=== PATIENT | male | born 1980 | race Caucasian/White ===

== ENCOUNTER 2021-05-01 22:55 | Inpatient (IN) | payer BC, SELFPAY ==
[2021-05-01 22:59] VITALS: BP 163/104; PULSE 69; RESP 18; TEMP 35.9; O2SAT 100; BMI 35.1
--- NOTE | 2021-05-01 22:59 | XRR_ITS ---
PROCEDURE INFORMATION: Exam: XR Chest Exam date and time: 05/01/2021 10:59 PM Age: 41 years old Clinical indication: Pain; Left-sided; Additional info: Cp TECHNIQUE: Imaging protocol: XR of the chest. Views: 1 view. COMPARISON: CT neck wo con [id number] 08/04/2016 3:14 PM FINDINGS: Lungs: No consolidation. Pleural spaces: No pleural effusion. No pneumothorax. Heart/Mediastinum: No cardiomegaly. Bones/joints: Unremarkable. XR/XR chest 1V portable [id number] IMPRESSION: No acute abnormality demonstrated.
--- NOTE | 2021-05-01 23:00 | ECG_ITS ---
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1980 Requested By: Amaury Mckeon Order Number: [id number] Reading MD: JUAN DALE Measurements Intervals [place] Rate: 60 P: 48 WY: 136 QRS: 45 QRSD: 101 T: 31 QT: 372 QTc: 373 Interpretive Statements SINUS RHYTHM SEPTAL MYOCARDIAL INFARCTION , POSSIBLY ACUTE [40+ ms Q WAVE IN V1/V2] MARKED ST ELEVATION, CONSIDER ANTERIOR INJURY [MARKED ST ELEVATION W/O NORMALLY INFLECTED T-WAVE IN V2-V5] ACUTE AK No previous ECG available for comparison Electronically Signed On 05-02-2021 19:55:25 CAKE KNOCKER by JUAN DALE [id number]
--- NOTE | 2021-05-01 23:14 | W.ED.CHESTPA ---
HPI - Chest Pain General: Chief Complaint: Chest Pain Stated Complaint: Chest Pain, Vomiting Time Seen by Provider: 05/01/21 23:10 Source: patient Mode of arrival: ambulatory Limitations: no limitations History of Present Illness: HPI narrative: 41-year-old male states that he started having chest pain along with nausea at 930 states the pain is worsened and currently is a 9 out of 10 he states he had a couple episodes of vomiting at home. No history of heart disease he does have high blood pressure and is a longtime smoker. He has some diaphoresis he denies any worsening or improving factors Associated symptoms: Reports nausea and vomiting; Deny abdominal pain, dyspnea or fever(s) Review of Systems Const: Denies: fever(s), chills, body aches or change in appetite Eyes: Denies: blurry vision or eye discomfort ENMT: Denies: throat pain or dental pain Card: Reports: chest pain Resp: Denies: dyspnea GI: Reports: nausea and vomiting; Denies: abdominal pain or diarrhea : Denies: dysuria Musc: Denies: neck pain or back pain Skin/Breast: Denies: rash Neuro: Denies: headache(s) Psych: Denies: depression Darrius/Lymph: Denies: easy bruising All/Imm: Denies: urticaria Physical Exam Const: COMMON NORMALS: no acute distress, patient oriented x3 and healthy appearing HENMT: COMMON NORMALS: normocephalic and atraumatic HEAD & SCALP: normocephalic and atraumatic Eye: COMMON NORMALS: Equal, round and reactive pupils present and EOMs intact bilaterally PUPIL: Yes Equal, round and reactive pupils present Neck/C-Spine: COMMON NORMALS: full ROM and supple Chest: COMMONS NORMALS: normal inspection of the chest and normal palpation of entire chest wall Resp: COMMON NORMALS: normal respiratory effort, No retractions, No use of accessory muscles and clear to auscultation bilaterally AUSCULTATION: clear to auscultation bilaterally Cardio: COMMON NORMALS: regular rate, regular rhythm and No murmurs present (Cardio) RATE: regular rate RHYTHM: regular rhythm GI: COMMON NORMALS: Normal to inspection, nondistended, normoactive bowel sounds present, Soft to palpation, non-tender and no masses PALPATION: Yes Soft to palpation Extremity: COMMON NORMALS: normal to inspection and full ROM Neuro: COMMON NORMALS: patient oriented x3, moves all extremities and no focal motor deficits Psych: COMMON NORMALS: mental status grossly normal, Normal thought process present and cooperative THOUGHT PROCESS: Normal thought process present Skin: COMMON NORMALS: no rashes or lesions noted and no wounds GENERAL SKIN EXAM: no rashes or lesions noted Course Vital Signs: Vital signs: Vital Signs Temperature 96.6 F L 05/01/21 22:59 Pulse Rate 60 05/01/21 23:39 Respiratory Rate 18 05/01/21 22:59 Blood Pressure 157/96 05/01/21 23:39 Pulse Oximetry 99 05/01/21 23:39 MDM - Chest Pain MDM Narrative: Medical decision making narrative: Patient presents here with an acute STEMI. I called the Production [facility] patient was taken to the Production [facility]ship at this time it [id number]. Patient has been stable while here. Lab Data: Labs: Lab Results 05/01/21 05/01/21 23:15 23:15 WBC 15.4 10^3/uL H 10 ^3/uL (4.0-10.0) RBC 5.75 10^6/uL H 10 ^6/uL (4.1-5.3) Hgb 17.7 g/dL H g/dL (11.7-16.6) Hct 51.1 % % (42.0-52.0) MCV 88.9 fl fl (80-94) MCH 30.8 pg pg (28.0-34.0) MCHC 34.6 g/dL g/dL (30.0-36.0) RDW 12.9 % % (12.1-15.1) Plt Count 261 10^3/cmm 10^3 /cmm (130-400) MPV 10.0 fL fL (7.4-10.4) Neut % (Auto) 66.8 % % Lymph % (Auto) 23.1 % % [place] % (Auto) 7.4 % % Eos % (Auto) 1.4 % % Baso % (Auto) 0.6 % % Neut # (Auto) 10.26 10^3/uL H 1 0^3/uL (1.8-7.7) Lymph # (Auto) 3.6 10^3/uL 10^3/ uL (0.8-4.8) Platte # (Auto) 1.1 10^3/uL H 10^ 3/uL (0.2-0.9) Eos # (Auto) 0.2 10^3/uL 10^3/ uL (0.0-0.8) Baso # (Auto) 0.1 10^3/uL 10^3/ uL (0.0-0.1) Nucleated RBC % (a uto) 0 % % Nucleated RBCs # 0.0 /100WBC /100W BC Sodium 142 mmol/L mmol/L (136-145) Potassium 4.2 mmol/L mmol/L (3.5-5.1) Chloride 101 mmol/L mmol/L (98-107) Carbon Dioxide 23 mmol/L mmol/L (22-29) BUN 10 mg/dL mg/dL (6-20) Creatinine 1.1 mg/dL mg/dL (0.7-1.2) Glucose 98 mg/dL mg/dL (65-115) Calculated Osmolal ity 293 mOsm/kg mOsm/ kg (285-295) Calcium 9.3 mg/dL mg/dL (8.5-10.5) Total Bilirubin 0.4 mg/dL mg/dL (0.15-1.2) AST 24 U/L U/L (0-40) ALT 26 U/L U/L (0-41) Alkaline Phosphata se 48 IU/L IU/L (40-130) Total Protein 7.5 g/dL g/dL (6.6-8.7) Albumin 4.8 g/dL g/dL (3.5-5.2) Globulin 2.7 g/dL g/dL (1.3-4.6) EKG Data^: EKG 1: Attestation: I personally reviewed and interpreted this EKG as follows: EKG interpretation date: 05/22/21 EKG interpretation time: 23:07 Interpretation: nsr hr [address] elevation v1-v3 qrs 101 qtc 373 Critical Care Time Critical Care Time: Critical Care Time: Yes Total Critical Care Time: 35 Attestation: The high probability of a clinically significant, sudden or life threatening deterioration of the patient's [] system(s) required my full and direct attention, intervention and personal management. The critical care time is as shown. This time is in addition to time spent performing any reported procedures but includes the following: [x] Data and vital sign review and interpretation [x] Patient assessment, examination and intervention [x] Documentation [x] Medication orders and management Discharge Plan Discharge Patient Disposition: Admitted As Inpatient Clinical Impression: STEMI (ST elevation myocardial infarction) Qualifiers: Involved coronary artery: unspecified coronary artery Qualified Code(s): I21.3 - ST elevation (STEMI) myocardial infarction of unspecified site Condition: Stable Coding Level of Care Code ED Company Doctor for Rex Fwcelestino Exam Comprehensive
[2021-05-01 23:16] VITALS: BP 170/102; PULSE 65; O2SAT 100
[2021-05-01] MEDS: ticagrelor 90 mg Tablet 180 MG PO (23:20)
[2021-05-01] MEDS: sodium chloride 0.9% 500 ML 999 ML IV (23:21)
[2021-05-01] MEDS: heparin 5,000 unit/mL INJ 1 mL 4000 UNIT IVP (23:21)
[2021-05-01 23:22] LABS: Basophils # 0.1 10^3/uL (0.0-0.1); Basophils % 0.6 %; Eosinophils # 0.2 10^3/uL (0.0-0.8); Eosinophils % 1.4 %; Hematocrit 51.1 % (42.0-52.0); Hemoglobin 17.7 g/dL (11.7-16.6); Lymphocytes # 3.6 10^3/uL (0.8-4.8); Lymphocytes % 23.1 %; Mean Corpuscular HGB Conc 34.6 g/dL (30.0-36.0); Mean Corpuscular Hemoglobin 30.8 pg (28.0-34.0); Mean Corpuscular Volume 88.9 fl (80-94); Monocytes # 1.1 10^3/uL (0.2-0.9); Monocytes % 7.4 %; Neutrophils # 10.26 10^3/uL (1.8-7.7); Neutrophils % 66.8 %; Nucleated Red Blood Cells % 0 %; Platelet Count 261 10^3/cmm (130-400); Red Blood Count 5.75 10^6/uL (4.1-5.3); Red Cell Distribution Width 12.9 % (12.1-15.1); White Blood Count 15.4 10^3/uL (4.0-10.0)
[2021-05-01] MEDS: aspirin 325 mg Tablet PO (23:23)
[2021-05-01] MEDS: nitroglycerin 0.4 mg sublingual Tablet SUBLINGUAL ×2 (23:25→23:36)
[2021-05-01] MEDS: morphine 4 mg/mL SDV 1 mL IM (23:26)
--- NOTE | 2021-05-01 23:30 | PM.HP ---
Providers/Chief Complaint Admitting Physician: Keon Beaulieu MD Chief Complaint: Chest Pain, Vomiting History of Present Illness Panfilo Ervin is a 41 year old male past medical history is continues tobacco abuse family history of heart problem presented with chest pain which initially felt like heartburn 2 hours in duration. Upon arrival EKG was suggestive of anterior ST elevation [place] with hyperacute T waves. I responded to STEMI pager and saw the patient he appeared to be in moderate to severe chest pain. He is loaded with ticagrelor aspirin and given heparin. We are planning to take him to [facility] now. Patient and family by bedside has been explained all risk benefit and alternative for the procedure they understand risk of stroke major minor bleed contrast-induced nephropathy urgent emergent bypass or vascular surgery and transfusion. They would like to proceed with it. Review of Systems Const: Denies: fever(s), chills, body aches or change in appetite Eyes: Denies: blurry vision or eye discomfort ENMT: Denies: throat pain or dental pain Card: Reports: chest pain Resp: Denies: dyspnea GI: Reports: nausea and vomiting; Denies: abdominal pain or diarrhea : Denies: dysuria Musc: Denies: neck pain or back pain Skin/Breast: Denies: rash Neuro: Denies: headache(s) Psych: Denies: depression Darrius/Lymph: Denies: easy bruising All/Imm: Denies: urticaria Vitals/I&O/Wt Last Vital Signs Temp 96.6 F L 05/01/21 22:59 Pulse 65 05/01/21 23:16 Resp 18 05/01/21 22:59 BP 170/102 05/01/21 23:16 Pulse Ox 100 05/01/21 23:16 Weight last 48 hrs Weight 259 lb Physical Exam Narrative: EXAM NARRATIVE: GENERAL: Patient is alert, awake and oriented x3. Patient is moderate to severe distress NECK: No jugular vein distension. HEENT: No cyanosis. No icterus. No pallor. HEART: Regular S1 and S2. No murmur, rub or gallop. LUNGS: Clear to auscultate bilaterally. ABDOMEN: Soft, nontender and nondistended. Positive bowel sounds. No guarding, rebound or tenderness. CENTRAL NERVOUS SYSTEM: Grossly nonfocal. EXTREMITIES: Lower extremities without edema bilaterally. Data : 05/01/21 23:15 12/15/21 23:15 A&P Assessment and plan (1) STEMI (ST elevation myocardial infarction): We will proceed with left heart cath/PCI if indicated. Status: Acute Qualifiers: Involved coronary artery: LAD coronary artery Qualified Code(s): I21.02 - ST elevation (STEMI) myocardial infarction involving left anterior descending coronary artery (2) HTN, goal below 130/80: I will start patient on nitro drip since blood pressure is elevated. Status: Acute Attestations Medical Necessity Statement*: I am expecting his stay to cross more than 2 midnights Coding Level of Care Code Acute Marketing Operations Intern for [facility] Fwd Diagnoses STEMI (ST elevation myocardial infarction) I21.02 Involved coronary artery: LAD coronary artery HTN, goal below 130/80 I10
[2021-05-01 23:32] VITALS: BP 153/85; PULSE 71; O2SAT 97
[2021-05-01] MEDS: nitroglycerin drip 50 MG/250 ML PREMIX 15 MG IV (23:35)
[2021-05-01] MEDS: ondansetron 2 mg/ML SDV 2 mL 4 MG IVP (23:36)
[2021-05-01 23:39] VITALS: BP 157/96; PULSE 60; O2SAT 99
[2021-05-01 23:43] LABS: Troponin(5th) Baseline 27 ng/L (0-15)
[2021-05-01 23:46] LABS: Alanine Aminotransferase 26 U/L (0-41); Albumin Level 4.8 g/dL (3.5-5.2); Alkaline Phosphatase 48 IU/L (40-130); Anion Gap 22.2 (5-19); Aspartate Amino Transferase 24 U/L (0-40); Blood Urea Nitrogen 10 mg/dL (6-20); Calcium 9.3 mg/dL (8.5-10.5); Carbon Dioxide 23 mmol/L (22-29); Chloride 101 mmol/L (98-107); Globulin 2.7 g/dL (1.3-4.6); Glomerular Filtration Rate 74.1 mL/min (90-130); Glucose 98 mg/dL (65-115); Osmolality Calculated 293 mOsm/kg (285-295); Potassium 4.2 mmol/L (3.5-5.1); Sodium 142 mmol/L (136-145); Total Bilirubin 0.4 mg/dL (0.15-1.2); Total Protein 7.5 g/dL (6.6-8.7)
--- NOTE | 2021-05-01 23:49 | XACV_ITS ---
Ht: 188 cm Wt: 117 kg BSA: 2.51 m2 Gender: Male : 1980 Exam Priority: Routine Procedure(s): Procedure Description: Diagnostic procedure Procedure Description: PCI procedure Procedure Description: Left Heart Catheterization Procedure Description: Drug Eluting Coronary Stent Procedure Description: PTCA Procedure Description: Miscellaneous Procedure Description: ACT Procedure [facility] Cath Status: Emergency Diagnostic Findings * Left Main has no disease. * Circumflex has no disease. * Right Coronary Artery has no disease. * Mid Left Anterior Descending: total occlusion, PETER: 0 flow. * Coronary angiography shows left dominance. PCI Status: Emergency PCI Indication: STEMI - Immediate PCI for STEMI Interventional Findings * Mid Left Anterior Descendin% stenosis treated with a Drug Eluting Stent. 0% residual stenosis, PETER: 3 flow. Conclusions 1. There is total occlusion coronary artery disease with one vessel disease. 2. Mid Left Anterior Descending was treated with a Drug Eluting Stent. Recommendations * Continue current medical management and risk factor modification. Interventional RX Recommendation: PCI w/o planned CABG Diagnostic RX Recommendation: PCI w/o planned CABG Pressures Phase:Rest AO : 154 / 99 ( 122 ) @ 6:41:56 PM 147 / 119 ( 133 ) @ 6:41:56 PM 144 / 96 ( 107 ) @ 6:41:56 PM 144 / 96 ( 113 ) @ 6:41:56 PM LV : 173 / 0 / 25 @ 6:41:56 PM 167 / 0 / 24 @ 6:41:56 PM Valves Phase:DefaultPhase AV : 28.0 @ 12:41:56 AM 28.0 @ 12:41:56 AM AV Mean Gradient: 18.0 @ 12:41:56 AM 18.0 @ 12:41:56 AM Clinical Evaluation EBL: 5mL-10mL Procedural Details Pre-Procedure Time Out. Identified patient by full name and date of as verbalized by the patient/guarantor. Does the consent match the physician's order: Yes. Accurate & Complete Informed Consent: Yes. Inpatient/Outpatient History & Physical on Chart: Yes. If H&P is completed, is and addenduem needed: N/A Emergent; If yes, is the addendum complete: N/A Emergent. Visualize and Verify Site with Patient/Guarantor: N/A. Relevant Radiology Images available: N/A. Pre-op teaching completed and patient verbalized understanding. The risks, benefits, and alternatives of sedation and/or procedure were discussed by physician. The patient agrees to continue. Procedure started. [facility] Clinical Fraility Score: 2: Well. Molder Hand Indications: ACS > 24 hours. Chest Pain Symptom Assessment: Atypical Angina. Correct patient, site and procedure confirmed by cath team. Current diagnosis: STEMI. PERRLA. 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 Lungs clear x 5 lobes. IV Site on Arrival: 20 gauge in the left anticubital. IV Site on Arrival: 20 gauge in the right anticubital. IV Fluids: 0.9% NaCl at KVO. 0 mL infused prior to laborer electroplating. Pre Procedural Pulses: bilateral radial was 3+. Oxygen started at 2liters/min via nasal canula. right groin was prepped with chloroprep then draped in the usual sterile fashion. Physician notified. Baseline sample Acquired. HR: 62 BPM. Physician arrived. Physician scrubbed in. Immediate Pre-Procedure Time Out. Correct Patient: Yes; Correct Procedure: Yes; Correct Site: Yes; Correct Patient Position: Yes; Correct Supplies: Yes; Dried Flammable Prep: Yes; Blood Products Available: n/a. Lidocaine 1% infiltrated to the right radial. Admit Source: Emergency department. Arterial access obtained. Delay in PCI related to other reason: system delay. 6 burundian XB 3.5 guide catheter was inserted over the wire. Multiple views taken of left coronary artery. Inflation number : 1 A AB TREK 2.50X15 RX BALLOON was prepped and advanced across the Prox LAD , then inflated to 20 FLOYD for 0:10 seconds. Inflation number: 2 The AB TREK 2.50X15 RX BALLOON was reinflated across the Prox LAD, to 20 FLOYD for 0:24 seconds. Balloon out. Wire out. [place] guidewire was advanced through the guide catheter to lesion in the prox LAD. Runthrough guidewire was advanced through the guide catheter to lesion in the prox LAD. Stent inserted to lesion in the prox LAD. Inflation Number : 3 A MDT R HEENA 3.0X18 RADHA -Lot Number# [id number] Exp 01/27/2024 was prepped and advanced across the Prox LAD. The stent was deployed at 12 FLOYD for 0:17 seconds. Stent balloon out over wire. Results checked. Inflation number : 4 A MDT NC EUPHORA RX [id number] BALLOON was prepped and advanced across the Prox LAD , then inflated to 14 FLOYD for 0:27 seconds. Balloon inserted to lesion in the prox LAD. Inflation number: 5 The MDT NC EUPHORA RX [id number] BALLOON was reinflated across the Prox LAD, to 14 FLOYD for 0:17 seconds. Balloon inserted to lesion in the prox LAD. Balloon out. Results checked. Wire out. ACT drawn. Results 193 seconds. Therapeutic limits - pre-heparin administration 90-150 seconds and monitoring heparin during a vascular procedure >250 seconds. Guide catheter out. A 5 burundian JR4 catheter in over wire. EDP Sample taken: LV 173/0,25; HR: 60 BPM; SpO2: 98%. Pullback taken: LV 167/-1,24; AO 144/96(107); Mean: 18mmHg, Peak to Peak: 28mmHg, SEP: 16sec/min; HR: 67 BPM; SpO2: 98%. Multiple views taken of right coronary artery. Catheter out. A TR Band was successful obtaining hemostatsis at the Right Radial artery insertion site. Post Procedure: Pulses reassessed and unchanged. PERRLA. 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 No VTE prophylaxis required. Medication's Wasted: Lidocaine 1% = 18 mL. Medication's Wasted: Nitro = 49.8 mg. Total IV fluids: 100 mL. Post-op diagnosis: STEMI. Complications: none. Estimated blood loss: 5mL-10mL. Responsiveness - Normal response to verbal stimuli; alert and oriented, PERRLA. Airway - Unaffected, no intervention required; spontaneous ventilation. Circulation: W/N/L, pulses unchanged. Nausea/Vomiting: No. Procedure completed. Patient transferred by wheelchair to 1st floor. Vital chart was stopped. Access Site Site: Right Radial artery Sheath Size: 6 Fr Hemostasis Method: TR Band Hemostasis Success: Successful Procedure Medications Start: 11:59 PM Stop: 11:59 PM Medication: Versed Amount: 1 mg Route: I.V. Start: 11:59 PM Stop: 11:59 PM Medication: Fentanyl Amount: 50 mcg Route: I.V. Start: 12:10 AM Stop: 12:10 AM Medication: Versed Amount: 1 mg Route: I.V. Start: 12:10 AM Stop: 12:10 AM Medication: Fentanyl Amount: 50 mcg Route: I.V. Start: 12:09 AM Stop: 12:09 AM Medication: Nitrogylcerin Amount: 200 mcg Route: I.A. Start: 12:12 AM Stop: 12:12 AM Medication: Heparin Amount: 6000 units Route: I.V. Start: 12:19 AM Stop: 12:19 AM Medication: Aggrastat 12.5 mg/250 mL Amount: 60 ml Route: I.V. bolus Start: 12:20 AM Stop: 12:20 AM Medication: Versed Amount: 1 mg Route: I.V. Start: 12:20 AM Stop: 12:20 AM Medication: Fentanyl Amount: 50 mcg Route: I.V. Start: 12:23 AM Stop: 12:23 AM Medication: Aggrastat 12.5 mg/250 mL Amount: 21.6 ml/hr Route: I.V. drip Start: 12:24 AM Stop: 12:24 AM Medication: Heparin Amount: 2000 units Route: I.V. Start: 12:27 AM Stop: 12:27 AM Medication: Versed Amount: 1 mg Route: I.V. Start: 12:27 AM Stop: 12:27 AM Medication: Fentanyl Amount: 50 mcg Route: I.V. Start: 12:33 AM Stop: 12:33 AM Medication: Heparin Amount: 3000 units Route: I.V. I, the attending physician, have reviewed and verified all procedure medications. Yes, all medications given per verbal order Report Signatures Finalized by Keon Beaulieu MD on 05/07/2021 07:22 PM
--- NOTE | 2021-05-01 23:58 | PC.NURSE ---
Medications over ridden from pyxis due to emergency.
[2021-05-02] VITALS (26 sets, daily range): BP systolic 124–157; BP diastolic 81–97; PULSE 60–135; RESP 10–26; TEMP 36.7; O2SAT 92–99; BMI 35.1
[2021-05-02] MEDS: nitroglycerin drip 50 MG/250 ML PREMIX 15 MG IV
--- NOTE | 2021-05-02 00:43 | USCV_ITS ---
Panfilo Ervin Age: 41 Gender: M : 1980 Exam Date: 05/02/2021 06:35 Ordering Phys: Keon Beaulieu MD ([email or web address]) Technologist: Ericka Aparicio Exam Location: [facility] Indication: STEMI BP: 153 / 94 HR: 68 Rhythm: Sinus Technical Quality: Adequate MEASUREMENTS (Male / Female) Normal Values 2D ECHO LV Diastolic Diameter PLAX 5.5 cm 4.2 - 5.9 / 3.9 - 5.3 cm LV Systolic Diameter PLAX 3.7 cm IVS Diastolic Thickness 1.1 cm 0.6 - 1.0 / 0.6 - 0.9 cm IVS Systolic Thickness 2.3 cm LVPW Diastolic Thickness 1.5 cm 0.6 - 1.0 / 0.6 - 0.9 cm LVPW Systolic Thickness 2.5 cm LVOT Diameter 2.0 cm LV Ejection Fraction MOD 2C 48.9 % LV Ejection Fraction 2C AL 48.5 % LA Diameter 4.1 cm LA Width 3.5 cm LA Height 3.7 cm RA Width 3.0 cm RA Height 3.9 cm Aorta at Sinotubular Diameter 2.7 cm M-MODE Aortic Annulus Diameter 3.1 cm LA Ao Ratio MM 1.3 MV E Point Septal Separation 0.4 cm DOPPLER AV Peak Velocity 147.0 cm/s LVOT Peak Velocity 108.0 cm/s AV Area Cont Eq vti 2.7 cm squared AV Area Cont Eq pk 2.3 cm squared MV Peak Velocity 94.0 cm/s MV Area PHT 4.5 cm squared Mitral E to A Ratio 1.4 MV E' Velocity 49.5 cm/s Mitral E to MV E' Ratio 9.1 Mitral E to LV E' Lateral Ratio 9.4 Mitral E to LV E' Septal Ratio 8.9 TR Peak Velocity 282.2 cm/s TR Peak Gradient 31.9 mmHg TR Mean Velocity 227.6 cm/s TR Mean Gradient 22.4 mmHg TR Velocity Time Integral 82.5 cm TV Peak E Velocity 62.0 cm/s Right Atrial Pressure 3.0 mmHg Pulmonary Artery Systolic Pressu 34.9 mmHg PV Peak Velocity 87.0 cm/s RV Acceleration Time 0.1 s RV Ejection Time 0.3 s RV AcT/ET 0.4 FINDINGS Left Ventricle Mildly increased left ventricular cavity size. Moderately decreased left ventricular systolic function. Left ventricular ejection fraction is estimated at 40 %. Mid to distal septal anterior and apical wall akinesis suggestive of myocardial infarction and LAD territory.Grade II/IV diastolic dysfunction, moderately elevated filling pressures. Right Ventricle The right ventricle is normal in size and function.RVSP could not be calculated due to incomplete tricuspid regurgitation velocity profile. Right Atrium The right atrium is normal in size. Left Atrium The left atrium is normal in size. Mitral Valve Structurally normal mitral valve without significant stenosis or prolapse. There is no mitral regurgitation. Aortic Valve Structurally normal aortic valve without significant sclerosis or stenosis. There is no aortic regurgitation. Tricuspid Valve Structurally normal tricuspid valve without significant stenosis or regurgitation. Pulmonic Valve Structurally normal pulmonic valve without significant stenosis. There is no pulmonic regurgitation. Pericardium Normal pericardium without effusion. Aorta Normal ascending aorta dimension. CONCLUSIONS 1-Mildly increased left ventricular cavity size. Moderately decreased left ventricular systolic function. Left ventricular ejection fraction is estimated at 40 %. Mid to distal septal anterior and apical wall akinesis suggestive of myocardial infarction and LAD territory.Grade II/IV diastolic dysfunction, moderately elevated filling pressures. 2-There is no pericardial effusion. 3-No significant valve abnormalities. 4-The right ventricle is normal in size and function.RVSP could not be calculated due to incomplete tricuspid regurgitation velocity profile. 5-Right atrial pressure is around 5 mm of mercury. 6-There are no prior echocardiogram studies to compare. Keon Beaulieu MD (Electronically Signed) Final Date: 02 May 2021 19:39 S
--- NOTE | 2021-05-02 00:49 | P.PCN_ITS ---
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 It was treated with balloon angioplasty followed by single drug-eluting stents, excellent angiographic result with PETER-3 flow was restored. Left main circumflex and nondominant RCA did not have any significant stenosis. Full report to follow Coding Level of Care Code Acute Stunner And Shackler for Rex Marcos
--- NOTE | 2021-05-02 01:00 | ECG_ITS ---
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1980 Requested By: Amaury Mckeon Order Number: [id number] Reading MD: JUAN DALE Measurements Intervals [place] Rate: 78 P: 60 MD: 144 QRS: 60 QRSD: 97 T: 54 QT: 375 QTc: 428 Interpretive Statements SINUS RHYTHM WITH SINUS ARRHYTHMIA POSSIBLE LEFT ATRIAL ENLARGEMENT [-0.1mV P WAVE IN V1/V2] ANTERIOR MYOCARDIAL INFARCTION , PROBABLY RECENT [40+ ms Q WAVE AND/OR ST/T ABNORMALITY IN V3/V4] ACUTE LA Compared to ECG 05/01/2021 23:07:19 ST (T wave) deviation no longer present Myocardial infarct finding still present Electronically Signed On 05-02-2021 19:56:30 RIBBON HAND by JUAN DALE [email or web address]
--- NOTE | 2021-05-02 01:22 | PC.NURSE ---
Admit Note Patient admitted to CSU room 105 from research lab assistant via wheelchair. Patient is s/p STEMI with PCI. Dr Beaulieu in the room. Discussed plan to discontinue Aggrastat at 0200 as well as fluids. Patient has TR band in place to right wrist. No s/s of bleeding or hematoma formation. Pulses palpable with warm pink extremity. Orders reviewed & will continue to monitor. Patient and/or customer assistance representative oriented to environment, equipment, and informed of the following as found in the admission booklet: patient rights & responsibilities, visitor policy, hand and respiratory hygiene practice. Other education includes: Brilinta and site care with restrictions. Patient verbalized complete understanding.
[2021-05-02] MEDS: atorvastatin 40 mg Tablet 80 MG PO ×2 (02:09→20:13)
--- NOTE | 2021-05-02 02:27 | PC.NURSE ---
Aggrastat stopped per Dr Beaulieu.
[2021-05-02 03:38] LABS: Chol HDL Ratio 3.52 mg/dL (1.0-5.00); Cholesterol 162 mg/dL (0-200); HDL Cholesterol 46 mg/dL (60-100); LDL Cholesterol Calculated 105 mg/dL (50-129); LDL HDL Ratio 2.28 RATIO (0.00-3.22); Triglycerides 54 mg/dL (0-150)
[2021-05-02 03:55] LABS: Troponin 5 2HR 9205 ng/L (0-15); Troponin 5 2HR Delta 9178 ABS# (0-10)
--- NOTE | 2021-05-02 04:07 | PC.NURSE ---
Initiated air removal from TR band at 0200 removing 2ml of air every 15-20min until all air removed. No s/s of bleeding or hematoma formation observed. Bruising is noted to the site with tenderness to touch. Covered site with 2x2 and coban. Reinforced education regarding site care and restrictions. Also instructed on Brillinta, Lipitor, Aspirin and possible beta-josiah use. Patient verbalized complete understanding to all instructions. Patient c/o dull ache to chest but stated, I feel much better than I did when I came to the hospital. No other distress observed. Will continue to monitor.
--- NOTE | 2021-05-02 05:00 | ECG_ITS ---
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1980 Requested By: Amaury Mckeon Order Number: [id number] Reading MD: JUAN DALE Measurements Intervals [place] Rate: 70 P: 56 [place]: 139 QRS: 51 QRSD: 96 T: 46 QT: 392 QTc: 423 Interpretive Statements SINUS RHYTHM WITH OCCASIONAL VENTRICULAR PREMATURE COMPLEXES POSSIBLE LEFT ATRIAL ENLARGEMENT [-0.1mV P WAVE IN V1/V2] ANTERIOR MYOCARDIAL INFARCTION , PROBABLY RECENT [40+ ms Q WAVE AND/OR ST/T ABNORMALITY IN V3/V4] ACUTE OK Compared to ECG 05/02/2021 03:15:08 Ventricular premature complex(es) now present Sinus arrhythmia no longer present Myocardial infarct finding still present Electronically Signed On 05-02-2021 19:56:28 IRON ERECTOR by JUAN DALE [id number]
--- NOTE | 2021-05-02 06:05 | PC.NURSE ---
Shift Note Frequent safety and comfort rounds continue. Orders and/or nursing care completed as indicated. Patient monitored for response to intervention and treatment(s). Education provided includes new medications as documented earlier and post cath site care. Patient verbalized complete understanding. Dressing to right wrist remains c,d,i with no s/s of bleeding or hematoma formation observed. Patient reports feeling better. No distress observed. Will continue to monitor.
[2021-05-02] MEDS: aspirin 81 mg EC Tablet PO (09:31)
[2021-05-02] MEDS: ticagrelor 90 mg Tablet PO ×2 (09:31→17:39)
--- NOTE | 2021-05-02 13:11 | ECG_ITS ---
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1980 Requested By: Keon Beaulieu Order Number: [id number] Reading MD: KEON BEAULIEU Measurements Intervals [place] Rate: 66 P: 59 MO: 129 QRS: 52 QRSD: 96 T: 64 QT: 410 QTc: 430 Interpretive Statements SINUS RHYTHM ANTEROSEPTAL MYOCARDIAL INFARCTION , PROBABLY RECENT [40+ ms Q WAVE IN V1-V4] ACUTE FL Compared to ECG 05/02/2021 04:51:54 Ventricular premature complex(es) no longer present Myocardial infarct finding still present Electronically Signed On 05-02-2021 19:56:11 SHANK INSPECTOR by KEON BEAULIEU [id number]
[2021-05-02] MEDS: nitroglycerin 0.4 mg sublingual Tablet SUBLINGUAL ×2 (13:29→13:40)
[2021-05-02] MEDS: HYDROcodone-acetaminophen 5-325 mg Tablet 1 TAB PO (13:30)
[2021-05-02] MEDS: metoprolol succinate ER (24 HR) 25 mg Tablet 12.5 MG PO (14:55)
[2021-05-02] MEDS: lisinopril 5 mg Tablet PO (17:39)
[2021-05-02] MEDS: ketorolac 30 mg/mL INJ 15 MG IVP (17:41)
--- NOTE | 2021-05-02 18:45 | PM.PN ---
Subjective Subjective: Interval history: S/p PCI patient has slight soreness in the chest otherwise doing fine. Medications: Reviewed: Yes Vitals/I&O/Wt Last Vital Signs Temp 98.0 F 05/02/21 11:59 Pulse 64 05/02/21 18:14 Resp 15 05/02/21 18:14 BP 138/85 05/02/21 11:59 Pulse Ox 98 05/02/21 18:14 05/02/21 05/02/21 05/02/21 06:59 14:59 22:59 Intake Total 1536.85 / 1536.85 360 / 360 860 / 1220 Output Total 875 / 875 600 / 600 Balance 661.85 / 661.85 -240 / -240 860 / 620 Weight last 48 hrs Weight 258 lb 11.2 oz Weight 259 lb Physical Exam Narrative: EXAM NARRATIVE: GENERAL: Patient is alert, awake and oriented x3. NECK: No jugular vein distension. HEENT: No cyanosis. No icterus. No pallor. HEART: Regular S1 and S2. No murmur, rub or gallop. LUNGS: Clear to auscultate bilaterally. ABDOMEN: Soft, nontender and nondistended. Positive bowel sounds. No guarding, rebound or tenderness. CENTRAL NERVOUS SYSTEM: Grossly nonfocal. EXTREMITIES: Lower extremities without edema bilaterally. Data : 05/01/21 23:15 05/01/21 23:15 A&P Assessment and plan (1) STEMI (ST elevation myocardial infarction): Status post PCI to proximal LAD with drug-eluting stent. We will add beta-josiah and asymmetry continue aspirin statin. Echocardiogram pending Status: Acute Qualifiers: Involved coronary artery: unspecified coronary artery Qualified Code(s): I21.3 - ST elevation (STEMI) myocardial infarction of unspecified site (2) HTN, goal below 130/80: Appear to be stable. Status: Acute Attestations Medical Necessity Statement*: patient require continuation hospitalization for above defined care. 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
--- NOTE | 2021-05-02 19:12 | PC.NURSE ---
Shift Note 1330 to 1400 pm-Pt reports of chest discomfort like heartburn rated at 5/10 per scale. EKG taken. 2 doses of Nitro SL given prn per protocol and then he refused the 3rd dose due to headache. Hydrocodone given. Dr. Beaulieu at bedside, verbal orders received to give metoprolol ER 12.5 mg now and Lisinopril 5 mg daily, one time 15 mg of Toradol IVP. Frequent safety and comfort rounds continue. Orders and/or nursing care completed as indicated. Patient monitored for response to intervention and treatment(s). Education provided includes post heart attack s/s and mgt and treatments, lisinopril, metoprolol, brilinta. Patient and/or customer support representative verbalizes understanding . Will continue to monitor.
--- NOTE | 2021-05-02 19:26 | PC.NURSE ---
Received report from DEBBY Garay. Patient resting in bed watching TV. Patient stated, the last dose of pain medication (Toradol) worked great. Mostly pain free presently. Patient is requesting something for sleep. Will medications as ordered. Instructed patient on new medications. Patient verbalized complete understanding. No other distress observed. Will continue to monitor.
[2021-05-02] MEDS: sertraline 50 mg Tablet 25 MG PO (20:13)
[2021-05-02] MEDS: temazepam 15 mg Capsule PO (20:13)
[2021-05-03 00:21] VITALS: BP 151/77; PULSE 59; RESP 17; O2SAT 96
[2021-05-03 03:39] LABS: Basophils # 0.1 10^3/uL (0.0-0.1); Basophils % 0.4 %; Eosinophils # 0.1 10^3/uL (0.0-0.8); Eosinophils % 0.8 %; Hematocrit 49.5 % (42.0-52.0); Hemoglobin 16.8 g/dL (11.7-16.6); Lymphocytes # 2.6 10^3/uL (0.8-4.8); Lymphocytes % 18.2 %; Mean Corpuscular HGB Conc 33.9 g/dL (30.0-36.0); Mean Corpuscular Hemoglobin 30.7 pg (28.0-34.0); Mean Corpuscular Volume 90.3 fl (80-94); Mean Platelet Volume 10.3 fL (7.4-10.4); Monocytes % 7.3 %; Neutrophils # 10.27 10^3/uL (1.8-7.7); Neutrophils % 72.5 %; Nucleated Red Blood Cells % 0 %; Platelet Count 192 10^3/cmm (130-400); Red Blood Count 5.48 10^6/uL (4.1-5.3); Red Cell Distribution Width 12.9 % (12.1-15.1); White Blood Count 14.2 10^3/uL (4.0-10.0)
[2021-05-03 03:41] VITALS: BP 111/70; PULSE 77; RESP 24; TEMP 36.7; O2SAT 97
[2021-05-03 03:59] LABS: Blood Urea Nitrogen 11 mg/dL (6-20); Calcium 8.4 mg/dL (8.5-10.5); Carbon Dioxide 22 mmol/L (22-29); Chloride 103 mmol/L (98-107); Glomerular Filtration Rate 93.5 mL/min (90-130); Glucose 105 mg/dL (65-115); Osmolality Calculated 286 mOsm/kg (285-295); Sodium 138 mmol/L (136-145)
--- NOTE | 2021-05-03 05:37 | PC.NURSE ---
Shift Note Frequent safety and comfort rounds continue. Orders and/or nursing care completed as indicated. Patient monitored for response to intervention and treatment(s). Education provided includes Brillinta and Anabellil. Patient verbalized complete understanding. No ectopy noted to telemetry over night. Patient denies pain presently. Dressing to right wrist remain c,d,i with no s/s of bleeding or hematoma formation. No distress observed. Will continue to monitor.
[2021-05-03 06:00] VITALS: PULSE 71
[2021-05-03] MEDS: ticagrelor 90 mg Tablet PO (08:43)
[2021-05-03] MEDS: aspirin 81 mg EC Tablet PO (08:43)
[2021-05-03] MEDS: metoprolol succinate ER (24 HR) 25 mg Tablet 12.5 MG PO (08:43)
[2021-05-03 08:47] VITALS: BP 127/73; PULSE 68; RESP 18; TEMP 36.6; O2SAT 96
--- NOTE | 2021-05-03 11:26 | P.DS_ITS ---
Discharge Providers Date of Admission: 05/02/21 00:54 Date of Discharge: May 03, 2021 Attending Provider at Admission: Keon Beaulieu MD Attending Provider at Discharge: Keon Beaulieu MD Primary Care Provider: Poppy Fernandez Diagnoses at Discharge Discharge Diagnosis (1) STEMI (ST elevation myocardial infarction): Status: Resolved Qualifiers: Involved coronary artery: unspecified coronary artery Qualified Code(s): I21.3 - ST elevation (STEMI) myocardial infarction of unspecified site (2) HTN, goal below 130/80: Status: Acute Reason for Visit Reason for Visit: Chest Pain, Vomiting Hospital Course Hospital Course 41-year-old male presented with ST elevation NJ of the anterior wall was taken to the Home Staging Specialist noted to have completely occluded proximal LAD it was treated with drug-eluting stent accident angiographic result with PETER-3 flow was achieved. Over next 24 hours patient medicine was optimized he is doing fine from cardiovascular perspective and stable vital roman he would like to go home. He will be discharged home Physical Exam Narrative: EXAM NARRATIVE: GENERAL: Patient is alert, awake and oriented x3. NECK: No jugular vein distension. HEENT: No cyanosis. No icterus. No pallor. HEART: Regular S1 and S2. No murmur, rub or gallop. LUNGS: Clear to auscultate bilaterally. ABDOMEN: Soft, nontender and nondistended. Positive bowel sounds. No guarding, rebound or tenderness. CENTRAL NERVOUS SYSTEM: Grossly nonfocal. EXTREMITIES: Lower extremities without edema bilaterally. Discharge Data Data Completed and Pending: Completed Studies During Hospitalization Category Date Time Status XR chest 1V gabbi ble [id number] Stat Exams 05/01/21 22:59 Completed CV. 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 AGENT request for service Routin e Exams 05/01/21 23:49 Taken Labs from last 24 hours 05/03/21 05/03/21 03:08 03:08 WBC 14.2 H RBC 5.48 H Hgb 16.8 H Hct 49.5 MCV 90.3 MCH 30.7 MCHC 33.9 RDW 12.9 Plt Count 192 MPV 10.3 Neut % (Auto) 72.5 Lymph % (Auto) 18.2 Hale % (Auto) 7.3 Eos % (Auto) 0.8 Baso % (Auto) 0.4 Neut # (Auto) 10.27 H Lymph # (Auto) 2.6 Hale # (Auto) 1.0 H Eos # (Auto) 0.1 Baso # (Auto) 0.1 Nucleated RBC % (a uto) 0 Nucleated RBCs # 0.0 Sodium 138 Potassium 4.0 Chloride 103 Carbon Dioxide 22 Anion Gap 17.0 BUN 11 Creatinine 0.9 GFR Calculation 93.5 Glucose 105 Calculated Osmolal ity 286 Calcium 8.4 L Vitals: Last Vital Signs Temp 97.8 F 05/03/21 08:47 Pulse 68 05/03/21 08:47 Resp 18 05/03/21 08:47 BP 127/73 05/03/21 08:47 Pulse Ox 96 05/03/21 08:47 Discharge Plan Discharge Patient Disposition: Home Condition: Stable Prescriptions: New atorvastatin 40 mg Tablet 80 mg PO BEDTIME Qty: 90 RF: 4 aspirin 81 mg Tablet,Delayed Release (Dr/Ec) 81 mg PO DAILY Qty: 90 RF: 3 lisinopril 5 mg Tablet 5 mg PO 1800 Qty: 90 RF: 4 Brilinta 90 mg Tablet 90 mg PO BID Qty: 240 RF: 4 Coreg 3.125 mg tablet 3.125 mg PO BID Qty: 60 RF: 5 Continued sertraline 25 mg Tablet 25 mg PO BEDTIME RF: 0 Discharge Orders: Discharge Order (Routine); Ordered 05/03/21 Ordered By: eKon Beaulieu Referrals: Keon Beaulieu MD [Physician] - 06/10/21 1:30 pm (You will have an appointment with Dr. Beaulieu on June 10Thursday at 1:30 PM. If you need to reschedule the appt please call their clinic. Thank You.) Natalya Ortiz FNP [Nurse Practitioner] - 05/09/21 1:00 pm (You will have an appointment with Natalya Ortiz Nurse Practitioner on May 09 at 1 PM for ff-up check up. If you have any questions or concerns pls call their clinic.) Discharge Diet: Cardiac Discharge Activity: Increase activity as tolerated Patient Instructions: Lisinopril (By mouth), Aspirin (By mouth), Atorvastatin (By mouth), Carvedilol (By mouth), Ticagrelor (By mouth) (Brilinta), Heart Attack (DC), Coronary Angioplasty (DC), Acute Coronary Syndrome (DC), Cardiac Rehabilitation (DC), Post Angiogram Home Care Instructions, Post Heart Attack Stoplight Activity Restrictions/Additional Instructions: keep a log of your BP twice a day and you can bring it to your doctor's appointments. Monitor for any concerns and follow-up with Ms. Natalya Ortiz in 7 days, we will assess you and then released you for work. Do not interrupt Brilinta or aspirin for next [address] Beaulieu will see you in 4 to 6 weeks Discharge Attestations Time Spent in Discharge Care*: greater than 30 min Specific Discharge Activities: educating and/or supporting family/caregiver Time Spent in Smoking Cessation: 3 to 10 minutes Quality Metrics Clinical Quality Measures During this hospital stay, did patient experience: AMI Clinical Trial Partic ipant: No Contraindication to aspirin (AMI): Aspirin given Contraindication to statin: Statin prescribed Coding Level of Care Code Established Pt Acute Chg FW DC note Patient Type Established History Comprehensive Exam Comprehensive Medical Decision Making Moderate Complexity Diagnoses STEMI (ST elevation myocardial infarction) I21.3 Involved coronary artery: unspecified coronary artery HTN, goal below 130/80 I10
[2021-05-03 12:12] VITALS: BP 141/85; PULSE 69; RESP 12; O2SAT 96
--- NOTE | 2021-05-03 12:12 | PC.NURSE ---
Meds to Bed called [facility] pharmacy.
--- NOTE | 2021-05-03 12:46 | PC.CHAP ---
Pastoral Care Encounter/Spiritual Assessment Type of Contact [] Declined hotel maintenance engineer visit [] Patient/Family/Request visit [] Outpatient visit [] Follow-up visit [] Physician referral [] Code/Alert [xx] Routine visit [] Staff referral [] Actively dying [] Patient sleeping [] Family support [] [] Out of room [] Palliative care [] [] Receiving care in room [] Pre-surgical visit [] Trauma [] Long length of stay [] ICU visit [] Other: Relational/Emotional Strength [xx] Patient feels connected with others/family/visitors/staff [] Distress [] Loneliness/isolation [] Abandonment Spirituality of Patient [] Person of Pippa [] Attends Confucianist of their Pippa [xx] Believes in Prayer [] Reads Bible or Gnosticism materials [] There are Spiritual issues to be addressed Site Lead Interventions [xx] Prayer [xx] Active listening [xx] Non-anxious presence [] Spiritual/emotional support [] Crisis/trauma care [] Spiritual counseling [] Bereavement support [] Provided bereavement packet [] Provided Bible/devotional materials [] Provided toy/stuffed animal, coloring book to patient or family member [] Provided Communion [] Anointing/Tate [] Salvation [xx] Completed spiritual assessment [] Other: Impact on Illness or Injury [] Angry [] Fearful [] Anxious [] Often cries [] Exhaustion [] Unable to work [] Unable to attend denominational [] Unable to walk/stand [] Unable to read [] Unable to drive [] Unable to eat/drink [] Unable to sleep [] Unable to be with family [] Patient intubated [] Other: Summary Patient is feeling much better and is up and walking for exercise. Time spent with patient 3 minutes
[2021-05-03 13:07] VITALS: BP 141/85; PULSE 68; RESP 13; TEMP 36.8
--- NOTE | 2021-05-03 13:45 | PC.NURSE ---
meds to bed delivered inpt pharmacist Elio in room with med education as well.
== END 2021-05-03 13:45 | disposition home or self-care (01) | DRG 247 ==
LOC: ER 23:27 → CCL 23:30 → CSU 05-02 00:55
PROVIDERS: Admitting Provider Internal Medicine Cardiovascular Disease; Emergency Provider Emergency Medicine; PCP Registered Nurse; Visit Provider Internal Medicine Cardiovascular Disease
DX: I21.02 ST elevation (STEMI) myocardial infarction involving left anterior descending coronary artery (principal); I10 Essential (primary) hypertension; F17.200 Nicotine dependence, unspecified, uncomplicated
CPT/HCPCS: 36415; 71045; 80048; 80053; 80061; 84484; 85025; 85347; 93005; 93306; 93452; 96365; 96372; 96375; 99285; C1725; C1769; C1874; C1887; C1894; C9600; J1644; J1885; J2250; J2270; J2405; J3010; J3246; J3490; J7040; Q9967

== ENCOUNTER → 2021-05-09 14:02 | Outpatient (BNVA) | payer BC, SELFPAY | PROVIDERS: PCP Registered Nurse; Visit Provider Nurse Practitioner Family | DX: I25.10 Atherosclerotic heart disease of native coronary artery without angina pectoris (principal) | CPT/HCPCS: 80048 ==

== ENCOUNTER 2021-06-28 10:29 | Outpatient (CLI) | payer BC, SELFPAY ==
--- NOTE | 2021-06-28 10:38 | USCV_ITS ---
Panfilo Ervin Age: 41 Gender: M : 1980 Exam Date: 06/28/2021 10:59 Ordering Phys: Poppy Fernandez Technologist: Chika Rivera Exam Location: [facility] – [place] Indication: POST COVID AND STENT. HAVING INCREASING PAIN AND SOB BP: 105 / 64 HR: 70 Rhythm: Sinus Technical Quality: Adequate MEASUREMENTS (Male / Female) Normal Values 2D ECHO LV Diastolic Diameter PLAX 4.3 cm 4.2 - 5.9 / 3.9 - 5.3 cm LV Systolic Diameter PLAX 3.2 cm LV Chamber Size 4.1 cm IVS Diastolic Thickness 1.1 cm 0.6 - 1.0 / 0.6 - 0.9 cm IVS Systolic Thickness 1.0 cm LVPW Diastolic Thickness 1.4 cm 0.6 - 1.0 / 0.6 - 0.9 cm LVPW Systolic Thickness 1.7 cm RV Chamber Size 3.1 cm LVOT Diameter 2.0 cm LV Ejection Fraction 2D Teich 50.5 % LV Ejection Fraction MOD 2C 65.0 % LV Ejection Fraction 2C AL 65.1 % LA Diameter 3.9 cm LA Width 3.2 cm LA Height 4.1 cm RA Width 4.2 cm RA Height 3.6 cm Aorta at Sinotubular Diameter 3.2 cm M-MODE Aortic Annulus Diameter 3.2 cm LA Ao Ratio MM 1.5 MV E Point Septal Separation 0.4 cm DOPPLER AV Peak Velocity 165.0 cm/s LVOT Peak Velocity 88.0 cm/s AV Area Cont Eq vti 2.3 cm squared AV Area Cont Eq pk 1.7 cm squared MV Area PHT 3.0 cm squared Mitral E to A Ratio 1.6 MV E' Velocity 55.0 cm/s Mitral E to MV E' Ratio 9.4 Mitral E to LV E' Lateral Ratio 8.9 Mitral E to LV E' Septal Ratio 9.8 TR Peak Velocity 190.6 cm/s TR Peak Gradient 14.5 mmHg TR Mean Velocity 148.4 cm/s TR Mean Gradient 9.6 mmHg TR Velocity Time Integral 48.9 cm TV Peak E Velocity 80.0 cm/s Right Atrial Pressure 3.0 mmHg Pulmonary Artery Systolic Pressu 17.5 mmHg PV Peak Velocity 84.0 cm/s RV Acceleration Time 0.2 s RV Ejection Time 0.4 s RV AcT/ET 0.6 FINDINGS Left Ventricle Normal left ventricular size. LV systolic function is normal with EF of 50-55%. Moderate apical hypokinesis is seen. Diastolic function is abnormal Right Ventricle The right ventricle is normal in size and function. Right Atrium The right atrium is normal in size. Left Atrium The left atrium is normal in size. Mitral Valve Structurally normal mitral valve without significant stenosis or prolapse. There is no mitral regurgitation. Aortic Valve Structurally normal aortic valve without significant sclerosis or stenosis. There is no aortic regurgitation. Tricuspid Valve Structurally normal tricuspid valve without significant stenosis or regurgitation. Insufficient TR jet to calculate RVSP Pulmonic Valve Structurally normal pulmonic valve without significant stenosis. There is no pulmonic regurgitation. Pericardium Normal pericardium without effusion. Aorta Normal ascending aorta dimension. CONCLUSIONS LV systolic function is normal with EF of 50-55%. Moderate apical hypokinesis is seen. Diastolic function is normal No significant valvular heart disease Compared to prior echocardiogram from 05/02/2021, LV systolic function has improved. Bret Jimenez MD (Electronically Signed) Final Date: 09 July 2021 11:32 S
== END 2021-06-28 10:30 | disposition home or self-care (01) ==
LOC: RAD 10:34
PROVIDERS: PCP Registered Nurse; Visit Provider Registered Nurse
DX: I25.2 Old myocardial infarction (principal); R06.02 Shortness of breath; Z98.61 Coronary angioplasty status; Z86.16 Personal history of COVID-19
CPT/HCPCS: 93306

== ENCOUNTER 2023-02-25 18:42 | Inpatient (IN) | payer OTHER, SELFPAY ==
[2023-02-25] VITALS (11 sets, daily range): BP systolic 158–214; BP diastolic 93–137; PULSE 78–81; RESP 16–17; TEMP 37.3; O2SAT 93–96; BMI 41.0
--- NOTE | 2023-02-25 18:59 | XRR_ITS ---
PROCEDURE INFORMATION: Exam: XR Chest Exam date and time: 02/25/2023 7:18 PM Age: 42 years old Clinical indication: Chest wall pain; Additional info: Chest pain TECHNIQUE: Imaging protocol: Radiologic exam of the chest. Views: 1 view. COMPARISON: CR XR chest 1V portable [id number] 05/01/2021 11:28 PM FINDINGS: Lungs: Unremarkable. No consolidation. Pleural spaces: Unremarkable. No pleural effusion. No pneumothorax. Heart/Mediastinum: Unremarkable. No cardiomegaly. Bones/joints: Unremarkable. XR/XR chest 1V portable [id number] IMPRESSION: No acute findings.
--- NOTE | 2023-02-25 18:59 | ECG_ITS ---
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 Measurements Intervals [place] Rate: 78 P: 45 MD: 132 QRS: 33 QRSD: 117 T: 41 QT: 352 QTc: 402 Interpretive Statements SINUS RHYTHM POSSIBLE LEFT ATRIAL ENLARGEMENT [-0.1mV P-WAVE IN V1/V2] ANTERIOR MYOCARDIAL INFARCTION , OF INDETERMINATE AGE [40+ ms Q WAVE AND/OR ST/T ABNORMALITY IN V3/V4] Compared to ECG 05/02/2021 13:23:17 No significant changes Electronically Signed On 02-26-2023 21:30:22 CDT by Chance Velasquez M.D. [id number]
[2023-02-25 19:24] LABS: Basophils # 0.1 10^3/uL (0.0-0.1); Basophils % 0.5 %; Eosinophils # 0.1 10^3/uL (0.0-0.8); Eosinophils % 1.3 %; Hematocrit 50.1 % (37-53); Lymphocytes % 18.4 %; Mean Corpuscular HGB Conc 34.5 g/dL (30-55); Mean Corpuscular Hemoglobin 31.2 pg (27-33); Mean Corpuscular Volume 90.3 fl (82-101); Mean Platelet Volume 9.6 fL (7.4-10.4); Monocytes # 0.7 10^3/uL (0.2-0.9); Monocytes % 6.6 %; Neutrophils # 7.85 10^3/uL (1.8-7.7); Neutrophils % 72.4 %; Nucleated Red Blood Cells % 0 %; Platelet Count 213 10^3/cmm (157-399); Red Blood Count 5.55 10^6/uL (3.85-5.65); Red Cell Distribution Width 12.9 % (12.1-15.1); White Blood Count 10.85 10^3/uL (3.29-11.43)
--- NOTE | 2023-02-25 19:34 | ED_ITS ---
HPI - Chest Pain General: Chief Complaint: Chest Pain Stated Complaint: chest pain Time Seen by Provider: 02/25/23 19:06 History of Present Illness: Patient presents to the ER with complaints of chest pain off and on over the last several days. Patient states it has been getting worse woke him up in the middle of the night. Patient is having intermittent nausea and shortness of b reath at times. Currently is pain-free with no nausea or shortness of breath. Patient states he has had an OK and stents before. Patient states the pain is more of a burning feeling than anything currently. Review of Systems General: Reports: 10 or more systems reviewed and unremarkable except in HPI and below PFSH ED PFSH: Medical History Atherosclerosis of coronary artery Hyperlipidemia LDL goal <70 STEMI (ST elevation myocardial infarction) Surgical History Presence of stent in LAD coronary artery Social History Smoking and tobacco/nicotine status: current every day tobacco/nicotine user (currently quitting) Physical Exam Const: COMMON NORMALS: no acute distress, average body habitus, patient oriented x3, no limitations, healthy appearing, alert and well nourished HENMT: COMMON NORMALS: normocephalic, atraumatic, hearing grossly normal bilaterally, external ears normal, Normal external nose present, moist oral mucous membranes and oropharynx normal HEAD & SCALP: normocephalic and atraumatic NOSE: Normal external nose present EXTERNAL EAR: Yes external ears normal Eye: COMMON NORMALS: Equal, round and reactive pupils present, EOMs intact bilaterally, conjunctivae normal and no scleral icterus CONJUNCTIVA: Yes conjunctivae normal PUPIL: Yes Equal, round and reactive pupils present Neck/C-Spine: COMMON NORMALS: full ROM, no lymphadenopathy, supple, no meningeal signs, no JVD and Thyroid normal THYROID: Thyroid normal Chest: COMMONS NORMALS: normal inspection of the chest and normal palpation of entire chest wall Resp: COMMON NORMALS: normal respiratory effort, No retractions, No use of ac cessory muscles and clear to auscultation bilaterally AUSCULTATION: clear to auscultation bilaterally Cardio: COMMON NORMALS: no JVD, regular rate, regular rhythm, S1 normal heart sound present, S2 normal heart sound present, No gallops present (Cardio), No clicks present (Cardio), No murmurs present (Cardio) and No rub (Cardio) RATE: regular rate RHYTHM: regular rhythm HEART SOUNDS: S1 normal heart sound present and S2 normal heart sound present GI: COMMON NORMALS: Normal to inspection, nondistended, normoactive bowel sounds present, Soft to palpation, non-tender, No hepatosplenomegaly present and no masses PALPATION: Yes Soft to palpation and Yes No hepatosplenomegaly present : COMMON NORMALS: Yes no CVA tenderness BLADDER/KIDNEY EXAM: Yes no CVA tenderness Back/Pelvis: COMMON NORMALS: no CVA tenderness Neuro: COMMON NORMALS: patient oriented x3 SENSORIUM/ORIENTATION: Yes alert MENINGEAL SIGNS: Yes no meningeal signs Course Vital Signs: Vital signs: Vital Signs Temperature 99.2 F 02/25/23 18:57 Pulse Rate 81 02/25/23 20:46 Respiratory Rate 17 02/25/23 20:46 Blood Pressure 158/102 02/25/23 23:30 Pulse Oximetry 96 02/25/23 20:46 Oxygen Delivery Me thod Room Air 02/26/23 00:52 MDM - Chest Pain Medical Decision Making Patient presents to the ER with intermittent chest pain for the last several days. Patient was worked up in the standard chest pain fashion by serial enzymes. During this he is blood pressure was high. Upon arrival he was approximately 200/116 patient was given 20 mg of labetalol and also 20 mg of hydralazine IV and his blood pressure kept increasing all the way up to about a max of 240/120. Patient was then placed on a Cardene drip and titrated up to approximately 10 mg/h where his blood pressure improved. was consulted and agreed to placement in [facility] for further evaluation and treatment. Differential Diagnosis Unlikely acute massive pulmonary embolism, acute respiratory failure, acute myocardial infarction, cardiac arrest or sudden cardiac Medical Records I reviewed the patient's medical records. Lab Data I reviewed the patient's lab results. 02/25/23 19:10 02/25/23 19:10 Radiology Impressions Chest X-Ray 02/25/23 18:59 IMPRESSION: No acute findings. Laboratory Results WBC 10.85 10^3/uL (3.29-11.43) 02/25/23 19:10 RBC 5.55 10^6/uL (3.85-5.65) 02/25/23 19:10 Hgb 17.30 g/dL (11.27-16.99) H 02/25/23 19:10 Hct 50.1 % (37-53) 02/25/23 19:10 MCV 90.3 fl (82-101) 02/25/23 19:10 MCH 31.2 pg (27-33) 02/25/23 19:10 MCHC 34.5 g/dL (30-55) 02/25/23 19:10 RDW 12.9 % (12.1-15.1) 02/25/23 19:10 Plt Count 213 10^3/cmm (157-399) 02/25/23 19:10 MPV 9.6 fL (7.4-10.4) 02/25/23 19:10 Neut % (Auto) 72.4 % 02/25/23 19:10 Lymph % (Auto) 18.4 % 02/25/23 19:10 Spencer % (Auto) 6.6 % 02/25/23 19:10 Eos % (Auto) 1.3 % 02/25/23 19:10 Baso % (Auto) 0.5 % 02/25/23 19:10 Neut # (Auto) 7.85 10^3/uL (1.8-7.7) H 02/25/23 19:10 Lymph # (Auto) 2.0 10^3/uL (0.8-4.8) 02/25/23 19:10 Spencer # (Auto) 0.7 10^3/uL (0.2-0.9) 02/25/23 19:10 Eos # (Auto) 0.1 10^3/uL (0.0-0.8) 02/25/23 19:10 Baso # (Auto) 0.1 10^3/uL (0.0-0.1) 02/25/23 19:10 Nucleated RBC % (auto) 0 % 02/25/23 19:10 Nucleated RBCs # 0.0 /100WBC 02/25/23 19:10 PT 13.30 SECONDS (12.1-14.9) 02/25/23 19:10 INR 0.98 (0.8-1.2) 02/25/23 19:10 Sodium 139 mmol/L (136-145) 02/25/23 19:10 Potassium 3.7 mmol/L (3.5-5.1) 02/25/23 19:10 Chloride 99 mmol/L (98-107) 02/25/23 19:10 Carbon Dioxide 27 mmol/L (22-29) 02/25/23 19:10 Anion Gap 16.7 (5-19) 02/25/23 19:10 BUN 13 mg/dL (6-20) 02/25/23 19:10 Creatinine 1.1 mg/dL (0.7-1.2) 02/25/23 19:10 GFR Calculation 73.8 mL/min (90-130) L 02/25/23 19:10 Glucose 85 mg/dL (65-115) 02/25/23 19:10 Calculated Osmolality 287 mOsm/kg (285-295) 02/25/23 19:10 Calcium 9.3 mg/dL (8.5-10.5) 02/25/23 19:10 Total Bilirubin 0.8 mg/dL (0.15-1.2) 02/25/23 19:10 AST 35 U/L (0-40) 02/25/23 19:10 ALT 69 U/L (0-41) H 02/25/23 19:10 Alkaline Phosphatase 60 U/L (40-130) 02/25/23 19:10 Troponin T Baseline 13 ng/L (0-15) 02/25/23 19:10 Troponin T 120 Minute 11.75 ng/L (0-15) 02/25/23 21:14 Delta Troponin T -1.25 ABS# (0-10) L 02/25/23 21:14 Total Protein 7.2 g/dL (6.6-8.7) 02/25/23 19:10 Albumin 4.6 g/dL (3.5-5.2) 02/25/23 19:10 Globulin 2.6 g/dL (1.3-4.6) 02/25/23 19:10 All radiology interpretation(s) finalized by discharge EKG Data EKG 1: I personally reviewed and interpreted this EKG as follows: EKG interpretation date: 10/11/23 EKG interpretation time: 18:53 Prior EKG tracings: not available for review Interpretation: EKG showed ventricular rate 78 bpm, WY interval 132, QRS duration 117, QTc of 385, sinus rhythm, possible left atrial lodgment, EKG 2: I personally reviewed and interpreted this EKG as follows: EKG interpretation date: 02/25/23 EKG interpretation time: 20:46 Prior EKG tracings: available for review Interpretation: EKG showed ventricular rate 80 bpm, WY interval 154, QRS duration 102, QTc of 422, sinus rhythm, Discharge Plan Discharge Patient Disposition: Admitted As Inpatient Admit Provider: Salud Sullivan Clinical Impression: Chest pain, Hypertensive urgency Condition: Stable Coding Level of Care Code 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
[2023-02-25 19:36] LABS: INR 0.98 (0.8-1.2)
[2023-02-25] MEDS: hyDRALAzine 20 mg/mL INJ 1 mL IVP (19:36)
[2023-02-25 19:41] LABS: Troponin(5th) Baseline 13 ng/L (0-15)
[2023-02-25 19:42] LABS: Alanine Aminotransferase 69 U/L (0-41); Albumin Level 4.6 g/dL (3.5-5.2); Alkaline Phosphatase 60 U/L (40-130); Anion Gap 16.7 (5-19); Aspartate Amino Transferase 35 U/L (0-40); Blood Urea Nitrogen 13 mg/dL (6-20); Calcium 9.3 mg/dL (8.5-10.5); Carbon Dioxide 27 mmol/L (22-29); Chloride 99 mmol/L (98-107); Globulin 2.6 g/dL (1.3-4.6); Glomerular Filtration Rate 73.8 mL/min (90-130); Glucose 85 mg/dL (65-115); Osmolality Calculated 287 mOsm/kg (285-295); Potassium 3.7 mmol/L (3.5-5.1); Sodium 139 mmol/L (136-145); Total Bilirubin 0.8 mg/dL (0.15-1.2); Total Protein 7.2 g/dL (6.6-8.7)
--- NOTE | 2023-02-25 20:43 | PC.NURSE ---
RN at bedside to give ordered labetalol, BP was cycled and resulted at 167/93 from 206/113. MD informed of vitals and patient reporting that his headache was getting worse, MD ordered for medication to not be given. Patient updated.
--- NOTE | 2023-02-25 20:59 | ECG_ITS ---
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 Measurements Intervals [place] Rate: 80 P: 45 HI: 154 QRS: 46 QRSD: 102 T: 29 QT: 386 QTc: 446 Interpretive Statements SINUS RHYTHM POSSIBLE LEFT ATRIAL ENLARGEMENT [-0.1mV P-WAVE IN V1/V2] ANTERIOR MYOCARDIAL INFARCTION , OF INDETERMINATE AGE [40+ ms Q WAVE AND/OR ST/T ABNORMALITY IN V3/V4] Compared to ECG 02/25/2023 18:53:13 No significant changes Electronically Signed On 02-26-2023 21:37:03 CDT by Chance Velasquez M.D. [id number]
[2023-02-25 21:43] LABS: Troponin 5 2HR 11.75 ng/L (0-15); Troponin 5 2HR Delta -1.25 ABS# (0-10)
[2023-02-25] MEDS: nicardipine 20 MG/200 ML PREMIX 50 MG IV (21:59)
[2023-02-25] MEDS: acetaminophen 500 mg Tablet 1000 MG PO (23:47)
[2023-02-26] VITALS (52 sets, daily range): BP systolic 105–188; BP diastolic 41–112; PULSE 63–107; RESP 15–25; TEMP 36.4–36.8; O2SAT 90–98
[2023-02-26] MEDS: nicardipine 20 MG/200 ML PREMIX 125 MG IV (00:31)
[2023-02-26 01:37] LABS: Troponin 5 6HR Delta -1.14 ng/L (0-12)
[2023-02-26 01:38] LABS: Troponin 5 6HR 11.86 ng/L (0-15)
--- NOTE | 2023-02-26 01:43 | P.HP_ITS ---
Providers/Chief Complaint Admitting Physician: Salud Sullivan MD Primary Care Provider: Jodie Banks, [facility]- Chief Complaint: chest pain History of Present Illness Panfilo Ervin is a 42 year old male with history of CAD s/p PCI to proximal LAD, last 2D echo done 07/09 showed EF of 50 to 55% presented with complaint of substernal chest pain off and on for 3 weeks. He describes pain across the sternum squeezing lasting for more than 30 minutes no radiation no aggravating or relieving factors and no association with nausea vomiting shortness of breath. 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 Chest pain was gradually getting worse and hence he came to the hospital. He is on aspirin 81 mg daily at home and his last visit to mental retardation nurse was 1 year ago. He is not taking any blood pressure medications at home. He is active smoker smokes 1 pack of cigarette in 2 weeks. In ER his systolic blood pressure was found to be in 180s, received labetalol IV x1 and hydralazine 20 mg IV x1 with no relief and was started on nicardipine drip. Current blood pressure is 188/94. EKG was normal sinus rhythm no acute ST-T changes, Q waves consistent with old GA Review of Systems Narrative: As per HPI Medications/Allergies Home Medications Medication Instructions Recorded Confirmed Last Taken Type aspirin 81 mg tablet,delayed 81 mg PO DAILY #90 tabs 05/03/21 02/26/23 02/25/23 07:00 Rx release Allergies Allergy/AdvReac Type Severity Reaction Status Date / Time No Known Allergies Allergy Verified 01/24/22 18:27 PFSH Acute PFSH: Medical History Atherosclerosis of coronary artery Hyperlipidemia LDL goal <70 STEMI (ST elevation myocardial infarction) Surgical History Presence of stent in LAD coronary artery Social History Smoking and tobacco/nicotine status: current every day tobacco/nicotine user (currently quitting) Vitals/I&O/Wt Last Vital Signs Temp 99.2 F 02/25/23 18:57 Pulse 81 02/25/23 20:46 Resp 17 02/25/23 20:46 BP 158/102 02/25/23 23:30 Pulse Ox 96 02/25/23 20:46 O2 Del Method Room Air 02/26/23 00:52 02/25/23 02/25/23 02/26/23 14:59 22:59 06:59 Intake Total 25.833 / 25.833 174.167 / 200.000 Balance 25.833 / 25.833 174.167 / 200.000 Weight last 48 hrs Weight 141.067 kg Physical Exam Narrative: He is alert awake oriented x3 pleasant and cooperative obese Chest clear to auscultation bilaterally Cardiovascular normal heart sounds no murmurs Abdomen NAD Extremities no lower extremity edema noted bilaterally Data 02/25/23 19:10 02/25/23 19:10 A&P Assessment and plan (1) Hypertensive urgency: (2) Chest pain: Qualifiers: Chest pain type: unspecified Qualified Code(s): R07.9 - Chest pain, unspecified Plan 42-year-old male with history of CAD s/p PCI to proximal LAD presented with complaint of substernal chest pain intermittent for 3 weeks no radiation no aggravating or relieving factors and no associated factors and was found to have systolic blood pressure in 180s likely secondary to hypertensive urgency 2 sets of troponins were negative and EKG showed no new ST-T changes. Continue nicardipine drip and taper to adjust to blood pressure of 140/90 Will start Coreg 3.125 mg twice a day Lisinopril 10 mg daily Amlodipine 10 mg daily Continue aspirin 81 mg daily Will add atorvastatin 20 mg at bedtime Clonidine 0.1 mg every 4 hours as needed if blood pressure is more than 150/90 Check 2D echo in a.m. Follow-up labs in a.m. IV Pepcid 20 mg every 12 hours for stress ulcer prophylaxis Subcutaneous Lovenox 40 mg daily for DVT prophylaxis He is full code for now. Attestations Medical Necessity Statement*: He needs more than 2 days of continued hospitalization for treatment for symptomatic hypertensive urgency and further cardiac work-up Time Spent in Patient Care: 30 minutes Coding Level of Care Code Acute Code for Chg Fwd Diagnoses Hypertensive urgency I16.0 Chest pain R07.9 Chest pain type: unspecified Time Spent (min) 30
[2023-02-26] MEDS: amlodipine 10 mg Tablet PO ×2 (01:49→07:53)
[2023-02-26] MEDS: enoxaparin 40 mg/0.4 mL Syringe SUBCUT (01:49)
[2023-02-26] MEDS: carvedilol 3.125 mg Tablet PO ×3 (01:49→16:44)
[2023-02-26] MEDS: lisinopril 10 mg Tablet PO ×2 (01:49→07:54)
[2023-02-26] MEDS: famotidine 20 mg/2 mL INJ IVP ×2 (01:49→13:54)
[2023-02-26] MEDS: nicardipine 20 MG/200 ML PREMIX 40 MG IV (02:04)
--- NOTE | 2023-02-26 02:11 | ECG_ITS ---
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 Measurements Intervals [place] Rate: 78 P: 47 PA: 148 QRS: 42 QRSD: 102 T: 67 QT: 397 QTc: 455 Interpretive Statements SINUS RHYTHM POSSIBLE LEFT ATRIAL ENLARGEMENT [-0.1mV P-WAVE IN V1/V2] ANTEROSEPTAL MYOCARDIAL INFARCTION , PROBABLY RECENT [40+ ms Q WAVE IN V1-V4] ACUTE GA Compared to ECG 02/25/2023 20:46:12 No significant changes Electronically Signed On 02-26-2023 21:31:21 CDT by Chance Velasquez M.D. [id number]
[2023-02-26] MEDS: aspirin 81 mg EC Tablet PO (07:53)
--- NOTE | 2023-02-26 11:55 | PM.CONSULT ---
Providers/Reason For Consult Consulting Physician/Specialty*: Dr. Doe, Cardiology Reason for Consult*: Chest pain, Hypertensive urgency, h/o CAD Attending Physician: Wilver Muñoz MD Primary Care Provider: Jodie Banks [facility] History of Present Illness History of Present Illness Panfilo Ervin is a 42 year old male with ST elevation OR of the anterior wall in 04/2021 and was taken to the [facility] and noted to have completely occluded proximal LAD that was treated with drug-eluting stent/ He was lost to follow up after that. He was not taking any meds other ASA on arrival. He was started on multiple antihypertensive after being on nicardine gtt initially. He is CP free at the time of exam. He tells me that his chest pain started last month on and off burning and retrosternal. This pain persisted and hence he came to the hospital for further evaluation. EKG with old anterior inferct. troponins flat. Review of Systems Const: Denies: fever(s), chills, change in appetite, change in weight, fatigue or malaise Eyes: Denies: change in vision or eye discharge ENMT: Denies: throat pain, swelling of lips/tongue, oral sores, bleeding gums, nasal congestion, epistaxis or post nasal drip Card: Reports: chest pain; Denies: palpitations, irregular heart rhythm, edema, lightheadedness, syncope, dyspnea on exertion, orthopnea or leg pain with exertion Resp: Reports: dyspnea; Denies: productive cough, wheezing or hemoptysis GI: Denies: abdominal pain, nausea, vomiting, hematemesis, heartburn, diarrhea, constipation, change in bowel habits, hematochezia or melena : Denies: dysuria, oliguria, hematuria, scrotal swelling or erectile dysfunction Musc: Denies: back pain, extremity swelling, joint pain or muscle weakness Skin/Breast: Denies: rash, erythema, new lesions or change in hair Neuro: Denies: numbness in extremities, weakness in extremities, lack of coordination, difficulty walking, dizziness, vertigo or confusion Psych: Denies: anxiety, depression, irritability, suicidal ideation or homicidal ideation Endo: Denies: tired all the time, cold intolerance or heat intolerance Darrius/Lymph: Denies: easy bruising, easy bleeding, petechiae or purpura All/Imm: Denies: throat swelling, tongue swelling or acute wheezing Medications/Allergies Home Medications Medication Instructions Recorded Confirmed Last Taken Type aspirin 81 mg tablet,delayed 81 mg PO DAILY #90 tabs 05/03/21 02/26/23 02/25/23 07:00 Rx release Allergies Allergy/AdvReac Type Severity Reaction Status Date / Time No Known Allergies Allergy Verified 01/24/22 18:27 Current Medications Generic Name Dose Route Start Last Admin Trade Name Freq PRN Reason Stop Dose Admin Amlodipine Besylate 10 mg 02/26/23 01:45 02/26/23 07:53 Amlodipine 10 Mg Tablet PO 10 mg DAILY CARLOS Administration Aspirin 81 mg 02/26/23 09:00 02/26/23 07:53 Aspirin 81 Mg Ec Tablet PO 81 mg DAILY CARLOS Administration Carvedilol 3.125 mg 02/26/23 01:45 02/26/23 07:53 Carvedilol 3.125 Mg Tablet PO 3.125 mg BID CARLOS Administration Enoxaparin Sodium 40 mg 02/26/23 01:30 02/26/23 01:49 Enoxaparin 40 Mg/0.4 Ml Syringe SUBCUT 40 mg Q24H CARLOS Administration Famotidine 20 mg 02/26/23 01:30 02/26/23 01:49 Famotidine 20 Mg/2 Ml Inj IVP 20 mg Q12H CARLOS Administration Nicardipine/Sodium Chloride 20 mg in 200 mls @ 0 mls/hr 02/25/23 21:45 02/26/23 02:18 Cardene IV 0 mg/hr .Q0M CARLOS 0 mls/hr Titration Protocol Per Protocol Lisinopril 10 mg 02/26/23 01:45 02/26/23 07:54 Lisinopril 10 Mg Tablet PO 10 mg DAILY CARLOS Administration PFSH Acute PFSH: Medical History Atherosclerosis of coronary artery Hyperlipidemia LDL goal <70 STEMI (ST elevation myocardial infarction) Surgical History Presence of stent in LAD coronary artery Social History Smoking and tobacco/nicotine status: current every day tobacco/nicotine user (currently quitting) Vitals/I&O/Wt Last Vital Signs Temp 98.2 F 02/26/23 04:00 Pulse 78 02/26/23 10:00 Resp 25 H 02/26/23 10:00 BP 144/92 02/26/23 10:00 Pulse Ox 96 02/26/23 10:00 O2 Del Method Room Air 02/26/23 06:00 02/25/23 02/26/23 02/26/23 22:59 06:59 14:59 Intake Total 25.833 / 25.833 616.084 / 641.917 240 / 240 Output Total 1100 / 1100 800 / 800 Balance 25.833 / 25.833 -483.916 / -458.083 -560 / -560 Weight last 48 hrs Weight 311 lb Physical Exam Const: COMMON NORMALS: no acute distress, patient oriented x3 and alert GENERAL APPEARANCE: cooperative, comfortable, well kempt and well hydrated HENMT: COMMON NORMALS: hearing grossly normal bilaterally, external ears normal and moist oral mucous membranes FACE & SINUS: normal facial exam NOSE: Normal septum present and No nasal discharge present; no Epistaxis present EXTERNAL EAR: Yes external ears normal MOUTH: lip normal Eye: COMMON NORMALS: EOMs intact bilaterally and no scleral icterus GENERAL EYE: appearance normal, both eyes and all related structures ALIGNMENT: Yes alignment normal Neck/C-Spine: COMMON NORMALS: no lymphadenopathy, supple and no JVD GENERAL: Yes normal visual inspection and Yes trachea midline CAROTIDS: Yes normal carotid upstroke Lymph: LYMPHATIC: no lymphadenopathy noted Chest: COMMONS NORMALS: normal inspection of the chest and normal palpation of entire chest wall CHEST: Yes Symmetrical chest wall rise and No tenderness Resp: COMMON NORMALS: clear to auscultation bilaterally EFFORT & INSPECTION: Yes able to speak in complete sentences, No tachypneic, No respiratory distress, No pursed lip breathing, No labored and No Actively coughing AUSCULTATION: clear to auscultation bilaterally, no crackles, no rales, no rhonchi and no wheezes Cardio: COMMON NORMALS: no JVD, regular rate, regular rhythm, S1 normal heart sound present, S2 normal heart sound present and Peripheral pulses 2+ throughout PALPATION: normal PMI RATE: regular rate RHYTHM: regular rhythm HEART SOUNDS: S1 normal heart sound present, S2 normal heart sound present, no click, no gallops and no murmurs BRUITS: no carotid bruits PERIPHERAL PULSES: Peripheral pulses 2+ throughout, radial pulses present, posterior tibial pulses present and dorsalis pedis present GI: COMMON NORMALS: Soft to palpation AUSCULTATION: Yes normoactive bowel sounds PALPATION: Yes Soft to palpation, No Tenderness to palpation present (GI), No Guarding due to palpation present (GI) and No Rigid due to palpation PERCUSSION: tympanic to percussion Extremity: GENERAL: No clubbing, No cyanosis, Yes edema and No pallor Neuro: COMMON NORMALS: patient oriented x3, CN's II-XII intact bilaterally and no focal motor deficits SENSORIUM/ORIENTATION: Yes alert Psych: COMMON NORMALS: Normal thought process present and speech normal APPEARANCE: Yes well kempt SPEECH: Yes normal speech MOOD & AFFECT: Yes euthymic mood THOUGHT PROCESS: Normal thought process present THOUGHT CONTENT: Yes Normal thought content present Data 02/27/23 04:03 02/27/23 04:03 Other data: TTE (06/28/2021) CONCLUSIONS ?LV systolic function is normal with EF of 50-55%. Moderate ?apical hypokinesis is seen. ?Diastolic function is normal ?No significant valvular heart disease ?Compared to prior echocardiogram from 05/02/2021, LV systolic ?function has improved. Coronary angiogram (05/01/2021) Diagnostic Cath Status: ? ? Emergency Diagnostic Findings ? * Left Main has no disease. ? * Circumflex has no disease. ? * Right Coronary Artery has no disease. ? * Mid Left Anterior Descending: total occlusion, PETER: 0 flow. ? * Coronary angiography shows left dominance. Interventional Findings ? * Mid Left Anterior Descending:? 100% stenosis treated with a Drug Eluting Stent. 0% residual stenosis, PETER: 3 flow. Conclusions ? 1. There is total occlusion coronary artery disease with one vessel disease. ? 2. Mid Left Anterior Descending was treated with a Drug Eluting Stent. A&P Assessment and plan (1) Chest pain: Plan for echo and stress test in morning -He received Coreg last night, will plan for lexiscan stress test in morning Qualifiers: Chest pain type: unspecified Qualified Code(s): R07.9 - Chest pain, unspecified (2) Hypertensive urgency: continue current meds BP fairly controlled at this time. (3) Atherosclerosis of coronary artery: on ASA, beta josiah and stain now (4) Hyperlipidemia LDL goal <70: Plan Obesity Coding Level of Care Code 09868 Diagnoses Chest pain R07.9 Chest pain type: unspecified Hypertensive urgency I16.0 Atherosclerosis of coronary artery I25.10 Hyperlipidemia LDL goal <70 E78.5
--- NOTE | 2023-02-26 13:48 | USCV_ITS ---
Panfilo Ervin Age: 42 Gender: M : 1980 Exam Date: 02/26/2023 14:41 Ordering Phys: Sadie Doe MD ([email or web address]) Technologist: Eliseo Buckley [place] [facility] [place]: chest pain BP: 112 / 90 HR: 68 Rhythm: Sinus Technical Quality: Adequate MEASUREMENTS (Male / Female) Normal Values 2D ECHO LV Diastolic Diameter PLAX 4.6 cm 4.2 - 5.9 / 3.9 - 5.3 cm LV Systolic Diameter PLAX 3.4 cm IVS Diastolic Thickness 1.3 cm 0.6 - 1.0 / 0.6 - 0.9 cm IVS Systolic Thickness 1.3 cm LVPW Diastolic Thickness 1.4 cm 0.6 - 1.0 / 0.6 - 0.9 cm LVPW Systolic Thickness 1.4 cm LVOT Diameter 2.1 cm LV Ejection Fraction 2D Teich 50.8 % LV Ejection Fraction MOD 2C 56.5 % LV Ejection Fraction 2C AL 57.2 % LA Diameter 4.1 cm M-MODE Aortic Annulus Diameter 3.3 cm LA Ao Ratio MM 1.5 MV E Point Septal Separation 1.1 cm DOPPLER AV Peak Velocity 133.0 cm/s LVOT Peak Velocity 83.0 cm/s AV Area Cont Eq vti 2.7 cm squared AV Area Cont Eq pk 2.2 cm squared MV Area PHT 4.1 cm squared Mitral E to A Ratio 0.8 MV E' Velocity 33.0 cm/s Mitral E to MV E' Ratio 7.9 Mitral E to LV E' Lateral Ratio 6.5 Mitral E to LV E' Septal Ratio 10.2 TR Peak Velocity 161.0 cm/s TR Peak Gradient 10.4 mmHg Right Atrial Pressure 3.0 mmHg Pulmonary Artery Systolic Pressu 13.4 mmHg RV Acceleration Time 0.1 s FINDINGS Left Ventricle Normal left ventricular size and wall thickness. Mildly decreased left ventricular systolic function. Left ventricular ejection fraction is estimated at 50-55 %. There is severe hypokinesis of mid to apical anteroseptal, apical anterior, apical inferior, apical lateral and apical bhat. Grade I diastolic dysfunction (abnormal relaxation filling pattern), normal to mildly elevated filling pressures. Right Ventricle Normal right ventricular size and systolic function. Right Atrium Normal right atrial size. Left Atrium Normal left atrial size. Mitral Valve Structurally normal mitral valve. No mitral valve stenosis. No mitral valve regurgitation. Aortic Valve Structurally normal trileaflet aortic valve. No aortic valve stenosis. No aortic valve regurgitation. Tricuspid Valve Structurally normal tricuspid valve. No tricuspid valve stenosis. Trace tricuspid valve regurgitation. Pulmonic Valve Structurally normal pulmonic valve. No pulmonary valve stenosis. Trace pulmonary valve regurgitation. Pericardium No pericardial effusion. Aorta Normal size aortic root and proximal ascending aorta. IVC Normal IVC dimension with >50% respiratory change of the inferior vena cava. CONCLUSIONS 1. Normal left ventricular size and wall thickness. Mildly decreased left ventricular systolic function. Left ventricular ejection fraction is estimated at 50-55 %. There is severe hypokinesis of mid to apical anteroseptal, apical anterior, apical inferior, apical lateral and apical bhat. Grade I diastolic dysfunction (abnormal relaxation filling pattern), normal to mildly elevated filling pressures. 2. When compared to study dated 06/28/2021, there may not have been any significant change. Sadie Doe MD (Electronically Signed) Final Date: 27 February 2023 11:08 S
--- NOTE | 2023-02-26 13:48 | ECG_ITS ---
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 Interpretive Statements Name of study: Lexiscan sestamibi myocardial perfusion imaging Date of study: 02/27/23 Indication: Chest pain, h/o CAD PROCEDURE: At the baseline, the blood pressure was 159/104 mm Hg with a heart rate of 83 bpm. The electrocardiogram showed sinus rhythm, normal axis. Possible old anterior infarct. ??? The Lexiscan was infused over a period of 20 seconds. A total of 0.4 milligrams of Lexiscan was infused. The stress phase was continued for a total of 5 minutes. Heart rate at the end of the stress phase was 89 bpm with a blood pressure of 125/76 mm Hg. The EKG at the peak infusion revealed no sigificant ST-T wave changes. Study was terminated due to protocol completion. ??? Sestamibi was injected 20 seconds after the Lexiscan infusion. ??? Blood pressure at the end of the recovery phase was 111/74mm Hg with a heart rate of 85 beats per minute. ??? CONCLUSION: 1. Normal EKG response to LexiScan infusion. 2. No LexiScan induced chest pain or cardiac arrhythmia. 3. Normal blood pressure and heart rate response. 4. Sestamibi/sestamibi perfusion scan pending; see separate report. Electronically Signed On 02-27-2023 20:33:46 CDT by Sadie Doe M.D. [id number]
[2023-02-26] MEDS: cloNIDine 0.1 mg Tablet PO (18:13)
[2023-02-26] MEDS: atorvastatin 40 mg Tablet 20 MG PO (20:17)
[2023-02-26] MEDS: ALPRAZolam 0.5 mg Tablet PO (20:18)
[2023-02-26] MEDS: acetaminophen 500 mg Tablet 1000 MG PO (20:18)
--- NOTE | 2023-02-26 22:23 | PC.NURSE ---
1999 -- Notified Dr. Og that patient is reporting having a moderate headache and is requesting something to help him sleep. Current vital signs and medications reviewed with Order given for tylenol and xanax one time dose.
[2023-02-27] VITALS (15 sets, daily range): BP systolic 118–167; BP diastolic 64–101; PULSE 63–75; RESP 14–27; TEMP 36.9; O2SAT 94–98
[2023-02-27] MEDS: enoxaparin 40 mg/0.4 mL Syringe SUBCUT (01:04)
[2023-02-27] MEDS: famotidine 20 mg/2 mL INJ IVP (01:04)
[2023-02-27 04:44] LABS: Basophils # 0.1 10^3/uL (0.0-0.1); Basophils % 0.6 %; Eosinophils # 0.2 10^3/uL (0.0-0.8); Eosinophils % 2.4 %; Lymphocytes # 1.6 10^3/uL (0.8-4.8); Lymphocytes % 17.4 %; Mean Corpuscular Hemoglobin 31.5 pg (27-33); Mean Corpuscular Volume 90.1 fl (82-101); Mean Platelet Volume 9.6 fL (7.4-10.4); Monocytes # 0.6 10^3/uL (0.2-0.9); Monocytes % 6.4 %; Neutrophils # 6.79 10^3/uL (1.8-7.7); Nucleated Red Blood Cells % 0 %; Platelet Count 189 10^3/cmm (157-399); Red Blood Count 5.77 10^6/uL (3.85-5.65); White Blood Count 9.43 10^3/uL (3.29-11.43)
[2023-02-27 05:04] LABS: Alanine Aminotransferase 65 U/L (0-41); Albumin Level 4.3 g/dL (3.5-5.2); Alkaline Phosphatase 59 U/L (40-130); Aspartate Amino Transferase 33 U/L (0-40); Blood Urea Nitrogen 14 mg/dL (6-20); Calcium 9.1 mg/dL (8.5-10.5); Carbon Dioxide 26 mmol/L (22-29); Chloride 106 mmol/L (98-107); Chol HDL Ratio 5.11 mg/dL (1.0-5.00); Cholesterol 230 mg/dL (0-200); Globulin 2.9 g/dL (1.3-4.6); Glomerular Filtration Rate 73.8 mL/min (90-130); Glucose 115 mg/dL (65-115); HDL Cholesterol 45 mg/dL (60-100); LDL Cholesterol Calculated 142 mg/dL (50-129); LDL HDL Ratio 3.16 RATIO (0.00-3.22); Magnesium 2.3 mg/dL (1.7-2.3); Osmolality Calculated 295 mOsm/kg (285-295); Phosphorus 3.6 mg/dL (2.5-4.5); Sodium 142 mmol/L (136-145); Total Bilirubin 0.7 mg/dL (0.15-1.2); Total Protein 7.2 g/dL (6.6-8.7); Triglycerides 217 mg/dL (0-150)
--- NOTE | 2023-02-27 05:59 | PC.NURSE ---
electronic technologist to bedside, patient injected for Stress test. Patient up to bathroom and then to chair in room and instructed to drink water.
[2023-02-27] MEDS: regadenoson 0.4 Mg/5 ml Syringe IVP (07:37)
--- NOTE | 2023-02-27 08:00 | NMCV_ITS ---
NM dora perf SPECT r/s* [id number] Panfilo Ervin Age: 42 Gender: M : 1980 Exam Date: 02/27/2023 06:08 Ordering Phys: Sadie Doe MD ([email or web address]) Technologist: SHIELA Zuleta Exam Location: [facility] Indications: CHEST PAIN STRESS TEST Please see separate stress test report in [facility] for full findings IMAGE PROTOCOL Rest/Stress 1 Lexiscan Day Radiopharmaceutical Dose (mCi) Administration Site Administered by Rest: Tc-99m 10.9 IV Nacho Van, INFRASTRUCTURE ENGINEER Sestamibi Stress:Tc-99m 32.9 IV Nacho Van, INFRASTRUCTURE ENGINEER Sestamibi Rest: 27-Feb-2023 60 Discovery 630 Stress: 27-Feb-2023 30 Discovery 630 0.4mg Lexiscan. Images obtained in supine and prone position. SPECT RESULTS Technical Quality: Excellent Raw Data Analysis: Normal Image Corrections: No attenuation or motion correction applied Summed Stress Score: 15 Summed Rest Score: 15 Summed Difference Score: 2 PERFUSION FINDINGS Medium size perfusion abnormality of moderate to severe severity of mid to apical anterior, mid anteroseptal, mid inferoseptal, apical septal, apical lateral apical inferior and apical bhat on rest and stress images. FUNCTIONAL RESULTS (calculated via Gated SPECT) Stress Image LV EF (%): 38 Stress EDV (mL):198 TID: 0.99 Stress ESV (mL):123 FUNCTIONAL FINDINGS: The left ventricle is normal in size. Transient Ischemia Dilatation of 0.99. The left ventricular ejection fraction is moderately reduced with a value of 38%. There is severe hypokinesis of mid to apical anterior, apical inferior, septal and apical bhat. Markedly increased end-diastolic and end-systolic volume. IMPRESSIONS 1. Medium size fixed perfusion abnormality of moderate to severe severity of mid to apical anterior, mid anteroseptal, mid inferoseptal, apical septal, apical lateral, apical inferior and apical bhat. 2. This represents old myocardial infarction in left anterior descending artery territory with no significant charles-infarct ischemia. 3. The left ventricular ejection fraction is moderately reduced with a value of 38%. 4. There is severe hypokinesis of mid to apical anterior, apical inferior, septal and apical bhat. 5. No coronary ischemia based on the study. Sadie Doe MD (Electronically Signed) Final Date: 27 February 2023 12:35 S
[2023-02-27] MEDS: lisinopril 10 mg Tablet PO (08:39)
[2023-02-27] MEDS: aspirin 81 mg EC Tablet PO (08:39)
[2023-02-27] MEDS: carvedilol 3.125 mg Tablet PO (08:39)
[2023-02-27] MEDS: amlodipine 10 mg Tablet PO (08:39)
[2023-02-27 10:37] LABS: Thyroid Stimulating Hormone 1.83 uIU/mL (0.27-4.20)
--- NOTE | 2023-02-27 11:56 | PM.PN ---
Subjective Subjective: No chest pains last night. While doing stress test, had some chest tightness and burping. C/o heart syed at home as well Medications: Reviewed: Yes Vitals/I&O/Wt Last Vital Signs Temp 98.4 F 02/27/23 00:00 Pulse 72 02/27/23 07:56 Resp 27 H 02/27/23 06:00 BP 137/101 02/27/23 09:00 Pulse Ox 94 02/27/23 05:00 O2 Del Method Room Air 02/27/23 04:00 02/26/23 02/27/23 02/27/23 22:59 06:59 14:59 Intake Total 360 / 960 680 / 1640 Balance 360 / 160 680 / 840 Weight last 48 hrs Weight 311 lb Physical Exam Const: COMMON NORMALS: no acute distress, patient oriented x3 and alert GENERAL APPEARANCE: cooperative, comfortable, well kempt and well hydrated HENMT: COMMON NORMALS: hearing grossly normal bilaterally, external ears normal and moist oral mucous membranes FACE & SINUS: normal facial exam NOSE: Normal septum present and No nasal discharge present; no Epistaxis present EXTERNAL EAR: Yes external ears normal MOUTH: lip normal Eye: COMMON NORMALS: EOMs intact bilaterally and no scleral icterus GENERAL EYE: appearance normal, both eyes and all related structures ALIGNMENT: Yes alignment normal Neck/C-Spine: COMMON NORMALS: no lymphadenopathy, supple and no JVD GENERAL: Yes normal visual inspection and Yes trachea midline CAROTIDS: Yes normal carotid upstroke Lymph: LYMPHATIC: no lymphadenopathy noted Chest: COMMONS NORMALS: normal inspection of the chest and normal palpation of entire chest wall CHEST: Yes Symmetrical chest wall rise and No tenderness Resp: COMMON NORMALS: clear to auscultation bilaterally EFFORT & INSPECTION: Yes able to speak in complete sentences, No tachypneic, No respiratory distress, No pursed lip breathing, No labored and No Actively coughing AUSCULTATION: clear to auscultation bilaterally, no crackles, no rales, no rhonchi and no wheezes Cardio: COMMON NORMALS: no JVD, regular rate, regular rhythm, S1 normal heart sound present, S2 normal heart sound present and Peripheral pulses 2+ throughout PALPATION: normal PMI RATE: regular rate RHYTHM: regular rhythm HEART SOUNDS: S1 normal heart sound present, S2 normal heart sound present, no click, no gallops and no murmurs BRUITS: no carotid bruits PERIPHERAL PULSES: Peripheral pulses 2+ throughout, radial pulses present, posterior tibial pulses present and dorsalis pedis present GI: COMMON NORMALS: Soft to palpation AUSCULTATION: Yes normoactive bowel sounds PALPATION: Yes Soft to palpation, No Tenderness to palpation present (GI), No Guarding due to palpation present (GI) and No Rigid due to palpation PERCUSSION: tympanic to percussion Extremity: GENERAL: No clubbing, No cyanosis, Yes edema and No pallor Neuro: COMMON NORMALS: patient oriented x3, CN's II-XII intact bilaterally and no focal motor deficits SENSORIUM/ORIENTATION: Yes alert Psych: COMMON NORMALS: Normal thought process present and speech normal APPEARANCE: Yes well kempt SPEECH: Yes normal speech MOOD & AFFECT: Yes euthymic mood THOUGHT PROCESS: Normal thought process present THOUGHT CONTENT: Yes Normal thought content present Data 02/27/23 04:03 02/27/23 04:03 A&P Assessment and plan (1) Chest pain: Echo with LVEF on 50% and LAD territory RWMA and stress test with old IN in LAD artery territory. No ischemia -continue with medical management -tHis was discussed with patient, family and hospitalist -f/u in 1 week with [facility] at [facility] on discharge Qualifiers: Chest pain type: unspecified Qualified Code(s): R07.9 - Chest pain, unspecified (2) Hypertensive urgency: continue current meds BP fairly controlled at this time. Advised to maintain BP/HR log x 2 weeks (3) Atherosclerosis of coronary artery: s/p LAD stent on ASA, beta josiah and stain now (4) Hyperlipidemia LDL goal <70: resume statin s Plan Obesity Attestations Medical Necessity Statement*: stable to be discharged Coding Level of Care Code 04659 Diagnoses Chest pain R07.9 Chest pain type: unspecified Hypertensive urgency I16.0 Atherosclerosis of coronary artery I25.10 Hyperlipidemia LDL goal <70 E78.5
--- NOTE | 2023-02-27 13:37 | P.DS_ITS ---
Discharge Providers Date of Admission: 02/25/23 23:40 Date of Discharge: February 27, 2023 Attending Provider at Admission: Salud Sullivan MD Attending Provider at Discharge: Wilver Muñoz MD Consults: Cardiology Primary Care Provider: FRANCIA Tovar Diagnoses at Discharge Discharge Diagnosis (1) Chest pain: Status: Acute Qualifiers: Chest pain type: unspecified Qualified Code(s): R07.9 - Chest pain, u nspecified (2) Hypertensive urgency: Status: Acute (3) Atherosclerosis of coronary artery: Status: Acute (4) Hyperlipidemia LDL goal <70: Status: Acute Reason for Visit Reason for Visit: chest pain Hospital Course Hospital Course Panfilo Chung is a 42-year-old male with a past medical history significant for coronary artery disease with history of STEMI s/p proximal LAD stent in 02/2021, hyperlipidemia, and tobacco use disorder who presented to the emergency department with chest pain, found to have hypertensive urgency. Acute coronary syndrome was considered and ruled out with serial troponin, telemetry, and EKG. Patient reported he was previously lost to follow up to cardiology. He expressed desire to re-establish care. Cardiology consulted and followed. He was initially treated with nicardipine drip and transitioned to oral antihypertensives with improvement in blood pressure. Discussed proper blood pressure techniques and counseled on home blood pressure log which he agree to keep. His blood pressure regimen will likely need titrated with time. He will establish with PCP and follow up with cardiology clinic in one week. Transthoracic echocardiogram was negative for acute findings with results similar to prior findings. He underwent myocardial stress testing which was negative for evidence of acute ischemia. Patient continued on aspirin therapy and started on statin. Patient discharged to home in stable condition. Physical Exam Narrative: General: Patient is awake and alert. Pleasant. Head: Normocephalic. Atraumatic. EOM intact. Neck: No JVD. Cardiovascular: RRR. No gallops. No murmurs. Lungs: Clear to auscultation, no use of accessory muscles, no crackles or wheezes. Skin: No jaundice. No rashes. Abdomen: Normal bowel sounds, abdomen soft and nontender. Extremities: No cyanosis or clubbing. Musculoskeletal: No swollen or erythematous joints. Neurological: Moves all 4 extremities. No myoclonus. Discharge Data Studies Completed and Pending Completed Studies During Hospitalization Category Date Time Status Sestamibi Stress Test Request Routine Exams 02/26/23 13:48 Draft XR chest 1V portable [id number] Stat Exams 02/25/23 18:59 Completed NM dora perf SPECT r/s* [id number] Routine Nuc Med 02/27/23 08:00 Completed CV. echo complete* [id number] Routine Ultrasound 02/26/23 13:48 Completed Pending at discharge Category Date Time Status CA echo doppler complete Routine Exams 02/26/23 01:33 Stop Req Radiology Impressions Chest X-Ray 02/25/23 18:59 IMPRESSION: No acute findings. Laboratory Results WBC 9.43 10^3/uL (3.29-11.43) 02/27/23 04:03 RBC 5.77 10^6/uL (3.85-5.65) H 02/27/23 04:03 Hgb 18.20 g/dL (11.27-16.99) H 02/27/23 04:03 Hct 52.0 % (37-53) 02/27/23 04:03 MCV 90.1 fl (82-101) 02/27/23 04:03 MCH 31.5 pg (27-33) 02/27/23 04:03 MCHC 35.0 g/dL (30-55) 02/27/23 04:03 RDW 13.0 % (12.1-15.1) 02/27/23 04:03 Plt Count 189 10^3/cmm (157-399) 02/27/23 04:03 MPV 9.6 fL (7.4-10.4) 02/27/23 04:03 Neut % (Auto) 72.0 % 02/27/23 04:03 Lymph % (Auto) 17.4 % 02/27/23 04:03 [place] % (Auto) 6.4 % 02/27/23 04:03 Eos % (Auto) 2.4 % 02/27/23 04:03 Baso % (Auto) 0.6 % 02/27/23 04:03 Neut # (Auto) 6.79 10^3/uL (1.8-7.7) 02/27/23 04:03 Lymph # (Auto) 1.6 10^3/uL (0.8-4.8) 02/27/23 04:03 [place] # (Auto) 0.6 10^3/uL (0.2-0.9) 02/27/23 04:03 Eos # (Auto) 0.2 10^3/uL (0.0-0.8) 02/27/23 04:03 Baso # (Auto) 0.1 10^3/uL (0.0-0.1) 02/27/23 04:03 Nucleated RBC % (auto) 0 % 02/27/23 04:03 Nucleated RBCs # 0.0 /100WBC 02/27/23 04:03 PT 13.30 SECONDS (12.1-14.9) 02/25/23 19:10 INR 0.98 (0.8-1.2) 02/25/23 19:10 Sodium 142 mmol/L (136-145) 02/27/23 04:03 Potassium 4.0 mmol/L (3.5-5.1) 02/27/23 04:03 Chloride 106 mmol/L (98-107) 02/27/23 04:03 Carbon Dioxide 26 mmol/L (22-29) 02/27/23 04:03 Anion Gap 14.0 (5-19) 02/27/23 04:03 BUN 14 mg/dL (6-20) 02/27/23 04:03 Creatinine 1.1 mg/dL (0.7-1.2) 02/27/23 04:03 GFR Calculation 73.8 mL/min (90-130) L 02/27/23 04:03 Glucose 115 mg/dL (65-115) 02/27/23 04:03 Calculated Osmolality 295 mOsm/kg (285-295) 02/27/23 04:03 Calcium 9.1 mg/dL (8.5-10.5) 02/27/23 04:03 Phosphorus 3.6 mg/dL (2.5-4.5) 02/27/23 04:03 Magnesium 2.3 mg/dL (1.7-2.3) 02/27/23 04:03 Total Bilirubin 0.7 mg/dL (0.15-1.2) 02/27/23 04:03 AST 33 U/L (0-40) 02/27/23 04:03 ALT 65 U/L (0-41) H 02/27/23 04:03 Alkaline Phosphatase 59 U/L (40-130) 02/27/23 04:03 Troponin T Baseline 13 ng/L (0-15) 02/25/23 19:10 Troponin T 120 Minute 11.75 ng/L (0-15) 02/25/23 21:14 Delta Troponin T -1.25 ABS# (0-10) L 02/25/23 21:14 Troponin T Hi Sens 6Hr 11.86 ng/L (0-15) 02/26/23 01:13 Troponin T Hi Sens 6Hr Delta -1.14 ng/L (0-12) L 02/26/23 01:13 Total Protein 7.2 g/dL (6.6-8.7) 02/27/23 04:03 Albumin 4.3 g/dL (3.5-5.2) 02/27/23 04:03 Globulin 2.9 g/dL (1.3-4.6) 02/27/23 04:03 Triglycerides 217 mg/dL (0-150) H 02/27/23 04:03 Cholesterol 230 mg/dL (0-200) H 02/27/23 04:03 LDL Cholesterol, Calc 142 mg/dL (50-129) H 02/27/23 04:03 HDL Cholesterol 45 mg/dL (60-100) L 02/27/23 04:03 LDL/HDL Ratio 3.16 RATIO (0.00-3.22) 02/27/23 04:03 Cholesterol/HDL Ratio 5.11 mg/dL (1.0-5.00) H 02/27/23 04:03 TSH 1.83 uIU/mL (0.27-4.20) 02/27/23 04:03 Vitals Last Vital Signs Temp 98.4 F 02/27/23 00:00 Pulse 72 02/27/23 12:00 Resp 20 H 02/27/23 12:00 BP 132/85 02/27/23 13:00 Pulse Ox 98 02/27/23 12:00 O2 Del Method Room Air 02/27/23 04:00 Discharge Plan Discharge Patient Disposition: Home Condition: Stable Prescriptions: New atorvastatin 40 mg Tablet 20 mg PO BEDTIME 90 Days Qty: 90 0RF carvedilol 3.125 mg Tablet 3.125 mg PO BID 90 Days Qty: 180 0RF amlodipine 10 mg Tablet 10 mg PO DAILY 90 Days Qty: 90 0RF lisinopril 10 mg Tablet 10 mg PO DAILY 90 Days Qty: 90 0RF nitroglycerin 0.4 mg Tablet, Sublingual 0.4 mg sublingual Q5M PRN (Reason: Chest Pain) 90 Days Qty: 100 0RF Continued aspirin 81 mg Tablet,Delayed Release (Dr/Ec) 81 mg PO DAILY Qty: 90 3RF Discharge Orders: Discharge Order (Routine); Ordered 02/27/23 Ordered By: Wilver Muñoz Referrals: Jodie Banks FNP-BC [Primary Care Provider] - 1 week Natalya Ortiz FNP [Nurse Practitioner] - 1 week Discharge Diet: Advance as tolerated, Usual diet, Low Salt and Low Cholesterol Discharge Activity: Resume usual activity and Increase activity as tolerated Patient Instructions: Opioid Safety Activity Restrictions/Additional Instructions: 1. Increase activity as tolerated. 2. Take medications as prescribed. 3. Keep home blood pressure log. 4. Follow up with cardiology clinic in one week with blood pressure log. 5. PCP follow up. Discharge Attestations Time Spent in Discharge Care*: greater than 30 min Quality Metrics Clinical Quality Measures [ No reported AMI, CVA or VTE this stay] Coding Level of Care Code Acute Code for g Fwd Diagnoses Chest pain R07.9 Chest pain type: unspecified Hypertensive urgency I16.0 Atherosclerosis of coronary artery I25.10 Hyperlipidemia LDL goal <70 E78.5
== END 2023-02-27 14:48 | disposition home or self-care (01) | DRG 305 ==
LOC: ER 23:30 → ICU 23:40
PROVIDERS: Admitting Provider Internal Medicine; Emergency Provider Emergency Medicine; PCP Nurse Practitioner; Visit Provider Internal Medicine
DX: I16.0 Hypertensive urgency (principal); I25.10 Atherosclerotic heart disease of native coronary artery without angina pectoris; Z95.5 Presence of coronary angioplasty implant and graft; I25.2 Old myocardial infarction; E78.5 Hyperlipidemia, unspecified; F17.210 Nicotine dependence, cigarettes, uncomplicated; Z79.82 Long term (current) use of aspirin
CPT/HCPCS: 36415; 71045; 78452; 80053; 80061; 83735; 84100; 84443; 84484; 85025; 85610; 93005; 93017; 93306; 96365; 96366; 96372; 96375; 96376; 99291; A9500; J0360; J1650; J2785; J3490

== ENCOUNTER → 2023-03-05 12:44 | Outpatient (BNVA) | payer OTHER, SELFPAY | PROVIDERS: PCP Nurse Practitioner; Visit Provider Nurse Practitioner Family | DX: I10 Essential (primary) hypertension (principal); F17.200 Nicotine dependence, unspecified, uncomplicated | CPT/HCPCS: 99213 ==

== ENCOUNTER → 2023-08-12 10:48 | Outpatient (BNVA) | payer OTHER, SELFPAY | PROVIDERS: PCP Electrodiagnostic Medicine; Visit Provider Nurse Practitioner Family | DX: I25.10 Atherosclerotic heart disease of native coronary artery without angina pectoris (principal); I10 Essential (primary) hypertension; I21.29 ST elevation (STEMI) myocardial infarction involving other sites; F17.200 Nicotine dependence, unspecified, uncomplicated; R94.31 Abnormal electrocardiogram [ECG] [EKG] | CPT/HCPCS: 93005; 99214 ==

== ENCOUNTER 2023-12-10 10:25 | Observation (INO) | payer OTHER, SELFPAY ==
[2023-12-10] VITALS (25 sets, daily range): BP systolic 136–172; BP diastolic 66–93; PULSE 53–75; RESP 13–24; TEMP 36.7–37.1; O2SAT 85–96; BMI 38.9; BMI 38.0
--- NOTE | 2023-12-10 10:26 | XR_ITS ---
WS: [id number] XR chest 1V portable [id number] REASON FOR EXAM: cp FINDINGS: The chest is unchanged compared to 02/25/2023. There is moderate tortuosity of the thoracic aorta. The heart size is at the upper limits of normal. Calcified granulomas disease bilaterally. No acute/subacute pulmonary parenchymal or pleural abnormality is identified. XR/XR chest 1V portable [id number] IMPRESSION: Stable chest without acute abnormality.
--- NOTE | 2023-12-10 10:27 | ECG_ITS ---
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 Measurements Intervals [place] Rate: 64 P: 37 IN: 124 QRS: 37 QRSD: 100 T: 53 QT: 392 QTc: 405 Interpretive Statements SINUS RHYTHM POSSIBLE LEFT ATRIAL ENLARGEMENT [-0.1mV P-WAVE IN V1/V2] MODERATE T-WAVE ABNORMALITY, CONSIDER ANTERIOR ISCHEMIA [-0.1+ mV T-WAVE IN V3/V4] Possible old anteroseptal WI Compared to ECG 08/12/2023 10:57:25 T-wave abnormality now present Possible ischemia now present Myocardial infarct finding no longer present Electronically Signed On 12-11-2023 0:54:22 CDT by Chance Velasquez M.D. [id number]
[2023-12-10 11:13] LABS: Basophils # 0.1 10^3/uL (0.0-0.1); Basophils % 0.6 %; Eosinophils # 0.1 10^3/uL (0.0-0.8); Eosinophils % 1.3 %; Hematocrit 44.9 % (37-53); Lymphocytes # 1.4 10^3/uL (0.8-4.8); Lymphocytes % 13.4 %; Mean Corpuscular HGB Conc 35.6 g/dL (30-55); Mean Corpuscular Hemoglobin 31.1 pg (27-33); Mean Corpuscular Volume 87.2 fl (82-101); Mean Platelet Volume 9.8 fL (7.4-10.4); Monocytes # 0.7 10^3/uL (0.2-0.9); Monocytes % 6.5 %; Neutrophils % 77.7 %; Nucleated Red Blood Cells % 0 %; Platelet Count 207 10^3/cmm (157-399); Red Blood Count 5.15 10^6/uL (3.85-5.65); Red Cell Distribution Width 12.6 % (12.1-15.1); White Blood Count 10.67 10^3/uL (3.29-11.43)
[2023-12-10 11:32] LABS: INR 1.03 (0.8-1.2); Troponin(5th) Baseline 10 ng/L (0-15)
[2023-12-10 11:44] LABS: Alanine Aminotransferase 27 U/L (0-41); Albumin Level 4.6 g/dL (3.5-5.2); Alkaline Phosphatase 60 U/L (40-130); Anion Gap 16.6 (5-19); Aspartate Amino Transferase 21 U/L (0-40); Blood Urea Nitrogen 15 mg/dL (6-20); Calcium 9.1 mg/dL (8.5-10.5); Carbon Dioxide 23 mmol/L (22-29); Chloride 106 mmol/L (98-107); Creatinine Clr Calc Pharmacy 153.4486; Globulin 2.3 g/dL (1.3-4.6); Glomerular Filtration Rate 92.5 mL/min (90-130); Glucose 91 mg/dL (65-115); Lipase 73 U/L (13-60); Osmolality Calculated 292 mOsm/kg (285-295); Potassium 4.6 mmol/L (3.5-5.1); Sodium 141 mmol/L (136-145); Total Bilirubin 0.9 mg/dL (0.15-1.2); Total Protein 6.9 g/dL (6.6-8.7)
--- NOTE | 2023-12-10 12:26 | ECG_ITS ---
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 Measurements Intervals [place] Rate: 62 P: 43 [place]: 152 QRS: 28 QRSD: 104 T: 49 QT: 413 QTc: 421 Interpretive Statements SINUS RHYTHM ANTEROSEPTAL MYOCARDIAL INFARCTION , PROBABLY RECENT [40+ ms Q WAVE IN V1-V4] ACUTE NE Compared to ECG 12/10/2023 10:27:48 Myocardial infarct finding now present T-wave abnormality no longer present Possible ischemia no longer present Electronically Signed On 12-11-2023 1:06:37 CDT by Chance Velasquez M.D. [id number]
--- NOTE | 2023-12-10 12:59 | ED_ITS ---
HPI - Chest Pain 2 General: Chief Complaint: Chest Pain Stated Complaint: chest pains, sob, escalona Time Seen by Provider: 12/10/23 12:32 Source: patient Mode of arrival: ambulatory Limitations: no limitations History of Present Illness: 43-year-old male who states that he has been having some intermittent chest pains for the last 2 days. He states he is currently pain-free. He denies any shortness of breath denies any nausea diarrhea. States the pain at its worst is a 5 out of 10 denies any worsening factors either. Associated symptoms: Deny abdominal pain, dyspnea, fever(s), nausea or vomiting Review of Systems 2 Const: Denies: fever(s), chills, body aches or change in appetite ENMT: Denies: throat pain or dental pain Card: Reports: chest pain Resp: Denies: dyspnea GI: Denies: abdominal pain, nausea, vomiting or diarrhea : Denies: dysuria Musc: Denies: neck pain or back pain Skin/Breast: Denies: rash Neuro: Denies: headache(s) PFSH ED 2 PFSH: Medical History Chest pain Hyperlipidemia LDL goal <70 Atherosclerosis of coronary artery Hypertension goal BP (blood pressure) < 140/80 STEMI (ST elevation myocardial infarction) Surgical History Presence of stent in LAD coronary artery Social History Smoking and tobacco/nicotine status: current every day tobacco/nicotine user (currently quitting) Physical Exam 2 Const: COMMON NORMALS: no acute distress, patient oriented x3 and healthy appearing HENMT: COMMON NORMALS: normocephalic and atraumatic HEAD & SCALP: n ormocephalic and atraumatic Neck/C-Spine: COMMON NORMALS: full ROM and supple Chest: COMMONS NORMALS: normal inspection of the chest Resp: COMMON NORMALS: normal respiratory effort Cardio: COMMON NORMALS: regular rate, regular rhythm and No murmurs present (Cardio) RATE: regular rate RHYTHM: regular rhythm Extremity: COMMON NORMALS: normal to inspection and full ROM Neuro: COMMON NORMALS: patient oriented x3, moves all extremities and no focal motor deficits Psych: COMMON NORMALS: mental status grossly normal, Normal thought process present and cooperative THOUGHT PROCESS: Normal thought process present Skin: COMMON NORMALS: no rashes or lesions noted and no wounds GENERAL SKIN EXAM: no rashes or lesions noted Course 2 Vital Signs: Vital signs: Vital Signs Temperature 98.1 F 12/10/23 10:34 Pulse Rate 58 L 12/10/23 14:07 Respiratory Rate 16 12/10/23 14:07 Blood Pressure 136/75 12/10/23 14:07 Pulse Oximetry 95 12/10/23 14:07 Oxygen Delivery Me thod Room Air 12/10/23 14:07 MDM - Chest Pain Medical Decision Making Patient presents here with chest pain his troponins here are negative EKG showed ST elevation in V1 V2 but it shows no change from his previous EKGs I did have Dr. Kee cardiology review and he agrees as well. He is had some intermittent pains here but were relieved with nitro no other changes on his EKGs will admit at this time for ACS rule out Medical Records I reviewed the patient's medical records. Lab Data I reviewed the patient's lab results. 12/10/23 11:01 12/10/23 11:01 Radiology Impressions Chest X-Ray 12/10/23 10:26 IMPRESSION: Stable chest without acute abnormality. Laboratory Results WBC 10.67 10^3/uL (3.29-11.43) 12/10/23 11:01 RBC 5.15 10^6/uL (3.85-5.65) 12/10/23 11:01 Hgb 16.00 g/dL (11.27-16.99) 12/10/23 11:01 Hct 44.9 % (37-53) 12/10/23 11:01 MCV 87.2 fl (82-101) 12/10/23 11:01 MCH 31.1 pg (27-33) 12/10/23 11:01 MCHC 35.6 g/dL (30-55) 12/10/23 11:01 RDW 12.6 % (12.1-15.1) 12/10/23 11:01 Plt Count 207 10^3/cmm (157-399) 12/10/23 11:01 MPV 9.8 fL (7.4-10.4) 12/10/23 11:01 Neut % (Auto) 77.7 % 12/10/23 11:01 Lymph % (Auto) 13.4 % 12/10/23 11:01 Payne % (Auto) 6.5 % 12/10/23 11:01 Eos % (Auto) 1.3 % 12/10/23 11:01 Baso % (Auto) 0.6 % 12/10/23 11:01 Neut # (Auto) 8.30 10^3/uL (1.8-7.7) H 12/10/23 11:01 Lymph # (Auto) 1.4 10^3/uL (0.8-4.8) 12/10/23 11:01 Payne # (Auto) 0.7 10^3/uL (0.2-0.9) 12/10/23 11:01 Eos # (Auto) 0.1 10^3/uL (0.0-0.8) 12/10/23 11:01 Baso # (Auto) 0.1 10^3/uL (0.0-0.1) 12/10/23 11:01 Nucleated RBC % (auto) 0 % 12/10/23 11:01 Nucleated RBCs # 0.0 /100WBC 12/10/23 11:01 PT 13.80 SECONDS (12.1-14.9) 12/10/23 11:01 INR 1.03 (0.8-1.2) 12/10/23 11:01 Sodium 141 mmol/L (136-145) 12/10/23 11:01 Potassium 4.6 mmol/L (3.5-5.1) 12/10/23 11:01 Chloride 106 mmol/L (98-107) 12/10/23 11:01 Carbon Dioxide 23 mmol/L (22-29) 12/10/23 11:01 Anion Gap 16.6 (5-19) 12/10/23 11:01 BUN 15 mg/dL (6-20) 12/10/23 11:01 Creatinine 0.9 mg/dL (0.7-1.2) 12/10/23 11:01 GFR Calculation 92.5 mL/min (90-130) 12/10/23 11:01 Glucose 91 mg/dL (65-115) 12/10/23 11:01 Calculated Osmolality 292 mOsm/kg (285-295) 12/10/23 11:01 Calcium 9.1 mg/dL (8.5-10.5) 12/10/23 11:01 Total Bilirubin 0.9 mg/dL (0.15-1.2) 12/10/23 11:01 AST 21 U/L (0-40) 12/10/23 11:01 ALT 27 U/L (0-41) 12/10/23 11:01 Alkaline Phosphatase 60 U/L (40-130) 12/10/23 11:01 Troponin T Baseline 10 ng/L (0-15) 12/10/23 11:01 Troponin T 120 Minute 9.21 ng/L (0-15) 12/10/23 13:19 Delta Troponin T -0.79 ABS# (0-10) L 12/10/23 13:19 Total Protein 6.9 g/dL (6.6-8.7) 12/10/23 11:01 Albumin 4.6 g/dL (3.5-5.2) 12/10/23 11:01 Globulin 2.3 g/dL (1.3-4.6) 12/10/23 11:01 Lipase 73 U/L (13-60) H 12/10/23 11:01 All radiology interpretation(s) finalized by discharge EKG Data EKG 1: I personally reviewed and interpreted this EKG as follows: EKG interpretation date: 12/10/23 EKG interpretation time: 12:34 Interpretation: nsr hr [address] changes in v1 and v2 that are unchanged from previus ekgs in past qrs 104 qtc 412 Discharge Plan Discharge Patient Disposition: Admitted As Inpatient Clinical Impression: Chest pain Qualifiers: Chest pain type: unspecified Qualified Code(s): R07.9 - Chest pain, unspecified Condition: Stable Coding Level of Care Code ED 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
[2023-12-10 13:44] LABS: Troponin 5 2HR 9.21 ng/L (0-15)
[2023-12-10 14:03] LABS: Troponin 5 2HR Delta -0.79 ABS# (0-10)
[2023-12-10] MEDS: nitroglycerin 0.4 mg sublingual Tablet SUBLINGUAL (14:18)
--- NOTE | 2023-12-10 14:33 | ECG_ITS ---
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 Measurements Intervals [place] Rate: 58 P: 46 WI: 153 QRS: 23 QRSD: 106 T: 51 QT: 433 QTc: 428 Interpretive Statements SINUS BRADYCARDIA POSSIBLE LEFT ATRIAL ENLARGEMENT [-0.1mV P-WAVE IN V1/V2] ANTERIOR MYOCARDIAL INFARCTION , PROBABLY RECENT [40+ ms Q WAVE AND/OR ST/T ABNORMALITY IN V3/V4] ACUTE TX Compared to ECG 12/10/2023 12:52:09 No significant changes Electronically Signed On 12-11-2023 0:55:14 CDT by Chance Velasquez M.D. [email or web address]
--- NOTE | 2023-12-10 15:11 | P.HP_ITS ---
Providers/Chief Complaint 2 Primary Care Provider: Mitch Reynolds DO Chief Complaint: chest pains, sob, escalona History of Present Illness Panfilo Ervin is a 43 year old male with past medical history of CAD post PCI to mid LAD in 2020, hypertension presents to the ER because of retrosternal chest pain. As per patient he for started having symptoms on Thursday with epigastric heaviness. Today is . Patient has been having chest pain on exertion since then along with shortness of breath. Last night he had retrosternal chest pain with burning radiating to jaw which woke him up from his sleep. Today morning while at work he started having dizziness, shortness of breath and chest heaviness on exertion so he present to the ER. Last stress test was from January 2023. Review of Systems 2 General: Reports: 10 or more systems reviewed and unremarkable except in HPI and below Const: Denies: fever(s), chills, body aches, change in appetite, change in weight, malaise, night sweats, diaphoresis, change in sleep pattern, daytime sleepiness or snoring Eyes: Denies: change in vision, blurry vision, photophobia, eye discomfort or eye discharge ENMT: Denies: throat pain, enlarged tonsils, hoarseness, mouth pain, oral sores, dry mouth, tinnitus, nasal congestion or post nasal drip Card: Denies: chest pain, palpitations, irregular heart rhythm, edema, swelling of feet/ankles, lightheadedness, syncope, pre-syncope, dyspnea on exertion, orthopnea, leg pain with exertion or acrocyanosis Resp: Denies: dyspnea, productive cough, non-productive cough, wheezing, stridor, pain on inspiration, change in phlegm color, hemoptysis or chest congestion GI: Denies: abdominal pain, nausea, vomiting, hematemesis, coffee ground emesis, dysphagia, heartburn, diarrhea, constipation, bloating, GI cramping, change in bowel habits, pain on defecation, hematochezia or melena : Denies: flank pain, difficulty urinating, dysuria, urinary frequency, urinary urgency, urinary hesitancy, urinary dribbling, difficulty starting urination, change in urine stream, nocturia or hematuria Musc: Denies: neck pain, back pain, extremity pain, joint pain, joint swelling, joint redness, joint stiffness or limited range of motion Neuro: Denies: headache(s), numbness in extremities, weakness in extremities, sensory changes, lack of coordination, difficulty walking, frequent falls, dizziness, vertigo, confusion, Slurred speech present, difficulty communicating thoughts or seizure-like activity Psych: Denies: anxiety, depression, mood swings, panic attacks, hopelessness or irritability Endo: Denies: polyuria, polydipsia, tired all the time, cold intolerance, excessive sweating, flushing or heat intolerance Darrius/Lymph: Denies: easy bruising or easy bleeding All/Imm: Denies: tongue swelling, facial swelling or acute wheezing Medications/Allergies Home Medications Medication Instructions Recorded Confirmed Last Taken Type aspirin 81 mg tablet,delayed 81 mg PO DAILY #90 tabs 05/03/21 12/10/23 12/10/23 Rx release atorvastatin 40 mg tablet 20 mg (1/2 x 40 mg) PO BEDTIME #90 03/05/23 12/10/23 12/09/23 Rx tabs esomeprazole magnesium 40 mg 40 mg PO DAILY 08/12/23 12/10/23 Unknown History capsule,delayed release lisinopril 10 mg tablet 40 mg PO DAILY 08/12/23 12/10/23 12/10/23 History carvedilol 6.25 mg tablet 6.25 mg PO BID 30 days #60 tabs 11/04/23 12/10/23 12/10/23 Rx nitroglycerin 0.4 mg sublingual See Rx Instructions .Route .COMPLEX 12/10/23 12/10/23 Unknown History tablet Allergies Allergy/AdvReac Type Severity Reaction Status Date / Time No Known Allergies Allergy Verified 11/04/23 15:55 PFSH Acute 2 PFSH: Medical History (Updated 12/10/23 @ 16:30 by Renaldo Pyle MD) CAD (coronary artery disease) Chest pain Hyperlipidemia LDL goal <70 Atherosclerosis of coronary artery Hypertension goal BP (blood pressure) < 140/80 STEMI (ST elevation myocardial infarction) Surgical History Presence of stent in LAD coronary artery Social History (Updated 12/10/23 @ 16:30 by Renaldo Pyle MD) Smoking and tobacco/nicotine status: current every day tobacco/nicotine user (currently quitting) Alcohol intake: never Caregiver/support person: Yes Lives independently: Yes Housing: House Current occupational status: employed Vitals/I&O/Wt Last Vital Signs Temp 98.1 F 12/10/23 10:34 Pulse 58 L 12/10/23 14:07 Resp 16 12/10/23 14:07 BP 136/75 12/10/23 14:07 Pulse Ox 95 12/10/23 14:07 O2 Del Method Room Air 12/10/23 14:07 Weight last 48 hrs Weight 133.81 kg Physical Exam 2 Narrative: General: No acute distress, AO x3 HEENT: PERRLA, pupils bilaterally equal and reactive Chest: Normal vesicular breath sounds, no added sounds, equal good air entry bilaterally CVS: S1-S2 regular, no murmurs, no tachycardia, no gallops, no rubs Abdomen: Soft, nontender, no organomegaly, bowel sounds present Neuro: No focal deficits, no facial deformity, AO x3, power 5/5 in all limbs Data 12/10/23 11:01 12/10/23 11:01 A&P Assessment and plan (1) Chest pain: Concerns for unstable angina. Typical symptoms. History of PCI to LAD for SC. Appreciate last stress test from 2022. Check A1c, lipid panel. Cycle troponins. Limited echocardiogram for regional wall motion abnormality and EF. Continue with home dose of aspirin, statin, beta-josiah. Start on Plavix 75 mg daily. Cardiology consulted. Possible plan for cardiac angiogram. Full dose Lovenox 1 mg/kg body weight every 12 hourly. Qualifiers: Chest pain type: unspecified Qualified Code(s): R07.9 - Chest pain, unspecified (2) CAD (coronary artery disease): (3) Hypertension goal BP (blood pressure) < 140/80: Goal blood pressure less than 140/90 mmHg. For now continue with home dose of carvedilol 6.25 mg twice daily along with lisinopril 40 mg oral daily. Will uptitrate medication or add nitrate depending on the goal blood pressures. Plan Full code Cardiac diet, n.p.o. after midnight Full dose Lovenox will be sufficient for DVT prophylaxis Protonix OPD prophylaxis Attestations 2 Medical Necessity Statement*: Admission under observation for management of unstable angina in a patient with history of CAD post PCI Diagnoses Chest pain R07.9 Chest pain type: unspecified CAD (coronary artery disease) I25.10 Hypertension goal BP (blood pressure) < 140/80 I10
[2023-12-10] MEDS: sodium chloride 0.9% 1,000 ML 75 ML IV (15:53)
--- NOTE | 2023-12-10 16:10 | PM.CONSULT ---
Providers/Reason For Consult Consulting Physician/Specialty*: ZOË Velasquez MD/cardiology Reason for Consult*: Patient is a chest pain/history of ASHD Requesting Physician: Dr. Pyle Attending Physician: Renaldo Pyle MD Primary Care Provider: Mitch Reynolds DO History of Present Illness History of Present Illness Panfilo Ervin is a 43 year old male with a history of atherosclerotic heart diseas, please myocardial infarction, previous PCI, presenting with complaints of chest pain off and on for the last 5 days or so. He is admitted to the hospital for further evaluation and management. Mr. Ervin initially presented with myocardial infarction in April 2021. 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 Beaulieu. Since his intervention, patient got lost in follow-up and apparently also had been noncompliant with medication. He was admitted to the hospital in February of last year with unstable anginal-like symptoms. Myocardial infarction was ruled out. He had a Myocardial perfusion imaging at that time which revealed areas of fixed defect with no significant reversible defects. Based on the perfusion scan findings, it was opted to treat him medically. This patient has been having episodes of chest pain intermittently since then. He has been fairly compliant with the medications. He continued to smoke. Apparently he quit smoking 2 weeks ago. 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 He started having left-sided chest pain, radiated to the back and to the left shoulder. It was associated with nausea and sweating. He also was somewhat short of breath. This is the pain is moderate to severe. Prior to this, he ate a burrito. Patient initially thought that the symptoms could be related to this. However the symptoms persisted through the rest of the day. He had more or less similar symptoms with the less severe intensity on Thursday as well. He may have some relief of the symptoms as he go to sleep in the night. He had a persistent discomfort in the chest on Thursday and Thursday. Last night his chest pains got worse. Apparently he had to get up several times in the night with chest discomfort. The intensity of the pain was moderate. Because of the ongoing recurrent episodes of this pains, he was brought to the emergency room this morning. In the emergency room, he was given sublingual nitro. His symptoms gradually subsided. At the time of my examination, patient is pain-free. This patient is known to have hypertension, dyslipidemia and smoking abuse. Finally he quit smoking 2 weeks ago. No alcohol abuse or any other substance abuse. Review of Systems Narrative: CONSTITUTIONAL: No fever or chills. [] EYES: No blurring of vision or other visual disturbances lately. ENT: No hoarseness of voice, auditory disturbances or sore throat. CARDIOVASCULAR: As mentioned above. RESPIRATORY: No significant cough. GASTROINTESTINAL: No hematemesis or melena. GENITOURINARY: No dysuria or hematuria. INTEGUMENTARY: No skin rashes or history of skin cancer. NEURO: No transient ischemic attacks or amaurosis. PSYCHIATRIC: No history of psychosis or major depression. HEMATOLOGIC: No bleeding disorders or significant anemia. ENDOCRINE: No history of polyuria or polydipsia. MUSCULOSKELETAL: No recent joint pain or swelling. ALLERGY/IMMUNOLOGY: As mentioned above. Medications/Allergies Home Medications Medication Instructions Recorded Confirmed Last Taken Type aspirin 81 mg tablet,delayed 81 mg PO DAILY #90 tabs 05/03/21 12/10/23 12/10/23 Rx release atorvastatin 40 mg tablet 20 mg (1/2 x 40 mg) PO BEDTIME #90 03/05/23 12/10/23 12/09/23 Rx tabs esomeprazole magnesium 40 mg 40 mg PO DAILY 08/12/23 12/10/23 Unknown History capsule,delayed release lisinopril 10 mg tablet 40 mg PO DAILY 08/12/23 12/10/23 12/10/23 History carvedilol 6.25 mg tablet 6.25 mg PO BID 30 days #60 tabs 11/04/23 12/10/23 12/10/23 Rx nitroglycerin 0.4 mg sublingual See Rx Instructions .Route .COMPLEX 12/10/23 12/10/23 Unknown History tablet Allergies Allergy/AdvReac Type Severity Reaction Status Date / Time No Known Allergies Allergy Verified 11/04/23 15:55 Current Medications Generic Name Dose Route Start Last Admin Trade Name Freq PRN Reason Stop Dose Admin Sodium Chloride 1,000 mls @ 75 mls/hr 12/10/23 15:40 12/10/23 15:53 Sodium Chloride 0.9% IV 75 mls/hr .[id number] CARLOS Administration PFSH Acute PFSH: Medical History CAD (coronary artery disease) Chest pain Hyperlipidemia LDL goal <70 Atherosclerosis of coronary artery Hypertension goal BP (blood pressure) < 140/80 STEMI (ST elevation myocardial infarction) Surgical History Presence of stent in LAD coronary artery Social History Smoking and tobacco/nicotine status: current every day tobacco/nicotine user (currently quitting) Alcohol intake: never Caregiver/support person: Yes Lives independently: Yes Housing: House Current occupational status: employed Vitals/I&O/Wt Last Vital Signs Temp 98.1 F 12/10/23 15:24 Pulse 60 12/10/23 15:40 Resp 17 12/10/23 15:40 BP 172/90 12/10/23 15:40 Pulse Ox 96 12/10/23 15:40 O2 Del Method Room Air 12/10/23 15:00 Weight last 48 hrs Weight 295 lb Physical Exam Narrative: GENERAL: The patient is alert and oriented times three. Not in any acute distress. HEENT: No significant pallor, icterus or lymphadenopathy.Oral cavity: There are no mucous membrane lesions. NECK: Trachea appears to be central. No masses noted. No JVD or thyromegaly appreciated. RESPIRATORY: Chest is symmetrical. No intercostals muscle retraction or any accessory muscle activation. There is no chest wall tenderness. Breath sounds are heard bilaterally. No rales or rhonchi heard. No evidence of any consolidation. BREASTS: Deferred. HEART: The heart sounds are normal. No S3 or S4. No significant murmurs. No pericardial rub ABDOMEN: No vessel pulsations or distention. No tenderness. No organomegaly appreciated. Bowel sounds are normally heard. : Deferred. RECTAL: Deferred. LYMPHATIC: No lymphadenopathy noted in the neck. EXTREMITIES: No edema or cyanosis. No clubbing. MUSCULOSKELETAL: No acute joint deformities or swelling SKIN: There are no significant rashes or ecchymosis NEUROPSYCHIATRIC: The patient is alert and oriented x3. Appears to be in a good mood. No tremors or rigidity noted. Data 12/10/23 11:01 12/10/23 11:01 Other Labs: Laboratory Last Values WBC 10.67 10^3/uL (3.29-11.43) 12/10/23 11:01 RBC 5.15 10^6/uL (3.85-5.65) 12/10/23 11:01 Hgb 16.00 g/dL (11.27-16.99) 12/10/23 11:01 Hct 44.9 % (37-53) 12/10/23 11:01 MCV 87.2 fl (82-101) 12/10/23 11:01 MCH 31.1 pg (27-33) 12/10/23 11:01 MCHC 35.6 g/dL (30-55) 12/10/23 11:01 RDW 12.6 % (12.1-15.1) 12/10/23 11:01 Plt Count 207 10^3/cmm (157-399) 12/10/23 11:01 MPV 9.8 fL (7.4-10.4) 12/10/23 11:01 Neut % (Auto) 77.7 % 12/10/23 11:01 Lymph % (Auto) 13.4 % 12/10/23 11:01 [place] % (Auto) 6.5 % 12/10/23 11:01 Eos % (Auto) 1.3 % 12/10/23 11:01 Baso % (Auto) 0.6 % 12/10/23 11:01 Neut # (Auto) 8.30 10^3/uL (1.8-7.7) H 12/10/23 11:01 Lymph # (Auto) 1.4 10^3/uL (0.8-4.8) 12/10/23 11:01 [place] # (Auto) 0.7 10^3/uL (0.2-0.9) 12/10/23 11:01 Eos # (Auto) 0.1 10^3/uL (0.0-0.8) 12/10/23 11:01 Baso # (Auto) 0.1 10^3/uL (0.0-0.1) 12/10/23 11:01 Nucleated RBC % (auto) 0 % 12/10/23 11:01 Nucleated RBCs # 0.0 /100WBC 12/10/23 11:01 PT 13.80 SECONDS (12.1-14.9) 12/10/23 11:01 INR 1.03 (0.8-1.2) 12/10/23 11:01 Sodium 141 mmol/L (136-145) 12/10/23 11:01 Potassium 4.6 mmol/L (3.5-5.1) 12/10/23 11:01 Chloride 106 mmol/L (98-107) 12/10/23 11:01 Carbon Dioxide 23 mmol/L (22-29) 12/10/23 11:01 Anion Gap 16.6 (5-19) 12/10/23 11:01 BUN 15 mg/dL (6-20) 12/10/23 11:01 Creatinine 0.9 mg/dL (0.7-1.2) 12/10/23 11:01 GFR Calculation 92.5 mL/min (90-130) 12/10/23 11:01 Glucose 91 mg/dL (65-115) 12/10/23 11:01 Calculated Osmolality 292 mOsm/kg (285-295) 12/10/23 11:01 Calcium 9.1 mg/dL (8.5-10.5) 12/10/23 11:01 Iron 98 ug/dL (59-158) 12/10/23 11:01 TIBC 302 mcg/dl 12/10/23 11:01 % Saturation 32.4 % (20-50) 12/10/23 11:01 Unsat Iron Binding 204 ug/dL (112-347) 12/10/23 11:01 Total Bilirubin 0.9 mg/dL (0.15-1.2) 12/10/23 11:01 AST 21 U/L (0-40) 12/10/23 11:01 ALT 27 U/L (0-41) 12/10/23 11:01 Alkaline Phosphatase 60 U/L (40-130) 12/10/23 11:01 Troponin T Baseline 10 ng/L (0-15) 12/10/23 11:01 Troponin T 120 Minute 9.21 ng/L (0-15) 12/10/23 13:19 Delta Troponin T -0.79 ABS# (0-10) L 12/10/23 13:19 Total Protein 6.9 g/dL (6.6-8.7) 12/10/23 11:01 Albumin 4.6 g/dL (3.5-5.2) 12/10/23 11:01 Globulin 2.3 g/dL (1.3-4.6) 12/10/23 11:01 Lipase 73 U/L (13-60) H 12/10/23 11:01 Vitamin B12 445 pg/mL (232-1245) 12/10/23 11:01 TSH 1.75 uIU/mL (0.27-4.20) 12/10/23 11:01 EKG 1: My Interpretation: The EKG revealed sinus bradycardia with a rate of 59 bpm. 4-hour progression. Features of old anteroseptal myocardial infarction. No acute ST-T changes. Other data: Myocardial perfusion imaging from February 2023 1. Medium size fixed perfusion abnormality of moderate to severe severity of mid to apical anterior, mid anteroseptal, mid inferoseptal, apical septal, apical lateral, apical inferior and apical bhat. 2. This represents old myocardial infarction in left anterior descending artery territory with no significant charles-infarct ischemia. 3. The left ventricular ejection fraction is moderately reduced with a value of 38%. 4. There is severe hypokinesis of mid to apical anterior, apical inferior, septal and apical bhat. 5. No coronary ischemia based on the study. Echocardiogram on 02/27/2023 1. Normal left ventricular size and wall thickness. Mildly decreased left ventricular systolic function. Left ventricular ejection fraction is estimated at 50-55 %. There is severe hypokinesis of mid to apical anteroseptal, apical anterior, apical inferior, apical lateral and apical bhat. Grade I diastolic dysfunction (abnormal relaxation filling pattern), normal to mildly elevated filling pressures. 2. When compared to study dated 06/28/2021, there may not have been any significant change. Cardiac arrested on 05/02/2021 * Left Main has no disease. * Circumflex has no disease. * Right Coronary Artery has no disease. * Mid Left Anterior Descending: total occlusion, PETER: 0 flow. * Coronary angiography shows left dominance. PCI Status: Emergency PCI Indication: STEMI - Immediate PCI for STEMI Interventional Findings * Mid Left Anterior Descendin% stenosis treated with a Drug Eluting Stent. 0% residual stenosis, PETER: 3 flow. A&P Assessment and plan (1) Atherosclerotic heart disease of [place] coronary artery with unstable angina pectoris: Patient's symptoms are suggestive for unstable angina. Hemodynamically seems to be stable. EKG is unremarkable. No evidence of myocardial injury so far. Patient will be treated with subcu Lovenox, beta-josiah, aspirin, Plavix, statin and the other current medications. In view of the patient's ongoing worsening of symptoms, in order to further evaluate his coronary status, a cardiac catheterization would be appropriate. The risk and benefits of the procedure were discussed with the patient. The risk of bleeding, hematoma, vascular injury, myocardial infarction, myocardial perforation, malignant cardiac arrhythmias ,CVA, renal failure and other concomitant complications were explained in detail. Patient understood this well and consented to proceed. Qualifiers: [place] vs. transplanted heart: [place] heart Qualified Code(s): I25.110 - Atherosclerotic heart disease of [place] coronary artery with unstable angina pectoris (2) Hyperlipidemia LDL goal <70: May continue the current medications. (3) Hypertension goal BP (blood pressure) < 140/80: Blood pressure seems to be in the normal range. May continue on the current irrigations. Plan Continue on the medications as mentioned above. Go ahead and schedule the patient for a cardiac catheterization tomorrow. Based on the angiogram findings, further recommendations will be made. Thank you for the opportunity to evaluate this patient and make these recommendations Consult Attestations Medical Necessity Statement: Patient requires continued hospital stay for close monitoring and further management Coding Level of Care Code 48171 Diagnoses Atherosclerosis of [place] coronary artery of [place] heart with unstable angina pectoris I25.110 [place] vs. transplanted heart: [place] heart Hyperlipidemia LDL goal <70 E78.5 Hypertension goal BP (blood pressure) < 140/80 I10
--- NOTE | 2023-12-10 16:26 | ECG_ITS ---
[facility] Test Date: 2023-12-10 Pat Name: Panfilo Ervin Department: Room: Gender: Male Notereader: : 1980 Requested By: Amaury Mckeon Order Number: [id number] Yuri MD: Chance Velasquez M.D. Measurements Intervals [place] Rate: 59 P: 44 OR: 149 QRS: 25 QRSD: 105 T: 57 QT: 423 QTc: 421 Interpretive Statements SINUS BRADYCARDIA POSSIBLE LEFT ATRIAL ENLARGEMENT [-0.1mV P-WAVE IN V1/V2] ANTERIOR MYOCARDIAL INFARCTION , PROBABLY RECENT [40+ ms Q WAVE AND/OR ST/T ABNORMALITY IN V3/V4] ACUTE CT Compared to ECG 12/10/2023 12:34:25 Sinus rhythm no longer present Myocardial infarct finding still present Electronically Signed On 12-11-2023 1:06:58 CDT by Chance Velasquez M.D. [id number]
[2023-12-10 16:31] LABS: Iron 98 ug/dL (59-158); Percent Saturation 32.4 % (20-50); Thyroid Stimulating Hormone 1.75 uIU/mL (0.27-4.20); Total Iron Binding Capacity 302 mcg/dl; Unsaturated Iron Binding 204 ug/dL (112-347); Vitamin B12 445 pg/mL (232-1245)
--- NOTE | 2023-12-10 16:33 | USCV_ITS ---
Panfilo Ervin Age: 43 Gender: M : 1980 Exam Date: 12/10/2023 18:08 Ordering Phys: Renaldo Pyle MD Technologist: KANCHAN [place] [facility] [place]: CAD, RWMA, EF BP: 172 / 90 HR: 62 Rhythm: Sinus Technical Quality: Adequate MEASUREMENTS (Male / Female) Normal Values 2D ECHO LV Diastolic Diameter PLAX 4.6 cm 4.2 - 5.9 / 3.9 - 5.3 cm IVS Diastolic Thickness 1.4 cm 0.6 - 1.0 / 0.6 - 0.9 cm IVS Systolic Thickness 1.9 cm LVPW Diastolic Thickness 1.4 cm 0.6 - 1.0 / 0.6 - 0.9 cm LVPW Systolic Thickness 1.7 cm LVOT Diameter 2.0 cm LV Ejection Fraction 2D Teich 63.7 % LV Ejection Fraction MOD 4C 64.3 % LV Ejection Fraction MOD 2C 66.8 % LV Ejection Fraction 2C AL 67.3 % LA Diameter 4.1 cm Aorta at Sinotubular Diameter 2.9 cm IVC Diameter 1.7 cm M-MODE LA Ao Ratio MM 1.4 AV Cusp Separation MM 2.0 cm DOPPLER AV Peak Velocity 197.0 cm/s LVOT Peak Velocity 107.0 cm/s AV Area Cont Eq vti 2.2 cm squared AV Area Cont Eq pk 1.8 cm squared MV Area PHT 2.8 cm squared Mitral E to A Ratio 1.4 TR Peak Velocity 226.0 cm/s TR Peak Gradient 20.4 mmHg TV Peak E Velocity 61.0 cm/s Right Atrial Pressure 3.0 mmHg Pulmonary Artery Systolic Pressu 23.4 mmHg PV Peak Velocity 123.0 cm/s FINDINGS Left Ventricle Mild hypokinesia of the basal inferolateral segment. Normal in size and ejection fraction of 64% Right Ventricle The right ventricle is normal in size and function. Right Atrium The right atrium is normal in size. Left Atrium The left atrium is normal in size. Mitral Valve Structurally normal mitral valve. Aortic Valve Thickened aortic valve. Tricuspid Valve Trace tricuspid valve regurgitation. Pulmonic Valve Minimally thickened pulmonic valve with no stenosis Pericardium No pericardial effusion. Aorta Normal ascending aorta dimension. IVC The inferior vena cava appears normal. CONCLUSIONS Mild hypokinesia of the basal inferolateral segment. Normal in size and ejection fraction of 64%. Trace tricuspid valve regurgitation. Minimally thickened pulmonic valve with no stenosis. Normal cardiac chamber sizes No intracardiac masses No pericardial effusion Compared to the study from 02/26/2023, there may not be a significant change Dr Chance Velasquez MD [facility] (Electronically Signed) Final Date: 11 December 2023 01:40 S
[2023-12-10 17:31] LABS: Add Urine Microscopic? NO; Charge for UA Resulting for Rev
[2023-12-10 17:53] LABS: Bilirubin Urine Neg (Negative); Blood Urine Neg (Negative); Glucose Urine UA Norm (Normal); Ketones Urine Negative (Negative); Leukocyte Esterase Urine Negative (Negative); Nitrate Urine Negative (Negative); Protein Urine Neg (Negative); Specific Gravity, Urine 1.005 (1.005-1.030); Urine Appearance Clear (CLEAR); Urine Color Yellow (Yellow); Urobilinogen Urine Norm (Negative); pH Urine 6.5 (5-7)
[2023-12-10] MEDS: carvedilol 6.25 mg Tablet PO (18:06)
[2023-12-10] MEDS: clopidogrel 300 mg Tablet PO (18:06)
[2023-12-10] MEDS: aspirin 325 mg Tablet PO (18:06)
[2023-12-10] MEDS: enoxaparin 150 mg/mL Syringe 130 MG SUBCUT (18:06)
[2023-12-10 18:23] LABS: Troponin 5 6HR 11.28 ng/L (0-15); Troponin 5 6HR Delta 1.28 ng/L (0-12)
[2023-12-10] MEDS: atorvastatin 40 mg Tablet 20 MG PO (21:01)
[2023-12-11] VITALS (17 sets, daily range): BP systolic 136–171; BP diastolic 81–105; PULSE 52–74; RESP 13–21; TEMP 36.5–37.2; O2SAT 93–97
[2023-12-11 05:09] LABS: Basophils # 0.1 10^3/uL (0.0-0.1); Basophils % 0.9 %; Eosinophils # 0.2 10^3/uL (0.0-0.8); Eosinophils % 2.2 %; Hematocrit 47.3 % (37-53); Lymphocytes # 1.5 10^3/uL (0.8-4.8); Lymphocytes % 19.5 %; Mean Corpuscular HGB Conc 34.9 g/dL (30-55); Mean Corpuscular Hemoglobin 30.8 pg (27-33); Mean Corpuscular Volume 88.4 fl (82-101); Mean Platelet Volume 10.1 fL (7.4-10.4); Monocytes # 0.5 10^3/uL (0.2-0.9); Monocytes % 6.7 %; Neutrophils # 5.36 10^3/uL (1.8-7.7); Neutrophils % 70.3 %; Nucleated Red Blood Cells % 0 %; Platelet Count 182 10^3/cmm (157-399); Red Blood Count 5.35 10^6/uL (3.85-5.65); Red Cell Distribution Width 12.5 % (12.1-15.1); White Blood Count 7.63 10^3/uL (3.29-11.43)
[2023-12-11 05:36] LABS: Alanine Aminotransferase 29 U/L (0-41); Albumin Level 4.3 g/dL (3.5-5.2); Alkaline Phosphatase 58 U/L (40-130); Anion Gap 15.1 (5-19); Aspartate Amino Transferase 21 U/L (0-40); Blood Urea Nitrogen 13 mg/dL (6-20); Carbon Dioxide 25 mmol/L (22-29); Chloride 107 mmol/L (98-107); Creatinine Clr Calc Pharmacy 137.2887; Globulin 2.8 g/dL (1.3-4.6); Glomerular Filtration Rate 81.9 mL/min (90-130); Glucose 97 mg/dL (65-115); Osmolality Calculated 296 mOsm/kg (285-295); Phosphorus 4.5 mg/dL (2.5-4.5); Potassium 4.1 mmol/L (3.5-5.1); Sodium 143 mmol/L (136-145); Total Bilirubin 0.7 mg/dL (0.15-1.2); Total Protein 7.1 g/dL (6.6-8.7)
[2023-12-11 05:38] LABS: Chol HDL Ratio 2.92 mg/dL (1.0-5.00); Cholesterol 140 mg/dL (0-200); HDL Cholesterol 48 mg/dL (60-100); LDL Cholesterol Calculated 69 mg/dL (50-129); LDL HDL Ratio 1.44 RATIO (0.00-3.22); Triglycerides 117 mg/dL (0-150)
[2023-12-11 05:48] LABS: Folate Level 11.3 ng/mL (4.5-32.2)
--- NOTE | 2023-12-11 06:21 | PC.NURSE ---
Dr. Velasquez ordered to hold codesy shot for Cath procedure.
[2023-12-11] MEDS: sodium chloride 0.9% 1,000 ML 50 ML IV (06:26)
--- NOTE | 2023-12-11 06:53 | XACV_ITS ---
Exam Room: [facility] Ht: 185 cm Wt: 132 kg BSA: 2.66 m2 Gender: Male : 1980 Any Known Allergies: Other Exam Priority: Routine Procedure(s): Procedure Description: Diagnostic procedure Procedure Description: PCI procedure Procedure Description: Left Heart Catheterization Procedure Description: Coronary IVUS Procedure Description: Drug Eluting Coronary Stent Procedure Description: PTCA Procedure Description: Miscellaneous Procedure Description: ACT Procedure Description: Coronary Angiography Ron CLAYTON; Diagnostic Cath Status: Urgent Diagnostic Findings * The left main is a medium to large caliber vessel with no significant stenotic lesions. * The left anterior descending artery is a medium caliber vessel which appears to wrap around the LV apex minimally. The proximal to the mid LAD has a long stented segment. There is a severe in-stent stenosis in the proximal end of the stent. Rest of the vessel was found to have minimal intimal irregularities. The first diagonal branch was found to have mild narrowing proximally. No other significant obstructive lesions were noted. * The intermedius artery, high diagonal was found to have mild diffuse intimal irregularities proximally. * The left circumflex artery is a medium to large caliber dominant vessel with minimal intimal irregularities. * The right coronary artery is a nondominant small to medium caliber vessel which was found to have a 95% segmental stenosis before the first RV branch. No other significant lesions were noted.. PCI Status: Urgent Interventional Findings * Procedure detail: We engaged left main artery with XB 3.5 guide catheter, IV heparin was administered to maintain anticoagulation. 0.014 run through guidewire was used to cross the stenosis We dilated the stent with 3.5x12 mm NC balloon at high pressure. At proximal edge of stent possible dissection was observed. We proceeded with placement of 3.5x12 Resolute ruben durg eluting stent after IVUS. Stents were then post dilated with 3.5 NC balloon. At this time, final angiogram was performed that showed excellent stent expansion and no residual stenosis. We then turned our attention to RCA stenosis. We engaged RCA with JR 4 guide catheter. Run through wire was used to cross the stenosis. We dilated the stenosis with 2.25x12 mm semicompliant balloon. At this time final angiogram was performed that showed good result. As it is a small sized vessel, stent was not placed. Patient left the mobile lab technician in a stable condition. * Proximal Left Anterior Descendin% stenosis treated with a MDT NC EUPHORA RX 3.56Z43TN BALLOON, and MDT R RUBEN 3.5X12 RADHA. * Mid Right Coronary Artery: 95% stenosis treated with a AB TREK 2.25X12 RX BALLOON. Conclusions 1. 49-year-old white male with a history of atherosclerotic heart disease, previous myocardial infarction, previous PCI of the proximal to mid LAD, is presenting with unstable anginal symptoms for the last couple of weeks. He had a Myocardial perfusion imaging in February of last year which was essentially unremarkable. Because of the increasing episodes of chest pain, in order to further evaluate the coronary status, a cardiac catheterization was recommended. Patient underwent left heart catheterization with left and right coronary angiogram today. The findings are as follows. 2. 1. No severe disease in the left main. 2. Severe in-stent stenosis in the proximal end of the previously stented proximal to mid LAD. 3. Mild diffuse disease in the dominant circumflex artery.4. Nondominant right coronary artery with a high-grade lesion before the RV branch. Slightly elevated LVEDP of 20 mmHg. 3. I reviewed and discussed the cardiac catheterization data with the Dr. Jimenez. It appears appropriate to consider PCI of the in-stent stenosis in the LAD and possible balloon angioplasty of the RCA lesion. Dr. Jimenez took over further up management of this patient at this point. 4. s/p successful revascularization of proximal to mid LAD with 1 stent. Successful revascularization of severe mid non dominant RCA with balloon angioplasty. 5. Proximal Left Anterior Descending was treated with a Balloon, and Drug Eluting Stent. 6. Mid Right Coronary Artery was treated with a Balloon. Recommendations * Dual antiplatelet therapy with aspirin and plavix for atleast 1 year. * High intensity statin therapy. * Outpatient cardiology follow up in 2 weeks. Interventional RX Recommendation: PCI w/o planned CABG Diagnostic RX Recommendation: PCI w/o planned CABG Anticoagulation: Heparin LV EDP: 20 mmHg Left Ventriculography Findings: * Elevated was not performed because the concern of her diarrhea overload. The LVEDP was 20 mmHg. Pressures Phase:Rest AO : 139 / 90 ( 110 ) @ 9:15:00 AM 145 / 115 ( 132 ) @ 9:24:00 AM 162 / 95 ( 124 ) @ 9:32:00 AM 159 / 95 ( 122 ) @ 9:32:00 AM 137 / 96 ( 116 ) @ 9:47:00 AM 154 / 93 ( 119 ) @ 9:49:00 AM 162 / 98 ( 125 ) @ 9:53:00 AM 151 / 100 ( 124 ) @ 9:57:00 AM 134 / 92 ( 113 ) @ 10:11:00 AM LV : 175 / -7 / 21 @ 9:32:00 AM 172 / -7 / 20 @ 9:32:00 AM Valves Phase:DefaultPhase AV : 8.0 @ 9:35:19 AM AV Mean Gradient: 20.0 @ 9:35:19 AM Clinical Evaluation EBL: 5mL-10mL Procedural Details Current Diagnosis : Unstable angina. Pre-Procedure Time Out. Identified patient by full name and date of as verbalized by the patient/guarantor. Does the consent match the physician's order: Yes. Accurate & Complete Informed Consent: Yes. Inpatient/Outpatient History & Physical on Chart: Yes. If H&P is completed, is and addenduem needed: No; If yes, is the addendum complete: N/A. Visualize and Verify Site with Patient/Guarantor: N/A. Relevant Radiology Images available: Yes. Pre-op teaching completed and patient verbalized understanding. The risks, benefits, and alternatives of sedation and/or procedure were discussed by physician. The patient agrees to continue. Procedure started. [facility] Clinical Fraility Score: 3: Managing Well. Oncology Patient Navigator Indications: Worsening Angina. Chest Pain Symptom Assessment: Typical Angina Symptoms. Correct patient, site and procedure confirmed by cath team. Current diagnosis: Unstable angina. PERRLA. 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 Lungs clear x 5 lobes. IV Site on Arrival: 18 gauge in the left anticubital. IV Fluids: 0.9% NaCl at KVO. 0 mL infused prior to mobile lab technician. Oxygen started at 2liters/min via nasal canula. right groin was prepped with chloroprep then draped in the usual sterile fashion. right radial was prepped with chloroprep then draped in the usual sterile fashion. Baseline sample Acquired. HR: 66 BPM. Physician notified. Physician arrived. Physician scrubbed in. Immediate Pre-Procedure Time Out. Correct Patient: Yes; Correct Procedure: Yes; Correct Site: Yes; Correct Patient Position: Yes; Correct Supplies: Yes; Dried Flammable Prep: Yes; Blood Products Available: N/A;. Lidocaine 1% infiltrated to the right radial. Arterial access obtained. A 5 japanese González catheter in over wire. Catheter removed over the exchange wire. A 5 japanese TIG catheter in over wire. Catheter removed over the exchange wire. A 5 japanese AL1 catheter in over wire. Multiple views taken of left coronary artery. Catheter removed over the exchange wire. A 5 japanese JR4 catheter in over wire. EDP Sample taken: LV 175/-8,21; HR: 66 BPM; SpO2: 95%. Pullback taken: LV 172/-8,20; AO 162/95(124); Mean: 20mmHg, Peak to Peak: 8mmHg, SEP: 16sec/min; HR: 65 BPM; SpO2: 95%. Multiple views taken of right coronary artery. Physician review of cine films. Physician scrubbed out. Catheter attached to heparnized saline flush at KVO to maintain patency. Dr. Jimenez scrubbed in to perform intervention. Catheter removed over the exchange wire. 6 japanese XB 3.5 guide catheter was inserted over the wire. [place] guidewire was advanced through the guide catheter to lesion in the prox LAD. Inflation number : 1 A MDT NC EUPHORA RX [id number] BALLOON was prepped and advanced across the Prox LAD , then inflated to 22 FLOYD for 0:20 seconds. Balloon out. Results checked. ACT drawn. Results out of range high seconds. Therapeutic limits - pre-heparin administration 90-150 seconds and monitoring heparin during a vascular procedure >250 seconds. IVUS catheter inserted OTW and advanced to the LAD. IVUS measurements obtained. IVUS catheter and wire removed. Results checked. Physician review of IVUS. Runthrough guidewire was advanced through the guide catheter to lesion in the prox LAD. Inflation Number : 2 A MDT R RUBEN 3.5X12 RADHA -Lot Number# _[id number] EXP: 09/21/2025 was prepped and advanced across the Prox LAD. The stent was deployed at 14 FLOYD for 0:14 seconds. Stent balloon out over wire. Inflation number: 3 The MDT NC EUPHORA RX 3.13P63WD BALLOON was reinflated across the Prox LAD, to 16 FLOYD for 0:10 seconds. Inflation number: 4 The MDT NC EUPHORA RX 3.49S45BS BALLOON was reinflated across the Prox LAD, to 20 FLOYD for 0:08 seconds. Inflation number: 5 The MDT NC EUPHORA RX 3.15A36EM BALLOON was reinflated across the Prox LAD, to 20 FLOYD for 0:08 seconds. Balloon out. Results checked. Wire out. ACT drawn. Results 398 seconds. Therapeutic limits - pre-heparin administration 90-150 seconds and monitoring heparin during a vascular procedure >250 seconds. Guide catheter out. 6 japanese JR 4 SH guide catheter was inserted over the wire. Runthrough guidewire was advanced through the guide catheter to lesion in the mid RCA. Wire out. Guide catheter out. 6 japanese JR 3.5 guide catheter was inserted over the wire. Runthrough guidewire was advanced through the guide catheter to lesion in the mid RCA. Inflation number : 1 A AB TREK 2.25X12 RX BALLOON was prepped and advanced across the Mid RCA , then inflated to 8 FLOYD for 0:17 seconds. Balloon out. Wire out. ACT drawn. Results out of range high seconds. Therapeutic limits - pre-heparin administration 90-150 seconds and monitoring heparin during a vascular procedure >250 seconds. Guide catheter out. Physician scrubbed out. Vital chart was stopped. Post Procedure: Pulses reassessed and unchanged. PERRLA. 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 No VTE prophylaxis required. Medication's Wasted: Lidocaine 1% = 18 mL. Medication's Wasted: Nitro = 49.8 mcg. Total IV fluids: 100 mL. ACT drawn. Results 325 seconds. Therapeutic limits - pre-heparin administration 90-150 seconds and monitoring heparin during a vascular procedure >250 seconds. Post-op diagnosis: Stent to LAD, PTCA of RCA. Complications: None. Estimated blood loss: 5mL-10mL. Responsiveness - Normal response to verbal stimuli; alert and oriented, PERRLA. Airway - Unaffected, no intervention required; spontaneous ventilation. Circulation: W/N/L, pulses unchanged. Nausea/Vomiting: No. Procedure completed. A TR Band was successful obtaining hemostatsis at the Right Radial artery insertion site. Patient transferred by wheelchair to 1st floor. Access Site Site: Right Radial artery Sheath Size: 6 Fr Hemostasis Method: TR Band Hemostasis Success: Successful Procedure Medications Start: 7:57 AM Stop: 7:57 AM Medication: Versed Amount: 1 mg Route: I.V. Start: 7:57 AM Stop: 7:57 AM Medication: Fentanyl Amount: 50 mcg Route: I.V. Start: 8:08 AM Stop: 8:08 AM Medication: Versed Amount: 1 mg Route: I.V. Start: 8:08 AM Stop: 8:08 AM Medication: Fentanyl Amount: 50 mcg Route: I.V. Start: 8:10 AM Stop: 8:10 AM Medication: Versed 1 mg and Fentanyl 25 mcg Amount: 1 Route: I.V. Start: 8:10 AM Stop: 8:10 AM Medication: Nitrogylcerin Amount: 200 mcg Route: I.A. Start: 8:11 AM Stop: 8:11 AM Medication: Verapamil Amount: 5 mg Route: I.A. Start: 8:14 AM Stop: 8:14 AM Medication: Heparin Amount: 5000 units Route: I.V. Start: 8:23 AM Stop: 8:23 AM Medication: Versed Amount: 1 mg Route: I.V. Start: 8:40 AM Stop: 8:40 AM Medication: Versed Amount: 1 mg Route: I.V. Start: 8:40 AM Stop: 8:40 AM Medication: Fentanyl Amount: 50 mcg Route: I.V. Start: 8:41 AM Stop: 8:41 AM Medication: Heparin Amount: 7000 units Route: I.V. Start: 9:00 AM Stop: 9:00 AM Medication: Versed 1 mg and Fentanyl 25 mcg Amount: 1 Route: I.V. Start: 9:25 AM Stop: 9:25 AM Medication: Plavix Amount: 75 mg Route: P.O. Start: 9:25 AM Stop: 9:25 AM Medication: Aspirin Amount: 81 mg Route: P.O. I, the attending physician, have reviewed and verified all procedure medications. Yes, all medications given per verbal order History/Risk Factors Hypertension: Yes Dyslipidemia: No Peripheral Arterial Disease (PAD): No Myocardial Infarction (AL): Yes Obesity: No Renal Disease: No Tobacco Use: Current/Recent(w/in 1 year) Prior Interventions PCI: Yes CABG: No Valve Surgery: No Date of PCI: 12/11/2023 Report Signatures Interventional Workflow Finalized by Bret Jimenez MD on 12/21/2023 09:07 AM Diagnostic Workflow Finalized by Dr Chance Velasquez MD [facility] on 12/11/2023 01:33 PM
--- NOTE | 2023-12-11 07:44 | PC.NURSE ---
to cardiac tanbark laborer via w/c at this time
--- NOTE | 2023-12-11 07:51 | W.PM.OPSUD ---
Surgery/Procedure H&P Update DATE OF PROCEDURE: December 11, 2023 DATE H&P PERFORMED: 12/10/23 H&P UPDATE INFORMATION: I have reviewed H&P completed within last 30 days, I have examined patient prior to procedure and No changes to prior documentation PREOP DIAGNOSIS: ASHD PRIMARY INDICATION FOR PROCEDURE: Unstable angina/atherosclerotic heart disease PLANNED PROCEDURE: Operation Date: 12/11/23 07:00 Proposed Procedures p Cardiac Catheterization(Left) - Chance Velasquez MD PATIENT REASSESSED PRIOR TO SEDATION, WITH NO CHANGE NOTED: Yes PHYSICAL EXAM: alert, oriented x 3 and clear to auscultation bilaterally AIRWAY EVAL/ANESTHESIA PLAN: normal airway, see other exam findings, Monitored Anesthesia, Local Anesthesia, Risks, benefits & alternatives of sedation and/or procedure discussed and Patient agrees to continue as planned
[2023-12-11 08:59] LABS: Estmated Average Glucose 108; Hemoglobin A1C 5.4 % (4.0-6.0)
--- NOTE | 2023-12-11 09:38 | PM.PN ---
Subjective Subjective: Patient underwent cardiac catheterization this morning. He was found to have high-grade in-stent stenosis in the LAD. He also was found to have a high-grade lesion in the nondominant right coronary artery. He underwent PCI of both these lesions by Dr. Jimenez. Currently remaining stable. Medications: Medication Review Details: Current Medications Acetaminophen (Acetaminophen 325 Mg Tablet) 650 mg PO Q6H PRN PRN Reason: Mild/Mod Pain Or Temp >/= 101 Aspirin (Aspirin 81 Mg Ec Tablet) 81 mg PO DAILY [facility] Atorvastatin Calcium (Atorvastatin 40 Mg Tablet) 20 mg PO BEDTIME [facility] Last Admin: 12/10/23 21:01 Dose: 20 mg Bisacodyl (Bisacodyl 5 Mg Tablet) 10 mg PO DAILY PRN; Protocol PRN Reason: Constipation (see protocol) Carvedilol (Carvedilol 6.25 Mg Tablet) 6.25 mg PO BID [facility] Last Admin: 12/10/23 18:06 Dose: 6.25 mg Clopidogrel Bisulfate (Clopidogrel 75 Mg Tablet) 75 mg PO DAILY [facility] Enoxaparin Sodium (Enoxaparin 150 Mg/Ml Syringe) 130 mg SUBCUT Q12H [facility] Last Admin: 12/11/23 06:21 Dose: Not Given Sodium Chloride (Sodium Chloride 0.9%) 1,000 mls @ 75 mls/hr IV .[id number] [facility] Last Admin: 12/11/23 06:25 Dose: Not Given Sodium Chloride (Sodium Chloride 0.9%) 1,000 mls @ 50 mls/hr IV .Q20H ONE Stop: 12/11/23 13:25 Last Admin: 12/11/23 06:26 Dose: 50 mls/hr Lactulose (Lactulose Oral Liq 20 Gm/30 Ml Udc) 10 gm PO DAILY PRN; Protocol PRN Reason: Constipation (see protocol) Lisinopril (Lisinopril 10 Mg Tablet) 40 mg PO DAILY [facility] Magnesium Hydroxide (Magnesium Hydroxide 30 Ml Udc) 30 ml PO DAILY PRN; Protocol PRN Reason: Constipation (see protocol) Morphine Sulfate (Morphine 4 Mg/Ml Sdv 1 Ml) 2 mg IVP Q4H PRN PRN Reason: SEVERE PAIN Ondansetron HCl (Ondansetron 2 Mg/Ml Sdv 2 Ml) 4 mg IVP Q8H PRN PRN Reason: vomiting, or N/V if npo Pantoprazole Sodium (Pantoprazole Dr 40 Mg Tablet) 40 mg PO DAILY CARLOS Vitals/I&O/Wt Last Vital Signs Temp 98.6 F 12/11/23 07:08 Pulse 60 12/11/23 07:08 Resp 17 12/11/23 07:08 BP 158/104 12/11/23 07:08 Pulse Ox 96 12/11/23 07:08 O2 Del Method Room Air 12/11/23 07:08 12/10/23 12/11/23 12/11/23 22:59 06:59 14:59 Intake Total 120 / 120 360 / 480 Output Total 680 / 680 Balance -560 / -560 360 / -200 Weight last 48 hrs Weight 291 lb 11.2 oz Weight 288 lb Weight 295 lb Physical Exam Narrative: GENERAL: The patient is alert and oriented times three. Not in any acute distress. HEENT: No significant pallor, icterus or lymphadenopathy.Oral cavity: There are no mucous membrane lesions. NECK: Trachea appears to be central. No masses noted. No JVD or thyromegaly appreciated. RESPIRATORY: Chest is symmetrical. No intercostals muscle retraction or any accessory muscle activation. There is no chest wall tenderness. Breath sounds are heard bilaterally. No rales or rhonchi heard. No evidence of any consolidation. BREASTS: Deferred. HEART: The heart sounds are normal. No S3 or S4. No significant murmurs. No pericardial rub ABDOMEN: No vessel pulsations or distention. No tenderness. No organomegaly appreciated. Bowel sounds are normally heard. : Deferred. RECTAL: Deferred. LYMPHATIC: No lymphadenopathy noted in the neck. EXTREMITIES: No edema or cyanosis. No clubbing. MUSCULOSKELETAL: No acute joint deformities or swelling SKIN: There are no significant rashes or ecchymosis NEUROPSYCHIATRIC: The patient is alert and oriented x3. Appears to be in a good mood. No tremors or rigidity noted. Data 12/11/23 04:54 12/11/23 04:54 Other Labs: Laboratory Last Values WBC 7.63 10^3/uL (3.29-11.43) 12/11/23 04:54 RBC 5.35 10^6/uL (3.85-5.65) 12/11/23 04:54 Hgb 16.50 g/dL (11.27-16.99) 12/11/23 04:54 Hct 47.3 % (37-53) 12/11/23 04:54 MCV 88.4 fl (82-101) 12/11/23 04:54 MCH 30.8 pg (27-33) 12/11/23 04:54 MCHC 34.9 g/dL (30-55) 12/11/23 04:54 RDW 12.5 % (12.1-15.1) 12/11/23 04:54 Plt Count 182 10^3/cmm (157-399) 12/11/23 04:54 MPV 10.1 fL (7.4-10.4) 12/11/23 04:54 Neut % (Auto) 70.3 % 12/11/23 04:54 Lymph % (Auto) 19.5 % 12/11/23 04:54 [place] % (Auto) 6.7 % 12/11/23 04:54 Eos % (Auto) 2.2 % 12/11/23 04:54 Baso % (Auto) 0.9 % 12/11/23 04:54 Neut # (Auto) 5.36 10^3/uL (1.8-7.7) 12/11/23 04:54 Lymph # (Auto) 1.5 10^3/uL (0.8-4.8) 12/11/23 04:54 [place] # (Auto) 0.5 10^3/uL (0.2-0.9) 12/11/23 04:54 Eos # (Auto) 0.2 10^3/uL (0.0-0.8) 12/11/23 04:54 Baso # (Auto) 0.1 10^3/uL (0.0-0.1) 12/11/23 04:54 Nucleated RBC % (auto) 0 % 12/11/23 04:54 Nucleated RBCs # 0.0 /100WBC 12/11/23 04:54 PT 13.80 SECONDS (12.1-14.9) 12/10/23 11:01 INR 1.03 (0.8-1.2) 12/10/23 11:01 Sodium 143 mmol/L (136-145) 12/11/23 04:54 Potassium 4.1 mmol/L (3.5-5.1) 12/11/23 04:54 Chloride 107 mmol/L (98-107) 12/11/23 04:54 Carbon Dioxide 25 mmol/L (22-29) 12/11/23 04:54 Anion Gap 15.1 (5-19) 12/11/23 04:54 BUN 13 mg/dL (6-20) 12/11/23 04:54 Creatinine 1.0 mg/dL (0.7-1.2) 12/11/23 04:54 GFR Calculation 81.9 mL/min (90-130) L 12/11/23 04:54 Glucose 97 mg/dL (65-115) 12/11/23 04:54 Estimat Average Glucose 108 12/11/23 04:54 Hemoglobin A1c 5.4 % (4.0-6.0) 12/11/23 04:54 Calculated Osmolality 296 mOsm/kg (285-295) H 12/11/23 04:54 Calcium 9.0 mg/dL (8.5-10.5) 12/11/23 04:54 Phosphorus 4.5 mg/dL (2.5-4.5) 12/11/23 04:54 Magnesium 2.0 mg/dL (1.7-2.3) 12/11/23 04:54 Iron 98 ug/dL (59-158) 12/10/23 11:01 TIBC 302 mcg/dl 12/10/23 11:01 % Saturation 32.4 % (20-50) 12/10/23 11:01 Unsat Iron Binding 204 ug/dL (112-347) 12/10/23 11:01 Total Bilirubin 0.7 mg/dL (0.15-1.2) 12/11/23 04:54 AST 21 U/L (0-40) 12/11/23 04:54 ALT 29 U/L (0-41) 12/11/23 04:54 Alkaline Phosphatase 58 U/L (40-130) 12/11/23 04:54 Troponin T Baseline 10 ng/L (0-15) 12/10/23 11:01 Troponin T 120 Minute 9.21 ng/L (0-15) 12/10/23 13:19 Delta Troponin T -0.79 ABS# (0-10) L 12/10/23 13:19 Troponin T Hi Sens 6Hr 11.28 ng/L (0-15) 12/10/23 17:10 Troponin T Hi Sens 6Hr Delta 1.28 ng/L (0-12) 12/10/23 17:10 Total Protein 7.1 g/dL (6.6-8.7) 12/11/23 04:54 Albumin 4.3 g/dL (3.5-5.2) 12/11/23 04:54 Globulin 2.8 g/dL (1.3-4.6) 12/11/23 04:54 Triglycerides 117 mg/dL (0-150) 12/11/23 04:54 Cholesterol 140 mg/dL (0-200) 12/11/23 04:54 LDL Cholesterol, Calc 69 mg/dL (50-129) 12/11/23 04:54 HDL Cholesterol 48 mg/dL (60-100) L 12/11/23 04:54 LDL/HDL Ratio 1.44 RATIO (0.00-3.22) 12/11/23 04:54 Cholesterol/HDL Ratio 2.92 mg/dL (1.0-5.00) 12/11/23 04:54 Lipase 73 U/L (13-60) H 12/10/23 11:01 Vitamin B12 445 pg/mL (232-1245) 12/10/23 11:01 Folate 11.3 ng/mL (4.5-32.2) 12/11/23 04:54 TSH 1.75 uIU/mL (0.27-4.20) 12/10/23 11:01 Urine Color Yellow (Yellow) 12/10/23 16:47 Urine Appearance Clear (CLEAR) 12/10/23 16:47 Urine pH 6.5 (5-7) 12/10/23 16:47 Ur Specific [place] 1.005 (1.005-1.030) 12/10/23 16:47 Urine Protein Neg (Negative) 12/10/23 16:47 Urine Glucose (UA) Norm (Normal) 12/10/23 16:47 Urine Ketones Negative (Negative) 12/10/23 16:47 Urine Blood Neg (Negative) 12/10/23 16:47 Urine Nitrate Negative (Negative) 12/10/23 16:47 Urine Bilirubin Neg (Negative) 12/10/23 16:47 Urine Urobilinogen Norm mg/dL (Negative) 12/10/23 16:47 Ur Leukocyte Esterase Negative (Negative) 12/10/23 16:47 A&P Assessment and plan (1) Atherosclerotic heart disease of [place] coronary artery with unstable angina pectoris: Patient's symptoms are suggestive for unstable angina. Hemodynamically seems to be stable. EKG is unremarkable. No evidence of myocardial injury so far. Underwent cardiac catheterization today. Hide high-grade in-stent stenosis in the LAD. Mild disease in the circumflex artery. High-grade stenosis in the nondominant RCA as mentioned above. Status post PCI of the LAD lesion with RADHA. POBA of the RCA lesion. Stable Qualifiers: [place] vs. transplanted heart: [place] heart Qualified Code(s): I25.110 - Atherosclerotic heart disease of [place] coronary artery with unstable angina pectoris (2) Hyperlipidemia LDL goal <70: May continue the current medications. (3) Hypertension goal BP (blood pressure) < 140/80: Blood pressure seems to be in the normal range. May continue on the current irrigations. Plan Continue the Plavix, aspirin another medications Possible discharge home tomorrow. Attestations Medical Necessity Statement*: Patient requires continued hospital stay for close monitoring and further management Coding Level of Care Code 87302 Diagnoses Atherosclerosis of [place] coronary artery of [place] heart with unstable angina pectoris I25.110 [place] vs. transplanted heart: [place] heart Hyperlipidemia LDL goal <70 E78.5 Hypertension goal BP (blood pressure) < 140/80 I10
--- NOTE | 2023-12-11 09:56 | PC.NURSE ---
received from cardiac laboratory animal facility supervisor at 0950 via w/c.report received.pt is alert and awake and oriented x 4.denies pain at present.right wrist with radial tr band on and inflated.right hand is warm to touch and with brisk capillary refill.no hematoma noted.palpable radial pulse noted distal to tr band.pt instructed in activity restrictions s/p radial artery procedure...and instructed to notify staff for any bleeding,pain,numbness,sob..or for any concerns at all.pt verb understanding of instructions
[2023-12-11] MEDS: lisinopril 10 mg Tablet 40 MG PO (10:05)
[2023-12-11] MEDS: carvedilol 6.25 mg Tablet PO ×2 (10:05→17:54)
[2023-12-11] MEDS: pantoprazole DR 40 mg Tablet PO (10:06)
--- NOTE | 2023-12-11 12:56 | P.PN_ITS ---
Subjective 2 Subjective: No acute events overnight. Underwent PCI today morning. No further chest pain. Blood pressure slightly elevated. Seen with sister at bedside. Vitals/I&O/Wt Last Vital Signs Temp 97.7 F 12/11/23 10:57 Pulse 73 12/11/23 11:45 Resp 14 12/11/23 11:45 BP 161/98 12/11/23 11:45 Pulse Ox 97 12/11/23 11:45 O2 Del Method Room Air 12/11/23 10:57 12/10/23 12/11/23 12/11/23 22:59 06:59 14:59 Intake Total 120 / 120 360 / 480 360 / 360 Output Total 680 / 680 Balance -560 / -560 360 / -200 360 / 360 Weight last 48 hrs Weight 132.313 kg Weight 130.635 kg Weight 133.81 kg Physical Exam 2 Narrative: General: No acute distress, AO x3 HEENT: PERRLA, pupils bilaterally equal and reactive Chest: Normal vesicular breath sounds, no added sounds, equal good air entry bilaterally CVS: S1-S2 regular, no murmurs, no tachycardia, no gallops, no rubs Abdomen: Soft, nontender, no organomegaly, bowel sounds present Neuro: No focal deficits, no facial deformity, AO x3, power 5/5 in all limbs Data 12/11/23 04:54 12/11/23 04:54 A&P Assessment and plan (1) Chest pain: Post PCI. Found to have in-stent stenosis to mid LAD and post PCI to RCA. Appreciate A1c, lipid panel. Continue with aspirin, Plavix, statin, beta-josiah. Goal blood pressure less than 140/90 mmHg. Blood pressure is elevated. Will add Imdur 30 mg oral daily. Echocardiogram results appreciated for an EF of 64% without regional wall motion normality. Qualifiers: Chest pain type: unspecified Qualified Code(s): R07.9 - Chest pain, unspecified (2) CAD (coronary artery disease): (3) Hypertension goal BP (blood pressure) < 140/80: Goal blood pressure less than 140/90 mmHg. Blood pressure slightly elevated. Continue with home dose of carvedilol and lisinopril. Added Imdur as above. Plan Smoker: Discussed in detail about smoking cessation. Patient states he is quit smoking around 2 weeks ago and will not continue any further. Full code Cardiac diet, Full dose Lovenox will be sufficient for DVT prophylaxis Protonix OPD prophylaxis Attestations 2 Medical Necessity Statement*: Requires further hospitalization for post PCI care and the patient admitted for unstable angina found to have in-stent stenosis Diagnoses Chest pain R07.9 Chest pain type: unspecified CAD (coronary artery disease) I25.10 Hypertension goal BP (blood pressure) < 140/80 I10
[2023-12-11] MEDS: isosorbide mononitrate ER 30 mg Tablet PO (13:31)
--- NOTE | 2023-12-11 13:34 | PC.NURSE ---
blood pressures on [employer] have been running high.bp checked manually...and bp's are not correlating.bp machine left arm...203/105...bp manually 170/100.
--- NOTE | 2023-12-11 14:40 | PC.NURSE ---
tr band slowly deflated and finally removed at 1400.right hand remains warm to touch and with brisk capillary refill.palpable radial pulse noted.slight soft bruising noted distal to tr band.pt instructed in activity restrictions s/p tr band removal...and instructed to notify staff for any bleeding,pain,numbness,sob...or for any concerns at all.pt verb understanding of instructions
[2023-12-11] MEDS: atorvastatin 40 mg Tablet 20 MG PO (20:16)
[2023-12-12] VITALS (7 sets, daily range): BP systolic 114–164; BP diastolic 60–88; PULSE 56–74; RESP 12–20; TEMP 36.3–36.7; O2SAT 96–98
[2023-12-12] MEDS: acetaminophen 325 mg Tablet 650 MG PO (06:53)
[2023-12-12] MEDS: carvedilol 6.25 mg Tablet PO (08:13)
[2023-12-12] MEDS: clopidogrel 75 mg Tablet PO (08:13)
[2023-12-12] MEDS: isosorbide mononitrate ER 30 mg Tablet PO (08:13)
[2023-12-12] MEDS: lisinopril 10 mg Tablet 40 MG PO (08:13)
[2023-12-12] MEDS: aspirin 81 mg EC Tablet PO (08:14)
[2023-12-12] MEDS: pantoprazole DR 40 mg Tablet PO (08:14)
--- NOTE | 2023-12-12 10:28 | PM.DCS ---
Discharge Providers Date of Admission: 12/10/23 15:12 Date of Discharge: December 12, 2023 Attending Provider at Admission: Renaldo Pyle MD Attending Provider at Discharge: Renaldo Pyle MD Consults: Cardiology: Dr. Velasquez Primary Care Provider: Mitch Reynolds DO Diagnoses at Discharge Discharge Diagnosis (1) Atherosclerotic heart disease of platinum coronary artery with unstable angina pectoris: Status: Acute Qualifiers: [place] vs. transplanted heart: platinum heart Qualified Code(s): I25.110 - Atherosclerotic heart disease of platinum coronary artery with unstable angina pectoris (2) Hyperlipidemia LDL goal <70: Status: Acute (3) Hypertension goal BP (blood pressure) < 140/80: Status: Acute (4) Chest pain: Status: Acute Qualifiers: Chest pain type: unspecified Qualified Code(s): R07.9 - Chest pain, unspecified (5) CAD (coronary artery disease): Status: Acute Reason for Visit Reason for Visit: chest pains, sob, escalona Hospital Course Hospital Course Panfilo Ervin is a 43 year old male with a history of atherosclerotic heart diseas, please myocardial infarction, previous PCI, presenting with complaints of chest pain off and on for the last 5 days or so. He is admitted to the hospital for further evaluation and management. Mr. Ervin initially presented with myocardial infarction in April 2021. 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 Beaulieu. Since his intervention, patient got lost in follow-up and apparently also had been noncompliant with medication. He was admitted to the hospital in February of last year with unstable anginal-like symptoms. Myocardial infarction was ruled out. He had a Myocardial perfusion imaging at that time which revealed areas of fixed defect with no significant reversible defects. Based on the perfusion scan findings, it was opted to treat him medically. This patient has been having episodes of chest pain intermittently since then. He has been fairly compliant with the medications. He continued to smoke. Apparently he quit smoking 2 weeks ago. 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 He started having left-sided chest pain, radiated to the back and to the left shoulder. It was associated with nausea and sweating. He also was somewhat short of breath. This is the pain is moderate to severe. Prior to this, he ate a burrito. Patient initially thought that the symptoms could be related to this. However the symptoms persisted through the rest of the day. He had more or less similar symptoms with the less severe intensity on Thursday as well. He may have some relief of the symptoms as he go to sleep in the night. He had a persistent discomfort in the chest on Thursday and Thursday. Last night his chest pains got worse. Apparently he had to get up several times in the night with chest discomfort. The intensity of the pain was moderate. Because of the ongoing recurrent episodes of this pains, he was brought to the emergency room this morning. In the emergency room, he was given sublingual nitro. His symptoms gradually subsided. This patient is known to have hypertension, dyslipidemia and smoking abuse. Finally he quit smoking 2 weeks ago. No alcohol abuse or any other substance abuse. Patient was admitted to the hospital further evaluation and management of unstable angina in setting of CAD. Patient underwent cardiac catheterization this morning. He was found to have high-grade in-stent stenosis in the LAD. He also was found to have a high-grade lesion in the nondominant right coronary artery. He underwent PCI of both these lesions. During hospitalization he was also found to have elevated blood pressure for which his antihypertensives were adjusted. He is been discharged in medically stable condition on aspirin, Plavix, statin along with beta-josiah. Amlodipine has been added to his medication list for high blood pressure. He is to check his blood pressure daily at home maintain a blood pressure diary and follow with a primary care provider within next 2 weeks for further adjustment of antihypertensive. He is to follow-up with cardiology on set appointment. Physical Exam Narrative: General: No acute distress, AO x3 HEENT: PERRLA, pupils bilaterally equal and reactive Chest: Normal vesicular breath sounds, no added sounds, equal good air entry bilaterally CVS: S1-S2 regular, no murmurs, no tachycardia, no gallops, no rubs Abdomen: Soft, nontender, no organomegaly, bowel sounds present Neuro: No focal deficits, no facial deformity, AO x3, power 5/5 in all limbs Discharge Data Studies Completed and Pending Completed Studies During Hospitalization Category Date Time Status XR chest 1V portable [id number] Stat Exams 12/10/23 10:26 Completed CV. echo limited [id number] Routine Ultrasound 12/10/23 16:33 Completed Pending at discharge Category Date Time Status [facility] RO[facility] request for service Routine Exams 12/11/23 06:53 Taken Radiology Impressions Chest X-Ray 12/10/23 10:26 IMPRESSION: Stable chest without acute abnormality. CONCLUSIONS Mild hypokinesia of the basal inferolateral segment. Normal in size and ejection fraction of 64%. Trace tricuspid valve regurgitation. Minimally thickened pulmonic valve with no stenosis. Normal cardiac chamber sizes No intracardiac masses No pericardial effusion Compared to the study from 02/26/2023, there may not be a significant change Dr Chance Velasquez MD [facility] (Electronically Signed) Final Date: 11 December 2023 01:40 Laboratory Results WBC 7.63 10^3/uL (3.29-11.43) 12/11/23 04:54 RBC 5.35 10^6/uL (3.85-5.65) 12/11/23 04:54 Hgb 16.50 g/dL (11.27-16.99) 12/11/23 04:54 Hct 47.3 % (37-53) 12/11/23 04:54 MCV 88.4 fl (82-101) 12/11/23 04:54 MCH 30.8 pg (27-33) 12/11/23 04:54 MCHC 34.9 g/dL (30-55) 12/11/23 04:54 RDW 12.5 % (12.1-15.1) 12/11/23 04:54 Plt Count 182 10^3/cmm (157-399) 12/11/23 04:54 MPV 10.1 fL (7.4-10.4) 12/11/23 04:54 Neut % (Auto) 70.3 % 12/11/23 04:54 Lymph % (Auto) 19.5 % 12/11/23 04:54 [place] % (Auto) 6.7 % 12/11/23 04:54 Eos % (Auto) 2.2 % 12/11/23 04:54 Baso % (Auto) 0.9 % 12/11/23 04:54 Neut # (Auto) 5.36 10^3/uL (1.8-7.7) 12/11/23 04:54 Lymph # (Auto) 1.5 10^3/uL (0.8-4.8) 12/11/23 04:54 [place] # (Auto) 0.5 10^3/uL (0.2-0.9) 12/11/23 04:54 Eos # (Auto) 0.2 10^3/uL (0.0-0.8) 12/11/23 04:54 Baso # (Auto) 0.1 10^3/uL (0.0-0.1) 12/11/23 04:54 Nucleated RBC % (auto) 0 % 12/11/23 04:54 Nucleated RBCs # 0.0 /100WBC 12/11/23 04:54 PT 13.80 SECONDS (12.1-14.9) 12/10/23 11:01 INR 1.03 (0.8-1.2) 12/10/23 11:01 Sodium 143 mmol/L (136-145) 12/11/23 04:54 Potassium 4.1 mmol/L (3.5-5.1) 12/11/23 04:54 Chloride 107 mmol/L (98-107) 12/11/23 04:54 Carbon Dioxide 25 mmol/L (22-29) 12/11/23 04:54 Anion Gap 15.1 (5-19) 12/11/23 04:54 BUN 13 mg/dL (6-20) 12/11/23 04:54 Creatinine 1.0 mg/dL (0.7-1.2) 12/11/23 04:54 GFR Calculation 81.9 mL/min (90-130) L 12/11/23 04:54 Glucose 97 mg/dL (65-115) 12/11/23 04:54 Estimat Average Glucose 108 12/11/23 04:54 Hemoglobin A1c 5.4 % (4.0-6.0) 12/11/23 04:54 Calculated Osmolality 296 mOsm/kg (285-295) H 12/11/23 04:54 Calcium 9.0 mg/dL (8.5-10.5) 12/11/23 04:54 Phosphorus 4.5 mg/dL (2.5-4.5) 12/11/23 04:54 Magnesium 2.0 mg/dL (1.7-2.3) 12/11/23 04:54 Iron 98 ug/dL (59-158) 12/10/23 11:01 TIBC 302 mcg/dl 12/10/23 11:01 % Saturation 32.4 % (20-50) 12/10/23 11:01 Unsat Iron Binding 204 ug/dL (112-347) 12/10/23 11:01 Total Bilirubin 0.7 mg/dL (0.15-1.2) 12/11/23 04:54 AST 21 U/L (0-40) 12/11/23 04:54 ALT 29 U/L (0-41) 12/11/23 04:54 Alkaline Phosphatase 58 U/L (40-130) 12/11/23 04:54 Troponin T Baseline 10 ng/L (0-15) 12/10/23 11:01 Troponin T 120 Minute 9.21 ng/L (0-15) 12/10/23 13:19 Delta Troponin T -0.79 ABS# (0-10) L 12/10/23 13:19 Troponin T Hi Sens 6Hr 11.28 ng/L (0-15) 12/10/23 17:10 Troponin T Hi Sens 6Hr Delta 1.28 ng/L (0-12) 12/10/23 17:10 Total Protein 7.1 g/dL (6.6-8.7) 12/11/23 04:54 Albumin 4.3 g/dL (3.5-5.2) 12/11/23 04:54 Globulin 2.8 g/dL (1.3-4.6) 12/11/23 04:54 Triglycerides 117 mg/dL (0-150) 12/11/23 04:54 Cholesterol 140 mg/dL (0-200) 12/11/23 04:54 LDL Cholesterol, Calc 69 mg/dL (50-129) 12/11/23 04:54 HDL Cholesterol 48 mg/dL (60-100) L 12/11/23 04:54 LDL/HDL Ratio 1.44 RATIO (0.00-3.22) 12/11/23 04:54 Cholesterol/HDL Ratio 2.92 mg/dL (1.0-5.00) 12/11/23 04:54 Lipase 73 U/L (13-60) H 12/10/23 11:01 Vitamin B12 445 pg/mL (232-1245) 12/10/23 11:01 Folate 11.3 ng/mL (4.5-32.2) 12/11/23 04:54 TSH 1.75 uIU/mL (0.27-4.20) 12/10/23 11:01 Urine Color Yellow (Yellow) 12/10/23 16:47 Urine Appearance Clear (CLEAR) 12/10/23 16:47 Urine pH 6.5 (5-7) 12/10/23 16:47 Ur Specific [place] 1.005 (1.005-1.030) 12/10/23 16:47 Urine Protein Neg (Negative) 12/10/23 16:47 Urine Glucose (UA) Norm (Normal) 12/10/23 16:47 Urine Ketones Negative (Negative) 12/10/23 16:47 Urine Blood Neg (Negative) 12/10/23 16:47 Urine Nitrate Negative (Negative) 12/10/23 16:47 Urine Bilirubin Neg (Negative) 12/10/23 16:47 Urine Urobilinogen Norm mg/dL (Negative) 12/10/23 16:47 Ur Leukocyte Esterase Negative (Negative) 12/10/23 16:47 Vitals Last Vital Signs Temp 97.3 F L 12/12/23 07:48 Pulse 74 12/12/23 08:09 Resp 12 12/12/23 08:09 BP 143/83 12/12/23 08:09 Pulse Ox 98 12/12/23 04:00 O2 Del Method Room Air 12/12/23 04:00 Discharge Plan Discharge Patient Disposition: Home Condition: Stable Prescriptions: New clopidogrel 75 mg Tablet 75 mg PO DAILY Qty: 30 0RF amlodipine 10 mg tablet 10 mg PO DAILY Qty: 30 0RF Continued lisinopril 10 mg tablet 40 mg PO DAILY esomeprazole magnesium 40 mg capsule,delayed release(DR/EC) 40 mg PO DAILY carvedilol 6.25 mg tablet 6.25 mg PO BID 30 Days Qty: 60 5RF Rx Instructions: must administer with a meal/food aspirin 81 mg Tablet,Delayed Release (Dr/Ec) 81 mg PO DAILY Qty: 90 3RF nitroglycerin 0.4 mg tablet, sublingual See Rx Instructions .ROUTE .COMPLEX Rx Instructions: DISSOLVE 1 TABLET UNDER THE TONGUE EVERY 5 MINUTES NEEDED FOR CHEST PAIN. DO NOT EXCEED A TOTAL OF 3 DOSES IN 15 MINUTES. Changed atorvastatin 40 mg tablet 40 mg PO BEDTIME Qty: 90 3RF Discharge Orders: Discharge Order (Routine); Ordered 12/12/23 Ordered By: Renaldo Pyle Referrals: Natalya Ortiz FNP [Nurse Practitioner] - 12/28/23 2:00 pm Mitch Reynolds DO [Staff Physician] - (Please call Dr. Reynolds's Office on Thursday at [phone] to schedule a follow up appointment. You can call them if you have any questions or concerns. Thank you.) Discharge Diet: Cardiac Discharge Activity: Resume usual activity and Increase activity as tolerated Patient Instructions: Amlodipine (By mouth) (Hypertenipine-2.5, Norvasc, Norliqva), Clopidogrel (By mouth) (Plavix), Heart Healthy Diet (DC), Coronary Intravascular Stent Placement (DC), Chest Pain Stoplight, Opioid Safety, Post Angiogram Home Care Instructions Discharge Attestations Time Spent in Discharge Care*: greater than 30 min Specific Discharge Activities: educating patient, educating and/or supporting family/caregiver, discussing with pcp/other providers, discussing with rehabilitation case coordinator/social workers/dc planners, documenting/other paperwork and evaluating patient/reviewing data Status at Discharge: Cognitive status at discharge: cognitively intact, Behavioral status at discharge: cooperative, Functional status at discharge: independent ambulation, Overall status at discharge: patient is back to baseline Quality Metrics Clinical Quality Measures [ No reported AMI, CVA or VTE this stay] Coding Level of Care Code 24953 Total time (in minutes) for Discharge: 60 Diagnoses Atherosclerosis of platinum coronary artery of platinum heart with unstable angina pectoris I25.110 [place] vs. transplanted heart: platinum heart Hyperlipidemia LDL goal <70 E78.5 Hypertension goal BP (blood pressure) < 140/80 I10 Chest pain R07.9 Chest pain type: unspecified CAD (coronary artery disease) I25.10
--- NOTE | 2023-12-14 07:30 | DCPLANNER ---
messaged heart/lung for er f/u
== END 2023-12-12 12:09 | disposition home or self-care (01) ==
LOC: ER 14:17 → CSU 15:12
PROVIDERS: Internal Medicine; Internal Medicine Cardiovascular Disease; Admitting Provider Student in an Organized Health Care Education/Training Program; Emergency Provider Emergency Medicine; PCP Electrodiagnostic Medicine; Visit Provider Student in an Organized Health Care Education/Training Program
DX: I25.110 Atherosclerotic heart disease of native coronary artery with unstable angina pectoris (principal); E78.5 Hyperlipidemia, unspecified; I10 Essential (primary) hypertension; F17.200 Nicotine dependence, unspecified, uncomplicated; I25.2 Old myocardial infarction; T82.855A Stenosis of coronary artery stent, initial encounter
CPT/HCPCS: 36415; 71045; 80053; 80061; 81003; 82607; 82746; 83036; 83540; 83550; 83690; 83735; 84100; 84443; 84484; 85025; 85347; 85610; 92920; 92978; 93005; 93308; 93458; 94664; 96372; 96374; 96375; 99152; 99153; 99285; C1725; C1753; C1769; C1874; C1887; C1894; C9600; G0378; J1644; J1650; J2250; J3010; J3490; J7030; Q9967

== ENCOUNTER 2023-12-15 11:31 | Observation (INO) | payer OTHER, SELFPAY ==
[2023-12-15] VITALS (8 sets, daily range): BP systolic 148–177; BP diastolic 82–99; PULSE 57–82; RESP 14–19; TEMP 36.6–36.8; O2SAT 94–97; BMI 36.7
--- NOTE | 2023-12-15 11:31 | ECG_ITS ---
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 Measurements Intervals [place] Rate: 73 P: 49 WY: 138 QRS: 44 QRSD: 106 T: 48 QT: 361 QTc: 398 Interpretive Statements SINUS RHYTHM SEPTAL MYOCARDIAL INFARCTION , POSSIBLY ACUTE [40+ ms Q WAVE IN V1/V2] ACUTE DC Compared to ECG 12/10/2023 14:33:13 Sinus bradycardia no longer present Myocardial infarct finding still present Electronically Signed On 12-16-2023 6:36:35 CDT by Chance Velasquez M.D. [email or web address]
--- NOTE | 2023-12-15 11:31 | XRR_ITS ---
PROCEDURE INFORMATION: Exam: XR Chest Exam date and time: 12/15/2023 11:40 AM Age: 43 years old Clinical indication: Pain; Shortness of breath; Angina pectoris; Additional info: Cp TECHNIQUE: Imaging protocol: Radiologic exam of the chest. Views: 1 view. COMPARISON: CR XR chest 1V portable [id number] 12/10/2023 10:39 AM FINDINGS: Lungs: Unremarkable. No consolidation. Pleural spaces: Unremarkable. No pleural effusion. No pneumothorax. Heart/Mediastinum: Unremarkable. No cardiomegaly. Bones/joints: Unremarkable. XR/XR chest 1V portable [id number] IMPRESSION: No acute findings.
--- NOTE | 2023-12-15 11:44 | ED_ITS ---
HPI - Chest Pain 2 General: Chief Complaint: Chest Pain Stated Complaint: chest pain / SOB Time Seen by Provider: 12/15/23 11:40 History of Present Illness: 43-year-old man with a history of garcía ry artery disease who has had stents about 2 years ago and then had the stent clotted and had a cath in restented a few days ago. He says over the weekend he felt great and had no issues and was able to get around and even at work yesterday for a while he felt okay but in the afternoon he started having exertional chest discomfort, shortness of breath and felt like his legs felt heavy. He says these are the symptoms he had before he had to have the stents this last time. No lower extremity swelling. No nausea or vomiting. No diaphoresis. No cough. No abdominal pain. Review of Systems 2 Narrative: Constitutional symptoms: Negative except as documented in HPI. Skin symptoms: Negative except as documented in HPI. Eye symptoms: Negative except as documented in HPI. ENMT symptoms: Negative except as documented in HPI. Respiratory symptoms: Negative except as documented in HPI. Cardiovascular symptoms: Negative except as documented in HPI. Gastrointestinal symptoms: Negative except as documented in HPI. Genitourinary symptoms: Negative except as documented in HPI. Musculoskeletal symptoms: Negative except as documented in HPI. Neurologic symptoms: Negative except as documented in HPI. Psychiatric symptoms: Negative except as documented in HPI. Endocrine symptoms: Negative except as documented in HPI. PFSH ED 2 PFSH: Medical History CAD (coronary artery disease) Chest pain Hyperlipidemia LDL goal <70 Atherosclerosis of coronary artery Hypertension goal BP (blood pressure) < 140/80 STEMI (ST elevation myocardial infarction) Surgical History Presence of stent in LAD coronary artery Social History Smoking and tobacco/nicotine status: current every day tobacco/nicotine user (currently quitting) Alcohol intake: never Caregiver/support person: Yes Lives independently: Yes Housing: House Current occupational status: employed Physical Exam 2 Narrative: EXAM NARRATIVE: General: Alert, no acute distress. Skin: Warm, dry. Head: Normocephalic, atraumatic. Neck: Supple, trachea midline. Eye: Extraocular movements are intact. Ears, nose, mouth and throat: mucosa moist. Cardiovascular: Regular, Normal peripheral perfusion. Respiratory: Lungs are clear to auscultation, respirations are non-labored, breath sounds are equal, Symmetrical chest wall expansion. Gastrointestinal: Soft, Nontender, Non distended Musculoskeletal: Normal ROM, no deformity. Neurological: Alert and oriented, No focal neurological deficit observed. Psychiatric: Cooperative, appropriate mood & affect. Course 2 Vital Signs: Vital signs: Vital Signs Temperature 98.1 F 12/15/23 11:44 Pulse Rate 75 12/15/23 13:00 Respiratory Rate 18 12/15/23 13:00 Blood Pressure 150/86 12/15/23 13:00 Pulse Oximetry 96 12/15/23 13:00 Oxygen Delivery Me thod Room Air 12/15/23 13:00 MDM - Chest Pain Medical Decision Making Differential diagnosis for patient with chest pain includes but is not limited to and based on the above HPI, review of systems and physical exam: Pneumonia. unstable angina. angina. Acute coronary syndrome / ME. Pulmonary embolism. Costochondritis / musculoskeletal. Pleurisy. Pericarditis. Esophageal spasm. Pancreatis. Cholecystitis. Orders placed to evaluate differential diagnosis based on the above differential, HPI and physical exam EKG: Time 1131. Rate 73. Normal sinus rhythm, ST elevation in leads V1 and V2. No reciprocal changes., no ectopy, normal [place] & QRS intervals, This was reviewed and interpreted by myself the ER physician at 11:34 AM. I sent this EKG to Dr. Jimenez who had cath the patient last week. He does not feel this is a STEMI. Lab Review: Laboratory results were reviewed and interpreted by myself the emergency room physician. Lab work is unremarkable thus far. Initial troponin is 13. No leukocytosis. Hemoglobin is a bit elevated at 17.4. BUN and creatinine are normal at 11 and 0.7. Enzymes are normal. I reviewed the patient's medical record. Reexamination: Chest pain has improved. Patient remained stable. No increased work of breathing. No altered mental status. No focal motor deficits. Consultation: I spoke with Dr. Jimenez about the patient. He is familiar. He does not recommend going directly to the [facility] at this time. He will consult and follow the patient. Consultation: I spoke with Dr. Mabry who is on-call for the hospitalist. She agrees to admission to observation status. Assessment and plan: Chest pain Coronary artery disease -I discussed the patient with the hospitalist on-call who is admitting the patient. - Discussed findings and plan with patient. Answered any questions. - All laboratory values were reviewed and interpreted personally by myself, the ER physician - All imaging was reviewed and interpreted personally by myself, the ER physician. - Evaluation and treatment of this problem were appropriate in the emergency setting Lab Data 12/15/23 11:51 12/15/23 11:51 Radiology Impressions Chest X-Ray 12/15/23 11:31 IMPRESSION: No acute findings. Laboratory Results WBC 9.42 10^3/uL (3.29-11.43) 12/15/23 11:51 RBC 5.59 10^6/uL (3.85-5.65) 12/15/23 11:51 Hgb 17.40 g/dL (11.27-16.99) H 12/15/23 11:51 Hct 48.7 % (37-53) 12/15/23 11:51 MCV 87.1 fl (82-101) 12/15/23 11:51 MCH 31.1 pg (27-33) 12/15/23 11:51 MCHC 35.7 g/dL (30-55) 12/15/23 11:51 RDW 12.4 % (12.1-15.1) 12/15/23 11:51 Plt Count 217 10^3/cmm (157-399) 12/15/23 11:51 MPV 10.1 fL (7.4-10.4) 12/15/23 11:51 Neut % (Auto) 79.4 % 12/15/23 11:51 Lymph % (Auto) 13.2 % 12/15/23 11:51 [place] % (Auto) 4.0 % 12/15/23 11:51 Eos % (Auto) 2.3 % 12/15/23 11:51 Baso % (Auto) 0.6 % 12/15/23 11:51 Neut # (Auto) 7.47 10^3/uL (1.8-7.7) 12/15/23 11:51 Lymph # (Auto) 1.2 10^3/uL (0.8-4.8) 12/15/23 11:51 [place] # (Auto) 0.4 10^3/uL (0.2-0.9) 12/15/23 11:51 Eos # (Auto) 0.2 10^3/uL (0.0-0.8) 12/15/23 11:51 Baso # (Auto) 0.1 10^3/uL (0.0-0.1) 12/15/23 11:51 Nucleated RBC % (auto) 0 % 12/15/23 11:51 Nucleated RBCs # 0.0 /100WBC 12/15/23 11:51 Sodium 144 mmol/L (136-145) 12/15/23 11:51 Potassium 4.4 mmol/L (3.5-5.1) 12/15/23 11:51 Chloride 107 mmol/L (98-107) 12/15/23 11:51 Carbon Dioxide 22 mmol/L (22-29) 12/15/23 11:51 Anion Gap 19.4 (5-19) H 12/15/23 11:51 BUN 11 mg/dL (6-20) 12/15/23 11:51 Creatinine 0.7 mg/dL (0.7-1.2) 12/15/23 11:51 GFR Calculation 123.7 mL/min (90-130) 12/15/23 11:51 Glucose 136 mg/dL (65-115) H 12/15/23 11:51 Calculated Osmolality 299 mOsm/kg (285-295) H 12/15/23 11:51 Calcium 9.4 mg/dL (8.5-10.5) 12/15/23 11:51 Total Bilirubin 0.8 mg/dL (0.15-1.2) 12/15/23 11:51 AST 24 U/L (0-40) 12/15/23 11:51 ALT 33 U/L (0-41) 12/15/23 11:51 Alkaline Phosphatase 63 U/L (40-130) 12/15/23 11:51 Troponin T Baseline 13 ng/L (0-15) 12/15/23 11:51 NT-Pro-B Natriuret Pep 115 pg/mL (0-125) 12/15/23 11:51 Total Protein 7.3 g/dL (6.6-8.7) 12/15/23 11:51 Albumin 4.8 g/dL (3.5-5.2) 12/15/23 11:51 Globulin 2.5 g/dL (1.3-4.6) 12/15/23 11:51 All radiology interpretation(s) finalized by discharge Discharge Plan Discharge Patient Disposition: Admitted As Inpatient Admit Provider: Tessa Mabry Clinical Impression: CAD (coronary artery disease) Qualifiers: Coronary Disease-Associated Artery/Lesion type: unspecified vessel or lesion type [place] vs. transplanted heart: in[place]iat heart Associated angina: with stable angina Qualified Code(s): I25.118 - Atherosclerotic heart disease of [place] coronary artery with other forms of angina pectoris Chest pain Qualifiers: Chest pain type: unspecified Qualified Code(s): R07.9 - Chest pain, unspecified Condition: Stable Coding Level of Care Code ED Park Maintainer for Rex Marcos
[2023-12-15 11:58] LABS: Basophils # 0.1 10^3/uL (0.0-0.1); Basophils % 0.6 %; Eosinophils # 0.2 10^3/uL (0.0-0.8); Eosinophils % 2.3 %; Hematocrit 48.7 % (37-53); Lymphocytes # 1.2 10^3/uL (0.8-4.8); Lymphocytes % 13.2 %; Mean Corpuscular HGB Conc 35.7 g/dL (30-55); Mean Corpuscular Hemoglobin 31.1 pg (27-33); Mean Corpuscular Volume 87.1 fl (82-101); Mean Platelet Volume 10.1 fL (7.4-10.4); Monocytes # 0.4 10^3/uL (0.2-0.9); Neutrophils # 7.47 10^3/uL (1.8-7.7); Neutrophils % 79.4 %; Nucleated Red Blood Cells % 0 %; Platelet Count 217 10^3/cmm (157-399); Red Blood Count 5.59 10^6/uL (3.85-5.65); Red Cell Distribution Width 12.4 % (12.1-15.1); White Blood Count 9.42 10^3/uL (3.29-11.43)
[2023-12-15 12:21] LABS: Troponin(5th) Baseline 13 ng/L (0-15)
[2023-12-15 12:34] LABS: Alanine Aminotransferase 33 U/L (0-41); Albumin Level 4.8 g/dL (3.5-5.2); Alkaline Phosphatase 63 U/L (40-130); Aspartate Amino Transferase 24 U/L (0-40); Blood Urea Nitrogen 11 mg/dL (6-20); Calcium 9.4 mg/dL (8.5-10.5); Carbon Dioxide 22 mmol/L (22-29); Chloride 107 mmol/L (98-107); Creatinine Clr Calc Pharmacy 194.8217; Globulin 2.5 g/dL (1.3-4.6); Glomerular Filtration Rate 123.7 mL/min (90-130); Glucose 136 mg/dL (65-115); NT Pro B Type Natriuretic Pept 115 pg/mL (0-125); Osmolality Calculated 299 mOsm/kg (285-295); Sodium 144 mmol/L (136-145); Total Bilirubin 0.8 mg/dL (0.15-1.2); Total Protein 7.3 g/dL (6.6-8.7)
[2023-12-15 12:40] LABS: Anion Gap 19.4 (5-19); Potassium 4.4 mmol/L (3.5-5.1)
--- NOTE | 2023-12-15 13:34 | PC.NURSE ---
report called to nurse Daly. 1330.
--- NOTE | 2023-12-15 13:41 | P.HP_ITS ---
Providers/Chief Complaint 2 Admitting Physician: Tessa Mabry MD Primary Care Provider: Mitch Reynolds DO Chief Complaint: chest pain / SOB History of Present Illness Panfilo Ervin is a 43 year old male who presented to the emergency room with chief complaint of chest pain and difficulty breathing today. He has a history of an ST elevation MT in 2020 where he had an LAD stent placed. It is of note that Mr. Ervin was hospitalized last week here at [facility] with similar symptoms and underwent cardiac catheterization that revealed in-stent restenosis in the LAD as well as another lesion in the right coronary artery. He had PCI with drug-eluting stent placement to the LAD and balloon angioplasty to the right coronary artery. Plavix was added to aspirin therapy and amlodipine was added for additional blood pressure control. At first he felt better but over the weekend he began to experience headache located at the top of his head. This is a symptom that has been bothering him for approximately 4 months and was worse prior to admission last week. He reports some neck pain occurring as well the last day or so which she also experienced previously. In addition he started to have more general malaise and some pain and discomfort in his legs. Hard for him to do as much as he usually does because of this discomfort in the legs. Yesterday bruising showed up to the back of his legs the right more so than the left. No other reports of any bleeding. Does not recall any form of trauma, bumping or other injury that might of led to the bruise. His angiogram last week was performed through right radial access. He has some bruising there that has improved since discharge. He has had some nausea without vomiting. Some rumbling in his stomach but no diarrhea. His color was not as good earlier today with several people where he works reporting that he looked flushed. 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 No lower extremity edema. No cough. Not had any fever that he knows of. He does describe some sinus drainage. Initial troponin was 13. Twelve-lead EKG showed ST elevation in V1 and V2 though it was similar to EKGs from December 09. Case was discussed with Dr. Jimenez, on-call for cardiology who recommended admission and cardiology consultation. At the current time patient is chest pain-free though he did have an episode of chest pain earlier after arrival. The headaches going on for about 4 months and the new pain in the back of the legs along with the bruising on the back of the legs are concerns for Mr. Ervin in addition to the chest discomfort. Nothing really has seemed to make headaches better or worse. No association with nitroglycerin. No improvement after Tylenol or Motrin. Review of Systems 2 General: Reports: Other (ROS as per HPI or as otherwise noted here) Medications/Allergies Home Medications Medication Instructions Recorded Confirmed Last Taken Type aspirin 81 mg tablet,delayed 81 mg PO DAILY #90 tabs 05/03/21 12/15/23 12/15/23 Rx release esomeprazole magnesium 40 mg 40 mg PO DAILY 08/12/23 12/15/23 12/14/23 History capsule,delayed release carvedilol 6.25 mg tablet 6.25 mg PO BID 30 days #60 tabs 11/04/23 12/15/23 12/15/23 Rx nitroglycerin 0.4 mg sublingual See Rx Instructions .Route .COMPLEX 12/10/23 12/15/23 Unknown History tablet amlodipine 10 mg tablet 10 mg PO DAILY #30 tabs 12/12/23 12/15/23 12/15/23 Rx atorvastatin 40 mg tablet 40 mg PO BEDTIME #90 tabs 12/12/23 12/15/23 12/14/23 Rx clopidogrel 75 mg tablet 75 mg PO DAILY #30 tabs 12/12/23 12/15/23 12/15/23 Rx lisinopril 40 mg tablet 40 mg PO DAILY 12/15/23 12/15/23 12/15/23 History Allergies Allergy/AdvReac Type Severity Reaction Status Date / Time ticagrelor [From Brilinta] Allergy Intermediate ALGY-Difficulty Verified 12/15/23 18:37 Breathing PFSH Acute 2 PFSH: Medical History (Updated 12/15/23 @ 18:44 by Tessa Mabry MD) History of cardiovascular stress test 03/09 showed evidence of prior MT in distribution of LAD Congenital single kidney History of echocardiogram 02/2023, EF 50-55%; 11/2023 EF 64%, mild hypokinesis of basal inferolateral segment CAD (coronary artery disease) Hyperlipidemia LDL goal <70 Atherosclerosis of coronary artery Hypertension goal BP (blood pressure) < 140/80 STEMI (ST elevation myocardial infarction) (04/2021) Surgical History (Updated 12/15/23 @ 13:46 by Tessa Mabry MD) History of cardiac catheterization 04/2021 PCI with mid LAD stent, 11/2023 PCI with LAD stent and RCA balloon angioplasty Presence of stent in LAD coronary artery Family History (Updated 12/15/23 @ 19:04 by Tessa Mabry MD) Other CAD (coronary artery disease) Social History (Updated 12/15/23 @ 18:28 by Tessa Mabry MD) Quit status (tobacco/nicotine): has quit using Former quit date comment: Quit smoking November 2023, previously smoked cigarettes every day Alcohol intake: never Caregiver/support person: Yes Lives independently: Yes Housing: House Current occupational status: employed Vitals/I&O/Wt Last Vital Signs Temp 98.1 F 12/15/23 11:44 Pulse 75 12/15/23 13:00 Resp 18 12/15/23 13:00 BP 150/86 12/15/23 13:00 Pulse Ox 96 12/15/23 13:00 O2 Del Method Room Air 12/15/23 13:00 Weight last 48 hrs Weight 130.635 kg Physical Exam 2 Narrative: Patient is awake and alert, able to provide history. Normocephalic. Sclera slightly injected. Pupils are equal reactive. Oropharynx with slightly dry mucous membranes. Neck is supple without lymphadenopathy or rigidity. No photophobia noted. Extraocular movements are intact. Lungs are clear to auscultation bilaterally without any rales rhonchi or wheezes noted. Cardiovascular exam reveals a regular rate and rhythm without any murmurs. Abdomen is soft, nontender. Posterior thigh on the right with bruising almost the full width of the thigh approximately 5 inches above the knee and a strip approximately 2 inches wide. Hematoma is soft with minimal tenderness to palpation. No hard indurated area. There is less visible bruising noted in similar region in the left posterior thigh. Both thighs are tender to palpation. No pitting edema or calf tenderness. Brisk capillary refill both great toes. Healing bruising to right forearm at site of catheterization last week. Speech clear, face symmetric, no abnormal movements, moves all extremities. Data 12/15/23 11:51 12/15/23 11:51 Other Labs: Radiology Impressions Chest X-Ray 12/15/23 11:31 IMPRESSION: No acute findings. Laboratory Results WBC 9.42 10^3/uL (3.29-11.43) 12/15/23 11:51 RBC 5.59 10^6/uL (3.85-5.65) 12/15/23 11:51 Hgb 17.40 g/dL (11.27-16.99) H 12/15/23 11:51 Hct 48.7 % (37-53) 12/15/23 11:51 MCV 87.1 fl (82-101) 12/15/23 11:51 MCH 31.1 pg (27-33) 12/15/23 11:51 MCHC 35.7 g/dL (30-55) 12/15/23 11:51 RDW 12.4 % (12.1-15.1) 12/15/23 11:51 Plt Count 217 10^3/cmm (157-399) 12/15/23 11:51 MPV 10.1 fL (7.4-10.4) 12/15/23 11:51 Neut % (Auto) 79.4 % 12/15/23 11:51 Lymph % (Auto) 13.2 % 12/15/23 11:51 Williams % (Auto) 4.0 % 12/15/23 11:51 Eos % (Auto) 2.3 % 12/15/23 11:51 Baso % (Auto) 0.6 % 12/15/23 11:51 Neut # (Auto) 7.47 10^3/uL (1.8-7.7) 12/15/23 11:51 Lymph # (Auto) 1.2 10^3/uL (0.8-4.8) 12/15/23 11:51 Williams # (Auto) 0.4 10^3/uL (0.2-0.9) 12/15/23 11:51 Eos # (Auto) 0.2 10^3/uL (0.0-0.8) 12/15/23 11:51 Baso # (Auto) 0.1 10^3/uL (0.0-0.1) 12/15/23 11:51 Nucleated RBC % (auto) 0 % 12/15/23 11:51 Nucleated RBCs # 0.0 /100WBC 12/15/23 11:51 Sodium 144 mmol/L (136-145) 12/15/23 11:51 Potassium 4.4 mmol/L (3.5-5.1) 12/15/23 11:51 Chloride 107 mmol/L (98-107) 12/15/23 11:51 Carbon Dioxide 22 mmol/L (22-29) 12/15/23 11:51 Anion Gap 19.4 (5-19) H 12/15/23 11:51 BUN 11 mg/dL (6-20) 12/15/23 11:51 Creatinine 0.7 mg/dL (0.7-1.2) 12/15/23 11:51 GFR Calculation 123.7 mL/min (90-130) 12/15/23 11:51 Glucose 136 mg/dL (65-115) H 12/15/23 11:51 Calculated Osmolality 299 mOsm/kg (285-295) H 12/15/23 11:51 Calcium 9.4 mg/dL (8.5-10.5) 12/15/23 11:51 Total Bilirubin 0.8 mg/dL (0.15-1.2) 12/15/23 11:51 AST 24 U/L (0-40) 12/15/23 11:51 ALT 33 U/L (0-41) 12/15/23 11:51 Alkaline Phosphatase 63 U/L (40-130) 12/15/23 11:51 Troponin T Baseline 13 ng/L (0-15) 12/15/23 11:51 NT-Pro-B Natriuret Pep 115 pg/mL (0-125) 12/15/23 11:51 Total Protein 7.3 g/dL (6.6-8.7) 12/15/23 11:51 Albumin 4.8 g/dL (3.5-5.2) 12/15/23 11:51 Globulin 2.5 g/dL (1.3-4.6) 12/15/23 11:51 Laboratory Tests 12/11/23 04:54 Hemoglobin A1c 5.4 Triglycerides 117 Cholesterol 140 LDL Cholesterol, Calc 69 HDL Cholesterol 48 L LDL/HDL Ratio 1.44 Cholesterol/HDL Ratio 2.92 A&P Assessment and plan (1) Atherosclerotic heart disease of [place] coronary artery with unstable angina pectoris: Presentation by description, with chest pain, shortness of breath, nausea and exertional symptoms as well as at rest, consistent with unstable angina occurring a week after coronary stent placement and angioplasty. Patient reports compliance with medications prescribed including aspirin, Plavix, beta- blockade and blood pressure medications. Qualifiers: [place] vs. transplanted heart: [place] heart Qualified Code(s): I25.110 - Atherosclerotic heart disease of [place] coronary artery with unstable angina pectoris (2) Headache: Headache by description is unspecified, somewhat intractable though to varying degrees of severity, chronic headache. Has been going on for approximately 4 months located on the top of his head with very few days without headache occurring. Interestingly headache free day occurred after he had stent placed last week. Does have sinus congestion that could be a contributing factor to headache. No known history of migraines or symptoms that would classically associate with migraines. Cluster headache within differential. Review of blood pressures last week and this week increase possibility of headaches related to uncontrolled hypertension as well. No improvement with over the counter analgesics. (3) Multiple ecchymoses of thigh: Without recollectable trauma and associated with heaviness/discomfort in both legs last couple days. Plavix was added last week after stent placement and is chronically on aspirin so increased antiplatelet effect may a contributing factor. Quit smoking few weeks ago. Not known to have claudication history but within differential if this were chronic rather than acute last couple days. Hematoma is currently soft and tenderness appropriate for appearance of bruise. May have trauma that he is unaware of but we will need to monitor. (4) Hypertension goal BP (blood pressure) < 140/80: On carvedilol and lisinopril with amlodipine added last week, still with suboptimal control, may be a contributor to headaches at times (5) Hyperlipidemia LDL goal <70: On atorvastatin (6) Congenital single kidney: With stable kidney function but need to keep in awareness for overall management Plan Observation admission Cardiology consultation Continue serial cardiac enzymes Anticipate potential cardiac catheterization in the morning Continue aspirin, Plavix, statin, carvedilol Will continue amlodipine and lisinopril Has as needed nitroglycerin May have to consider additional antianginal medication pending results of cardiac workup Monitor blood pressures Monitor hematoma to posterior legs Add flonase Tylenol for headache Avoid nephrotoxic medications as able Patient was encouraged to maintain his smoking cessation for his overall vascular health including heart, brain, legs, etc. Currently low risk for VTE with observation status Continuing PPI which patient takes at home Anticipate DC home [facility] cardiology and PCP follow up Plans discussed with patient and those present in his room and they were given an opportunity to ask questions FULL CODE Attestations 2 Medical Necessity Statement*: Currently anticipate a stay less than two midnights in this gentleman with known coronary artery disease presenting with symptoms concerning for unstable angina a week after stent placement and balloon angioplasty. Cardiac enzymes do not show significant delta but symptoms have recurred since arrival. He has other symptoms as described including ongoing headache and posterior thigh hematomas. Plan for reevaluation of coronary enzymes as per cardiology and other care as noted above. Diagnoses Atherosclerosis of [place] coronary artery of [place] heart with unstable angina pectoris I25.110 [place] vs. transplanted heart: [place] heart Headache R51.9 Multiple ecchymoses of thigh R58 Hypertension goal BP (blood pressure) < 140/80 I10 Hyperlipidemia LDL goal <70 E78.5 Congenital single kidney Q60.0
--- NOTE | 2023-12-15 13:41 | PC.PHAR ---
PT THOUGHT AMLODIPINE DOSAGE WAS INCREASED-VERIFIED WITH [facility] LAST FILL 10MG DAILY ON 11/12/23 30DS. VERIFIED DOSAGE INCREASE ON LISINOPRIL TO 40 MG DAILY-VERIFIED WITH [facility] LAST FILL 40MG DAILY 09/22/23 30DS-OVERDUE
[2023-12-15 13:55] LABS: Troponin 5 2HR 10.74 ng/L (0-15)
[2023-12-15 13:56] LABS: Troponin 5 2HR Delta -2.26 ABS# (0-10)
[2023-12-15] MEDS: acetaminophen 500 mg Tablet 1000 MG PO (14:03)
[2023-12-15] MEDS: sodium chlor 0.9% + KCl 20 mEq 20 MEQ/1,000 ML BAG 75 MEQ IV (14:11)
--- NOTE | 2023-12-15 16:08 | PC.NURSE ---
admitted in to room 102 from er at 1400.report received.pt is alert and awake and oriented x 4.denies chest pain at present.sr on monitor.oriented to room environment. instructed to notify staff for any chest pain,sob,dizziness...or for any concerns at all.pt verb understanding of instructions
--- NOTE | 2023-12-15 17:31 | ECG_ITS ---
[facility] Test Date: 2023-12-15 Pat Name: Panfilo Ervin Department: Room: 102 Gender: Male Warm In: : 1980 Requested By: Amaury Mckeon Order Number: [id number] Yuri MD: Chance Velasquez M.D. Measurements Intervals [place] Rate: 71 P: 114 VA: 118 QRS: 90 QRSD: 102 T: 86 QT: 383 QTc: 417 Interpretive Statements SINUS RHYTHM WITH SHORT VA INTERVAL POSSIBLE LEFT ATRIAL ENLARGEMENT [-0.1mV P-WAVE IN V1/V2] SEPTAL MYOCARDIAL INFARCTION , PROBABLY RECENT [40+ ms Q WAVE IN V1/V2] ACUTE [place] Compared to ECG 12/15/2023 11:31:01 Short VA interval now present Myocardial infarct finding still present Electronically Signed On 12-16-2023 6:37:37 CDT by Chance Velasquez M.D. [id number]
[2023-12-15] MEDS: carvedilol 6.25 mg Tablet PO (17:39)
[2023-12-15 18:39] LABS: Troponin 5 6HR 13.01 ng/L (0-15); Troponin 5 6HR Delta 0.01 ng/L (0-12)
[2023-12-15] MEDS: acetaminophen 325 mg Tablet 650 MG PO (20:43)
[2023-12-15] MEDS: atorvastatin 40 mg Tablet PO (20:44)
--- NOTE | 2023-12-15 22:20 | PM.CONSULT ---
Providers/Reason For Consult Consulting Physician/Specialty*: Bret Jimenez MD/ Cardiology Reason for Consult*: Unstable angina Requesting Physician: Dr Hernandez Attending Physician: Tessa Mabry MD Primary Care Provider: Mitch Reynolds DO History of Present Illness History of Present Illness Panfilo Ervin is a 43 year old male Who had intervention of LAD with 1 stent last week and balloon angioplasty of RCA came back with chest discomfort episodes. He feels similar symptoms as his presentation to the hospital last time. Feels chest pressure radiating to the neck. Feels weak with it. Troponins have not trended up.EKG has nonspecific changes. Review of Systems General: Reports: Other (ROS as per HPI or as otherwise noted here) Medications/Allergies Home Medications Medication Instructions Recorded Confirmed Last Taken Type aspirin 81 mg tablet,delayed 81 mg PO DAILY #90 tabs 05/03/21 12/15/23 12/15/23 Rx release esomeprazole magnesium 40 mg 40 mg PO DAILY 08/12/23 12/15/23 12/14/23 History capsule,delayed release carvedilol 6.25 mg tablet 6.25 mg PO BID 30 days #60 tabs 11/04/23 12/15/23 12/15/23 Rx nitroglycerin 0.4 mg sublingual See Rx Instructions .Route .COMPLEX 12/10/23 12/15/23 Unknown History tablet amlodipine 10 mg tablet 10 mg PO DAILY #30 tabs 12/12/23 12/15/23 12/15/23 Rx atorvastatin 40 mg tablet 40 mg PO BEDTIME #90 tabs 12/12/23 12/15/23 12/14/23 Rx clopidogrel 75 mg tablet 75 mg PO DAILY #30 tabs 12/12/23 12/15/23 12/15/23 Rx lisinopril 40 mg tablet 40 mg PO DAILY 12/15/23 12/15/23 12/15/23 History Allergies Allergy/AdvReac Type Severity Reaction Status Date / Time ticagrelor [From Brilinta] Allergy Intermediate ALGY-Difficulty Verified 12/15/23 18:37 Breathing Current Medications Generic Name Dose Route Start Last Admin Trade Name Freq PRN Reason Stop Dose Admin Acetaminophen 650 mg 12/15/23 14:01 12/15/23 20:43 Acetaminophen 325 Mg Tablet PO 650 mg Q6H PRN Administration Mild/Mod Pain Or Temp >/= 101 Atorvastatin Calcium 40 mg 12/15/23 21:00 12/15/23 20:44 Atorvastatin 40 Mg Tablet PO 40 mg BEDTIME CARLOS Administration Carvedilol 6.25 mg 12/15/23 18:00 12/15/23 17:39 Carvedilol 6.25 Mg Tablet PO 6.25 mg BID CARLOS Administration Potassium Chloride/Sodium Chloride 20 meq in 1,000 mls @ 75 mls/hr 12/15/23 14:01 12/15/23 14:11 Sodium Chlor 0.9% + Kcl 20 Meq IV 12/16/23 03:20 75 mls/hr .[id number] CARLOS Administration PFSH Acute PFSH: Medical History History of cardiovascular stress test 03/09 showed evidence of prior [place] in distribution of LAD Congenital single kidney History of echocardiogram 02/2023, EF 50-55%; 11/2023 EF 64%, mild hypokinesis of basal inferolateral segment CAD (coronary artery disease) Hyperlipidemia LDL goal <70 Atherosclerosis of coronary artery Hypertension goal BP (blood pressure) < 140/80 STEMI (ST elevation myocardial infarction) (04/2021) Surgical History History of cardiac catheterization 04/2021 PCI with mid LAD stent, 11/2023 PCI with LAD stent and RCA balloon angioplasty Presence of stent in LAD coronary artery Family History Other CAD (coronary artery disease) Social History Quit status (tobacco/nicotine): has quit using Former quit date comment: Quit smoking November 2023, previously smoked cigarettes every day Alcohol intake: never Caregiver/support person: Yes Lives independently: Yes Housing: House Current occupational status: employed Vitals/I&O/Wt Last Vital Signs Temp 98.2 F 12/15/23 20:00 Pulse 69 12/15/23 20:00 Resp 14 12/15/23 20:00 BP 154/90 12/15/23 20:00 Pulse Ox 95 07/30/24 20:00 O2 Del Method Room Air 12/15/23 20:00 12/15/23 12/15/23 12/15/23 06:59 14:59 22:59 Intake Total 640 / 640 Balance 640 / 640 Weight last 48 hrs Weight 286 lb Weight 288 lb Physical Exam Narrative: GENERAL: Patient is alert, awake and oriented x3. [] NECK: No jugular vein distension. [] HEENT: No cyanosis. No icterus. No pallor. [] HEART: Regular S1 and S2. No murmur, rub or gallop. [] LUNGS: Clear to auscultate bilaterally. [] CENTRAL NERVOUS SYSTEM: Grossly nonfocal. [] EXTREMITIES: Lower extremities with 1+ edema bilaterally. Pulses palpable in the lower extremities, both dorsalis pedis and posterior tibial. [] Data 12/15/23 11:51 12/15/23 11:51 A&P Assessment and plan (1) Atherosclerotic heart disease of [place] coronary artery with unstable angina pectoris: Qualifiers: [place] vs. transplanted heart: [place] heart Qualified Code(s): I25.110 - Atherosclerotic heart disease of [place] coronary artery with unstable angina pectoris (2) Hyperlipidemia LDL goal <70: (3) Hypertension goal BP (blood pressure) < 140/80: Plan Patient is again complaining of chest pain symptoms concerning for unstable angina. However troponins have not trended up.All options have been discussed with patient including stress testing. He does not want to proceed with that and wants to have coronary angiogram as feels his symptoms are similar to unstable anginal presentation last time. This will be appropriate as has typical worsening symptoms over last 1-2 days. Continue dual antiplatelet therapy. N.p.o. past midnight. Thank you for involving us with care of this patient. We will continue to follow. Please call with questions. Consult Attestations Medical Necessity Statement: Care expected to cross 2 midnights. Coding Level of Care Code Acute Code for [facility] Fwd Diagnoses Atherosclerosis of [place] coronary artery of [place] heart with unstable angina pectoris I25.110 [place] vs. transplanted heart: [place] heart Hyperlipidemia LDL goal <70 E78.5 Hypertension goal BP (blood pressure) < 140/80 I10
[2023-12-16] VITALS (16 sets, daily range): BP systolic 94–142; BP diastolic 62–94; PULSE 55–97; RESP 14–21; TEMP 36.4–37.1; O2SAT 91–96
--- NOTE | 2023-12-16 06:06 | XACV_ITS ---
Exam Room: [facility] Ht: 188 cm Wt: 127 kg BSA: 2.62 m2 Gender: Male : 1980 Any Known Allergies: Other Exam Priority: Routine Procedure(s): Procedure Description: Diagnostic procedure Procedure Description: Left Heart Catheterization Procedure Description: Left ventriculography Procedure Description: Coronary Angiography Diagnostic Cath Status: Urgent Diagnostic Findings * No significant disease noted in the Left Main, Left Anterior Descending, Right, or Circumflex coronary arteries. Patent prior proximal to mid LAD stents.. * Coronary angiography shows left dominance. Conclusions 1. No significant disease noted in the Left Main, Left Anterior Descending, Right, or Circumflex coronary arteries. Patent prior proximal to mid LAD stents.. 2. Normal left ventricular systolic function. Ejection fraction of 50%. Recommendations * Aggressive medical therapy. Continue dual antiplatelet therapy. * Outpatient cardiology follow-up in 2 to 4 weeks. Interventional RX Recommendation: medical therapy and/or counseling Diagnostic RX Recommendation: medical therapy and/or counseling Ventriculography Ejection Fraction: 50.0 % Pressures Phase:Rest AO : 126 / 98 ( 113 ) @ 8:44:00 AM 130 / 98 ( 115 ) @ 8:46:00 AM 148 / 80 ( 110 ) @ 8:53:00 AM 150 / 81 ( 111 ) @ 8:53:00 AM LV : 161 / -15 / 14 @ 8:51:00 AM 160 / 0 / 18 @ 8:52:00 AM 156 / -13 / 13 @ 8:52:00 AM 156 / -13 / 13 @ 8:53:00 AM Valves Phase:DefaultPhase AV : 8.0 @ 8:02:57 AM AV Mean Gradient: 16.0 @ 8:02:57 AM Clinical Evaluation EBL: 5mL-10mL Procedural Details Procedure Consent Obtained. Current Diagnosis : Chest Pain. Hemodynamic formulas in Rest were re-calculated based on hemoglobin value from 12/15/2023 12:00:00 AM. Pre-Procedure Time Out. Identified patient by full name and date of as verbalized by the patient/guarantor. Does the consent match the physician's order: Yes. Accurate & Complete Informed Consent: Yes. Inpatient/Outpatient History & Physical on Chart: Yes. If H&P is completed, is and addenduem needed: No; If yes, is the addendum complete: N/A. Visualize and Verify Site with Patient/Guarantor: N/A. Relevant Radiology Images available: Yes. Pre-op teaching completed and patient verbalized understanding. The risks, benefits, and alternatives of sedation and/or procedure were discussed by physician. The patient agrees to continue. Procedure started. [facility] Clinical Fraility Score: 3: Managing Well. Plasma Processing Technician Indications: Worsening Angina. Chest Pain Symptom Assessment: Typical Angina Symptoms. Correct patient, site and procedure confirmed by cath team. Current diagnosis: Chest Pain. PERRLA. Strong, equal hand cashier greeter bilaterally. Lungs clear x 5 lobes. IV Site on Arrival: 20 gauge in the right anticubital. IV Fluids: 0.9% NaCl at KVO. 0 mL infused prior to cathode ray tube salvage processor. Pre Procedural Pulses: bilateral dorsalis pedis was 2+. Pre Procedural Pulses: bilateral posterior tibial was 3+. Pre Procedural Pulses: bilateral radial was 3+. Oxygen started at 2liters/min via nasal canula. bilateral groins was prepped with chloroprep then draped in the usual sterile fashion. Baseline sample Acquired. HR: 64 BPM. Physician arrived. Physician scrubbed in. Immediate Pre-Procedure Time Out. Correct Patient: Yes; Correct Procedure: Yes; Correct Site: Yes; Correct Patient Position: Yes; Correct Supplies: Yes; Dried Flammable Prep: Yes; Blood Products Available: N/A;. Lidocaine 1% infiltrated to the right groin. Arterial access obtained with micropuncture set. A 5 cymraes JL4 catheter in over wire. Multiple views taken of left coronary artery. Physician review of cine films. Catheter removed over the standard wire. A 5 cymraes JR4 catheter in over wire. Multiple views taken of right coronary artery. Catheter removed over the standard wire. A 5 cymraes Angled Pig catheter in over wire. EDP Sample taken: LV 161/-16,14; HR: 72 BPM; SpO2: 96%. LV gram performed in DAVIS @ 10 mL/second for a total of 30 mL. EDP Sample taken: LV 156/-14,13; HR: 74 BPM; SpO2: 98%. Pullback taken: LV 156/-14,13; AO 148/80(110); Mean: 16mmHg, Peak to Peak: 8mmHg, SEP: 19sec/min; HR: 71 BPM; SpO2: 98%. Catheter removed over the standard wire. A Right femoral angiogram was performed to determine safe placement of closure device. A Mynx was successful obtaining hemostatsis at the Right Femoral artery insertion site. Post Procedure: Pulses reassessed and unchanged. PERRLA. Strong, equal hand cashier greeter bilaterally. No VTE prophylaxis required. Medication's Wasted: Lidocaine 1% = 10 mL. Medication's Wasted: Heparin = 1000 units. Total IV fluids: 75 mL. Post-op diagnosis: Open Stent. Complications: None. Estimated blood loss: 5mL-10mL. Responsiveness - Normal response to verbal stimuli; alert and oriented, PERRLA. Airway - Unaffected, no intervention required; spontaneous ventilation. Circulation: W/N/L, pulses unchanged. Nausea/Vomiting: No. Vital chart was stopped. Procedure completed. Patient transferred by bed to CPRU. Access Site Site: Right Femoral artery Sheath Size: 6 Fr Hemostasis Method: Mynx Hemostasis Success: Successful Procedure Medications Start: 7:28 AM Stop: 7:28 AM Medication: Versed Amount: 2 mg Route: I.V. Start: 7:28 AM Stop: 7:28 AM Medication: Fentanyl Amount: 25 mcg Route: I.V. Start: 7:33 AM Stop: 7:33 AM Medication: Benadryl Amount: 50 mg Route: I.V. Start: 7:40 AM Stop: 7:40 AM Medication: Versed Amount: 1 mg Route: I.V. Start: 7:40 AM Stop: 7:40 AM Medication: Fentanyl Amount: 50 mcg Route: I.V. Start: 7:47 AM Stop: 7:47 AM Medication: Versed 1 mg and Fentanyl 25 mcg Amount: 1 Route: I.V. I, the attending physician, have reviewed and verified all procedure medications. Yes, all medications given per verbal order History/Risk Factors Hypertension: Yes Dyslipidemia: No Peripheral Arterial Disease (PAD): No Myocardial Infarction ([place]): Yes Obesity: No Renal Disease: No Tobacco Use: Current/Recent(w/in 1 year) Prior Interventions PCI: Yes CABG: No Valve Surgery: No Date of PCI: 12/11/2023 Report Signatures Finalized by Bret Jimenez MD on 12/21/2023 02:19 PM
[2023-12-16] MEDS: diphenhydrAMINE 50 mg Capsule PO (06:20)
[2023-12-16] MEDS: sodium chloride 0.9% 1,000 ML 50 ML IV (06:20)
[2023-12-16] MEDS: acetaminophen 325 mg Tablet 650 MG PO ×2 (06:38→14:55)
[2023-12-16] MEDS: aspirin 81 mg EC Tablet PO (07:11)
--- NOTE | 2023-12-16 07:22 | PC.NURSE ---
Patient left for cathode ray tube salvage processor at 0720.
--- NOTE | 2023-12-16 07:28 | W.PM.OPSUD ---
Surgery/Procedure H&P Update DATE OF PROCEDURE: December 16, 2023 DATE H&P PERFORMED: 12/15/23 H&P UPDATE INFORMATION: I have reviewed H&P completed within last 30 days, I have examined patient prior to procedure and No changes to prior documentation PREOP DIAGNOSIS: Worsening angina PRIMARY INDICATION FOR PROCEDURE: Worsening angina PLANNED PROCEDURE: Operation Date: 12/16/23 08:30 Proposed Procedures p Cardiac Catheterization(Left) - Bret Jimenez M.D Possible percutaneous coronary intervention PATIENT REASSESSED PRIOR TO SEDATION, WITH NO CHANGE NOTED: Yes PHYSICAL EXAM: alert, oriented x 3, clear to auscultation bilaterally and regular rate & rhythm AIRWAY EVAL/ANESTHESIA PLAN: normal airway, ASA III, Local Anesthesia, Risks, benefits & alternatives of sedation and/or procedure discussed and Patient agrees to continue as planned ADDITIONAL INFORMATION: Moderate sedation
--- NOTE | 2023-12-16 07:29 | PM.PN ---
Subjective Subjective: Patient's coronary angiogram demonstrates patent LAD stents. Vitals/I&O/Wt Last Vital Signs Temp 97.9 F 12/16/23 04:00 Pulse 58 L 12/16/23 06:00 Resp 14 12/16/23 04:00 BP 142/62 12/16/23 04:00 Pulse Ox 96 12/16/23 04:00 O2 Del Method Room Air 12/16/23 04:00 12/15/23 12/16/23 12/16/23 22:59 06:59 14:59 Intake Total 640 / 640 1000 / 1640 Balance 640 / 640 1000 / 1640 Weight last 48 hrs Weight 281 lb Weight 286 lb Weight 288 lb Physical Exam Narrative: GENERAL: Patient is alert, awake and oriented x3. [] NECK: No jugular vein distension. [] HEENT: No cyanosis. No icterus. No pallor. [] HEART: Regular S1 and S2. No murmur, rub or gallop. [] LUNGS: Clear to auscultate bilaterally. [] CENTRAL NERVOUS SYSTEM: Grossly nonfocal. [] EXTREMITIES: Lower extremities with 1+ edema bilaterally. Data 12/15/23 11:51 12/15/23 11:51 A&P Assessment and plan (1) Atherosclerotic heart disease of [place] coronary artery with unstable angina pectoris: Qualifiers: [place] vs. transplanted heart: [place] heart Qualified Code(s): I25.110 - Atherosclerotic heart disease of [place] coronary artery with unstable angina pectoris (2) Hyperlipidemia LDL goal <70: (3) Hypertension goal BP (blood pressure) < 140/80: Plan Coronary angiogram demonstrates patent prior stents. CAD does not explain his symptoms. Can have occasional vasospasms. He is already on amlodipine. If pain persist, can start low-dose Imdur Continue dual antiplatelet agents. Thank you for involving us with care of this patient. We will continue to follow. Please call with questions. Attestations Medical Necessity Statement*: Care expected to cross 2 midnights. Coding Level of Care Code Acute Code for Chg Fwd Diagnoses Atherosclerosis of [place] coronary artery of [place] heart with unstable angina pectoris I25.110 [place] vs. transplanted heart: [place] heart Hyperlipidemia LDL goal <70 E78.5 Hypertension goal BP (blood pressure) < 140/80 I10
--- NOTE | 2023-12-16 08:57 | PC.NURSE ---
Patient returned from clinical lab assistant to CSU at 0850 with a right femoral mynx closure.
[2023-12-16] MEDS: amlodipine 10 mg Tablet PO (09:08)
[2023-12-16] MEDS: carvedilol 6.25 mg Tablet PO ×2 (09:08→17:38)
[2023-12-16] MEDS: pantoprazole DR 40 mg Tablet PO ×2 (09:08→17:39)
[2023-12-16] MEDS: clopidogrel 75 mg Tablet PO (09:08)
[2023-12-16] MEDS: lisinopril 20 mg Tablet 40 MG PO (09:08)
[2023-12-16] MEDS: ondansetron 2 mg/ML SDV 2 mL 4 MG IVP (09:53)
--- NOTE | 2023-12-16 12:34 | USCV_ITS ---
Panfilo Ervin Age: 43 Gender: M : 1980 Exam Date: 12/16/2023 13:53 Ordering Phys: Eleazar Cash MD Technologist: MOLLY Exam Location: [facility] Indication: LE Pain. Recent cath procedure today. HISTORY: Lower extremity pain. PROCEDURES: Venous duplex imaging was performed in bilateral lower extremities. The following venous structures were evaluated: common femoral vein, profunda vein, proximal portion of the greater saphenous vein, superficial femoral vein, and the popliteal vein. Serial compression, augmentation maneuvers, and spectral Doppler flow evaluation were performed. FINDINGS: No evidence of DVT seen in any vessel visualized at this time. ?lymph node rt groin imaged at end of exam. Rt CFV difficult to visualize well due to bandage CONCLUSIONS No evidence of right lower extremity DVT. No evidence of left lower extremity DVT. Right CFV limited visualization due to bandage Esequiel Garcia MD (Electronically Signed) Final Date: 16 December 2023 15:19 S
--- NOTE | 2023-12-16 12:35 | P.PN_ITS ---
Subjective 2 Subjective: He states he had a difficult night, was again having some chest pain which was waking him up, central/substernal, not associated with breathing, although does state that at home was having some cough with it, not associated with movement palpation. Has had some heartburn but states it has not responded to water , similarly to how he felt during his prior heart attack. He has been assessed by coronary angiogram today, currently supine after the procedure. Vitals/I&O/Wt Last Vital Signs Temp 97.9 F 12/16/23 04:00 Pulse 59 L 12/16/23 10:24 Resp 14 12/16/23 10:24 BP 125/82 12/16/23 10:24 Pulse Ox 93 12/16/23 10:24 O2 Del Method Room Air 12/16/23 10:24 12/15/23 12/16/23 12/16/23 22:59 06:59 14:59 Intake Total 640 / 640 1000 / 1640 180.833 / 180.833 Balance 640 / 640 1000 / 1640 180.833 / 180.833 Weight last 48 hrs Weight 127.459 kg Weight 129.727 kg Weight 130.635 kg Physical Exam 2 Narrative: Accompanied by his sister. Const: COMMON NORMALS: patient oriented x3 and alert GENERAL APPEARANCE: c ooperative ORIENTATION/CONSCIOUSNESS: Yes awake HENMT: COMMON NORMALS: oropharynx normal Neck/C-Spine: COMMON NORMALS: no JVD Resp: COMMON NORMALS: normal respiratory effort and clear to auscultation bilaterally AUSCULTATION: clear to auscultation bilaterally Cardio: COMMON NORMALS: no JVD, regular rhythm, S1 normal heart sound present, S2 normal heart sound present and No murmurs present (Cardio) RHYTHM: regular rhythm HEART SOUNDS: S1 normal heart sound present and S2 normal heart sound present GI: COMMON NORMALS: Normal to inspection, nondistended, normoactive bowel sounds present, Soft to palpation and non-tender PALPATION: Yes Soft to palpation Extremity: COMMON NORMALS: no joint enlargement and no pedal edema N ARRATIVE EXTREMITY EXAM: Right groin dressing after angiogram access. I do not see bleeding, I do not see pulsatile mass, or bruise. Thomas on the right forearm after access at the right wrist. Neuro: COMMON NORMALS: patient oriented x3 and moves all extremities S ENSORIUM/ORIENTATION: Yes alert Skin: COMMON NORMALS: no rashes or lesions noted GENERAL SKIN EXAM: no rashes or lesions noted Data 12/15/23 11:51 12/15/23 11:51 A&P Assessment and plan (1) Atherosclerotic heart disease of [place] coronary artery with unstable angina pectoris: Will send some chest pain overnight, having some milder discomfort currently, substernal, not associated with inspiration, did have some cough associated with it at home. States as per discussion with cardiology did not have any blockages admission of over 2 midnights is anticipated for assessment of management of coronary arteries or prior stent. We discussed additional differential diagnosis, with him having some bruising on the backs of his thighs, cough, dyspnea on exertion, discussed additional assessment with D-dimer, venous duplex ultrasound, consideration of further assessment for PE in case of abnormal studies, although otherwise he is saturating well on room air currently, at the moment without cough or dyspnea. He does get heartburn, discussed consideration of reflux mediated bronchitis or pneumonitis, discussed consideration of plain CT. he does only have a single kidney. As per discussion in case of need to further assess for PE would have to use VQ scan. He understands that this may not be available today. He did have angiogram twice in the last week, including today. May have elevated risk of contrast nephropathy. He is additionally asked to ambulate once he is able to do further assess dyspnea on exertion. Additional discussed with him and cardiology regarding obtaining cardiac monitoring after discharge to further assess fatigability/dyspnea on exertion with noted bradycardia. Discussed with him carvedilol dose may need to be decreased in case of episodes of significant/symptomatic bradycardia. It was increased about a month ago. As per discussion with cardiology, added Imdur. Monitor for risk of hypotension. Increase PPI to twice daily. Reviewed chest x-ray, EKG, troponin series, cardiology note. Discussed with vocational case manager. Reassess chemistry for renal function, risk of contrast nephropathy with repeat angiography. Presentation by description, with chest pain, shortness of breath, nausea and exertional symptoms as well as at rest, consistent with unstable angina occurring a week after coronary stent placement and angioplasty. Patient reports compliance with medications prescribed including aspirin, Plavix, beta- blockade and blood pressure medications. Qualifiers: [place] vs. transplanted heart: [place] heart Qualified Code(s): I25.110 - Atherosclerotic heart disease of [place] coronary artery with unstable angina pectoris (2) Headache: Was bothered by a particularly bad headache last night. With improvement. Recurrent/persistent headaches over the last several months. Discussed with him follow-up with neurology after discharge. Headache by description is unspecified, somewhat intractable though to varying degrees of severity, chronic headache. Has been going on for approximately 4 months located on the top of his head with very few days without headache occurring. Interestingly headache free day occurred after he had stent placed last week. Does have sinus congestion that could be a contributing factor to headache. No known history of migraines or symptoms that would classically associate with migraines. Cluster headache within differential. Review of blood pressures last week and this week increase possibility of headaches related to uncontrolled hypertension as well. No improvement with over the counter analgesics. (3) Multiple ecchymoses of thigh: Ecchymosis of he denies trauma. He states that Distal posterior thighs. 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 Discussed with him he definitely does have some increased risk of bruising with antiplatelets with both aspirin and Plavix on board, certainly could have been from a pressure from a harder seat as the severino appear to be somewhat linear at both levels on posterior thighs. However, with some cough, chest discomfort will additionally assess venous duplex for any DVT. He otherwise is afebrile, without leukocytosis or any suggestion of sepsis. Without recollectable trauma and associated with heaviness/discomfort in both legs last couple days. Plavix was added last week after stent placement and is chronically on aspirin so increased antiplatelet effect may a contributing factor. Quit smoking few weeks ago. Not known to have claudication history but within differential if this were chronic rather than acute last couple days. Hematoma is currently soft and tenderness appropriate for appearance of bruise. May have trauma that he is unaware of but we will need to monitor. (4) Hypertension goal BP (blood pressure) < 140/80: Monitor blood pressure with addition of Imdur. Hypertensive during recent stay, although blood pressure is better this admission. With some bradycardia, heart rate as low as 52, consider heart monitor at discharge, dose of carvedilol may need to be decreased. It was increased about a month ago he states. On carvedilol and lisinopril with amlodipine added last week, still with suboptimal control, may be a contributor to headaches at times (5) Hyperlipidemia LDL goal <70: On atorvastatin (6) Congenital single kidney: With stable kidney function but need to keep in awareness for overall management Plan Patient was encouraged to maintain his smoking cessation for his overall vascular health including heart, brain, legs, etc. Currently low risk for VTE with observation status Continuing PPI which patient takes at home Anticipate DC home [facility] cardiology and PCP follow up Plans discussed with patient and those present in his room and they were given an opportunity to ask questions FULL CODE Attestations 2 Medical Necessity Statement*: Continue hospitalization for assessment management of unexplained chest pain, patent stent and coronary arteries, additional assessment for possible DVT, PE, risk of possible unidentified life-threatening condition, otherwise possible bronchitis, pneumonitis, other possible causes. Diagnoses Atherosclerosis of [place] coronary artery of [place] heart with unstable angina pectoris I25.110 [place] vs. transplanted heart: [place] heart Headache R51.9 Multiple ecchymoses of thigh R58 Hypertension goal BP (blood pressure) < 140/80 I10 Hyperlipidemia LDL goal <70 E78.5 Congenital single kidney Q60.0
[2023-12-16] MEDS: isosorbide mononitrate ER 30 mg Tablet PO (12:45)
--- NOTE | 2023-12-16 13:04 | CTR_ITS ---
PROCEDURE INFORMATION: Exam: CT Chest Without Contrast; Diagnostic Exam date and time: 12/16/2023 4:07 PM Age: 43 years old Clinical indication: Angina; Additional info: Chest pain, licea, reflux TECHNIQUE: Imaging protocol: Diagnostic computed tomography of the chest without contrast. Radiation optimization: All CT scans at this facility use at least one of these dose optimization techniques: automated exposure control; mA and/or kV adjustment per patient size (includes targeted exams where dose is matched to clinical indication); or iterative reconstruction. COMPARISON: CR XR chest 1V portable [id number] 12/15/2023 11:40 AM RADIATION DOSE METRICS: Total DLP (mGy-cm): 677 FINDINGS: Thyroid: 3 cm right thyroid lobe nodule. Lungs: Unremarkable. No consolidation. No masses. Pleural spaces: Unremarkable. No pneumothorax. No pleural effusion. Heart: Coronary artery calcifications noted. No cardiomegaly. No pericardial effusion. Lymph nodes: Unremarkable. No enlarged lymph nodes. Vasculature: Unremarkable. No aortic aneurysm. Bones/joints: Unremarkable. No acute fracture. Soft tissues: Unremarkable. CT/CT chest wo con [id number] IMPRESSION: 1. No acute findings. 2. 3 cm right thyroid lobe nodule. COMMENTS: Consistent with the [employer]'s Incidental Findings Committee white paper (J Am Arielle Radiol 2015): In patients aged 35 years and older with an incidental thyroid nodule equal to or greater than 1.[address], MRI or extrathyroidal US, further evaluation with dedicated thyroid US is recommended for patients with normal life expectancy and without comorbidities. For smaller nodules without suspicious features, no further evaluation or follow up is recommended.
[2023-12-16 13:30] LABS: D Dimer 0.81 ug/mLFEU (0-0.59)
[2023-12-16] MEDS: atorvastatin 40 mg Tablet PO (20:45)
[2023-12-17 00:13] VITALS: BP 132/64; PULSE 55; RESP 19; TEMP 36.5; O2SAT 97
[2023-12-17 05:01] VITALS: BP 127/76; PULSE 65; RESP 18; TEMP 36.5; O2SAT 95
[2023-12-17 05:49] VITALS: BMI 35.9
[2023-12-17 05:54] VITALS: PULSE 58
--- NOTE | 2023-12-17 07:02 | P.PN_ITS ---
Subjective 2 Subjective: Patient is doing well. no chest pain. Vitals/I&O/Wt Last Vital Signs Temp 97.7 F 12/17/23 05:01 Pulse 58 L 12/17/23 05:54 Resp 18 12/17/23 05:01 BP 127/76 12/17/23 05:01 Pulse Ox 95 12/17/23 05:01 O2 Del Method Nasal Cannula 12/17/23 05:01 O2 Flow Rate 2 12/17/23 05:01 12/16/23 12/17/23 12/17/23 22:59 06:59 14:59 Intake Total 360 / 760.833 240 / 1000.833 Balance 360 / 760.833 240 / 1000.833 Weight last 48 hrs Weight 280 lb Weight 281 lb Weight 286 lb Weight 288 lb Physical Exam 2 Narrative: GENERAL: Patient is alert, awake and oriented x3. [] NECK: No jugular vein distension. [] HEENT: No cyanosis. No icterus. No pallor. [] HEART: Regular S1 and S2. No murmur, rub or gallop. [] LUNGS: Clear to auscultate bilaterally. [] CENTRAL NERVOUS SYSTEM: Grossly nonfocal. [] EXTREMITIES: Lower extremities with 1+ edema bilaterally. Data 12/15/23 11:51 12/15/23 11:51 A&P Assessment and plan (1) Atherosclerotic heart disease of [place] coronary artery with unstable angina pectoris: Qualifiers: [place] vs. transplanted heart: [place] heart Qualified Code(s): I25.110 - Atherosclerotic heart disease of [place] coronary artery with unstable angina pectoris (2) Hyperlipidemia LDL goal <70: (3) Hypertension goal BP (blood pressure) < 140/80: Plan Patient is stable. Continue dual antiplatelet therapy. Continue Imdur. Thank you for involving us with care of this patient. Patient is stable to be discharged from cardiology standpoint. Please call with questions. Attestations 2 Medical Necessity Statement*: Care expected to cross 2 midnights. Coding Level of Care Code Acute Code for Chg Fwd Diagnoses Atherosclerosis of [place] coronary artery of [place] heart with unstable angina pectoris I25.110 [place] vs. transplanted heart: [place] heart Hyperlipidemia LDL goal <70 E78.5 Hypertension goal BP (blood pressure) < 140/80 I10
[2023-12-17 07:44] VITALS: BP 128/87; PULSE 61; RESP 17; TEMP 36.8; O2SAT 97
[2023-12-17] MEDS: amlodipine 10 mg Tablet PO (08:28)
[2023-12-17] MEDS: aspirin 81 mg EC Tablet PO (08:28)
[2023-12-17] MEDS: carvedilol 6.25 mg Tablet PO (08:29)
[2023-12-17] MEDS: pantoprazole DR 40 mg Tablet PO (08:29)
[2023-12-17] MEDS: lisinopril 20 mg Tablet 40 MG PO (08:29)
[2023-12-17] MEDS: isosorbide mononitrate ER 30 mg Tablet PO (08:29)
[2023-12-17] MEDS: clopidogrel 75 mg Tablet PO (08:29)
--- NOTE | 2023-12-17 12:54 | P.DS_ITS ---
Discharge Providers Date of Admission: 12/15/23 13:14 Date of Discharge: December 17, 2023 Attending Provider at Admission: Tessa Mabry MD Attending Provider at Discharge: Eleazar Cash Primary Care Provider: Mitch Reynolds DO Diagnoses at Discharge Discharge Diagnosis (1) Atherosclerotic heart disease of [place] coronary artery with unstable angina pectoris: Status: Acute Qualifiers: [place] vs. transplanted heart: [place] heart Qualified Code(s): I25.110 - Atherosclerotic heart disease of [place] coronary artery with unstable angina pectoris (2) Headache: Status: Acute (3) Multiple ecchymoses of thigh: Status: Acute (4) Hypertension goal BP (blood pressure) < 140/80: Status: Chronic (5) Hyperlipidemia LDL goal <70: Status: Chronic (6) Congenital single kidney: Status: Chronic Reason for Visit Reason for Visit: chest pain / SOB Hospital Course Hospital Course Pleasant 43-year-old gentleman with history of CAD, STEMI back in 2020 with LAD stent, hospitalized last week with similar symptoms with finding of in-stent restenosis in LAD as well as another lesion in right coronary artery. At that time he underwent PCI with drug-eluting stent to LAD and balloon angioplasty to the right coronary artery. Was continued on aspirin and Plavix were added. As well as amlodipine. He reports his carvedilol dose was also increased within the last month. He presented to the hospital due to severe fatigability, chest pain, general malaise, discomfort/heaviness of his legs. He reported he was feeling well initially after the procedure, and went for a full day of work as well, but was feeling the left symptoms subsequently. On presentation without significant elevation of troponin, was admitted after discussion of EKG changes with cardiology. Was assessed by cardiology and underwent repeat coronary angiogram which did not reveal any worsening or new obstructions. With consideration of possible vasospasm he is continued on amlodipine, Imdur is added. Continue to optimize cardiovascular structures with possible microvascular disease. On presentation he also was complaining of recurrent/persistent headaches over the last several months. And noted also linear bruises around the same level on posterior thighs. He did not sustain any definitive trauma, but did have a full day of work while on dual antiplatelets. He does report having remittent heartburn for which she is already on PPI, but sometimes still symptomatic despite that, although he also had heartburn at the time of his heart attack in the past, so the etiology of the symptoms is not always clear to him. While in the hospital PPI was increased to twice daily. In case he still symptomatic consider further workup with pH testing, endoscopy. He underwent plain CT of the chest to further assess for aspiration pneumonitis, bronchitis, his he did report some cough transiently at the time of his episodes preadmission. CT of the chest was unremarkable. Incidentally noted 3 cm right thyroid lobe nodule, please follow-up. D-dimer was assessed but as per discussion with him difficult to interpret given ecchymoses and recent coronary angiography, angioplasty. D-dimer with mild elevation at 0.81. He has not had dyspnea, pleuritic pain, no tachycardia, has been maintaining saturation other than has been noticed desaturating while asleep, and states that his girlfriend had also noticed him waking up multiple times at night which she does not necessarily remember. He is also noted to have some bradycardia heart rates intermittently coming down to 50s. Prior to discharge planning CT of the head is obtained for additional assessment for any bleed, otherwise he is referred for assessment with contrast-enhanced MRI due to chronic headaches as well as follow-up with neurology. He is referred for sleep study which could be contributing to both his headaches and bradycardia which otherwise likely is also secondary to carvedilol dose of which was increased a month ago. Discussed with him to monitor heart rates, blood pressures, he knows to decrease or hold carvedilol in case of worsening. He is set up with telemetry monitor at discharge as per discussion with cardiology. He will continue at discharge with Imdur, he states he had a good night and actually got sleep last night without chest pain. Did have some headache last night. He is aware that Imdur can contribute to headache and may discontinue it in case it is worsening his symptoms. He does not use any ED medications but understands potential risk for interaction in case he needed them. He knows to seek medical attention in case of any worsening or new concerning symptoms. Continue to optimize cardiovascular risk factors, blood pressure control, reassess and assisting with weight loss, heart healthy diet, exercise. He will resume work on Thursday but with limited duties with recommendation reduced shift duration to 6 hours for subsequent 4 days, ramping up if he is doing well, avoiding overexertion and strenuous work and high ambient temperatures. Physical Exam Narrative: Accompanied by family. Const: COMMON NORMALS: patient oriented x3 and alert GENERAL APPEARANCE: cooperative ORIENTATION/CONSCIOUSNESS: Yes awake HENMT: COMMON NORMALS: oropharynx normal Neck/C-Spine: COMMON NORMALS: no JVD Resp: COMMON NORMALS: normal respiratory effort and clear to auscultation bilaterally AUSCULTATION: clear to auscultation bilaterally Cardio: COMMON NORMALS: no JVD, regular rhythm, S1 normal heart sound present, S2 normal heart sound present and No murmurs present (Cardio) RHYTHM: regular rhythm HEART SOUNDS: S1 normal heart sound present and S2 normal heart sound present GI: COMMON NORMALS: Normal to inspection, nondistended, normoactive bowel sounds present, Soft to palpation and non-tender PALPATION: Yes Soft to palpation Extremity: COMMON NORMALS: no joint enlargement and no pedal edema NARRATIVE EXTREMITY EXAM: Right groin dressing after angiogram access. I do not see bleeding, I do not see pulsatile mass, or bruise. Thomas on the right forearm after access at the right wrist. Neuro: COMMON NORMALS: patient oriented x3 and moves all extremities SENSORIUM/ORIENTATION: Yes alert Skin: COMMON NORMALS: no rashes or lesions noted GENERAL SKIN EXAM: no rashes or lesions noted Discharge Data Studies Completed and Pending Completed Studies During Hospitalization Category Date Time Status CT chest wo con [id number] Routine Cat Scan 12/16/23 13:04 Completed XR chest 1V portable [id number] Stat Exams 12/15/23 11:31 [place] [id number] Routine Ultrasound 12/16/23 12:34 Completed Pending at discharge Category Date Time Status [employer] request for service Routine Exams 12/16/23 06:06 Taken Radiology Impressions Chest X-Ray 12/15/23 11:31 IMPRESSION: No acute findings. Chest CT 12/16/23 13:04 IMPRESSION: 1. No acute findings. 2. 3 cm right thyroid lobe nodule. COMMENTS: Consistent with the [employer]'s Incidental Findings Committee white paper (J Am Arielle Radiol 2015): In patients aged 35 years and older with an incidental thyroid nodule equal to or greater than 1.[address], MRI or extrathyroidal US, further evaluation with dedicated thyroid US is recommended for patients with normal life expectancy and without comorbidities. For smaller nodules without suspicious features, no further evaluation or follow up is recommended. Laboratory Results WBC 9.42 10^3/uL (3.29-11.43) 12/15/23 11:51 RBC 5.59 10^6/uL (3.85-5.65) 12/15/23 11:51 Hgb 17.40 g/dL (11.27-16.99) H 12/15/23 11:51 Hct 48.7 % (37-53) 12/15/23 11:51 MCV 87.1 fl (82-101) 12/15/23 11:51 MCH 31.1 pg (27-33) 12/15/23 11:51 MCHC 35.7 g/dL (30-55) 12/15/23 11:51 RDW 12.4 % (12.1-15.1) 12/15/23 11:51 Plt Count 217 10^3/cmm (157-399) 12/15/23 11:51 MPV 10.1 fL (7.4-10.4) 12/15/23 11:51 Neut % (Auto) 79.4 % 12/15/23 11:51 Lymph % (Auto) 13.2 % 12/15/23 11:51 [place] % (Auto) 4.0 % 12/15/23 11:51 Eos % (Auto) 2.3 % 12/15/23 11:51 Baso % (Auto) 0.6 % 12/15/23 11:51 Neut # (Auto) 7.47 10^3/uL (1.8-7.7) 12/15/23 11:51 Lymph # (Auto) 1.2 10^3/uL (0.8-4.8) 12/15/23 11:51 [place] # (Auto) 0.4 10^3/uL (0.2-0.9) 12/15/23 11:51 Eos # (Auto) 0.2 10^3/uL (0.0-0.8) 12/15/23 11:51 Baso # (Auto) 0.1 10^3/uL (0.0-0.1) 12/15/23 11:51 Nucleated RBC % (auto) 0 % 12/15/23 11:51 Nucleated RBCs # 0.0 /100WBC 12/15/23 11:51 D-Dimer 0.81 ug/mLFEU (0-0.59) H 12/16/23 12:50 Sodium 144 mmol/L (136-145) 12/15/23 11:51 Potassium 4.4 mmol/L (3.5-5.1) 12/15/23 11:51 Chloride 107 mmol/L (98-107) 12/15/23 11:51 Carbon Dioxide 22 mmol/L (22-29) 12/15/23 11:51 Anion Gap 19.4 (5-19) H 12/15/23 11:51 BUN 11 mg/dL (6-20) 12/15/23 11:51 Creatinine 0.7 mg/dL (0.7-1.2) 12/15/23 11:51 GFR Calculation 123.7 mL/min (90-130) 12/15/23 11:51 Glucose 136 mg/dL (65-115) H 12/15/23 11:51 Calculated Osmolality 299 mOsm/kg (285-295) H 12/15/23 11:51 Calcium 9.4 mg/dL (8.5-10.5) 12/15/23 11:51 Total Bilirubin 0.8 mg/dL (0.15-1.2) 12/15/23 11:51 AST 24 U/L (0-40) 12/15/23 11:51 ALT 33 U/L (0-41) 12/15/23 11:51 Alkaline Phosphatase 63 U/L (40-130) 12/15/23 11:51 Troponin T Baseline 13 ng/L (0-15) 12/15/23 11:51 Troponin T 120 Minute 10.74 ng/L (0-15) 12/15/23 13:25 Delta Troponin T -2.26 ABS# (0-10) L 12/15/23 13:25 Troponin T Hi Sens 6Hr 13.01 ng/L (0-15) 12/15/23 17:55 Troponin T Hi Sens 6Hr Delta 0.01 ng/L (0-12) 12/15/23 17:55 NT-Pro-B Natriuret Pep 115 pg/mL (0-125) 12/15/23 11:51 Total Protein 7.3 g/dL (6.6-8.7) 12/15/23 11:51 Albumin 4.8 g/dL (3.5-5.2) 12/15/23 11:51 Globulin 2.5 g/dL (1.3-4.6) 12/15/23 11:51 Vitals Last Vital Signs Temp 98.2 F 12/17/23 07:44 Pulse 61 12/17/23 07:44 Resp 17 12/17/23 07:44 BP 128/87 12/17/23 07:44 Pulse Ox 97 12/17/23 07:44 O2 Del Method Room Air 12/17/23 07:44 O2 Flow Rate 2 12/17/23 05:01 Discharge Plan Discharge Patient Disposition: Home Condition: Stable Prescriptions: New isosorbide mononitrate 30 mg Tablet Extended Release 24 Hr 30 mg PO DAILY Qty: 90 0RF Continued carvedilol 6.25 mg tablet 6.25 mg PO BID 30 Days Qty: 60 5RF Rx Instructions: must administer with a meal/food aspirin 81 mg Tablet,Delayed Release (Dr/Ec) 81 mg PO DAILY Qty: 90 3RF nitroglycerin 0.4 mg tablet, sublingual See Rx Instructions .ROUTE .COMPLEX Rx Instructions: DISSOLVE 1 TABLET UNDER THE TONGUE EVERY 5 MINUTES NEEDED FOR CHEST PAIN. DO NOT EXCEED A TOTAL OF 3 DOSES IN 15 MINUTES. clopidogrel 75 mg Tablet 75 mg PO DAILY Qty: 30 0RF amlodipine 10 mg tablet 10 mg PO DAILY Qty: 30 0RF atorvastatin 40 mg tablet 40 mg PO BEDTIME Qty: 90 3RF lisinopril 40 mg Tablet 40 mg PO DAILY Changed esomeprazole magnesium 40 mg capsule,delayed release(DR/EC) 40 mg PO BIDWMEAL Qty: 180 0RF Discharge Orders: Discharge Order (Routine); Ordered 12/17/23 Ordered By: Eleazar Cash Other Ambulatory Orders: MR head w con [id number] (Routine) Timeframe: 1 Day Facility: [facility] - Location: Radiology [facility] Ordered By: Eleazar Cash ECG holter monitor 14 Days (Routine) Timeframe: 1 Day Facility: [facility] - Location: Radiology Ordered By: Eleazar Cash Sleep Study W Sleep Stage (Routine) Timeframe: 1 Day Facility: [facility] - Location: [facility] Ordered By: Eleazar Cash Referrals: [facility] [Provider Group] - 2 weeks (Recurrent/chronic headaches) Mitch Reynolds DO [Primary Care Provider] - 12/23/23 2:20 am Natalya Ortiz FNP [Nurse Practitioner] - 12/28/23 2:00 pm Patient Instructions: Post Angiogram Home Care Instructions Activity Restrictions/Additional Instructions: Follow-up with your primary provider and with cardiology for reassessment after episodes of chest pain. Continue proposition of cardiovascular risk factors, continue to optimize blood pressure control, heart healthy diet, include exercise. Continue to work on reflux disease. Given you are already on acid josiah medication, but still possibly having symptoms of heartburn, consider additional workup with pH monitoring, endoscopy. Discussed with your primary doctor regarding mild elevation of D-dimer, bruising on the backs of her legs. Be mindful of increased risk of bleeding with aspirin and Plavix. Please do not stop aspirin or Plavix unless doing so under supervision of your doctor, discontinuing these medications prematurely can lead to clotting of the heart stent with resulting heart attack or other complication. Seek medical attention in case of any bleeding that is not stopping. Continue to monitor blood pressures and heart rates at home. Follow-up to set up heart monitor to further monitor heart rates which sometimes drop down to 50s. Continue to monitor blood pressures, target blood pressures less than 140/80. Hold carvedilol in case if heart rate is less than 50. Reduce carvedilol dose in half in case your heart rate is less than 60. Follow-up with neurology for assessment of headache and you are also referred for additional assessment by MRI. Follow-up for sleep study for additional assessment of suspected sleep apnea with oxygen level decreasing while asleep, which may be contributing to chronic headaches and possibly slow heart rate. Take off work until the rest of the week, returning to work on Thursday start with limited duties, limiting shift length to 6 hours, avoid overexertion or heat exposure for additional 4 days before resuming usual schedule, still exercising caution, avoiding overexertion especially in environments which may exposed to elevated ambient temperatures. Please follow-up with your primary doctor incidentally noted 3 cm right thyroid lobe nodule. Stand Alone Forms: Work/School Release Discharge Attestations Time Spent in Discharge Care*: greater than 30 min Status at Discharge: Cognitive status at discharge: cognitively intact , Behavioral status at discharge: cooperative , Quality Metrics Clinical Quality Measures [ No reported AMI, CVA or VTE this stay] Coding Level of Care Code 48557 Total time (in minutes) for Discharge: 65 Diagnoses Atherosclerosis of [place] coronary artery of [place] heart with unstable angina pectoris I25.110 [place] vs. transplanted heart: [place] heart Headache R51.9 Multiple ecchymoses of thigh R58 Hypertension goal BP (blood pressure) < 140/80 I10 Hyperlipidemia LDL goal <70 E78.5 Congenital single kidney Q60.0
--- NOTE | 2023-12-17 13:02 | CT_ITS ---
WS: [id number] CT HEAD TECHNIQUE: Noncontrast CT of the head obtained from the skullbase to the vertex. CLINICAL INFORMATION: headaches COMPARISON: None. DLP: 1167.[address] scans at [facility] use at least one of these dose optimization techniques: automated e xposure control; mA and/or kV adjustment per patient size (includes targeted exams where dose is matc hed to clinical indication); or iterative reconstruction. FINDINGS: No evidence of intracranial hemorrhage or mass effect. Ventricular system and basal cisterns are gran[place] nt. Mild small vessel changes with mild parenchymal volume loss. No extra-axial fluid collections. No evidence of mass or mass effect. Paranasal sinuses and mastoid air cells are well aerated. .Normal visualized soft tissues. CT/CT head wo con* [id number] IMPRESSION: 1. No evidence of intracranial hemorrhage or mass effect. 2. No acute intracranial findings.
--- NOTE | 2023-12-17 13:04 | PC.NURSE ---
Provider ordered a head CT scan without contrast. Order entered.
[2023-12-17 14:13] VITALS: BP 128/87; PULSE 61; RESP 17; TEMP 36.8; O2SAT 97
--- NOTE | 2023-12-17 16:08 | PC.NURSE ---
Patient called and requested that his [facility] paperwork also get faxed to [phone], along with the number on the form. Provider is filling out the papers after patient is discharged.
== END 2023-12-17 14:38 | disposition home or self-care (01) ==
LOC: ER 12:20 → CSU 13:15
PROVIDERS: Emergency Medicine; Internal Medicine; Admitting Provider Hospitalist; Emergency Provider Emergency Medicine; PCP Electrodiagnostic Medicine; Visit Provider Internal Medicine
DX: I25.110 Atherosclerotic heart disease of native coronary artery with unstable angina pectoris (principal); T82.855A Stenosis of coronary artery stent, initial encounter; R51.9 Headache, unspecified; R58 Hemorrhage, not elsewhere classified; I10 Essential (primary) hypertension; E78.5 Hyperlipidemia, unspecified; Q60.0 Renal agenesis, unilateral; Z95.5 Presence of coronary angioplasty implant and graft; Z79.82 Long term (current) use of aspirin; I25.2 Old myocardial infarction; Z87.891 Personal history of nicotine dependence
CPT/HCPCS: 36415; 70450; 71045; 71250; 80053; 83880; 84484; 85025; 85378; 93005; 93458; 93970; 96374; 96375; 99152; 99153; 99285; C1760; C1769; C1887; C1894; G0269; G0378; J1200; J1644; J2250; J2405; J3010; J3480; J7030; Q0163; Q9967

== ENCOUNTER 2024-02-23 20:00 | Outpatient (CLI) | payer OTHER, SELFPAY | END 2024-02-23 20:01 | disposition home or self-care (01) | LOC: SLEEP 22:27 | PROVIDERS: PCP Electrodiagnostic Medicine; Visit Provider Electrodiagnostic Medicine | DX: G47.33 Obstructive sleep apnea (adult) (pediatric) (principal); G47.36 Sleep related hypoventilation in conditions classified elsewhere | CPT/HCPCS: 95810 ==

== ENCOUNTER 2024-03-10 07:40 | Outpatient (CLI) | payer OTHER, SELFPAY ==
--- NOTE | 2024-03-10 08:00 | MR_ITS ---
WS: [id number] MRA CAROTID ARTERIES HISTORY: R51.9 - Headache, unspecified COMPARISON: None available. TECHNIQUE: MRA is performed with intravenous gadolinium. MIP and source images are reviewed. Right: Normal common cervical, internal and external carotid arteries. No stenosis or thrombus. No oc clusions. Left: Normal common cervical, internal/external carotid arteries. No thrombus of stenosis. Subclavian Arteries: Normal. Vertebral Arteries: Normal, codominant. Both vertebral arteries arise normally. MR/MR angio neck w con* [id number] IMPRESSION: Normal MRA carotid arteries.
[2024-03-10] MEDS: gadobenate dimeglumine 20 mL vial IV (08:42)
--- NOTE | 2024-03-10 08:45 | MR_ITS ---
WS: [id number] MRA ANGIOGRAPHY [place] OF [place] HISTORY: R51.9 - Headache, unspecified COMPARISON: None available. TECHNIQUE: 3-D MR angiography is performed of the [place]. All images are reviewed including source images. Distal vertebral and basilar arteries are intact with no significant stenosis or plaque. Posterior ce rebral arteries are normal course and caliber. Posterior communicating arteries are both patent. Horizontal portions of the intracranial carotid arteries are very heterogeneous. I suspect this is mo st likely an artifact. The heterogeneity continues through the cavernous carotid arteries but there i s no occlusion. No aneurysms are identified. Middle and anterior cerebral arteries are both patent. N o paucity of vessels in the distal arterial territories. MR/MR angio head wo con [id number] IMPRESSION: 1. No carotid artery occlusion or aneurysms. 2. Mild heterogeneity within the lumen of the intracranial carotid arteries. T his is most consistent with artifact. The MRA of the carotid arteries performed on the same day included the intracranial carotid arteries which were normal.
== END 2024-03-10 07:41 | disposition home or self-care (01) ==
PROVIDERS: PCP Electrodiagnostic Medicine; Visit Provider Psychiatry & Neurology Neurology
DX: R51.9 Headache, unspecified (principal); G47.30 Sleep apnea, unspecified; R00.1 Bradycardia, unspecified; I25.118 Atherosclerotic heart disease of native coronary artery with other forms of angina pectoris
CPT/HCPCS: 70544; 70548; A9577

== ENCOUNTER 2024-03-22 07:02 | Outpatient (CLI) | payer OTHER, SELFPAY ==
--- NOTE | 2024-03-22 07:15 | USCV_ITS ---
Panfilo Ervin Age: 43 Gender: M : 1980 Exam Date: 03/22/2024 07:10 Ordering Phys: Henry Singleton MD Technologist: LORI Exam Location: [facility] Indication: BRADYCARDIA/HEADACHES Risk Factors: Previous Vascular Surgery: Right Brachial BP: / Left Brachial BP: / Right Left Velocity (cm/s) Spectral Plaque Velocity (cm/s) Spectral Plaque Syst/Diast Broadening Syst/Diast Broadening 148.80/29.60 Prox CCA 170.10/ 33.50 113.70/28.70 Mid CCA 125.60/ 28.20 100.20/25.40 Distal CCA 87.00 / 27.00 65.70/ 16.70 Prox ICA 59.10 / 19.80 90.60/ 35.30 Mid ICA 72.10 / 27.70 75.20/ 30.70 Distal ICA 67.90 / 29.80 138.10 ECA 117.20 0.90 ICA/CCA 0.80 Antegrade Vertebral Antegrade 69.00/ 19.40 cm/s 66.40/ 16.80 cm/s Tri Subclavian Tri 117.4 122.2 0 0 FINDINGS Comparison: none available. No significant elevation of systolic or diastolic velocities. Waveforms are normal. No significant amount of calcified plaque or intimal thickening identified. CONCLUSIONS Normal carotid doppler ultrasound. Dr. Tequila Aparicio DO (Electronically Signed) Final Date: 22 March 2024 07:54 S
== END 2024-03-22 07:03 | disposition home or self-care (01) ==
LOC: RAD 07:05
PROVIDERS: PCP Electrodiagnostic Medicine; Visit Provider Psychiatry & Neurology Neurology
DX: R00.1 Bradycardia, unspecified (principal); G47.30 Sleep apnea, unspecified; R51.9 Headache, unspecified; E78.5 Hyperlipidemia, unspecified; R07.2 Precordial pain; I25.10 Atherosclerotic heart disease of native coronary artery without angina pectoris
CPT/HCPCS: 93880

== ENCOUNTER 2024-04-20 11:04 | Observation (INO) | payer OTHER, SELFPAY ==
--- NOTE | 2024-04-18 11:54 | PC.NURSE ---
Called patient to give pre op left heart cath instructions; patient did not answer, left message to return call.
[2024-04-19 09:39] VITALS: BP 160/97; PULSE 74; RESP 16; TEMP 36.8; O2SAT 96; BMI 38.5
[2024-04-19 09:44] LABS: Basophils # 0.1 10^3/uL (0.0-0.1); Basophils % 0.6 %; Eosinophils # 0.1 10^3/uL (0.0-0.8); Eosinophils % 1.7 %; Hematocrit 46.4 % (37-53); Lymphocytes # 1.3 10^3/uL (0.8-4.8); Lymphocytes % 15.6 %; Mean Corpuscular HGB Conc 34.5 g/dL (30-55); Mean Corpuscular Hemoglobin 30.2 pg (27-33); Mean Corpuscular Volume 87.5 fl (82-101); Mean Platelet Volume 9.8 fL (7.4-10.4); Monocytes # 0.6 10^3/uL (0.2-0.9); Monocytes % 6.7 %; Neutrophils # 6.22 10^3/uL (1.8-7.7); Neutrophils % 74.8 %; Nucleated Red Blood Cells % 0 %; Platelet Count 207 10^3/cmm (157-399); Red Cell Distribution Width 12.7 % (12.1-15.1); White Blood Count 8.32 10^3/uL (3.29-11.43)
[2024-04-19] MEDS: diphenhydrAMINE 50 mg Capsule PO (09:47)
[2024-04-19 09:58] LABS: Anion Gap 15.2 (5-19); Blood Urea Nitrogen 14 mg/dL (6-20); Calcium 8.9 mg/dL (8.5-10.5); Carbon Dioxide 24 mmol/L (22-29); Chloride 103 mmol/L (98-107); Creatinine Clr Calc Pharmacy 155.3066; Glomerular Filtration Rate 92.1 mL/min (90-130); Glucose 103 mg/dL (65-115); Osmolality Calculated 287 mOsm/kg (285-295); Potassium 4.2 mmol/L (3.5-5.1); Sodium 138 mmol/L (136-145)
--- NOTE | 2024-04-19 12:36 | PC.NURSE ---
Pt rescheduled to 04/20/2024 due to multiple ER STEMI alerts. Pt given new day and time for check in for 04/20/2024 at 0730.
[2024-04-20] VITALS (33 sets, daily range): BP systolic 114–161; BP diastolic 59–101; PULSE 63–81; RESP 11–26; TEMP 36.6–36.8; O2SAT 90–96
--- NOTE | 2024-04-20 07:45 | XACV_ITS ---
Exam Room: 2 Ht: 188 cm Wt: 136 kg BSA: 2.72 m2 Gender: Male : 1980 Any Known Allergies: Other Exam Priority: Routine Procedure(s): Procedure Description: Diagnostic procedure Procedure Description: PCI procedure Procedure Description: Drug Eluting Coronary Stent Procedure Description: PTCA Procedure Description: Miscellaneous Procedure Description: ACT Procedure Description[facility] Cath Status: Elective Diagnostic Findings * Left Anterior Descending has no disease. Luminal irregularities. * Proximal Right Coronary Artery: severe 90% stenosis, PETER: 3 flow. Nitroglycerin was given it did not improve. * Left Main has no disease. * Circumflex has no disease. * Mid Right Coronary Artery: obstructive 70% stenosis, PETER: 3 flow. * Ramus: patent, PETER: 3 flow. Luminal irregularity. * Coronary angiography shows right dominance. PCI Status: Elective PCI Indication: New Onset Angina <= 2 months Interventional Findings * Proximal Right Coronary Artery: 90% stenosis treated with a MDT R HEENA 2.5X12 RADHA. 0% residual stenosis, PETER: 3 flow. Successful intervention. * Mid Right Coronary Artery: 70% stenosis treated with a AB MINI TREK 2.00X12 RX BALLOON, and MDT R HEENA 2.25X15 RADHA. 0% residual stenosis, PETER: 3 flow. Conclusions 1. There is severe coronary artery disease with one vessel disease. 2. Proximal Right Coronary Artery was treated with a Drug Eluting Stent. 3. Mid Right Coronary Artery was treated with a Balloon, and Drug Eluting Stent. Recommendations * 1-Return to inpatient for close monitoring and routine cath care 2-Risk factor modification for secondary prevention 3-Statin and aspirin 81 mg life-long, if tolerated 4-Patient was pre-loaded with 600 mg of Plavix, continue Plavix 75mg p.o. daily for at least one year. We will assess at the end of one year again to continue if further or not 5-Continue optimal medical management 6-Follow up with Dr. Beaulieu in four weeks and your primary care in 10 days. Pressures Phase:Rest AO : 137 / 91 ( 108 ) @ 9:17:00 AM 140 / 96 ( 116 ) @ 9:27:00 AM 155 / 98 ( 125 ) @ 9:35:00 AM 109 / 81 ( 95 ) @ 10:00:00 AM Clinical Evaluation EBL: 5mL-10mL Procedural Details Procedure Consent Obtained. Pre-Procedure Time Out. Identified patient by full name and date of as verbalized by the patient/guarantor. Does the consent match the physician's order: Yes. Accurate & Complete Informed Consent: Yes. Inpatient/Outpatient History & Physical on Chart: Yes. If H&P is completed, is and addenduem needed: No. Visualize and Verify Site with Patient/Guarantor: N/A. Relevant Radiology Images available: Yes. The risks, benefits, and alternatives of sedation and/or procedure were discussed by physician. The patient agrees to continue. Procedure started. [facility] Clinical Fraility Score: 3: Managing Well. 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 Chest Pain Symptom Assessment: Typical Angina Symptoms. Cardiovascular Instability: No. Correct patient, site and procedure confirmed by cath team. PERRLA. Strong, equal hand actuary bilaterally. Lungs clear x 5 lobes. IV Site on Arrival: 20 gauge in the right anticubital. IV Fluids: 0.9% NaCl at KVO. 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 Pre Procedural Pulses: bilateral dorsalis pedis was 3+. Pre Procedural Pulses: bilateral posterior tibial was 3+. Pre Procedural Pulses: bilateral radial was 3+. Oxygen started at 2liters/min via nasal canula. right groin was prepped with chloroprep then draped in the usual sterile fashion. right radial was prepped with chloroprep then draped in the usual sterile fashion. Baseline sample Acquired. HR: 72 BPM. Physician notified. Patient's family in CPRU room #3. Dr. Beaulieu will update at the completion of the procedure. Equipment: 6F - Radial. Cardiac Cath Pack. ACIST Manifold Kit Model BT 2000. Heparinized Saline (2 units/mL), 1000 mL bag. Physician arrived. Physician scrubbed in. Immediate Pre-Procedure Time Out. Correct Patient: Yes; Correct Procedure: Yes; Correct Site: Yes; Correct Patient Position: Yes; Correct Supplies: Yes; Dried Flammable Prep: Yes; Blood Products Available: N/A;. Lidocaine 1% infiltrated to the right radial. Arterial access obtained. A 5 senegalese González catheter in over the exchange J wire. Multiple views taken of right coronary artery. Catheter redirected to the LCA. Catheter removed over the exchange J wire. A 5 senegalese JL4 catheter in over the exchange J wire. Catheter removed over the exchange J wire. 6 senegalese XB 3.5 guide catheter was inserted over the the exchnge J wire. Multiple views taken of left coronary artery. Catheter removed over the exchange J wire. 6 senegalese JR 4 SH guide catheter was inserted over the exchange J wire. ACT drawn. Results 253 seconds. Therapeutic limits - pre-heparin administration 90-150 seconds and monitoring heparin during a vascular procedure >250 seconds. Runthrough guidewire was advanced through the guide catheter to lesion in the mid RCA. Inflation number : 1 A AB MINI TREK 2.00X12 RX BALLOON was prepped and advanced across the Mid RCA , then inflated to 10 FLOYD for 0:21 seconds. Inflation number: 2 The AB MINI TREK 2.00X12 RX BALLOON was reinflated across the Mid RCA, to 14 FLOYD for 0:10 seconds. Balloon out. Results checked. Lamont guidewire was advanced through the guide catheter to lesion in the mid RCA. Runthrough wire out. Inflation Number : 3 A AIDA Gaytan HEENA 2.25X15 RADHA -Lot Number# [id number] was prepped and advanced across the Mid RCA. The stent was deployed at 16 FLOYD for 0:28 seconds. Exp. . Stent balloon out over wire. Inflation Number : 1 A AIDA Gaytan HEENA 2.5X12 RADHA -Lot Number# [id number] was prepped and advanced across the Prox RCA. The stent was deployed at 14 FLOYD for 0:22 seconds. Exp. . Stent balloon out over wire. Results checked. Wire out. Guide catheter out over the exchange J wire. ACT drawn. Results 250 seconds. Therapeutic limits - pre-heparin administration 90-150 seconds and monitoring heparin during a vascular procedure >250 seconds. Physician scrubbed out. A TR Band was successful obtaining hemostatsis at the Right Radial artery insertion site. Post Procedure: Pulses reassessed and unchanged. PERRLA. Strong, equal hand actuary bilaterally. No VTE prophylaxis required. Medication's Wasted: Lidocaine 1% = 18 mL. Medication's Wasted: Nitro = 49.4 mg. Medication's Wasted: Heparin = 2000 units. Medication's Wasted: Other = Fentanyl 25 mcg. Total IV fluids: 55 mL. PCI Indication: CAD (without ischemic symptoms). Post-op diagnosis: PCI of the Ostial and Mid RCA. Complications: none. Estimated blood loss: 5mL-10mL. Responsiveness - Normal response to verbal stimuli; alert and oriented, PERRLA. Airway - Unaffected, no intervention required; spontaneous ventilation. Circulation: W/N/L, pulses unchanged. Nausea/Vomiting: No. Procedure completed. Patient transferred by wheelchair to CPRU. Access Site Site: Right Radial artery Sheath Size: 6 Fr Hemostasis Method: TR Band Hemostasis Success: Successful Procedure Medications Start: 9:01 AM Stop: 9:01 AM Medication: Versed Amount: 1 mg Route: I.V. Start: 9:01 AM Stop: 9:01 AM Medication: Fentanyl Amount: 50 mcg Route: I.V. Start: 9:07 AM Stop: 9:07 AM Medication: Versed Amount: 1 mg Route: I.V. Start: 9:07 AM Stop: 9:07 AM Medication: Fentanyl Amount: 25 mcg Route: I.V. Start: 9:12 AM Stop: 9:12 AM Medication: Versed Amount: 1 mg Route: I.V. Start: 9:14 AM Stop: 9:14 AM Medication: Nitrogylcerin Amount: 200 mcg Route: I.A. Start: 9:16 AM Stop: 9:16 AM Medication: Fentanyl Amount: 25 mcg Route: I.V. Start: 9:16 AM Stop: 9:16 AM Medication: Heparin Amount: 5000 units Route: I.V. Start: 9:21 AM Stop: 9:21 AM Medication: Nitrogylcerin Amount: 200 mcg Route: I.C. Start: 9:27 AM Stop: 9:27 AM Medication: Versed Amount: 1 mg Route: I.V. Start: 9:30 AM Stop: 9:30 AM Medication: Benadryl Amount: 25 mg Route: I.V. Start: 9:37 AM Stop: 9:37 AM Medication: Versed Amount: 1 mg Route: I.V. Start: 9:39 AM Stop: 9:39 AM Medication: Heparin Amount: 4000 units Route: I.V. Start: 9:43 AM Stop: 9:43 AM Medication: Nitrogylcerin Amount: 200 mcg Route: I.C. Start: 9:43 AM Stop: 9:43 AM Medication: Fentanyl Amount: 25 mcg Route: I.V. Start: 9:57 AM Stop: 9:57 AM Medication: Fentanyl Amount: 50 mcg Route: I.V. Start: 10:03 AM Stop: 10:03 AM Medication: Versed Amount: 1 mg Route: I.V. Start: 10:09 AM Stop: 10:09 AM Medication: Plavix Amount: 300 mg Route: P.O. I, the attending physician, have reviewed and verified all procedure medications. Yes, all medications given per verbal order History/Risk Factors Hypertension: Yes Dyslipidemia: Yes Peripheral Arterial Disease (PAD): No Myocardial Infarction (MT): Yes Obesity: Yes Renal Disease: No Tobacco Use: Former Prior Interventions PCI: Yes CABG: No Valve Surgery: No Date of PCI: 12/11/2023 Report Signatures Finalized by Keon Beaulieu MD on 04/30/2024 10:47 PM
--- NOTE | 2024-04-20 09:05 | W.PM.OPSUD ---
Surgery/Procedure H&P Update DATE OF PROCEDURE: April 20, 2024 DATE H&P PERFORMED: 03/22/24 H&P UPDATE INFORMATION: I have reviewed H&P completed within last 30 days, I have examined patient prior to procedure, No changes to prior documentation, Changes to prior documentation as noted here and H&P to be scanned into chart PREOP DIAGNOSIS: Chest pain suspicious for unstable angina PLANNED PROCEDURE: Operation Date: 04/20/24 08:30 Proposed Procedures p Cardiac Catheterization - C w/wo LV & Coros(Left) - Keon Beaulieu MD PATIENT REASSESSED PRIOR TO SEDATION, WITH NO CHANGE NOTED: Yes PHYSICAL EXAM: alert, oriented x 3, clear to auscultation bilaterally, regular rate & rhythm and operative site marked AIRWAY EVAL/ANESTHESIA PLAN: ASA II, Risks, benefits & alternatives of sedation and/or procedure discussed and Patient agrees to continue as planned
[2024-04-20] MEDS: sodium chloride 0.9% 1,000 ML 100 ML IV (10:30)
--- NOTE | 2024-04-20 16:20 | PC.NURSE ---
Initiated TR band removal at ~1215 removing 2ml of air every 15-20min until all air removed at this time. TR band removed. No s/s of bleeding or hematoma formation observed. Covered site with 2x2 and coban. Instructed patient on site care. Patient verbalized complete understanding. Will continue to monitor.
[2024-04-20] MEDS: isosorbide mononitrate 20 mg Tablet PO (17:08)
[2024-04-20] MEDS: temazepam 15 mg Capsule PO (20:49)
[2024-04-21] VITALS (13 sets, daily range): BP systolic 120–149; BP diastolic 66–94; PULSE 53–73; RESP 14–20; TEMP 36.7–36.9; O2SAT 89–96
[2024-04-21 03:43] LABS: Basophils # 0.1 10^3/uL (0.0-0.1); Basophils % 0.6 %; Eosinophils # 0.2 10^3/uL (0.0-0.8); Eosinophils % 1.8 %; Hematocrit 48.7 % (37-53); Lymphocytes # 1.6 10^3/uL (0.8-4.8); Lymphocytes % 17.4 %; Mean Corpuscular HGB Conc 34.7 g/dL (30-55); Mean Corpuscular Hemoglobin 30.6 pg (27-33); Mean Corpuscular Volume 88.1 fl (82-101); Mean Platelet Volume 9.8 fL (7.4-10.4); Monocytes # 0.7 10^3/uL (0.2-0.9); Monocytes % 7.9 %; Neutrophils # 6.46 10^3/uL (1.8-7.7); Neutrophils % 71.7 %; Nucleated Red Blood Cells % 0 %; Platelet Count 194 10^3/cmm (157-399); Red Blood Count 5.53 10^6/uL (3.85-5.65); Red Cell Distribution Width 12.6 % (12.1-15.1)
[2024-04-21 04:05] LABS: Anion Gap 15.1 (5-19); Blood Urea Nitrogen 14 mg/dL (6-20); Calcium 9.3 mg/dL (8.5-10.5); Carbon Dioxide 27 mmol/L (22-29); Chloride 102 mmol/L (98-107); Creatinine Clr Calc Pharmacy 139.7759; Glomerular Filtration Rate 81.6 mL/min (90-130); Glucose 105 mg/dL (65-115); Osmolality Calculated 291 mOsm/kg (285-295); Potassium 4.1 mmol/L (3.5-5.1); Sodium 140 mmol/L (136-145)
[2024-04-21] MEDS: clopidogrel 75 mg Tablet PO (07:22)
[2024-04-21] MEDS: isosorbide mononitrate 20 mg Tablet PO (07:23)
--- NOTE | 2024-04-21 13:06 | PC.NURSE ---
Patient discharged to home. Instruction provided regarding site care and follow up needs. No new medications. Patient verbalized complete understanding. Dressing to left groin remains c,d,i without s/s of bleeding or hematoma formation observed. Patient insisted on leaving ambulatory. Spouse by side.
--- NOTE | 2024-04-21 16:01 | PM.DCS ---
Discharge Providers Date of Admission: 04/20/24 11:04 Date of Discharge: April 21, 2024 Attending Provider at Admission: Keon Beaulieu MD Attending Provider at Discharge: Keon Beaulieu MD Primary Care Provider: Mitch Reynolds DO Reason for Visit Reason for Visit: NA Brief History: The patient is a 43-year-old male presented with chest pain. He reports having had recurrent chest pain over the past few months, with some intensity similar to symptoms experienced before a stent placement in November 2020. The patient has a history of coronary artery disease, for which he underwent drug-eluting stent placement in the left anterior descending artery, he felt little better after that but for the past few months despite of optimization of medicine he thinks his symptoms are getting worse he is getting daily angina and taking nitroglycerin. Necessity of his job is to walk around 2 to 3 miles every day he cannot do it anymore he has to sit down at different intervals. Walking uphill or doing little exertion is a task. He thinks it it is hindering his lifestyle. He is on optimal medical management including lisinopril isosorbide mononitrate atorvastatin amlodipine intolerant to beta-josiah. Occasionally he feels like tightness and pain but still he can walk through with this. Hospital Course Hospital Course Left heart cath was performed due to the above-named reasons. Patient underwent stenting of the RCA. Patient tolerated procedure well without complications. He will be discharged on dual antiplatelet therapy for at least 1 year. Continue lisinopril amlodipine and beta-josiah. Follow-up with the clinic in 7 to 10 days Physical Exam Narrative: General: No apparent distress, healthy appearing, well nourished HENMT: normoceophalic Eye: PERRL Neck: No carotid bruit bilaterally Muskuloskeletal: Full ROM Lymphatic: no lymphedema noted Respiratory: Normal respiratory effort, clear to auscultation bilaterally throughout all lung gaffney, no use of accessory muscles Cardio: No JVD, regular rate, regular rhythm, S1 S2 normal, no murmurs, peripheral pulses 2+ throughout GI: Normal to inspection, nondistended Extremities: Full ROM, normal, normal capillary refill, no cyanosis or edema Neuro: Alert and oriented x4, no focal motor deficits Psych: Affect normal, denies suicidal ideation, mental status grossly normal Skin: No rashes or lesions noted, no wounds Discharge Data Studies Completed and Pending Pending at discharge Category Date Time 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 Routine Exams 04/20/24 07:45 Taken Laboratory Results WBC 9.00 10^3/uL (3.29-11.43) 04/21/24 03:25 RBC 5.53 10^6/uL (3.85-5.65) 04/21/24 03:25 Hgb 16.90 g/dL (11.27-16.99) 04/21/24 03:25 Hct 48.7 % (37-53) 04/21/24 03:25 MCV 88.1 fl (82-101) 04/21/24 03:25 MCH 30.6 pg (27-33) 04/21/24 03:25 MCHC 34.7 g/dL (30-55) 04/21/24 03:25 RDW 12.6 % (12.1-15.1) 04/21/24 03:25 Plt Count 194 10^3/cmm (157-399) 04/21/24 03:25 MPV 9.8 fL (7.4-10.4) 04/21/24 03:25 Neut % (Auto) 71.7 % 04/21/24 03:25 Lymph % (Auto) 17.4 % 04/21/24 03:25 Kidder % (Auto) 7.9 % 04/21/24 03:25 Eos % (Auto) 1.8 % 04/21/24 03:25 Baso % (Auto) 0.6 % 04/21/24 03:25 Neut # (Auto) 6.46 10^3/uL (1.8-7.7) 04/21/24 03:25 Lymph # (Auto) 1.6 10^3/uL (0.8-4.8) 04/21/24 03:25 Kidder # (Auto) 0.7 10^3/uL (0.2-0.9) 04/21/24 03:25 Eos # (Auto) 0.2 10^3/uL (0.0-0.8) 04/21/24 03:25 Baso # (Auto) 0.1 10^3/uL (0.0-0.1) 04/21/24 03:25 Nucleated RBC % (auto) 0 % 04/21/24 03:25 Nucleated RBCs # 0.0 /100WBC 04/21/24 03:25 Sodium 140 mmol/L (136-145) 04/21/24 03:25 Potassium 4.1 mmol/L (3.5-5.1) 04/21/24 03:25 Chloride 102 mmol/L (98-107) 04/21/24 03:25 Carbon Dioxide 27 mmol/L (22-29) 04/21/24 03:25 Anion Gap 15.1 (5-19) 04/21/24 03:25 BUN 14 mg/dL (6-20) 04/21/24 03:25 Creatinine 1.0 mg/dL (0.7-1.2) 04/21/24 03:25 GFR Calculation 81.6 mL/min (90-130) L 04/21/24 03:25 Glucose 105 mg/dL (65-115) 04/21/24 03:25 Calculated Osmolality 291 mOsm/kg (285-295) 04/21/24 03:25 Calcium 9.3 mg/dL (8.5-10.5) 04/21/24 03:25 Procedures Performed Left heart cath with PCI with balloon angioplasty and stenting of the RCA Vitals Last Vital Signs Temp 98.0 F 04/21/24 12:36 Pulse 53 L 04/21/24 12:36 Resp 20 H 04/21/24 12:36 BP 149/94 04/21/24 12:36 Pulse Ox 95 04/21/24 12:36 O2 Del Method Room Air 04/21/24 11:58 Discharge Plan Discharge Patient Disposition: Home Condition: Stable Prescriptions: Continued atorvastatin 40 mg tablet 40 mg PO DAILY Dose Instruction: TAKE ONE HALF (1/2) TABLET BY MOUTH AT BEDTIME Rx Instructions: TAKE ONE tab daily isosorbide mononitrate 30 mg tablet extended release 24 hr 30 mg PO BID Qty: 180 3RF aspirin 81 mg Tablet,Delayed Release (Dr/Ec) 81 mg PO DAILY Qty: 90 3RF nitroglycerin 0.4 mg tablet, sublingual See Rx Instructions .ROUTE .COMPLEX Rx Instructions: DISSOLVE 1 TABLET UNDER THE TONGUE EVERY 5 MINUTES NEEDED FOR CHEST PAIN. DO NOT EXCEED A TOTAL OF 3 DOSES IN 15 MINUTES. amlodipine 10 mg tablet 10 mg PO DAILY Qty: 30 0RF lisinopril 40 mg Tablet 40 mg PO DAILY carvedilol 6.25 mg tablet 6.25 mg PO BID Rx Instructions: TAKE ONE TABLET BY MOUTH TWICE DAILY FOR 30 DAYS; MUST ADMINISTER WITH A MEAL/FOOD esomeprazole magnesium 40 mg capsule,delayed release(DR/EC) 40 mg PO DAILY clopidogrel 75 mg Tablet 75 mg PO DAILY Qty: 90 3RF Discharge Orders: Discharge Order (Routine); Ordered 04/21/24 Ordered By: Blanquita Noble Referrals: Blanquita Noble, BLISTER RUST ERADICATOR [Nurse Practitioner] - 05/02/24 2:30 pm (We have arranged a follow up appointment with Blanquita Noble BLISTER RUST ERADICATOR with Heart care services, If you are not able to keep this appointment please contact [facility] to arrange your follow up care.) Mitch Reynolds DO [Staff Physician] - 04/28/24 7:30 am (We have arranged follow up care with your primary care providers office if you are not able to keep this appointment please call the clinic to arrange your care.) Patient Instructions: Coronary Angioplasty (DC), Opioid Safety, Post Angiogram Home Care Instructions Activity Restrictions/Additional Instructions: Discussed with patient no heavy lifting more than a gallon of milk as well as going up or down steps for 3 days. No driving for 3 days. Monitor for and report signs or symptoms of bleeding. Monitor for and report s/s of infection such as fever 101 or greater, swelling, redness or pain to the groin. Plan of Treatment: Continue dual antiplatelet therapy for 1 year including aspirin and Plavix. Continue beta-josiah amlodipine and lisinopril. Follow-up in the clinic in 7 to 10 days. Stand Alone Forms: Work/School Release Discharge Attestations Time Spent in Discharge Care*: less than 30 min Status at Discharge: Cognitive status at discharge: cognitively intact, Behavioral status at discharge: cooperative, Quality Metrics Clinical Quality Measures [ No reported AMI, CVA or VTE this stay] Coding Level of Care Code Acute Code for Chg Fwd
== END 2024-04-21 13:07 | disposition home or self-care (01) ==
LOC: CSU 11:59
PROVIDERS: Admitting Provider Internal Medicine Cardiovascular Disease; PCP Electrodiagnostic Medicine; Visit Provider Internal Medicine Cardiovascular Disease
DX: I25.118 Atherosclerotic heart disease of native coronary artery with other forms of angina pectoris (principal); I10 Essential (primary) hypertension; E78.5 Hyperlipidemia, unspecified; I25.2 Old myocardial infarction; Z87.891 Personal history of nicotine dependence; E66.9 Obesity, unspecified; Z68.38 Body mass index [BMI] 38.0-38.9, adult; Z95.5 Presence of coronary angioplasty implant and graft; Z79.82 Long term (current) use of aspirin
CPT/HCPCS: 12345; 36415; 80048; 85025; 85347; 96374; 96375; 99152; 99153; C1725; C1769; C1874; C1887; C1894; C9600; G0378; J1200; J1644; J2250; J3010; J3490; J7030; Q0163; Q9967

== ENCOUNTER 2024-05-04 20:00 | Outpatient (CLI) | payer OTHER, SELFPAY | END 2024-05-04 20:01 | disposition home or self-care (01) | LOC: SLEEP 23:15 | PROVIDERS: PCP Electrodiagnostic Medicine; Visit Provider Electrodiagnostic Medicine | DX: G47.33 Obstructive sleep apnea (adult) (pediatric) (principal); Z99.89 Dependence on other enabling machines and devices | CPT/HCPCS: 95811 ==

== ENCOUNTER 2024-07-11 10:27 | Inpatient (IN) | payer OTHER, SELFPAY ==
[2024-07-11] VITALS (46 sets, daily range): BP systolic 132–211; BP diastolic 70–118; PULSE 61–83; RESP 13–24; TEMP 36.4–36.8; O2SAT 91–97; BMI 38.5; BMI 39.9
--- NOTE | 2024-07-11 10:40 | ECG_ITS ---
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1980 Requested By: Blanquita Flannery Order Number: [id number] Reading MD: JUAN DALE Measurements Intervals Petroleum Rate: 69 P: 45 TN: 145 QRS: 38 QRSD: 101 T: 47 QT: 363 QTc: 391 Interpretive Statements SINUS RHYTHM POSSIBLE LEFT ATRIAL ENLARGEMENT [-0.1mV P-WAVE IN V1/V2] ANTEROSEPTAL MYOCARDIAL INFARCTION , OF INDETERMINATE AGE [40+ ms Q WAVE IN V1-V4] Compared to ECG 12/15/2023 17:09:07 Short TN interval no longer present Myocardial infarct finding still present Electronically Signed On 07-12-2024 23:36:12 SOCIAL RESEARCH ASSISTANT by JUAN DALE [email or web address]
--- NOTE | 2024-07-11 10:41 | XRR_ITS ---
PROCEDURE INFORMATION: Exam: XR Chest Exam date and time: 07/11/2024 10:44 AM Age: 44 years old Clinical indication: Pain; Angina pectoris; Prior surgery; Surgery date: 6+ months; Surgery type: Cardiac stents; Additional info: Chest pain TECHNIQUE: Imaging protocol: Radiologic exam of the chest. Views: 1 view. COMPARISON: CT chest con [id number] 12/16/2023 4:07 PM FINDINGS: Lungs: Unremarkable. No consolidation. Pleural spaces: Unremarkable. No pleural effusion. No pneumothorax. Heart/Mediastinum: Unremarkable. No cardiomegaly. Bones/joints: Unremarkable. XR/XR chest 1V portable [id number] IMPRESSION: No acute findings.
--- NOTE | 2024-07-11 10:51 | ED_ITS ---
HPI - Chest Pain 2 General: Chief Complaint: Chest Pain Stated Complaint: cp Time Seen by Provider: 07/11/24 10:49 Source: patient Mode of arrival: ambulatory Limitations: no limitations History of Present Illness: Patient is a 44-year-old male with a history of hyperlipidemia, hypertension, coronary artery disease with previous stenting here with complaints of chest pain over the past several days. He states he was diagnosed with pneumonia approximately 3 weeks ago. States he felt like he recovered from this but over the past 3 days or so he has been having intermittent chest pain as well as leg and arm heaviness. He states this is how he felt when he received cardiac stents in the past. Patient states he last received stenting in April 2024 due to a 90% proximal RCA stenosis and 70% mid RCA stenosis. He has previous stenting to his LAD. Patient states he has been compliant with cardiology follow-up. MD complaint: chest pain Onset (ago): day(s) Timing of current episode: episodic Prior episodes: Yes Pain location: substernal Quality: similar to prior [place] Relieving factors: nothing Exacerbating factors: nothing Associated symptoms: Reports dyspnea; Deny abdominal pain, fever(s), nausea, palpitations, syncope or vomiting Risk Factors: Thoracic aortic dissection risk factors: none Related Data Home Medications ?Medication ?Instructions ?Recorded ?Confirmed nitroglycerin 0.4 mg sublingual See Rx Instructions .R oute .COMPLEX 12/10/23 07/11/24 tablet lisinopril 40 mg tablet 40 mg PO DAILY 12/15/2306/19 atorvastatin 40 mg tablet 40 mg PO DAILY 03/22/2406/19 carvedilol 6.25 mg tablet 6.25 mg PO BID 04/19/2406/19 pantoprazole 40 mg tablet,delayed 40 mg PO BID 4 07/11/24 release Previous Rx's ?Medication ?Instructions ?Recorded aspirin 81 mg tablet,delayed 81 mg PO DAILY #90 tabs 1 07/04/20 release amlodipine 10 mg tablet 10 mg PO DAILY #30 tabs 11/16 12/08 clopidogrel 75 mg tablet 75 mg PO DAILY #90 tabs 10/08 Allergies Allergy/AdvReac Type Severity Reaction Status Date / Time ticagrelor (From Brilinta) Allergy Intermediate ALGY-Difficulty Verified 02/24/25 10:45 Breathing Review of Systems 2 Const: Denies: fever(s), chills, body aches, fatigue or malaise Eyes: Denies: change in vision or blurry vision Card: Reports: chest pain, dyspnea on exertion and leg pain with exertion; Denies: palpitations, irregular heart rhythm, edema, swelling of feet/ankles, lightheadedness, syncope, pre-syncope, orthopnea or acrocyanosis Resp: Reports: dyspnea; Denies: productive cough, non-productive cough or pain on inspiration GI: Denies: abdominal pain, nausea, vomiting, heartburn or diarrhea : Denies: difficulty urinating or dysuria Musc: Denies: neck pain, back pain, extremity swelling or joint pain Skin/Breast: Denies: rash Neuro: Reports: headache(s); Denies: difficulty walking, dizziness, confusion or Slurred speech present PFSH ED 2 PFSH: Medical History History of cardiovascular stress test 03/09 showed evidence of prior [place] in distribution of LAD Congenital single kidney History of echocardiogram 02/2023, EF 50-55%; 11/2023 EF 64%, mild hypokinesis of basal inferolateral segment CAD (coronary artery disease) Hyperlipidemia LDL goal <70 Atherosclerosis of coronary artery Hypertension goal BP (blood pressure) < 140/80 STEMI (ST elevation myocardial infarction) (04/2021) Surgical History History of cardiac catheterization 04/2021 PCI with mid LAD stent, 11/2023 PCI with LAD stent and RCA balloon angioplasty Presence of stent in LAD coronary artery Family History Other CAD (coronary artery disease) Social History Smoking and tobacco/nicotine status: former use of tobacco/nicotine Quit status (tobacco/nicotine): has quit using Former quit date comment: Quit smoking November 2023, previously smoked cigarettes every day Alcohol intake: never Caregiver/support person: Yes Lives independently: Yes Housing: House Current occupational status: employed Physical Exam 2 Const: COMMON NORMALS: no acute distress, patient oriented x3, no limitations, alert and well nourished GENERAL APPEARANCE: cooperative NUTRITIONAL APPEARANCE: obese (BMI 38.5) ORIENTATION/CONSCIOUSNESS: Yes awake, Yes oriented to person, Yes oriented to place and Yes oriented to time HENMT: COMMON NORMALS: normocephalic and atraumatic HEAD & SCALP: normal to inspection, normocephalic and atraumatic Neck/C-Spine: COMMON NORMALS: full ROM, no lymphadenopathy, supple and no meningeal signs Chest: COMMONS NORMALS: normal inspection of the chest Resp: COMMON NORMALS: normal respiratory effort and clear to auscultation bilaterally AUSCULTATION: clear to auscultation bilaterally Cardio: COMMON NORMALS: regular rate and regular rhythm RATE: regular rate RHYTHM: regular rhythm GI: COMMON NORMALS: Normal to inspection, nondistended, normoactive bowel sounds present, Soft to palpation, non-tender, No hepatosplenomegaly present and no masses PALPATION: Yes Soft to palpation and Yes No hepatosplenomegaly present : COMMON NORMALS: Yes no CVA tenderness BLADDER/KIDNEY EXAM: Yes no CVA tenderness Back/Pelvis: COMMON NORMALS: no CVA tenderness and thoracic and lumbar spine normal to inspection Extremity: COMMON NORMALS: normal to inspection, capillary refill normal, no clubbing, cyanosis or edema, no calf tenderness and no pedal edema GENERAL: Y es normal exam except as noted Neuro: COMMON NORMALS: patient oriented x3 and gait normal S ENSORIUM/ORIENTATION: Yes alert, Yes oriented to person, Yes oriented to place and Yes oriented to time MENINGEAL SIGNS: Yes no meningeal signs Skin: COMMON NORMALS: no rashes or lesions noted GENERAL SKIN EXAM: no rashes or lesions noted Course 2 Consultations: Consultation #1: Dr. Beaulieu-recommending admission, will have Blanquita Noble NP consult on patient and she will discuss with Dr. Beaulieu and determine whether patient needs stress testing vs cath tomorrow Consultation #2: Dr. Chaidez-accepts hospitalization to ICU Vital Signs: Vital signs: Vital Signs Temperature 98.3 F 07/11/24 10:36 Pulse Rate 74 07/11/24 15:16 Respiratory Rate 20 H 07/11/24 15:16 Blood Pressure 211/118 07/11/24 15:16 Pulse Oximetry 94 07/11/24 15:16 Oxygen Delivery Me thod Room Air 07/11/24 10:36 MDM - Chest Pain Medical Decision Making Patient is a nice 44-year-old male with significant coronary artery disease here with complaints of chest pain and feeling similar to how he did when last stents were placed back in April. He arrived slightly hypertensive but this responded to IV vasotec and metoprolol however throughout his stay blood pressures continue to elevate. He was given IV hydralazine without much response. He eventually was placed on a nitro drip. I did consult with his mixing pan tender Dr. Beaulieu who is recommending admission. He will have cardiology nurse practitioner consult on patient and will go from there about plan for stress testing or cardiac cath tomorrow. Spoke to Dr. Mckeon who agrees with care plan for the patient. He will place admit orders to Dr. Chaidez to ICU. Medical Records I reviewed the patient's medical records. Lab Data I reviewed the patient's lab results. 07/11/24 10:57 07/11/24 10:57 Radiology Impressions Chest X-Ray 07/11/24 10:41 IMPRESSION: No acute findings. Laboratory Results WBC 9.53 10^3/uL (3.29-11.43) 07/11/24 10:57 RBC 5.46 10^6/uL (3.85-5.65) 07/11/24 10:57 Hgb 16.90 g/dL (11.27-16.99) 07/11/24 10:57 Hct 48.8 % (37-53) 07/11/24 10:57 MCV 89.4 fl (82-101) 07/11/24 10:57 MCH 31.0 pg (27-33) 07/11/24 10:57 MCHC 34.6 g/dL (30-55) 07/11/24 10:57 RDW 13.0 % (12.1-15.1) 07/11/24 10:57 Plt Count 201 10^3/cmm (157-399) 07/11/24 10:57 MPV 9.7 fL (7.4-10.4) 07/11/24 10:57 Neut % (Auto) 75.7 % 07/11/24 10:57 Lymph % (Auto) 14.5 % 07/11/24 10:57 [place] % (Auto) 6.5 % 07/11/24 10:57 Eos % (Auto) 2.2 % 07/11/24 10:57 Baso % (Auto) 0.7 % 07/11/24 10:57 Neut # (Auto) 7.21 10^3/uL (1.8-7.7) 07/11/24 10:57 Lymph # (Auto) 1.4 10^3/uL (0.8-4.8) 07/11/24 10:57 [place] # (Auto) 0.6 10^3/uL (0.2-0.9) 07/11/24 10:57 Eos # (Auto) 0.2 10^3/uL (0.0-0.8) 07/11/24 10:57 Baso # (Auto) 0.1 10^3/uL (0.0-0.1) 07/11/24 10:57 Nucleated RBC % (auto) 0 % 07/11/24 10:57 Nucleated RBCs # 0.0 /100WBC 07/11/24 10:57 D-Dimer 0.66 ug/mLFEU (0-0.59) H 07/11/24 10:57 Sodium 141 mmol/L (136-145) 07/11/24 10:57 Potassium 4.2 mmol/L (3.5-5.1) 07/11/24 10:57 Chloride 102 mmol/L (98-107) 07/11/24 10:57 Carbon Dioxide 27 mmol/L (22-29) 07/11/24 10:57 Anion Gap 16.2 (5-19) 07/11/24 10:57 BUN 13 mg/dL (6-20) 07/11/24 10:57 Creatinine 1.0 mg/dL (0.7-1.2) 07/11/24 10:57 GFR Calculation 81.6 mL/min (90-130) L 07/11/24 10:57 Glucose 94 mg/dL (65-115) 07/11/24 10:57 Calculated Osmolality 292 mOsm/kg (285-295) 07/11/24 10:57 Calcium 9.4 mg/dL (8.5-10.5) 07/11/24 10:57 Total Bilirubin 1.0 mg/dL (0.15-1.2) 07/11/24 10:57 AST 28 U/L (0-40) 07/11/24 10:57 ALT 36 U/L (0-41) 07/11/24 10:57 Alkaline Phosphatase 59 U/L (40-130) 07/11/24 10:57 Troponin T Baseline 11 ng/L (0-15) 07/11/24 10:57 Troponin T 120 Minute 10.14 ng/L (0-15) 07/11/24 13:21 Delta Troponin T -0.86 ABS# (0-10) L 07/11/24 13:21 Total Protein 7.0 g/dL (6.6-8.7) 07/11/24 10:57 Albumin 4.7 g/dL (3.5-5.2) 07/11/24 10:57 Globulin 2.3 g/dL (1.3-4.6) 07/11/24 10:57 All radiology interpretation(s) finalized by discharge Discharge Plan Discharge Patient Disposition: Admitted As Inpatient Clinical Impression: Hypertensive emergency CAD (coronary artery disease) Qualifiers: Coronary Disease-Associated Artery/Lesion type: unspecified vessel or lesion type [place] vs. transplanted heart: [place] heart Associated angina: with stable angina Qualified Code(s): I25.118 - Atherosclerotic heart disease of [place] coronary artery with other forms of angina pectoris Atherosclerotic heart disease of [place] coronary artery with unstable angina pectoris Qualifiers: [place] vs. transplanted heart: [place] heart Qualified Code(s): I25.110 - Atherosclerotic heart disease of [place] coronary artery with unstable angina pectoris Condition: Stable Prescriptions: No Action atorvastatin 40 mg tablet 40 mg PO DAILY Dose Instruction: TAKE ONE HALF (1/2) TABLET BY MOUTH AT BEDTIME pantoprazole 40 mg tablet,delayed release (DR/EC) 40 mg PO BID aspirin 81 mg Tablet,Delayed Release (Dr/Ec) 81 mg PO DAILY Qty: 90 3RF nitroglycerin 0.4 mg tablet, sublingual See Rx Instructions .ROUTE .COMPLEX Rx Instructions: DISSOLVE 1 TABLET UNDER THE TONGUE EVERY 5 MINUTES NEEDED FOR CHEST PAIN. DO NOT EXCEED A TOTAL OF 3 DOSES IN 15 MINUTES. amlodipine 10 mg tablet 10 mg PO DAILY Qty: 30 0RF lisinopril 40 mg Tablet 40 mg PO DAILY carvedilol 6.25 mg tablet 6.25 mg PO BID clopidogrel 75 mg Tablet 75 mg PO DAILY Qty: 90 3RF Referrals: Reynolds,Mitch, DO [Primary Care Provider] - Print Language: Tunisian Coding Level of Care Code ED Mechanical Assembly Technician for Rex Marcos
--- NOTE | 2024-07-11 11:12 | SUR.PREOP ---
Pt is no longer taking Isosorbide Mononitrate 30mg bid or Esomeprazole 40mg daily from 05/04/24. Pts' Pantoprazole 40mg has been increased to bid-verified with [facility].
[2024-07-11 11:15] LABS: Basophils # 0.1 10^3/uL (0.0-0.1); Basophils % 0.7 %; Eosinophils # 0.2 10^3/uL (0.0-0.8); Eosinophils % 2.2 %; Hematocrit 48.8 % (37-53); Lymphocytes # 1.4 10^3/uL (0.8-4.8); Lymphocytes % 14.5 %; Mean Corpuscular HGB Conc 34.6 g/dL (30-55); Mean Corpuscular Volume 89.4 fl (82-101); Mean Platelet Volume 9.7 fL (7.4-10.4); Monocytes # 0.6 10^3/uL (0.2-0.9); Monocytes % 6.5 %; Neutrophils # 7.21 10^3/uL (1.8-7.7); Neutrophils % 75.7 %; Nucleated Red Blood Cells % 0 %; Platelet Count 201 10^3/cmm (157-399); Red Blood Count 5.46 10^6/uL (3.85-5.65); White Blood Count 9.53 10^3/uL (3.29-11.43)
[2024-07-11] MEDS: enalaprilat 2.5 mg/2 mL SDV 0.625 MG IVP (11:25)
[2024-07-11] MEDS: metoprolol tartrate 1 mg/1 mL SDV 5 mL 5 MG IVP (11:25)
[2024-07-11 11:33] LABS: D Dimer 0.66 ug/mLFEU (0-0.59)
[2024-07-11 11:34] LABS: Troponin(5th) Baseline 11 ng/L (0-15)
[2024-07-11 11:37] LABS: Alanine Aminotransferase 36 U/L (0-41); Albumin Level 4.7 g/dL (3.5-5.2); Alkaline Phosphatase 59 U/L (40-130); Anion Gap 16.2 (5-19); Aspartate Amino Transferase 28 U/L (0-40); Blood Urea Nitrogen 13 mg/dL (6-20); Calcium 9.4 mg/dL (8.5-10.5); Carbon Dioxide 27 mmol/L (22-29); Chloride 102 mmol/L (98-107); Creatinine Clr Calc Pharmacy 139.7759; Globulin 2.3 g/dL (1.3-4.6); Glomerular Filtration Rate 81.6 mL/min (90-130); Glucose 94 mg/dL (65-115); Osmolality Calculated 292 mOsm/kg (285-295); Potassium 4.2 mmol/L (3.5-5.1); Sodium 141 mmol/L (136-145)
--- NOTE | 2024-07-11 12:19 | ECG_ITS ---
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1980 Requested By: Blanquita Flannery Order Number: [id number] Reading MD: JUAN DALE Measurements Intervals [place] Rate: 57 P: 55 UT: 153 QRS: 50 QRSD: 106 T: 31 QT: 410 QTc: 401 Interpretive Statements SINUS BRADYCARDIA ANTERIOR MYOCARDIAL INFARCTION , OF INDETERMINATE AGE [40+ ms Q WAVE AND/OR ST/T ABNORMALITY IN V3/V4] Compared to ECG 07/11/2024 10:40:39 Sinus rhythm no longer present Myocardial infarct finding still present Electronically Signed On 07-12-2024 23:48:08 RETIREMENT CONSULTANT by JUAN DALE [id number] [id number]
[2024-07-11 13:57] LABS: Troponin 5 2HR 10.14 ng/L (0-15)
[2024-07-11 14:00] LABS: Troponin 5 2HR Delta -0.86 ABS# (0-10)
[2024-07-11] MEDS: hyDRALAzine 20 mg/mL INJ 1 mL 10 MG IVP (14:47)
[2024-07-11] MEDS: nitroglycerin 1 gm/inch oint Pkt 1 INCH TOPICAL (15:02)
--- NOTE | 2024-07-11 15:08 | ECG_ITS ---
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
--- NOTE | 2024-07-11 15:18 | PM.HP ---
Providers/Chief Complaint Primary Care Provider: Mitch Ryenolds DO Chief Complaint: cp History of Present Illness Panfilo Ervin is a 44 year old male with past medical history of coronary artery disease, hypertension with recent PCI to LAD with severe in-stent stenosis (procedure 3 months ago) presented to the hospital today with complaint of chest pain that started Thursday. He states that he developed chest pressure on Thursday and did not seek medical attention thinking that he will sleep and it would go away. He states that the next morning it recurred and he again decided to sleep it off and not come to the hospital however it became persistent at which point he decided to come to the hospital. He noted his blood pressure to be very high at the time. On arrival to ER blood pressure was 218/118. Nitro drip was started by emergency room physician. EKG was performed on admission which did not show any acute ischemic findings. Initially in the ER he was given metoprolol and hydralazine and eventually placed on a nitro drip. Currently seen in room in the ER with family present at bedside. Patient is resting comfortably in bed. Denies having any active chest pain at this time however states that it comes and goes. Describes it to be more of a pressure rather than a sharp pain. He states the pain did radiate towards his left arm and upward his neck. Denies nausea vomiting diarrhea diaphoresis. ER physician did discussed with Dr. Brittnee fay sterile products processor who recommended admission to hospital at this time with being n.p.o. at midnight for potential angiogram in a.m. Medications/Allergies Home Medications ?Medication ?Instructions ?Recorded ?Confirmed ?Last Taken ?Type aspirin 81 mg tablet,delayed 81 mg PO DAILY #90 tabs 05/03/21 07/11/24 07/11/24 Rx release nitroglycerin 0.4 mg sublingual See Rx Instructions .Route .COMPLEX 12/10/23 07/11/24 Unknown History tablet amlodipine 10 mg tablet 10 mg PO DAILY #30 tabs 12/12/23 07/11/24 07/11/24 Rx lisinopril 40 mg tablet 40 mg PO DAILY 12/15/23 07/11/24 07/11/24 History atorvastatin 40 mg tablet 40 mg PO DAILY 03/22/24 07/11/24 07/10/24 History carvedilol 6.25 mg tablet 6.25 mg PO BID 04/19/24 07/11/24 07/11/24 History clopidogrel 75 mg tablet 75 mg PO DAILY #90 tabs 04/21/24 07/11/24 07/11/24 Rx pantoprazole 40 mg tablet,delayed 40 mg PO BID 05/04/24 07/11/24 07/11/24 History release Allergies Allergy/AdvReac Type Severity Reaction Status Date / Time ticagrelor (From Brilinta) Allergy Intermediate ALGY-Difficulty Verified 07/11/24 10:45 Breathing PFSH Acute PFSH: Medical History History of cardiovascular stress test 03/09 showed evidence of prior [place] in distribution of LAD Congenital single kidney History of echocardiogram 02/2023, EF 50-55%; 11/2023 EF 64%, mild hypokinesis of basal inferolateral segment CAD (coronary artery disease) Hyperlipidemia LDL goal <70 Atherosclerosis of coronary artery Hypertension goal BP (blood pressure) < 140/80 STEMI (ST elevation myocardial infarction) (04/2021) Surgical History History of cardiac catheterization 04/2021 PCI with mid LAD stent, 11/2023 PCI with LAD stent and RCA balloon angioplasty Presence of stent in LAD coronary artery Family History Other CAD (coronary artery disease) Social History Smoking and tobacco/nicotine status: former use of tobacco/nicotine Quit status (tobacco/nicotine): has quit using Former quit date comment: Quit smoking November 2023, previously smoked cigarettes every day Alcohol intake: never Caregiver/support person: Yes Lives independently: Yes Housing: House Current occupational status: employed Vitals/I&O/Wt Last Vital Signs Temp 98.3 F 07/11/24 10:36 Pulse 74 07/11/24 15:16 Resp 20 H 07/11/24 15:16 BP 211/118 07/11/24 15:16 Pulse Ox 94 07/11/24 15:16 O2 Del Method Room Air 07/11/24 10:36 Weight last 48 hrs Weight 136.078 kg Physical Exam Narrative: General: Alert oriented x3, patient seen in bed appearing comfortable at this time. On nitro drip. HEENT: Normocephalic, atraumatic, EOMI, breathing room air Cardio: Regular rate rhythm, normal S1-S2, Respiratory: Good bilateral air entry, no wheezes no rhonchi appreciated GI: Abdomen soft, nontender, nondistended, bowel sounds + Behavior: Appropriate and cooperative Extremities: No edema bilateral lower extremities. Data 07/12/24 04:28 07/12/24 04:28 A&P Assessment and plan (1) Chest pain: Qualifiers: Chest pain type: precordial pain Qualified Code(s): R07.2 - Precordial pain (2) CAD (coronary artery disease): Qualifiers: Associated angina: with stable angina Coronary Disease-Associated Artery/Lesion type: unspecified vessel or lesion type [place] vs. transplanted heart: [place] heart Qualified Code(s): I25.118 - Atherosclerotic heart disease of [place] coronary artery with other forms of angina pectoris (3) Hypertensive urgency: (4) Stented coronary artery: Plan #Hypertensive urgency #Chest pain, chest pressure most likely secondary to above #Coronary disease status post PCI #Hypertension #Hyperlipidemia ? We will continue nitroglycerin drip at this time. Patient states he took all his home medications in the morning. ? Will restart amlodipine, aspirin, atorvastatin, carvedilol, Plavix. I will hold lisinopril at this time which may gradually be added as blood pressure permits. ? Continue pantoprazole 40 twice daily. ? Check echo for wall motion abnormalities ? Check troponin series and serial EKGs. First 2 troponins have resulted with a negative delta. No significant elevation at this time. 6-hour troponin pending at this time. ? Discussed with cardiology nurse practitioner. ? Will keep patient n.p.o. at midnight in case of any further cardiac workup planned for tomorrow. ? Since patient is on a nitroglycerin drip we will transfer to ICU for further management at this time. ? If chest pain recurs or becomes persistent or if troponins are elevated may consider adding anticoagulation. ? Continue aspirin Plavix at this time in the meantime. ? Consult cardiology. Await recommendations. Full code DVT prophylaxis: Lovenox 40 daily PDMP PDMP Reviewed: Not Reviewed Attestations Medical Necessity Statement*: Patient will cross greater than 2 midnight stay for management of hypertensive urgency chest pain and further cardiac workup. He is high risk with recent cath at which point he had in-stent restenosis. He may need stress test versus left heart cath going forward however first blood pressure needs to be controlled. Patient will be getting transferred to the ICU for nitroglycerin drip. Diagnoses Precordial pain R07.2 Chest pain type: precordial pain CAD (coronary artery disease) I25.118 Associated angina: with stable angina Coronary Disease-Associated Artery/Lesion type: unspecified vessel or lesion type [place] vs. transplanted heart: [place] heart Hypertensive urgency I16.0 Stented coronary artery Z95.5
--- NOTE | 2024-07-11 15:22 | USCV_ITS ---
Panfilo Evrin Age: 44 Gender: M : 1980 Exam Date: 07/11/2024 16:27 Ordering Phys: Lily Chaidez MD Technologist: CT Exam Location: [facility] [place] Indication: cp BP: 132 / 84 HR: 62 Rhythm: Sinus Technical Quality: Adequate MEASUREMENTS (Male / Female) Normal Values 2D ECHO LVOT Diameter 2.2 cm LV Ejection Fraction MOD 4C 57.2 % LV Ejection Fraction MOD 2C 54.1 % LV Ejection Fraction 2C AL 54.3 % LA Diameter 3.9 cm RA Systolic Volume 4C AL 43.7 ml RA Systolic Volume 4C MOD 38.4 ml Aorta at Sinotubular Diameter 2.1 cm M-MODE LA Ao Ratio MM 1.6 AV Cusp Separation MM 1.9 cm DOPPLER AV Peak Velocity 162.0 cm/s LVOT Peak Velocity 101.0 cm/s AV Area Cont Eq vti 2.9 cm squared AV Area Cont Eq pk 2.3 cm squared MV Peak Velocity 69.0 cm/s MV Area PHT 3.3 cm squared Mitral E to A Ratio 1.1 TV Peak E Velocity 72.0 cm/s PV Peak Velocity 135.0 cm/s FINDINGS Left Ventricle Normal left ventricular cavity size. Normal left ventricular systolic function. Left ventricular ejection fraction is estimated at 55 %. There appeared to be basal to distal anterior and apical wall hypokinesis.Grade II/IV diastolic dysfunction, moderately elevated filling pressures. Right Ventricle The right ventricle is normal in size and function. Right Atrium The right atrium is normal in size. Left Atrium The left atrium is normal in size. Mitral Valve Moderately thickened mitral valve. Mitral annular calcification. No mitral valve stenosis. Trace mitral valve regurgitation. Aortic Valve Structurally normal aortic valve without significant sclerosis or stenosis. There is no aortic regurgitation. Tricuspid Valve Structurally normal tricuspid valve without significant stenosis or regurgitation. Pulmonary artery systolic pressure is normal. Pulmonic Valve Structurally normal pulmonic valve without significant stenosis. There is no pulmonic regurgitation. Pericardium Normal pericardium without effusion. Aorta Normal ascending aorta dimension. IVC The inferior vena cava appears normal. CONCLUSIONS Normal left ventricular cavity size. Normal left ventricular systolic function. Left ventricular ejection fraction is estimated at 55 %. There appeared to be basal to distal anterior and apical wall hypokinesis.Grade II/IV diastolic dysfunction, moderately elevated filling pressures. There is no pericardial effusion. No significant valve abnormalities. Right atrial pressure is around 5 mm of mercury. Keon Beaulieu MD (Electronically Signed) Final Date: 12 July 2024 12:01 S
[2024-07-11] MEDS: nitroglycerin drip 50 MG/250 ML PREMIX IV (15:24)
--- NOTE | 2024-07-11 16:17 | PM.CONSULT ---
Providers/Reason For Consult Consulting Physician/Specialty*: Dr. Beaulieu Reason for Consult*: Chest pain Requesting Physician: Dr. Chaidez Primary Care Provider: Mitch Reynolds DO History of Present Illness History of Present Illness Panfilo Ervin is a 44 year old male with significant history of coronary artery disease. He had a cath in December [address] Velasquez that showed a long stented LAD with severe in-stent stenosis. At that time the RCA was found to have 95% segmental stenosis. At that time he received 1 stent to the LAD and balloon angioplasty of the RCA. He came in a few days later with chest pain and had an angiogram that showed no significant coronary artery disease. He then was seen by Dr. Beaulieu the clinic and had an angiogram in which he received a stent to the RCA for a severe 70% mid and 90% proximal stenosis. The mid RCA was treated with balloon and drug eluting stent as well. He has been compliant with medications. He has a history of a nephrectomy. He states that on Thursday he developed severe chest pressure. He has a hard time describing me what this feels like. He states sometimes it is a burning pain on the left side and others as a pressure at the center of the chest. He denies any aggravating or relieving factors. Currently chest pain-free on my exam. He states it lasted for several days and when his blood pressure became elevated he decided to come into the emergency room. Chest x-ray was unremarkable. Troponins were negative so far. Patient had an EKG that showed no acute findings Q waves present in V1 through V4 which is unchanged from previous EKG. No acute ST or T wave abnormalities. Blood pressure was as high as 211/119 despite giving metoprolol and hydralazine. He is now on a nitro drip. Blood pressure is slowly coming down. Review of Systems Narrative: Consitutional: denies fever, chills, body aches, or changes in appetite, denies abnormal weight loss Eyes: Denies changes in vision Card: Denies chest pain, palpitations, irregular heart rhythm, edema, syncope, shortness of breath, orthopnea, leg pain with exertion Resp: Denies shortness of breath, denies hemoptysis, denies cough GI: denies abdominal pain, denies nausea or voimting, denies blood in stool : denies blood in urine, denies dysuria Musc: Denies extremity pain, denies limited range of motion or recent injury Skin: Denies rash, lesions, or wounds, denies changes to skin color Neuro: Denies nubmness in extremities, h/a, s/s of stroke Medications/Allergies Home Medications ?Medication ?Instructions ?Recorded ?Confirmed ?Last Taken ?Type aspirin 81 mg tablet,delayed 81 mg PO DAILY #90 tabs 05/03/21 07/11/24 07/11/24 Rx release nitroglycerin 0.4 mg sublingual See Rx Instructions .Route .COMPLEX 12/10/23 07/11/24 Unknown History tablet amlodipine 10 mg tablet 10 mg PO DAILY #30 tabs 12/12/23 07/11/24 07/11/24 Rx lisinopril 40 mg tablet 40 mg PO DAILY 12/15/23 07/11/24 07/11/24 History atorvastatin 40 mg tablet 40 mg PO DAILY 03/22/24 07/11/24 07/10/24 History carvedilol 6.25 mg tablet 6.25 mg PO BID 04/19/24 07/11/24 07/11/24 History clopidogrel 75 mg tablet 75 mg PO DAILY #90 tabs 04/21/24 07/11/24 07/11/24 Rx pantoprazole 40 mg tablet,delayed 40 mg PO BID 05/04/24 07/11/24 07/11/24 History release Allergies Allergy/AdvReac Type Severity Reaction Status Date / Time ticagrelor (From Brilinta) Allergy Intermediate ALGY-Difficulty Verified 07/11/24 10:45 Breathing Current Medications Generic Name Dose Route Start Last Admin Trade Name Freq PRN Reason Stop Dose Admin Nitroglycerin/Dextrose 50 mg in 250 mls @ 0 mls/hr 07/11/24 15:15 07/11/24 16:11 Nitroglycerin Drip IV 7.5 mcg/min .Q0M CARLOS 2.25 mls/hr Titration Protocol Per Protocol PFSH Acute PFSH: Medical History History of cardiovascular stress test 03/09 showed 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 Congenital single kidney History of echocardiogram 02/2023, EF 50-55%; 11/2023 EF 64%, mild hypokinesis of basal inferolateral segment CAD (coronary artery disease) Hyperlipidemia LDL goal <70 Atherosclerosis of coronary artery Hypertension goal BP (blood pressure) < 140/80 STEMI (ST elevation myocardial infarction) (04/2021) Surgical History History of cardiac catheterization 04/2021 PCI with mid LAD stent, 11/2023 PCI with LAD stent and RCA balloon angioplasty Presence of stent in LAD coronary artery Family History Other CAD (coronary artery disease) Social History Smoking and tobacco/nicotine status: former use of tobacco/nicotine Quit status (tobacco/nicotine): has quit using Former quit date comment: Quit smoking November 2023, previously smoked cigarettes every day Alcohol intake: never Caregiver/support person: Yes Lives independently: Yes Housing: House Current occupational status: employed Vitals/I&O/Wt Last Vital Signs Temp 98.3 F 07/11/24 10:36 Pulse 75 07/11/24 16:04 Resp 16 07/11/24 16:04 BP 166/98 07/11/24 15:37 Pulse Ox 95 07/11/24 16:04 O2 Del Method Room Air 07/11/24 16:04 07/11/24 07/11/24 07/11/24 06:59 14:59 22:59 Intake Total 1.21 / 1.21 Balance 1.21 / 1.21 Weight last 48 hrs Weight 300 lb Physical Exam Narrative: General: No apparent distress, healthy appearing, well nourished HENMT: normoceophalic Muskuloskeletal: Full ROM Lymphatic: no lymphedema noted Respiratory: Normal respiratory effort, clear to auscultation bilaterally throughout all lung gaffney, no use of accessory muscles Cardio: No JVD, regular rate, regular rhythm, S1 S2 normal, no murmurs, peripheral pulses 2+ radial palpated bilaterally GI: Normal to inspection, nondistended Extremities: Full ROM, normal, normal capillary refill, no cyanosis or edema Neuro: Alert and oriented x4, no focal motor deficits Psych: Affect normal, denies suicidal ideation, mental status grossly normal Skin: No rashes or lesions noted, no wounds Data 07/11/24 10:57 07/11/24 10:57 Other data: Left heart cath 12/11/23 Conclusions 1. 49-year-old white male with a history of atherosclerotic heart disease, previous myocardial infarction, previous PCI of the proximal to mid LAD, is presenting with unstable anginal symptoms for the last couple of weeks. He had a Myocardial perfusion imaging in February of last year which was essentially unremarkable. Because of the increasing episodes of chest pain, in order to further evaluate the coronary status, a cardiac catheterization was recommended. Patient underwent left heart catheterization with left and right coronary angiogram today. The findings are as follows. 2. 1. No severe disease in the left main. 2. Severe in-stent stenosis in the proximal end of the previously stented proximal to mid LAD. 3. Mild diffuse disease in the dominant circumflex artery.4. Nondominant right coronary artery with a high-grade lesion before the RV branch. Slightly elevated LVEDP of 20 mmHg. 3. I reviewed and discussed the cardiac catheterization data with the Dr. Jimenez. It appears appropriate to consider PCI of the in-stent stenosis in the LAD and possible balloon angioplasty of the RCA lesion. Dr. Jimenez took over further up management of this patient at this point. 4. s/p successful revascularization of proximal to mid LAD with 1 stent. Successful revascularization of severe mid non dominant RCA with balloon angioplasty. 5. Proximal Left Anterior Descending was treated with a Balloon, and Drug Eluting Stent. 6. Mid Right Coronary Artery was treated with a Balloon. 12/15/2024 Conclusions 1. No significant disease noted in the Left Main, Left Anterior Descending, Right, or Circumflex coronary arteries. Patent prior proximal to mid LAD stents.. 2. Normal left ventricular systolic function. Ejection fraction of 50%. 04/20/24 Conclusions 1. There is severe coronary artery disease with one vessel disease. 2. Proximal Right Coronary Artery was treated with a Drug Eluting Stent. 3. Mid Right Coronary Artery was treated with a Balloon, and Drug Eluting Stent. A&P Assessment and plan (1) Chest pain: Qualifiers: Chest pain type: precordial pain Qualified Code(s): R07.2 - Precordial pain (2) CAD (coronary artery disease): Qualifiers: Associated angina: with stable angina Coronary Disease-Associated Artery/Lesion type: unspecified vessel or lesion type [place] vs. transplanted heart: [place] heart Qualified Code(s): I25.118 - Atherosclerotic heart disease of [place] coronary artery with other forms of angina pectoris (3) Hypertensive emergency: (4) Atherosclerosis of coronary artery: Qualifiers: Coronary Disease-Associated Artery/Lesion type: [place] artery [place] vs. transplanted heart: [place] heart Associated angina: unspecified whether angina present Qualified Code(s): I25.10 - Atherosclerotic heart disease of [place] coronary artery without angina pectoris Plan At this time, patient is chest pain free. Troponins are negative. His blood pressure is stablilizing on Nitro drip. Home medications will be restarted. Patient has s/s of typical and atypical chest pain ongoing for several days now. We will go ahead and keep the patient NPO after midnight. Further discussion will be made with Dr. Beaulieu about stress test vs left heart cath tomorrow. Will obtain a limited echo for EF eval. Recommend continue aspirin and Plavix. Chest pain could be related to hypertensive urgency. Will continue to monitor for worsening s/s or EKG changes. Thank you, Dr. Chaidez, for allowing us to care for this very pleasant 44 year old gentleman. PDMP PDMP Reviewed: Not Reviewed Consult Attestations Medical Necessity Statement: Deferred to primary care. Coding Level of Care Code Acute Code for Chg Fwd Diagnoses Precordial pain R07.2 Chest pain type: precordial pain CAD (coronary artery disease) I25.118 Associated angina: with stable angina Coronary Disease-Associated Artery/Lesion type: unspecified vessel or lesion type [place] vs. transplanted heart: [place] heart Hypertensive emergency I16.1 Atherosclerosis of [place] coronary artery of [place] heart, unspecified whether angina present I25.10 Coronary Disease-Associated Artery/Lesion type: [place] artery [place] vs. transplanted heart: [place] heart Associated angina: unspecified whether angina present
[2024-07-11 17:56] LABS: Troponin 5 6HR 11.34 ng/L (0-15); Troponin 5 6HR Delta 0.34 ng/L (0-12)
[2024-07-11] MEDS: carvedilol 6.25 mg Tablet PO (20:26)
[2024-07-11] MEDS: pantoprazole DR 40 mg Tablet PO (20:26)
[2024-07-12] VITALS (95 sets, daily range): BP systolic 108–177; BP diastolic 64–107; PULSE 59–89; RESP 12–38; TEMP 36.5–36.8; O2SAT 92–96
[2024-07-12 05:10] LABS: Basophils # 0.1 10^3/uL (0.0-0.1); Basophils % 0.8 %; Eosinophils # 0.2 10^3/uL (0.0-0.8); Eosinophils % 2.1 %; Lymphocytes # 1.6 10^3/uL (0.8-4.8); Lymphocytes % 16.9 %; Mean Corpuscular HGB Conc 34.1 g/dL (30-55); Mean Corpuscular Hemoglobin 29.9 pg (27-33); Mean Corpuscular Volume 87.7 fl (82-101); Mean Platelet Volume 9.9 fL (7.4-10.4); Monocytes # 0.7 10^3/uL (0.2-0.9); Monocytes % 7.6 %; Neutrophils # 6.87 10^3/uL (1.8-7.7); Neutrophils % 72.2 %; Nucleated Red Blood Cells % 0 %; Platelet Count 199 10^3/cmm (157-399); Red Blood Count 5.59 10^6/uL (3.85-5.65); Red Cell Distribution Width 12.8 % (12.1-15.1); White Blood Count 9.52 10^3/uL (3.29-11.43)
[2024-07-12 05:30] LABS: Alanine Aminotransferase 33 U/L (0-41); Albumin Level 4.2 g/dL (3.5-5.2); Alkaline Phosphatase 55 U/L (40-130); Anion Gap 16.9 (5-19); Aspartate Amino Transferase 23 U/L (0-40); Blood Urea Nitrogen 13 mg/dL (6-20); Calcium 8.8 mg/dL (8.5-10.5); Carbon Dioxide 24 mmol/L (22-29); Chloride 103 mmol/L (98-107); Creatinine Clr Calc Pharmacy 142.3744; Globulin 2.8 g/dL (1.3-4.6); Glomerular Filtration Rate 81.6 mL/min (90-130); Glucose 111 mg/dL (65-115); Magnesium 2.2 mg/dL (1.7-2.3); Osmolality Calculated 291 mOsm/kg (285-295); Potassium 3.9 mmol/L (3.5-5.1); Sodium 140 mmol/L (136-145); Total Bilirubin 0.8 mg/dL (0.15-1.2)
--- NOTE | 2024-07-12 08:50 | P.PN_ITS ---
Subjective 2 Subjective: Patient denies any more chest pain. He was ruled out for acute coronary syndrome. His blood pressure remains controlled on IV nitroglycerin Vitals/I&O/Wt Last Vital Signs Temp 98.2 F 07/12/24 08:00 Pulse 65 07/12/24 08:00 Resp 17 07/12/24 08:00 BP 143/87 07/12/24 08:00 Pulse Ox 96 07/12/24 08:00 O2 Del Method Room Air 07/12/24 08:00 07/11/24 07/12/24 07/12/24 22:59 06:59 14:59 Intake Total 482.935 / 482.935 36.05 / 518.985 Balance 482.935 / 482.935 36.05 / 518.985 Weight last 48 hrs Weight 310 lb 3.2 oz Weight 310 lb 10.101 oz Weight 300 lb Physical Exam 2 Const: OTHER: GENERAL: Patient is alert, awake and oriented x3. HEART: Regular S1 and S2. No murmur, rub or gallop. LUNGS: Clear to auscultate bilaterally. CENTRAL NERVOUS SYSTEM: Grossly nonfocal. EXTREMITIES: Lower extremities with out edema bilaterally. Data 07/12/24 04:28 07/12/24 04:28 A&P Assessment and plan (1) Chest pain: Qualifiers: Chest pain type: precordial pain Qualified Code(s): R07.2 - Precordial pain (2) CAD (coronary artery disease): Qualifiers: Associated angina: with stable angina Coronary Disease-Associated Artery/Lesion type: unspecified vessel or lesion type [place] vs. transplanted heart: [place] heart Qualified Code(s): I25.118 - Atherosclerotic heart disease of [place] coronary artery with other forms of angina pectoris (3) Hypertensive emergency: (4) Atherosclerosis of coronary artery: Qualifiers: Coronary Disease-Associated Artery/Lesion type: [place] artery [place] vs. transplanted heart: [place] heart Associated angina: unspecified whether angina present Qualified Code(s): I25.10 - Atherosclerotic heart disease of [place] coronary artery without angina pectoris Plan Chest pain is atypical, blood pressure was elevated at the time of admission controlled with nitroglycerin. Patient has history of mild to moderate coronary artery disease and prior multiple stents including LAD and RCA. He also has moderate lesion of proximal circumflex. At this point we will proceed with stress test in the morning. I will prefer if patient can walk on the treadmill otherwise will ask for Lexiscan MIBI stress test. Patient can eat today. Will add isosorbide mononitrate and amlodipine back to the regimen Continue aspirin statin and Plavix PDMP PDMP Reviewed: Not Reviewed Attestations 2 Medical Necessity Statement*: I am expecting his stay to cross more than 2 midnights. Coding Level of Care Code Acute Code for [facility] Fwd Diagnoses Precordial pain R07.2 Chest pain type: precordial pain CAD (coronary artery disease) I25.118 Associated angina: with stable angina Coronary Disease-Associated Artery/Lesion type: unspecified vessel or lesion type [place] vs. transplanted heart: [place] heart Hypertensive emergency I16.1 Atherosclerosis of [place] coronary artery of [place] heart, unspecified whether angina present I25.10 Coronary Disease-Associated Artery/Lesion type: [place] artery [place] vs. transplanted heart: [place] heart Associated angina: unspecified whether angina present
[2024-07-12] MEDS: atorvastatin 40 mg Tablet PO (09:18)
[2024-07-12] MEDS: amlodipine 5 mg Tablet PO (09:18)
[2024-07-12] MEDS: clopidogrel 75 mg Tablet PO (09:18)
[2024-07-12] MEDS: isosorbide mononitrate ER 30 mg Tablet PO (09:18)
[2024-07-12] MEDS: aspirin 81 mg EC Tablet PO (09:18)
[2024-07-12] MEDS: pantoprazole DR 40 mg Tablet PO ×2 (09:18→17:17)
[2024-07-12] MEDS: amlodipine 10 mg Tablet PO (09:18)
--- NOTE | 2024-07-12 09:19 | PC.NURSE ---
Dr. Beaulieu ordered to hold Carvedilol due to stress test being performed tomorrow.
--- NOTE | 2024-07-12 14:17 | PM.PN ---
Subjective Subjective: Seen this morning. Patient is chest pain-free at this time. Blood pressure is improving on nitroglycerin drip however this drip is to continue for now as per cardiology. Echo is pending. 6-hour troponin was negative. Vitals/I&O/Wt Last Vital Signs Temp 98.2 F 07/12/24 08:00 Pulse 76 07/12/24 12:15 Resp 16 07/12/24 12:15 BP 140/96 07/12/24 12:15 Pulse Ox 96 07/12/24 12:15 O2 Del Method Room Air 07/12/24 12:15 07/11/24 07/12/24 07/12/24 22:59 06:59 14:59 Intake Total 482.935 / 482.935 36.05 / 518.985 5.825 / 5.825 Balance 482.935 / 482.935 36.05 / 518.985 5.825 / 5.825 Weight last 48 hrs Weight 140.704 kg Weight 140.9 kg Weight 136.078 kg Physical Exam Narrative: General: Alert oriented x3, patient seen in bed appearing comfortable at this time. On nitro drip. HEENT: Normocephalic, atraumatic, EOMI, breathing room air Cardio: Regular rate rhythm, normal S1-S2, Respiratory: Good bilateral air entry, no wheezes no rhonchi appreciated GI: Abdomen soft, nontender, nondistended, bowel sounds + Behavior: Appropriate and cooperative Extremities: No edema bilateral lower extremities. Data 07/12/24 04:28 07/12/24 04:28 A&P Assessment and plan (1) Chest pain: Qualifiers: Chest pain type: precordial pain Qualified Code(s): R07.2 - Precordial pain (2) CAD (coronary artery disease): Qualifiers: Associated angina: with stable angina Coronary Disease-Associated Artery/Lesion type: unspecified vessel or lesion type [place] vs. transplanted heart: [place] heart Qualified Code(s): I25.118 - Atherosclerotic heart disease of [place] coronary artery with other forms of angina pectoris (3) Hypertensive urgency: (4) Stented coronary artery: Plan #Hypertensive urgency #Chest pain, chest pressure most likely secondary to above #Coronary disease status post PCI #Hypertension #Hyperlipidemia ? We will continue nitroglycerin drip at this time. Patient states he took all his home medications in the morning. ? Will restart amlodipine, aspirin, atorvastatin, carvedilol, Plavix. I will hold lisinopril at this time which may gradually be added as blood pressure permits. ? Continue pantoprazole 40 twice daily. ? Check echo for wall motion abnormalities ? Check troponin series and serial EKGs. First 2 troponins have resulted with a negative delta. No significant elevation at this time. 6-hour troponin pending at this time. ? Discussed with cardiology nurse practitioner. ? Will keep patient n.p.o. at midnight in case of any further cardiac workup planned for tomorrow. ? Since patient is on a nitroglycerin drip we will transfer to ICU for further management at this time. ? If chest pain recurs or becomes persistent or if troponins are elevated may consider adding anticoagulation. ? Continue aspirin Plavix at this time in the meantime. ? Consult cardiology. Await recommendations. Full code DVT prophylaxis: Lovenox 40 daily 07/12/2024 Continue nitroglycerin drip as per cardiology recommendations. ? Stop carvedilol as per cardiology recommendations ? Continue amlodipine, atorvastatin, aspirin, Plavix, Protonix 40 twice daily. ? Plan for treadmill stress test in AM. If patient unable to tolerate that may switch to Lexiscan. Recommendation from cardiology appreciated. ? May transfer to [facility] today. Patient is chest pain-free at this time. ? Patient on board with above plan. N.p.o. at midnight PDMP PDMP Reviewed: Not Reviewed Attestations Medical Necessity Statement*: Patient will cross greater than 2 midnight stay for management of hypertensive urgency chest pain and further cardiac workup. He is high risk with recent cath at which point he had in-stent restenosis. Patient is currently on a nitroglycerin drip as per cardiology which is to continue up until a stress test in AM. Diagnoses Precordial pain R07.2 Chest pain type: precordial pain CAD (coronary artery disease) I25.118 Associated angina: with stable angina Coronary Disease-Associated Artery/Lesion type: unspecified vessel or lesion type [place] vs. transplanted heart: [place] heart Hypertensive urgency I16.0 Stented coronary artery Z95.5
[2024-07-12] MEDS: lisinopril 20 mg Tablet 40 MG PO (15:42)
--- NOTE | 2024-07-12 19:19 | PC.NURSE ---
patient requesting something to help him sleep Dr holly on unit verbal instruction to give restoril po 15mg x1
[2024-07-12] MEDS: temazepam 15 mg Capsule PO (19:57)
[2024-07-13] VITALS (49 sets, daily range): BP systolic 101–166; BP diastolic 53–99; PULSE 58–97; RESP 7–29; O2SAT 91–96
[2024-07-13 04:57] LABS: Basophils # 0.1 10^3/uL (0.0-0.1); Basophils % 0.7 %; Eosinophils # 0.2 10^3/uL (0.0-0.8); Eosinophils % 2.4 %; Hematocrit 51.3 % (37-53); Lymphocytes # 1.7 10^3/uL (0.8-4.8); Lymphocytes % 19.5 %; Mean Corpuscular HGB Conc 34.7 g/dL (30-55); Mean Corpuscular Volume 89.4 fl (82-101); Mean Platelet Volume 9.5 fL (7.4-10.4); Monocytes # 0.7 10^3/uL (0.2-0.9); Monocytes % 7.6 %; Neutrophils # 5.99 10^3/uL (1.8-7.7); Nucleated Red Blood Cells % 0 %; Platelet Count 175 10^3/cmm (157-399); Red Blood Count 5.74 10^6/uL (3.85-5.65); White Blood Count 8.68 10^3/uL (3.29-11.43)
[2024-07-13 05:22] LABS: Anion Gap 14.1 (5-19); Blood Urea Nitrogen 15 mg/dL (6-20); Calcium 9.1 mg/dL (8.5-10.5); Carbon Dioxide 26 mmol/L (22-29); Chloride 105 mmol/L (98-107); Creatinine Clr Calc Pharmacy 118.5574; Glomerular Filtration Rate 66.1 mL/min (90-130); Glucose 120 mg/dL (65-115); Osmolality Calculated 294 mOsm/kg (285-295); Potassium 4.1 mmol/L (3.5-5.1); Sodium 141 mmol/L (136-145)
--- NOTE | 2024-07-13 07:00 | ECG_ITS ---
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
[2024-07-13] MEDS: aspirin 81 mg EC Tablet PO (09:05)
[2024-07-13] MEDS: isosorbide mononitrate ER 30 mg Tablet PO (09:05)
[2024-07-13] MEDS: lisinopril 20 mg Tablet 40 MG PO (09:06)
[2024-07-13] MEDS: pantoprazole DR 40 mg Tablet PO (09:06)
[2024-07-13] MEDS: amlodipine 5 mg Tablet PO (09:06)
[2024-07-13] MEDS: enoxaparin 40 mg/0.4 mL Syringe SUBCUT (09:06)
[2024-07-13] MEDS: clopidogrel 75 mg Tablet PO (09:06)
[2024-07-13] MEDS: atorvastatin 40 mg Tablet PO (09:06)
--- NOTE | 2024-07-13 09:26 | NMCV_ITS ---
NM dora perf SPECT r/s* [id number] Panfilo Ervin Age: 44 Gender: M : 1980 Exam Date: 07/13/2024 06:21 Ordering Phys: Keon Beaulieu MD ([email or web address]) Technologist: SHIELA Alexandra Exam [facility]: [facility] Indications: cp STRESS TEST Please see separate stress test report in [facility] for full findings IMAGE PROTOCOL Rest/Stress 1 Exercise Day Radiopharmaceutical Dose (mCi) Administration Site Administered by Rest: Tc-99m 10.9 IV SHIELA Alexandra Sestamibi Stress:Tc-99m 32.5 IV SHIELA Alexandra Sestamibi Rest: 13-Jul-2024 60 Discovery 630 Stress: 13-Jul-2024 15 Discovery 630 Radiopharmaceutical was injected at 85 % maximum heart rate. Images obtained in supine and prone position. SPECT RESULTS Technical Quality: Good Raw Data Analysis: Normal Image Corrections: No attenuation or motion correction applied Summed Stress Score: 15 Summed Rest Score: 13 Summed Difference Score: 2 PERFUSION FINDINGS Large areas of fixed perfusion defect seen in apical, apical anterior and inferior bhat. This is consistent with large areas of prior infarct seen in LAD and RCA territories. No evidence of ischemia. FUNCTIONAL RESULTS (calculated via Gated SPECT) Stress Image LV EF (%): 46 Stress EDV (mL):136 TID: 0.95 Stress ESV (mL):73 FUNCTIONAL FINDINGS: LV systolic function is mildly reduced with EF of 46% IMPRESSIONS 1. Abnormal myocardial perfusion imaging with large areas of prior infarct seen in the LAD and RCA territories 2. LV systolic function is mildly reduced with EF of 46% Bret Jimenez MD (Electronically Signed) Final Date: 13 July 2024 08:07 S
--- NOTE | 2024-07-13 13:39 | PM.DCS ---
Discharge Providers Date of Admission: 07/11/24 16:36 Date of Discharge: July 13, 2024 Attending Provider at Admission: Lily Chaidez MD Attending Provider at Discharge: Lily Chaidez MD Primary Care Provider: Mitch Reynolds DO Diagnoses at Discharge Discharge Diagnosis (1) Chest pain: Status: Resolved Qualifiers: Chest pain type: precordial pain Qualified Code(s): R07.2 - Precordial pain (2) CAD (coronary artery disease): Status: Chronic Qualifiers: Associated angina: with stable angina Coronary Disease-Associated Artery/Lesion type: unspecified vessel or lesion type [place] vs. transplanted heart: [place] heart Qualified Code(s): I25.118 - Atherosclerotic heart disease of [place] coronary artery with other forms of angina pectoris (3) Hypertensive urgency: Status: Resolved (4) Stented coronary artery: Status: Acute Reason for Visit Reason for Visit: cp Hospital Course Hospital Course Patient was admitted for hypertensive urgency requiring nitroglycerin drip and was also having chest pain. He was seen by cardiology and underwent stress testing. Stress test does not show evidence of ischemia. Patient's blood pressure medications were adjusted and he was discharged home in stable condition. Cardiology evaluated patient during hospital stay. Patient chest pain-free at time of discharge. Is to follow-up with cardiology as an outpatient. Physical Exam Narrative: General: Alert oriented x3 HEENT: Normocephalic, atraumatic, EOMI, breathing room air Cardio: Regular rate rhythm, normal S1-S2, Respiratory: Good bilateral air entry, no wheezes no rhonchi appreciated GI: Abdomen soft, nontender, nondistended, bowel sounds + Behavior: Appropriate and cooperative Extremities: No edema bilateral lower extremities. Discharge Data Studies Completed and Pending Completed Studies During Hospitalization Category Date Time Status Cardiac Stress Test MIBI [Sestamibi Stress Test Request Exams 07/13/24 07:00 Draft ] Routine XR chest 1V portable [id number] Urgent Exams 07/11/24 10:41 Completed NM dora perf SPECT r/s* [id number] Routine Nuc Med 07/13/24 09:26 Completed CV. echo complete* [id number] Stat Ultrasound 07/11/24 15:22 Completed Pending at discharge Category Date Time Status Cardiac Stress Test MIBI [Sestamibi Stress Test Request Exams 07/12/24 09:45 Stop Req ] Routine Radiology Impressions Chest X-Ray 07/11/24 10:41 IMPRESSION: No acute findings. Laboratory Results WBC 8.68 10^3/uL (3.29-11.43) 07/13/24 04: RBC 5.74 10^6/uL (3.85-5.65) H 07/13/24 04:27 Hgb 17.80 g/dL (11.27-16.99) H 07/13/24 04:27 Hct 51.3 % (37-53) 07/13/24 04:27 MCV 89.4 fl (82-101) 07/13/24 04:27 MCH 31.0 pg (27-33) 07/13/24 04: MCHC 34.7 g/dL (30-55) 07/13/24 04: RDW 13.0 % (12.1-15.1) 07/13/24 04: Plt Count 175 10^3/cmm (157-399) 07/13/24 04: MPV 9.5 fL (7.4-10.4) 07/13/24 04:27 Neut % (Auto) 69.0 % 07/13/24 04:27 Lymph % (Auto) 19.5 % 07/13/24 04:27 [place] % (Auto) 7.6 % 07/13/24 04: Eos % (Auto) 2.4 % 07/13/24 04:27 Baso % (Auto) 0.7 % 07/13/24 04: Neut # (Auto) 5.99 10^3/uL (1.8-7.7) 07/13/24 04: Lymph # (Auto) 1.7 10^3/uL (0.8-4.8) 07/13/24 04:27 [place] # (Auto) 0.7 10^3/uL (0.2-0.9) 07/13/24 04: Eos # (Auto) 0.2 10^3/uL (0.0-0.8) 07/13/24 04:27 Baso # (Auto) 0.1 10^3/uL (0.0-0.1) 07/13/24 04: Nucleated RBC % (auto) 0 % 07/13/24 04: Nucleated RBCs # 0.0 /100WBC 07/13/24 04:27 D-Dimer 0.66 ug/mLFEU (0-0.59) H 07/11/24 10:57 Sodium 141 mmol/L (136-145) 07/13/24 04:27 Potassium 4.1 mmol/L (3.5-5.1) 07/13/24 04:27 Chloride 105 mmol/L (98-107) 07/13/24 04:27 Carbon Dioxide 26 mmol/L (22-29) 07/13/24 04:27 Anion Gap 14.1 (5-19) 07/13/24 04:27 BUN 15 mg/dL (6-20) 07/13/24 04:27 Creatinine 1.2 mg/dL (0.7-1.2) 07/13/24 04:27 GFR Calculation 66.1 mL/min (90-130) L 07/13/24 04:27 Glucose 120 mg/dL (65-115) H 07/13/24 04:27 Calculated Osmolality 294 mOsm/kg (285-295) 07/13/24 04:27 Calcium 9.1 mg/dL (8.5-10.5) 07/13/24 04:27 Magnesium 2.2 mg/dL (1.7-2.3) 07/12/24 04:28 Total Bilirubin 0.8 mg/dL (0.15-1.2) 07/12/24 04:28 AST 23 U/L (0-40) 07/12/24 04:28 ALT 33 U/L (0-41) 07/12/24 04:28 Alkaline Phosphatase 55 U/L (40-130) 07/12/24 04:28 Troponin T Baseline 11 ng/L (0-15) 07/11/24 10:57 Troponin T 120 Minute 10.14 ng/L (0-15) 07/11/24 13:21 Delta Troponin T -0.86 ABS# (0-10) L 07/11/24 13:21 Troponin T Hi Sens 6Hr 11.34 ng/L (0-15) 07/11/24 17:20 Troponin T Hi Sens 6Hr Delta 0.34 ng/L (0-12) 07/11/24 17:20 C-Reactive Protein 3.0 mg/L (0.0-4.9) 07/11/24 13:21 Total Protein 7.0 g/dL (6.6-8.7) 07/12/24 04:28 Albumin 4.2 g/dL (3.5-5.2) 07/12/24 04:28 Globulin 2.8 g/dL (1.3-4.6) 07/12/24 04:28 Vitals Last Vital Signs Temp 97.7 F 07/12/24 20:28 Pulse 73 07/13/24 12:30 Resp 17 07/13/24 12:30 BP 125/82 07/13/24 12:30 Pulse Ox 92 07/13/24 12:30 O2 Del Method Room Air 07/13/24 12:30 Discharge Plan Discharge Patient Disposition: Home Condition: Stable Prescriptions: New isosorbide mononitrate 30 mg Tablet Extended Release 24 Hr 30 mg PO DAILY Qty: 30 0RF amlodipine 5 mg Tablet 5 mg PO BID Qty: 60 0RF Continued atorvastatin 40 mg tablet 40 mg PO DAILY Dose Instruction: TAKE ONE HALF (1/2) TABLET BY MOUTH AT BEDTIME pantoprazole 40 mg tablet,delayed release (DR/EC) 40 mg PO BID aspirin 81 mg Tablet,Delayed Release (Dr/Ec) 81 mg PO DAILY Qty: 90 3RF nitroglycerin 0.4 mg tablet, sublingual See Rx Instructions .ROUTE .COMPLEX Rx Instructions: DISSOLVE 1 TABLET UNDER THE TONGUE EVERY 5 MINUTES NEEDED FOR CHEST PAIN. DO NOT EXCEED A TOTAL OF 3 DOSES IN 15 MINUTES. lisinopril 40 mg Tablet 40 mg PO DAILY carvedilol 6.25 mg tablet 6.25 mg PO BID clopidogrel 75 mg Tablet 75 mg PO DAILY Qty: 90 3RF Discontinued amlodipine 10 mg tablet 10 mg PO DAILY Qty: 30 0RF Discharge Orders: Discharge Order (Routine); Ordered 07/13/24 Ordered By: Lily Chaidez Referrals: [facility],. [Staff Physician] - ( at [facility] left message with service to give call back /or if you dont hear from them please call them. We have notified your physician's clinic of the need for a follow-up appointment to be scheduled. If you have not heard from them within the next 2 business days, please call them directly. ) Blanquita Noble NP [Nurse Practitioner] - 07/27/24 2:30 pm (after appointment with Blanquita malik schedule follow up for ) Keon Beaulieu MD [Physician] - 1 month (after visit with Blanquita RENTERIA ) Discharge Diet: Cardiac Discharge Activity: Resume usual activity Patient Instructions: Amlodipine (By mouth), Isosorbide Mononitrate (By mouth) (Imdur, Imdur ER, Ismo), Heart Healthy Diet (DC), Hypertensive Crisis (DC), Chest Pain Stoplight, Opioid Safety Discharge Attestations Time Spent in Discharge Care*: greater than 30 min Status at Discharge: Cognitive status at discharge: cognitively intact, Behavioral status at discharge: cooperative, Quality Metrics Clinical Quality Measures [ No reported AMI, CVA or VTE this stay] Coding Level of Care Code Acute Code for Chg Fwd Diagnoses Precordial pain R07.2 Chest pain type: precordial pain CAD (coronary artery disease) I25.118 Associated angina: with stable angina Coronary Disease-Associated Artery/Lesion type: unspecified vessel or lesion type [place] vs. transplanted heart: [place] heart Hypertensive urgency I16.0 Stented coronary artery Z95.5
--- NOTE | 2024-07-13 15:16 | PC.NURSE ---
All patient's discharge instructions were gone over with the patient. All new prescriptions were gone over with the patient. Patient's IV was taken out. Patient was stable during discharge.
--- NOTE | 2024-07-13 16:16 | P.PN_ITS ---
Subjective 2 Subjective: Patient is doing okay today. No chest pain at this time. Stress test was negative for ischemia. Vitals/I&O/Wt Last Vital Signs Temp 97.7 F 07/12/24 20:28 Pulse 74 07/13/24 15:19 Resp 18 07/13/24 15:19 BP 122/70 07/13/24 15:19 Pulse Ox 94 07/13/24 15:19 O2 Del Method Room Air 07/13/24 14:45 07/13/24 07/13/24 07/13/24 06:59 14:59 22:59 Intake Total 32.25 / 758.075 7.675 / 7.675 Balance 32.25 / 758.075 7.675 / 7.675 Weight last 48 hrs Weight 310 lb 3.2 oz Weight 310 lb 10.101 oz Physical Exam 2 Narrative: General: No apparent distress, healthy appearing, well nourished HENMT: normoceophalic Muskuloskeletal: Full ROM Lymphatic: no lymphedema noted Respiratory: Normal respiratory effort, clear to auscultation bilaterally throughout all lung gaffney, no use of accessory muscles Cardio: No JVD, regular rate, regular rhythm, S1 S2 normal, no murmurs, peripheral pulses 2+ radial palpated bilaterally GI: Normal to inspection, nondistended Extremities: Full ROM, normal, normal capillary refill, no cyanosis or edema Neuro: Alert and oriented x4, no focal motor deficits Psych: Affect normal, denies suicidal ideation, mental status grossly normal Skin: No rashes or lesions noted, no wounds Data 07/13/24 04:27 07/13/24 04:27 A&P Assessment and plan (1) Chest pain: Qualifiers: Chest pain type: precordial pain Qualified Code(s): R07.2 - Precordial pain (2) CAD (coronary artery disease): Qualifiers: Associated angina: with stable angina Coronary Disease-Associated Artery/Lesion type: unspecified vessel or lesion type [place] vs. transplanted heart: [place] heart Qualified Code(s): I25.118 - Atherosclerotic heart disease of [place] coronary artery with other forms of angina pectoris (3) Hypertensive emergency: (4) Atherosclerosis of coronary artery: Qualifiers: Coronary Disease-Associated Artery/Lesion type: [place] artery [place] vs. transplanted heart: [place] heart Associated angina: unspecified whether angina present Qualified Code(s): I25.10 - Atherosclerotic heart disease of [place] coronary artery without angina pectoris Plan Patient's stress test was negative. At this time ok to be discharged from cardiology standpoint. Recommend amlodipine 5 mg BID, resume cardvedilol, continue lisinopril 40. If patient still has issues with blood pressure, may consider switching to valsartan 160. PDMP PDMP Reviewed: Not Reviewed Attestations 2 Medical Necessity Statement*: May be discharged from cardiology standpoint. Coding Level of Care Code Acute Code for [facility] Fwd Diagnoses Precordial pain R07.2 Chest pain type: precordial pain CAD (coronary artery disease) I25.118 Associated angina: with stable angina Coronary Disease-Associated Artery/Lesion type: unspecified vessel or lesion type [place] vs. transplanted heart: [place] heart Hypertensive emergency I16.1 Atherosclerosis of [place] coronary artery of [place] heart, unspecified whether angina present I25.10 Coronary Disease-Associated Artery/Lesion type: [place] artery [place] vs. transplanted heart: [place] heart Associated angina: unspecified whether angina present
== END 2024-07-13 15:09 | disposition home or self-care (01) | DRG 305 ==
LOC: ER 15:24 → ICU 16:36
PROVIDERS: Admitting Provider Internal Medicine; Emergency Provider Physician Assistant; PCP Electrodiagnostic Medicine; Visit Provider Internal Medicine
DX: I16.0 Hypertensive urgency (principal); Q60.0 Renal agenesis, unilateral; I25.10 Atherosclerotic heart disease of native coronary artery without angina pectoris; I10 Essential (primary) hypertension; E78.5 Hyperlipidemia, unspecified; Z95.5 Presence of coronary angioplasty implant and graft; Z87.891 Personal history of nicotine dependence; I25.2 Old myocardial infarction; Z79.82 Long term (current) use of aspirin; Z79.02 Long term (current) use of antithrombotics/antiplatelets
CPT/HCPCS: 36415; 71045; 78452; 80048; 80053; 83735; 84484; 85025; 85378; 86140; 93005; 93017; 93306; 96372; 96374; 96375; 96376; 99285; A9500; J0360; J1650; J3490

== ENCOUNTER → 2024-09-27 14:55 | Outpatient (BNVA) | payer OTHER, SELFPAY | PROVIDERS: PCP Electrodiagnostic Medicine; Visit Provider Internal Medicine Cardiovascular Disease | DX: R10.11 Right upper quadrant pain (principal); R10.9 Unspecified abdominal pain; I16.1 Hypertensive emergency | CPT/HCPCS: 36415; 80048; 82150; 83690; 85025 ==

== ENCOUNTER 2024-10-06 09:29 | Outpatient (CLI) | payer OTHER, SELFPAY ==
--- NOTE | 2024-10-06 09:45 | US_ITS ---
WS: [id number] Complete ABDOMINAL ULTRASOUND HISTORY: right upper quadrant pain COMPARISON: 10/04/2014 Liver: 16.2 cm in length. Normal size liver. Coarse echotexture from hepatocellular disease. No mass. Portal Vein: Not visualized. No waveform on the portal vein. Gallbladder: Normally distended gallbladder with no stones or wall thickening. CBD: 0.4 cm Pancreas: Partially visualized. Right kidney: 14.2 cm x 7.3 x 7.1 cm. Cortex:1.0 cm. Normal size and echogenicity. No hydronephrosis or mass. No LEFT kidney identified. Spleen: 12.1 cm. Normal size and echogenicity. Aorta and IVC: Unremarkable abdominal aorta and IVC. US/US abdomen complete* [id number] Impression: 1. Normal size liver with coarse echotexture. Likely hepatic steatosis. 2. Negative gallbladder. 3. Absent LEFT kidney. 4. No hepatobiliary obstruction.
== END 2024-10-06 09:30 | disposition home or self-care (01) ==
LOC: RAD 09:31
PROVIDERS: PCP Electrodiagnostic Medicine; Visit Provider Internal Medicine Cardiovascular Disease
DX: R10.11 Right upper quadrant pain (principal); R93.2 Abnormal findings on diagnostic imaging of liver and biliary tract; R93.89 Abnormal findings on diagnostic imaging of other specified body structures
CPT/HCPCS: 76700

== ENCOUNTER 2024-10-28 10:00 | Outpatient (CLI) | payer OTHER, SELFPAY ==
--- NOTE | 2024-10-28 10:05 | CTR_ITS ---
PROCEDURE INFORMATION: Exam: CT Abdomen And Pelvis Without And With Contrast Exam date and time: 10/28/2024 10:54 AM Age: 44 years old Clinical indication: Abdominal pain; Additional info: Chronic abdominal pain TECHNIQUE: Imaging protocol: Computed tomography of the abdomen and pelvis without and with contrast. Radiation optimization: All CT scans at this facility use at least one of these dose optimization techniques: automated exposure control; mA and/or kV adjustment per patient size (includes targeted exams where dose is matched to clinical indication); or iterative reconstruction. Contrast material: OMNI 350; Contrast volume: 100 ml; Contrast route: INTRAVENOUS (IV); COMPARISON: US abdomen complete* [id number] 10/06/2024 9:58 AM RADIATION DOSE METRICS: Total DLP (mGy-cm): 2260.83 FINDINGS: Liver: Normal. No mass. Gallbladder and biliary ducts: Normal. No calcified stones. No ductal dilation. Pancreas: Normal. No ductal dilation. Spleen: 15 cm splenomegaly. Adrenal glands: Normal. No mass. Kidneys and ureters: No left kidney is present. Stomach and bowel: Unremarkable. No obstruction. No mucosal thickening. Appendix: No evidence of appendicitis. Intraperitoneal space: Unremarkable. No free air. No significant fluid collection. Vasculature: Unremarkable. No abdominal aortic aneurysm. Lymph nodes: Unremarkable. No enlarged lymph nodes. Urinary bladder: Unremarkable as visualized. Reproductive: Unremarkable as visualized. Bones/joints: Unremarkable. No acute fracture. Soft tissues: Unremarkable. CT/CT abdomen pelvis wo/w [id number] IMPRESSION: 1. No acute findings. 2. Absent left kidney. 3. Mild splenomegaly.
[2024-10-28] MEDS: iohexol 350 mg/mL 500 mL Btl (per mL) IV (10:37)
[2024-10-28] MEDS: iohexol 350 mg/mL 500 mL Btl (per mL) PO (10:38)
== END 2024-10-28 10:01 | disposition home or self-care (01) ==
LOC: RAD 10:01
PROVIDERS: PCP Electrodiagnostic Medicine; Visit Provider Electrodiagnostic Medicine
DX: R10.9 Unspecified abdominal pain (principal); G89.29 Other chronic pain; R16.1 Splenomegaly, not elsewhere classified; Z90.5 Acquired absence of kidney
CPT/HCPCS: 74178

== ENCOUNTER 2025-04-09 16:06 | Emergency (ER) | payer OTHER, SELFPAY ==
[2025-04-09 16:07] VITALS: BP 142/87; PULSE 74; TEMP 36.8; O2SAT 98; BMI 38.6
--- OUTSIDE RECORDS SUMMARY | 2025-04-09 16:11 | XMS_ITS | Encounter Summary ---
Author Organization [facility] Address [address] [place] [address] Care Team Providers Care Professional Fee Coder Name Role Phone Unavailable Primary Care Provider Unavailabl e Encounter Details Date Type Department Care Team (Latest Contact Info) Description 10/04/2003 Outpatient Historical [facility] [address] [place] [address] Esteban Martin MD [address] [place] [address] UNSPECIFIED VIRAL INFECTION (Primary Dx) Social History Tobacco Use Types Packs/Day Years Used Date Smoking Tobacco: Never Assessed Sex and Gender Information Value Date Recorded Sex Assigned at Not on file 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
--- OUTSIDE RECORDS SUMMARY | 2025-04-09 16:11 | XMS_ITS | Clinical Summary ---
Author Organization [facility] Address [address] [place]: Epic Prelude ADT RADHA ROBERSON [address] Care Team Providers Care Special Needs Babysitter Name Role Phone Mihir España MD Primary Care Provider [phone] Allergies Active Allergy Reactions Criticality Noted Date Comments Oxycodone-Acetaminophe n Other (See Comments) 04/09/2021 Inability to sleep Ticagrelor Shortness of Breath/Wheezing High 07/30/2021 Medications carvediloL (COREG) 3.125 mg tablet Take 3.125 mg by mouth 2 times daily with meals. 05/30/2021 Active aspirin (ECOTRIN EC) 81 mg Tablet, Delayed Release (E.C.) Take 81 mg by mouth daily. 05/03/2021 Active lisinopriL (PRINIVIL) 5 mg tablet Take 40 mg by mouth daily. One tablet daily in evening at 6 pm 05/30/2021 Active rosuvastatin (CRESTOR) 5 mg tablet TAKE 2 TABLETS BY MOUTH DAILY. 180 Tablet 3 09/24/2021 Active ciprofloxacin HCl (CILOXAN) 0.3 % solutionIndicat ions:Left chronic serous otitis media Instill 4 drops into the left ear twice daily x 7 days 10 mL 05/05/2022 Active sertraline (ZOLOFT) 25 mg tabletIndicatio ns:Anxiety state,Moderate episode of recurrent major depressive disorder (CMS/HCC) TAKE ONE TABLET BY MOUTH DAILY. 30 Tablet 2 06/24/2022 Active clopidogreL (PLAVIX) 75 mg Tablet TAKE 8 TABLETS BY MOUTH ON THE FIRST DAY. THEN, TAKE ONE TABLET BY MOUTH DAILY THEREAFTER. 90 Tablet 3 06/24/2022 Active amLODIPine (NORVASC) 10 mg tablet Take 10 mg by mouth 2 times daily. Active pantoprazole (PROTONIX) 40 mg Tablet, Delayed Release (E.C.) Take 40 mg by mouth 2 times daily. Active Active Problems Problem Noted Date Diagnosed Date Essential hypertension 07/11/2020 Obesity (BMI 35.0-39.9 without comorbidity) 06/19 Thyroid mass 07/11/2020 Immunizations Immunization Administration Dates Next Due (TDVAX)(7 YRS UP) TETANUS AN D DIPHTHERIA TOXOIDS, ADSORBED (2 LF OF TETANUS TOXOID AND 2 LF OF DIPHTHERIA TOXOID), 0.5ML (PF), IM 06/13/1996 Family History Medical History Relation Name Comments Diabetes Father Unknown Father Diabetes Mother Heart Disease Mother Relation Name Status Comments Father Other Mother Alive Social History Tobacco Use Types Packs/Day Years Used Date Smoking Tobacco: Former Cigarettes 0.5 Q uit: 05/17/2021 Smokeless Tobacco: Never Tobacco Cessation:Counseling Given: Not Answered Alcohol Use Standard Drinks/Week Comments Yes 2 (1 standard drink = 0.6 oz pur e alcohol) Feeling Safe Answer Date Recorded Are you in a relationship wi th someone who hurts you emotionally and/or physically? 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 Gender Identity Not on file Sexual Orientation Not on file Last Filed Vital Signs Vital Sign Reading Time Taken Comments Blood Pressure 147/71 07/27/2024 8:15 PM CDT Pulse 65 07/27/2024 8:15 PM CDT Temperature 36.8 C (98.2 F) 07/27/2024 7:12 PM CDT Respiratory Rate 23 07/27/2024 8:15 PM CDT Oxygen Saturation 94% 07/27/2024 8:15 PM CDT Inhaled Oxygen Concentration - - Weight 143.6 kg (316 lb 9.6 oz) 07/27/2024 7:12 PM CDT Height 185.4 cm (6' 1 ) 07/27/2024 7:12 PM CDT Body Mass Index 41.77 07/27/2024 7:12 PM CDT Plan of Treatment Health Maintenance Due Date Last Done Comments Pre-Diabetes and Diabetes Screening 1981 HEPATITIS B VACCINES (1 of 3 - 19+ 3-dose series) 2000 HPV VACCINES (1 - 3-dose SCD M series) 2008 DTAP/TDAP/TD VACCINES (7 - T d or Tdap) 05/03/2023 05/03/2013, 06/13/1996, 10/22/1982, Additional history exists Preventative Visit- Commercial 05/18/2024 INFLUENZA VACCINE (#1) 2024 05/05/2022, [address] [place] [id number] [facility] [id number] [employer] Care Teams Special Needs Babysitter Relationship Specialty Start Date End Date Mihir España MD [address] [address] PCP - General Family Practice 07/21/23
--- OUTSIDE RECORDS SUMMARY | 2025-04-09 16:11 | XMS_ITS | Data Portability ---
Author Organization RADHA Jeremiah Copp[facility] Krishna, [facility] Address [address] [address] Care Team Providers Care Fiscal Services Manager Name Role Phone JACQUI CROOK Primary Care Provider Unavailabl e Assessment Encounter Date Assessment Date Assessment LastModified by Organization Details LastModified Time 08/02/2024 08/02/2024 Document scribed by Kike Mason Personnel Administrator. I was present during interview and exam. I have reviewed and agree with above documentation . Dr. Jacqui Crook. [email or web address] Not available 08/02/2024 10:26:08 11/07/2024 11/07/2024 I reviewed and discussed all recent imaging with pt. Not available 11/14/2024 23:19:00 12/06/2024 12/06/2024 I reviewed and discussed all recent imaging with pt. [email or web address] Not available 12/06/2024 17:50:09 Plan of Treatment Reminders Order Date Submit Date Provider Last Modified By Organization Details Last Modified Time Details Appointments None recorded. Lab CMP, serum or plasma 2024 025 [facility], [address], [address], [place], [address], 10:39:09 CBC 2024 025 [facility], [address], [address], [place], [address], 09:27:21 PT/INR 2024 025 [facility] ([facility]), [address] [place], [address], 09:21:30 ESR (erythroc yte sedimenta tion rate), blood 2024 [facility] ([facility]), [address] [place] [address], [address], 5 10:33:07 vitamin B12 + folate, serum or blood 2024 025 [facility] ([facility]), [address] [place] [address], [address], 19:48:19 vitamin D, 25-hydrox y, total, serum 2024 [facility] ([facility]), [address] [place] [address], [address], 19:48:20 celiac disease comprehen sive panel, serum 2024 [facility] ([facility]), [address] [place] [address], [address], 19:48:17 rickettsi al antibody panel, serum 2024 [facility], [address] , [place], [address], 19:48:22 unlisted lab - F. tularensi s Ab, IgM/IgG beverley, S 2024 [facility], [address] , [place], [address], 19:48:16 lyme disease igg+igm, serum, reflex western blot 2024 025 [facility], [address] , [place], [address], 19:48:18 ehrlichia chaffeens is, igg+igm Ab, serum 2024 025 [facility], [address] [facility], [place], [address], 19:48:23 alpha-gal ige, serum 2024 025 [facility], [address] [facility], [place], [address], 19:48:14 amylase + lipase, serum 2024 025 [email or web address] [facility], [address] [facility], [place], [address], 08:39:29 Referral None recorded. Procedures None recorded. Surgeries None recorded. Imaging CT, abdomen + pelvis, w/wo contrast - with oral contrast. With and without IV contrast 2024 025 [email or web address] 2 [facility] (Scheduling Orders), [address] [place], [address], 13:42:57 Medication Orders Voquezna 10 mg tablet 2024 025 [facility], [address] [place] [address], [address], [place], [address], 18:38:14 amlodipin e 5 mg tablet 2024 025 [facility], [facility], [address], [place], [address], 5 18:38:10 sucralfat e 1 gram tablet [email or web address] [place] [address] Pharmacy, [facility], [address], [place], [address], 07:52:40 famotidin e 20 mg tablet 2024 025 [facility], [address] [facility], [address], [place], [address], 10:20:34 Patient TargetsNo targets recorded. Patient InstructionsNo instructions recorded. Reason for Referral None Reported. Results Created Date Observation Date Name Description Value Unit Range Abnormal Flag Note LastModifiedBy Organization Detail LastModifiedTime 10/14/1910/13/2024 CBC WBC 7.8 x10 4.5-10 .5 Not Available [facility] [address] [facility] [address], [place], [address], 10/13/2024 09:27:21 10/14/1910/13/2024 CBC RBC 5.72 x10 4.30-5 .90 Not Available [facility] [address] [facility] [address], [place], [address], 10/13/2024 09:27:21 10/14/1910/13/2024 CBC HGB 17.3 g/dL 13.5-1 8.0 Not Available [facility] [address] [facility] [address], [place], [address], 10/13/2024 09:27:21 10/14/1910/13/2024 CBC HCT 51.7 % 35.0-6 0.0 Not Available [facility] [address] [facility] [address], [place], [address], 10/13/2024 09:27:21 10/14/1910/13/2024 CBC MCV 90.3 fL 80.0-9 9.9 Not Available [facility] [address] [facility] [address], [place], [address], 10/13/2024 09:27:21 10/14/1910/13/2024 CBC MCH 30.2 pg 27.0-3 2.0 Not Available [facility] [address] [facility], [place], [address], 10/13/2024 09:27:21 10/14/1910/13/2024 CBC MCHC 33.4 g/dL 32.0-3 6.0 Not Available [facility] [address] [facility] [address], [place], [address], 10/13/2024 09:27:21 10/14/1910/13/2024 CBC RDW 13.5 % 11.5-1 4.5 Not Available [facility] [address] [facility] [address], [place], [address], 10/13/2024 09:27:21 10/14/1910/13/2024 CBC plt 203.1 x10 150.0- 451.0 Not Available [facility] [address] [facility] 1, [place], [address], 10/13/2024 09:27:21 10/14/1910/13/2024 CBC lymphocytes % 16.6 % 20.0-5 0.0 low Not Available [facility] [address] [facility] 1, [place], [address], 10/13/2024 09:27:21 10/14/1910/13/2024 CBC granulcytes % 75.5 % 30.0-7 0.0 high Not Available [facility] [address] [facility] 1, [place], [address], 10/13/2024 09:27:21 10/14/1910/13/2024 CBC monocytes % 6.0 % 2.0-16 .0 Not Available [facility] [address] [facility] 1, [place], [address], 10/13/2024 09:27:21 10/14/19 25 10/13/2024 CBC granulcytes# 5.9 x10 Not [facility] [address] [address], [place], [address], 10/13/2024 09:27:21 10/14/19 25 10/13/2024 CBC lymphocytes # 1.3 x10 Not Available [facility] [address] [address], [place], [address], 10/13/2024 09:27:21 10/14/19 25 10/13/2024 CBC monocytes # 0.5 x10 Not Avai lable [facility] [address] [address], [place], [address], 10/13/2024 09:27:21 10/14/1910/13/2024 CMP (MALE ) glucose 117.0 mg/dL 60.0-9 9.0 high Not Available [facility] [address] [address], [place], [address], 10/13/2024 10:39:09 10/14/19 25 10/13/2024 CMP (MALE ) BUN (blood urea nitrogen) 16.0 mg/dL 10.0-2 6.0 Not Available [facility] [address] [address], [place], [address], 10/13/2024 10:39:09 10/14/19 25 10/13/2024 CMP (MALE ) creatinine (serum) 1.2 mg/dL 0.4-1. 5 Not Available [facility] [address] [address], [place], [address], 10/13/2024 10:39:09 10/14/19 25 10/13/2024 CMP (MALE ) BUN/creatini ne ratio 13.33 ratio Not Available [facility] [address] [address], [place], [address], 10/13/2024 10:39:09 10/14/19 25 10/13/2024 CMP (MALE ) eGFR calculated 70.2 Not Available [facility] [address] [facility], [place], [address], 10/13/2024 10:39:09 10/14/19 25 10/13/2024 CMP (MALE ) total protein 8.2 g/dL 6.0-8. 5 Not Available [facility] [address] [facility], [place], [address], 10/13/2024 10:39:09 10/14/19 25 10/13/2024 CMP (MALE ) total bilirubin 1.0 mg/dL 0.2-1. 3 Not Available [facility] [address] [facility], [place], [address], 10/13/2024 10:39:09 10/14/19 25 10/13/2024 CMP (MALE ) albumin 4.8 g/dL 3.5-5. 5 Not Available [facility] [address] [facility], [place], [address], 10/13/2024 10:39:09 10/14/1910/13/2024 CMP (MALE ) globulin 3.4 calc Not Available [facility] [address] [facility] Yoli [facility] 1, [place], [address], 10/13/2024 10:39:09 10/14/19 25 10/13/2024 CMP (MALE ) AST (SGOT) 40.0 U/L 0.0-46 .0 Not Available [facility] [address] [facility] 1, [place], [address], 10/13/2024 10:39:09 10/14/19 25 10/13/2024 CMP (MALE ) altv (SGPT) 54.0 U/L 13.0-6 9.0 normal Not Available [facility] [address] [facility] 1, [place], [address], 10/13/2024 10:39:09 10/14/1910/13/2024 CMP (MALE ) A/G ratio 1.4 ratio Not Available [facility] [address] [facility], [place], [address], 10/13/2024 10:39:09 10/14/1910/13/2024 CMP (MALE ) ALP phos 48.0 U/L 30.0-1 40.0 normal Not Available [facility] [address] [facility], [place], [address], 10/13/2024 10:39:09 10/14/1910/13/2024 CMP (MALE ) calcium 9.4 mg/dL 8.4-10 .5 Not Available [facility] [address] [facility], [place], [address], 10/13/2024 10:39:09 10/14/1910/13/2024 CMP (MALE ) sodium 141.0 mmol/ L 136.0- 145.0 Not Available [facility] [address] [facility] 1, [place], [address], 10/13/2024 10:39:09 10/14/1910/13/2024 CMP (MALE ) potassium 4.3 mmol/ L 3.5-5. 1 Not Available [facility] [address] [facility], [place], [address], 10/13/2024 10:39:09 10/14/1910/13/2024 CMP (MALE ) chloride 103.0 mmol/ L 98.0-1 10.0 normal Not Available [facility] [address] [facility], [place], [address], 10/13/2024 10:39:09 10/14/19 25 10/13/2024 CMP (MALE ) C02 26.0 mmol/ L 22.0-3 1.0 Not Available [facility] [address], [place], [address], 10/13/2024 10:39:09 10/14/19 25 10/13/2024 CMP (MALE ) anion gap 12.0 calc Not Available [facility] [address], [place], [address], 10/13/2024 10:39:09 10/14/19 25 10/13/2024 CMP (MALE ) osmolality 293.2 calc Not Available [facility] [address] [facility] [address], [place], [address], 10/13/2024 10:39:09 10/14/19 25 10/19/2024 ALPHA GAL PANEL beef (F27) IgE 0.70 kU/L high Not Available [facility] [address] [place], [address], 10/19/2024 19:48:14 10/14/19 25 10/19/2024 ALPHA GAL PANEL class 2 Not Available [facility] [address] [place], [address], 10/19/2024 19:48:14 10/14/1910/19/2024 ALPHA GAL PANEL dai (F88) IgE 0.61 kU/L high Not Available [facility] [address] [place], [address], 10/19/2024 19:48:14 10/14/19 25 10/19/2024 ALPHA GAL PANEL class 1 Not Available [facility] [address] [place], [address], 10/19/2024 19:48:14 10/14/19 25 10/19/2024 ALPHA GAL PANEL pork (F26) IgE 0.29 kU/L high Not Available [facility] [address] [place], [address], 10/19/2024 19:48:14 10/14/19 25 10/19/2024 ALPHA GAL PANEL class 0/1 Not Available [facility] [address] [place], [address], 10/19/2024 19:48:14 10/14/19 25 10/19/2024 ALPHA GAL PANEL galactose alpha 1,3 galactose IgE 1.28 kU/L <0.10 high Resul ts above 0.1 kU/L indic ate an aller gen-s pecif ic IgE sensi tizat ion to galac tose- a-1,3 -gala ctose , and such patie nts are at risk for delay ed aller gic react ions follo wing beef, pork, or dai consu mptio n. Circu latin g IgE antib odies may remai n undet ectab le despi te a convi ncing clini odin histo ry becau se these antib odies may be direc eugene towar ds aller gens revea led or alter ed durin g indus trial proce ssing , cooki ng, or diges tion and there fore do not exist in the origi nal food for which the patie nt is teste d. Somet imes indiv idual s diagn osed with chron ic urtic aria may devel op IgE antib odies direc eugene again st human thyro globu david. Such antib odies may cross -reac t with the bovin e thyro globu david used in Immun oCAP( R) Aller gen o215, alpha -Gal, leadi ng to a false -posi tive test resul t. A defin itive diagn osis shoul d be based on the evalu ation of both clini odin and labor atory findi ngs and not on any singl e diagn ostic metho d. Addit ional infor matmynor n can be found at http: //www .phad ia.co m Not Available [facility] [address], [address], 10/19/2024 19:48:14 10/14/1910/19/2024 INTER PRETA TION interpretati on Speci fic Level of Aller gen IGE Class kU/L Speci fic IGE Antib juliet ----- ----- ---- ----- ----- ----- ---- 0 <0.10 Absen t/Und etect able 0/1 0.10- 0.34 Very Low Level 1 0.35- 0.69 Low Level 2 0.70- 3.49 Moder ate Level 3 3.50- 17.4 High Level 4 17.5- 49.9 Very High Level 5 50-10 0 Very High Level 6 >100 Very High Level The clini odin relev ance of aller gen resul ts of 0.10- 0.34 kU/L are undet ermin ed and inten ded for speci alist use. Aller gens denot ed with a inclu de resul ts using one or more dago te speci fic reage nts. In those cases , the test was devel oped and its dago tical perfo rmanc e taylor cteri stics have been deter mined by [facility]. It has not been clear ed or appro vasquez by the U.S. Food and Drug Admin istra tion. This assay has been valid ated pursu ant to the CLIA regul ation s and is used for clini odin purpo ses. Not Available [facility] [address] [address] [place], [address], 10/19/2024 19:48:15 10/14/1910/19/2024 F. TULAR ENSIS AB, IGM/I GG BEVERLEY , S F. tularensis Ab, IgM beverley, S NEGATI VE negati ve Not Available [facility] [address] [address] [place], [address], 10/19/2024 19:48:16 10/14/1910/19/2024 F. TULAR ENSIS AB, IGM/I GG BEVERLEY , S F. tularensis Ab, IgG beverley, S NEGATI VE negati ve Not Available [address], [address], 10/19/2024 19:48:16 10/14/19 25 10/19/2024 F. TULAR ENSIS AB, IGM/I GG BEVERLEY , S F. tularensis interpretati on No antib odies to Franc isell a tular ensis detec eugene. Antib juliet respo nse may be negat yessenia in sampl es colle cted too soon follo wing infec tion/ expos ure. Repea t testi ng on a new sampl e in 1-2 weeks if clini scar indic ated. Not Available [address], [address], 10/19/2024 19:48:16 10/14/1910/19/2024 CATHY C DISEA SE COMPR EHENS YESSENIA PANEL interpretati on No serol ogica l evide nce of cathy c disea se. tTG IgA may jessenia lize in indiv idual s with cathy c disea se who maint ain a glute n-geovani e diet. Consi yolanda HLA DQ2 and DQ8 testi ng to rule out cathy c disea se. Cathy c disea se is extre antwon rare in the absen ce of DQ2 or DQ8. Not Available [address] [place], [address], 10/19/2024 19:48:17 10/14/1910/19/2024 CATHY C DISEA SE COMPR EHENS YESSENIA PANEL tissue transglutami nase Ab, IgA <1.0 U/mL Value Inter preta tion ----- ----- ----- ---- <15.0 Antib juliet not detec eugene > or = 15.0 Antib juliet detec eugene Not Available [address] [place], [address], 10/19/2024 19:48:17 10/14/19 25 10/19/2024 CATHY C DISEA SE COMPR EHENS YESSENIA PANEL immunoglobul in A 229 mg/dL 47-310 Not Available [address], [address], 10/19/2024 19:48:17 10/14/19 25 10/19/2024 LYME DISEA SE AB W/REF L TO BLOT (IGG, IGM) lyme Ab screen <0.90 index normal Index Inter preta tion ----- ----- ----- ---- < 0.90 Negat yessenia 0.90- 1.09 Equiv ocal > 1.09 Posit yessenia As recom mariama d by the Food and Drug Admin istra tion (FDA) , all sampl es with posit yessenia or equiv ocal resul ts in a Borre ryann burgd orfer i antib juliet scree n will be teste d using a blot metho d. Posit yessenia or equiv ocal scree joaquim test resul ts shoul d not be inter prete d as truly posit yessenia until verif ied as such using a suppl ement al assay (e.g. , B. burgd orfer i blot) . The scree joaquim test and/o r blot for B. burgd orfer i antib odies may be false ly negat yessenia in early stage s of Lyme disea se, inclu ding the perio d when eryth jennifer migra ns is appar ent. Not Available [facility] [address], [address], 10/19/2024 19:48:18 10/14/19 25 10/19/2024 VITAM IN B12/F OLATE , SERUM PANEL vitamin B12 449 pg/mL 200-11 00 normal Not Available [facility] [address], [address], 10/19/2024 19:48:19 10/14/19 25 10/19/2024 VITAM IN B12/F OLATE , SERUM PANEL folate, serum 6.6 NG/mL normal Refer ence Range Low: <3.4 Borde rline : 3.4-5 .4 Jessenia l: >5.4 Not Available [facility] [address] [address] [place], [address], 10/19/2024 19:48:19 10/14/19 25 10/19/2024 VITAM IN D,25- OH,TO BELEM,I A vitamin D,25-oh,tota l,ia 23 NG/mL 30-100 low Vitam in D Statu s 25-OH Vitam in D: Defic iency : <20 ng/mL Insuf ficie ncy: 20 - 29 ng/mL Optim al: > or = 30 ng/mL For 25-OH Vitam in D testi ng on patie nts on D2-delacruz pplem entat ion and patie nts for whom quant itati on of D2 and D3 fract ions is requi red, the [facility](TM ) 25-OH VIT D, (D2,D 3), LC/MS /MS is recom mariama d: order code 10013 (michael ents >2yrs ). See Note 1 Note 1 For addit ional infor wily parada refer to http: //[facility] Rodas gndieudonne ics.c om/fa q/FAQ 199 (This link is being provi ded for infor lupe dyer/ adrianna martinez purpo ses only. ) Not Available [facility] [address] [address] [place], [address], 10/19/2024 19:48:20 10/14/19 25 10/19/2024 AMYLA SE amylase 41 U/L 21-101 normal Not Available [facility] [address] [address] [place], [address], 10/19/2024 19:48:21 10/14/19 25 10/19/2024 LIPAS E lipase 50 U/L 7-60 normal Not Available [facility] [address] [address] [place], [address], 10/19/2024 19:48:21 10/14/19 25 10/19/2024 RICKE TTSIA (RMSF ) IGG,I GM W/REF L TO TITER S rmsf IgG NOT DETECT ED normal Not Available [address], [address], 10/19/2024 19:48:22 10/14/19 25 10/19/2024 RICKE TTSIA (RMSF ) IGG,I GM W/REF L TO TITER S rmsf IgM NOT DETECT ED normal REFER ENCE RANGE : NOT DETEC EUGENE Not Available [address], [address], 10/19/2024 19:48:22 10/14/19 25 10/19/2024 EHRLI LATISHA CHAFF EENSI S (IGG, IGM) E. chaffeensis Ab IgG <1:64 normal Not Available [address], [address], 10/19/2024 19:48:23 10/14/19 25 10/19/2024 EHRLI LATISHA CHAFF EENSI S (IGG, IGM) E. chaffeensis Ab IgM <1:20 normal Not Available [address], [address], 10/19/2024 19:48:23 10/14/19 25 10/19/2024 EHRLI LATISHA CHAFF EENSI S (IGG, IGM) interpretati on normal ANTIB JULIET NOT DETEC EUGENE REFER ENCE RANGE : IgG <1:64 IgM <1:20 Ehrli latisha chaff eensi s has been ident ified as the causa tive agent of Human Monoc ytic Ehrli chios is (HME) . Infec eugene indiv idual s produ ce speci fic antib odies to E. chaff eensi s that can be detec eugene by an immun ofluo resce nt antib juliet (IFA) test. Singl e IgG IFA titer s of 1:64 or great er indic ate expos ure to E. chaff eensi s. A four- fold rise in IgG titer s betwe en acute and conva lesce nt sampl es and/o r the prese nce of IgM antib juliet again st E. chaff eensi s sugge st recen t or curre nt infec tion. This test was devel johnnie and its dago tical perfo rmanc e taylor cteri stics have been deter mined by [facility]. It has not been clear ed or appro vasquez by FDA. This assay has been valid ated pursu ant to the CLIA regul ation s and is used for clini odin purpo ses. Not Available [facility] [address] [place], [address], 10/19/2024 19:48:23 10/14/19 25 10/13/2024 ESR (eryt hrocy te sedim entat ion rate) , blood SedRate 6 Not Available [facility] [address] [place], [address], 10/13/2024 09:04:29 10/27/19 25 10/26/2024 PT/IN R Protime 12.6 Not Available [facility]) [address] [place], [address], 10/13/2024 09:04:22 10/27/19 25 10/26/2024 PT/IN R INR 1.0 Not Available [facility]) [address] [place], [address], 10/13/2024 09:04:22 10/31/19 25 10/28/2024 CT, abdom en + pelvi s, w/wo contr ast No observ ation record ed. [email or web address] [place] [address] [address] [place], [address], 11/07/2024 18:21:45 Result Notes None recorded. Problems Name Problem SNOMED Code Status Onset Date Resolution Date Notes Provider Name and Address Organization Details Recorded Time Renal care Active 1979 Patient was born with 1 kidney Kike Mason karen, [facility] 3 09:06:30 Myocardial infarction 61553080 Active 2022 NHI jones, [facility] 3 08:29:09 Essential hypertensi on 86016669 Active 2022 Kike Marlon karen [facility] 3 09:06:20 Goiter 0469728 Active 2022 Kike Mason [facility] 3 09:06:20 Coronary atheroscle rosis 606602959 [facility] 09:10:12 Gastroesop hageal reflux disease without esophagiti s 472537201 Active 2023 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 09:59:27 Chronic daily headache 757003286011 102 Active 2023 Julia jones [facility] 5 09:59:27 Obstructiv e sleep apnea syndrome 94474485 Active 2023 Jacqui Crook, [address], [address] , [facility] 4 09:10:33 Erosive esophagiti s 10960947 Active 2023 Julia jones [facility] 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 Procedures Surgical History Date Name Laterality Status Provider Name and Address Organization Details Recorded Time [facility]ioplasty completed [facility] 16:21:58 Imaging Results None recorded. Procedure Notes None recorded. Medical Equipment None Reported. Allergies No known drug allergies Medications Name Sig Start Date Stop Date Status Note LastModified by Organization Details LastModified Time atorvastat in 40 mg tablet TAKE ONE TABLET BY MOUTH EVERY DAY AT BEDTIME. 2024 active Not Available Not Available Not Avai lable carvedilol 6.25 mg tablet Take 1 tablet twice a day by oral route for 90 days, for blood pressure . 2023 active Not Available Not Available Not Avai lable doxycyclin e hyclate 100 mg capsule TAKE 1 CAPSULE BY MOUTH TWICE A DAY FOR 10 DAYS 12/21 completed Not Available Not Available Not Available atorvastat in 20 mg tablet TAKE ONE TABLET BY MOUTH at bedtime 12/22 completed Not Available Not Available Not Available azithromyc in 250 mg tablet TAKE 2 TABLETS (500 MG) BY ORAL ROUTE ONCE DAILY FOR 1 DAY THEN 1 TABLET (250 MG) BY ORAL ROUTE ONCE DAILY FOR 4 DAYS 08/02 completed Not Available Not Available Not Available ofloxacin 0.3 % eye drops Place 10 drops into BOTH ears DAILY FOR 10 DAYS. 08/02 completed Not Available Not Available Not Available sucralfate 1 gram tablet Take 1 tablet 4 times a day by oral route as needed, for stomach. 2024 active Not Available Not Available Not Avai lable prednisone 20 mg tablet TAKE 2 TABLETS BY MOUTH EVERY DAY FOR 7 DAYS 06/01 completed Not Available Not Available Not Available isosorbide mononitrat e ER 30 mg tablet,ext ended release 24 hr TAKE ONE TABLET BY MOUTH DAILY 2023 active Not Available Not Available Not Avai lable clopidogre l 75 mg tablet TAKE ONE TABLET BY MOUTH DAILY 2023 active Not Available Not Available Not Avai lable amlodipine 5 mg tablet Take 1 tablet every day by oral route for 90 days, for blood pressure . 2024 active Not Available Not Available Not Avai lable aspirin 81 mg tablet,del ayed release Take 1 tablet every day by oral route. 08/02 completed Not Available Not Available Not Available carvedilol 3.125 mg tablet TAKE ONE TABLET BY MOUTH TWICE DAILY 09/15 completed Not Available Not Available Not Available ofloxacin 0.3 % ear drops INSTILL 10 DROPS INTO AFFECTED EARS ONCE DAILY FOR 7 DAYS 08/02 completed Not Available Not Available Not Available famotidine 20 mg tablet Take 1 tablet twice a day by oral route for 15 days. 08/02 completed Not Available Not Available Not Available ciprofloxa jose alberto 0.3 % eye drops INSTILL 4 DROPS INTO LEFT EAR TWICE DAILY FOR 7 DAYS 04/01 completed Not Available Not Available Not Available amlodipine 10 mg tablet TAKE ONE TABLET BY MOUTH DAILY 12/06 completed taking bid Not Available Not Available Not Available pantoprazo le 40 mg tablet,del ayed release TAKE ONE TABLET BY MOUTH TWICE DAILY, FOR ACID REFLUX. 2024 active Not Available Not Available Not Avai lable esomeprazo le magnesium 40 mg capsule,de layed release Take 1 capsule twice a day by oral route for 90 days. 08/02 completed Not Available Not Available Not Available lisinopril 10 mg tablet TAKE ONE TABLET BY MOUTH DAILY 06/01 completed Not Available Not Available Not Available nitroglyce rin 0.4 mg sublingual tablet DISSOLVE 1 TABLET UNDER THE TONGUE EVERY 5 MINUTES NEEDED FOR CHEST PAIN. DO NOT EXCEED A TOTAL OF 3 DOSES IN 15 MINUTES. active Not Available Not Available No t Available albuterol sulfate HFA 90 mcg/actuat ion aerosol inhaler Inhale 2 puffs every 4 hours by inhalati on route as needed, for wheezing , SOB. 2024 active Not Available Not Available Not Avai lable lisinopril 40 mg tablet TAKE ONE TABLET BY MOUTH EVERY DAY FOR 90 DAYS. 2024 active Not Available Not Available Not Avai lable cefdinir 300 mg capsule Take 1 capsule twice a day by oral route for 10 days. 09/15 completed Not Available Not Available Not Available amoxicilli n 875 mg-potassi um clavulanat e 125 mg tablet Take 1 tablet twice a day by oral route for 10 days. 08/02 completed Not Available Not Available Not Available ciprofloxa jose alberto 0.3 %-dexameth asone 0.1 % ear drops,susp ension INSTILL 4 DROPS INTO AFFECTED EAR(S) TWICE A DAY FOR 7 DAYS 04/01 completed Not Available Not Available Not Available Voquezna 10 mg tablet TAKE 1 TABLET BY MOUTH EVERY DAY FOR reflux active Not Available Not Available No t Available Vitals Date Recorded Body height Body mass index (BMI) Body weight Oxygen saturation Heart rate Body temperature Respiratory rate Systolic And Diastolic Provider Name and Address Organization Details Last Updated DateTime 5 185.42 cm 42.9 kg/m2 999315. 52 g 98 % 70 /min 98.2 [degF] 18 /min 150/98 mm[Hg] ALE JONES [facility] 5 16:57:19 Date Recorded Body height Body mass index (BMI) Body weight Oxygen saturation Heart rate Respiratory rate Systolic And Diastolic Provider Name and Address Organization Details Last Updated DateTime 5 185.42 cm 41.2 kg/m2 394796. 62 g 99 % 84 /min 18 /min 139/88 mm[Hg] [facility] 5 10:09:48 Date Recorded Body height Body mass index (BMI) Body weight Oxygen saturation Heart rate Respiratory rate Systolic And Diastolic Systolic And Diastolic Provider Name and Address Organization Details Last Updated DateTime 5 185.42 cm 41.4 kg/m2 767393. 21 g 97 % 74 /min 18 /min 148/100 mm[Hg] 138/100 mm[Hg] [facility] 5 08:39:40 Date Recorded Body height Body mass index (BMI) Body weight Oxygen saturation Heart rate Respiratory rate Systolic And Diastolic Provider Name and Address Organization Details Last Updated DateTime 5 185.42 cm 41.1 kg/m2 972297. 03 g 96 % 72 /min 18 /min 138/82 mm[Hg] [facility] 17:58:44 Date Recorded Body height Body mass index (BMI) Body weight Oxygen saturation Heart rate Respiratory rate Systolic And Diastolic Provider Name and Address Organization Details Last Updated DateTime 5 185.42 cm 40.3 kg/m2 595617. 47 g 97 % 74 /min 18 /min 134/58 mm[Hg] Julia [facility] 5 18:09:30 Social History Question Answer Notes LastModified by [employer] Details LastModified Time Tobacco Smoking Status Current Some [facility] 04/01/2023 08:28:03 What Was The Date Of Your Most Recent Tobacco Screening? 12/22/2023 [email or web address] Information not available 12/22/2023 How Much Tobacco Do You Smoke? 1 PPW [email or web address] Information not available 04/01/2023 Sex: Unknown Functional Status Question Answer Note LastModified by [employer] Details LastModified Time Do you use any illicit or recreational drugs? No Information not available 04/01/2023 Do you or have you ever used any other forms of tobacco or nicotine? Yes [email or web address] Information not available 04/01/2023 What is your level of alcohol consumption? Occasional [email or web address] Information not available 04/01/2023 Are you currently employed? 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 Information not available 04/01/2023 Mental Status None recorded. Family History Relationship Description Onset Age of this Age Resolved Age Notes LastModified by Organization Details LastModified Time Mother Heart disease [email or web address] Not available 2024 10:11:12 Mother Diabetes mellitus [email or web address] Not available 2024 10:11:19 Mother Kidney disease [email or web address] Not available 2024 10:11:27 Medical History Condition Response Coronary Artery Disease N Other Y Gout N Kidney Stones N Blood Diseases N Hyperthyroidism N Breast Cancer N Blood Transfusion N Depression N COPD N Lung Disease N Hypothyroidism N Developmental or Behavioral Disorders N Defects or Inherited Disease N Breast Problem N Difficulty Swallowing N Anesthesia Complications N Meniere's disease N Anxiety Disorder N Muscle, Joint, or Bone Problems N Vision or Eye Problems N Arthritis N Polyps N Infertility N Cancer N Varicosities N Stroke N Endometriosis N Bladder or Kidney Problems Y High Cholesterol Y Liver Disease N Headaches N Fibromyalgia N Kidney Disease N Allergies/Hayfever N Heart Problems Y Ear or Hearing Problems N Hospitalizations N Thyroid Problems N GI Problems N ADD/ADHD N Skin Problems N Eating Disorder N Anemia N Constipation N Mental Illness N Ovarian Cancer N Diabetes N Bedwetting N Seizures/Epilepsy N Tuberculosis N Eczema N Diverticulitis N Abuse/Domestic Violence N Asthma N Reflux/GERD Y Hepatitis N Heart Disease N Pulmonary Embolism N Pre-Eclampsia N Hypertension Y Chronic Ear Infections N Osteoporosis N Chicken Pox N Autism Spectrum Disorder (ASD) N Thrombophilias N Immunizations Vaccine Type Date Status Note Provider Nam e and Address Organization Details Recorded Time MMR 3 completed Aurora jones [facility] 12/22/2023 16:19:30 DTaP-IPV 2 completed Aurora jones [facility] 12/22/2023 16:19:30 DTaP-IPV 2 completed Aurora jones [facility] 12/22/2023 16:19:30 DTaP-IPV 3 completed Aurora jones [facility] 12/22/2023 16:19:30 Tdap 3 completed Aurora jones [facility] 12/22/2023 16:19:30 Td (adult), 2 Lf tetanus toxoid, preservative free, adsorbed 7 completed Aurora jones [facility] L[facility]na 12/22/2023 16:19:30 DTaP 11/14/ 2 completed [facility] 12/22/2023 16:19:30 Past Encounters Encounter ID Performer Location Encounter Start Date Encounter Closed Date Diagnosis/Indication Diagnosis SNOMED-CT Code Diagnosis ICD10 Code Diagnosis IMO Codes Diagnosis Note [id number] MELANIE GRIFFIN [facility] ([facility]) [address] [place] [id number] 5 11/24/2022 15:20:47 11/24/2022 20:49:26 Acute suppurative otitis media without spontaneous rupture of ear drum 82291017 H66.002 Otitis ext mac of left ear 6906138512 067908 H60.92 [id number] MELANIE GRIFFIN [facility] ([facility]) [address] [place] [id number] 5 01/26/2023 10:28:43 01/26/2023 14:01:11 Headache 88052224 R51.9 COVID-19 913427494 U07.1 [id number] Jacqui [place] DO [facility] ([facility]) [address] [place] [id number] 5 04/01/2023 08:16:46 04/01/2023 17:00:56 Essential hypertension 94852575 I10 Counseled Lisinopril and Carvedilol in the am, take Amlodipine with evening dose of Carvedilol . History of myocardial infarction 661778969 I25.18 Apr 2021, left side. Stress test last Feb 2023. Cramp in lower limb 4499 45181 R25.2 Recommend mens one a day vitamin, likely r/t BP meds. If worsening, to let us know. Goiter 2756578 E04.9 Saw Endo 6-7 years ago in [place] ( about 2015), bx performed, noncancero us, declined removal at that time, not increasing in size, not bothering him. Coronary atherosclerosis 845596983 I25.119 [place] 2016, sounds like complete blockage of circumflex . continue with Dr. Doe, cardiology . contiinue statin, prn nitro, bp control. [id number] Jacqui [place] DO [facility] ([facility]) [address] [place] [address] 05/20/2023 15:00:10 05/20/2023 16:24:56 Acute right otitis media 105833623 H66.91 Recurrent, counseled abx. Acute bronchitis 8076053 2 J20.9 Counseled abx, steroid. [id number] Jacqui [place] DO [facility] ([facility]) [address] [place] [id number] 5 06/01/2023 16:27:13 06/04/2023 09:08:44 Gastroesophageal reflux disease without esophagitis 781914466 K21.9 I counseled patient on diet and weight management , limit NSAIDS and alcohol. We will start proton pump inhibitor for the next couple months. Monitor for symptoms to resolve. Follow-up without any improvemen t after 2 weeks. Essential hypertension 51278495 I10 not optimal. will increase lisinopirl to 40mg. continue amlodipine and carvedilol . Acute supp urative otitis media without spontaneous rupture of ear drum 34839727 H66.001 recurrent. start cefiinir as augmentin did not help last mt. restart the ciprodex gtts. [id number] Jacqui [place]ok DO [facility] ([facility]) [address] [place] [address] [id number] 5 09/16/2023 16:57:29 09/16/2023 17:30:28 Essential hypertension 34537627 I10 09/16/23- deteriorat ed, continue Lisinopril 40mg daily, counseled increase Carvedilol to 6.25mg BID. He has stopped the Amlodipine d/t chest discomfort and it improved. 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 All questions were addressed. They were instructed to call the office or come in for Follow Up with any questions, concerns, or worsening problems.w ill start abx today. Acute supp urative otitis media without spontaneous rupture of ear drum 53189180 H66.001 recurrent. start doxycyline . restart the ciprodex gtts. [id number] MELANIE SANTOS [facility] ([facility]) [address] [place] [id number] 5 12/22/2023 16:15:32 12/24/2023 16:04:52 Ecchymosis 085444608 R58 s/p angiogram. Work excuse provided. Pt has f/u with PCP tomorrow. no signs of rupture to artery. Keep appt tomorrow. [id number] Jacqui [place] DO [facility] ([facility]) [address] [place], [place] [address] 12/23/2023 15:11:53 12/23/2023 16:21:24 Coronary atherosclerosis 585026364 I25.119 12/23/23- counseled take Isosorbide twice daily. Keep f/u with Cardio. Reassured pt expect bruising to improve slowly, will be yellowish before improved. Ok to return to work Thursday next week 12/29/23, as long as Cardio agrees. Sleep rela eugene hypoxemia 2218718050 69317 G47.36 12/23/23- O2 sat to low 80's when sleeping in the hospital, will order sleep study. [id number] Jacqui [place] DO [facility] ([facility]) [address] [place] [id number] 02/17/2024 16:44:33 02/22/2024 11:50:12 Otitis externa of left ear 9121366378 873603 H60.92 Counseled abx drops. Acute righ t otitis media 440893551 H66.91 Recurrent, counseled abx. Chronic da narendra headache 5369099236 23355 R51.9 02/17/24- Seeing Neurology for w/u. [facility] paperwork filled out and faxed to employer. [id number] Jacqui [place] DO [facility] ([facility]) [address] [place] [address] [id number] 5 04/28/2024 08:21:19 04/28/2024 09:16:19 Erosive esophagitis 56047290 K22.10 I counseled patient on diet and weight management , limit NSAIDS and alcohol. We will start proton pump inhibitor for the next couple months. Monitor for symptoms to resolve. Follow-up without any improvemen t after 2 weeks. Myocardial infarction 22 199052 I21.9 recurrent, s/p multiple cardiac stents. last two stents placed on right side on 04/20/[address] [facility] by Dr. Beaulieu continue asa, plavix, statin, bp control with amlodipine , lisinopril . coreg. Coronary atherosclerosis 261397320 I25.119 04/28/24: most recent two stents placed on right side on 04/20/[address] [facility] by Dr. Brittnee Whittaker to continue asa, plavix, statin, bp control with amlodipine , lisinopril . coreg.- counseled take Isosorbide twice daily. Keep f/u with Cardio. Reassured pt expect bruising to improve slowly, will be yellowish before improved. Ok to return to work Thursday next week 12/29/23, as long as Cardio agrees. Obstructiv e sleep apnea syndrome 88189797 G47.33 + initial sleep study, in feb 2024, but does not have titration study scheduled until end of jun. now with worsening symptoms, and worsening CAD. Will see if we can get Titration Study moved up or done an another location. Alternativ paras we can start auto-titra ting CPAP at [id number] Jacqui [place] DO [facility] ([facility]) [address] [place] [id number] 5 06/22/2024 16:48:27 07/05/2024 08:06:57 Cough 22694105 R05.9 rapid flu a/b and covid negative in office today Pneumonia 251199799 J18. 9 I counseled on dx of pneumonia, treatment options, expectatio ns and reasons to go to ER or seek urgent medical attention. We will start antibiotic s and inhaler today due to severity of illness and/or increased risks for pt.We will consider steroids and chest xray if not improving. . [id number] MELANIE GODINEZ [facility] ([facility]) [address] [place] [phone] 5 07/27/2024 16:45:06 07/29/2024 07:12:44 Gastritis 3539348 K29.70 Will have patient take famotidine 1-2 x daily as needed. Avoid tomato based foods, carbonated foods and any spicy foods. Follow up with PCP. RTC with any new or worsening symptoms. [id number] Jacqui [place] DO [facility] ([facility]) [address] [place] [address] 08/02/2024 09:41:32 08/22/2024 13:47:14 Coronary atherosclerosis 678153294 I25.119 08/02/24: counseled stop Asa, continue Clopidogre l ( consider switching to something else). Having stomach discomfort .04/28/24: most recent two stents placed on right side on 04/20/[address] [facility] by Dr. Brittnee Whittaker to continue asa, plavix, statin, bp control with amlodipine , lisinopril . coreg.- counseled take Isosorbide twice daily. Keep f/u with Cardio. Reassured pt expect bruising to improve slowly, will be yellowish before improved. Ok to return to work Thursday next week 12/29/23, as long as Cardio agrees. Erosive esophagitis 1187 3331 K22.10 Pt's symptoms continue to worsen despite dietary changes, avoiding NSAID's, and elevating HOB. He has failed Famotidine , Nexium, Omeprazole in the past.I counseled patient on diet and weight management , limit NSAIDS and alcohol. Continue Pantoprazo le BID, start Sucralfate , consider Voquenzna. Counseled don't take meds on empty stomach. [id number] Jacqui [place] DO [facility] ([facility]) [address] [place] [address] 10/13/2024 08:19:58 10/14/2024 10:41:51 Metabolic dysfunction-associate d steatotic liver disease 0643087609 K76.0 5494097 hx of, now with persistent /refractor y abd pain despite recent workup. I have reviewed records as above. we will get liver labs, check for celiac disase and fabray's disease, as well as tick borne illness. I reviewed liver US as per above, will get CT for better visualizat ion of liver and other abd/pelvic organs. Chronic ab dominal pain 658883313 R10.9 G89.29 [id number] Jacqui [place] DO [facility] ([facility]) [address] [place] [id number] 5 11/07/2024 17:25:08 11/15/2024 12:53:37 Myocardial infarction 92259302 I21.9 recurrent, s/p multiple cardiac stents. last two stents placed on right side on 04/20/[address] [facility] [address] Dr. Beaulieu continue asa, plavix, statin, bp control with amlodipine , lisinopril . coreg. Allergy to isycneklg-ocfsj-1,3 galactose 118460134 Z91.018 [id number] per labs. I counseled the patient on diagnosis, treatment options, medication s, and expectatio ns. All questions were addressed. They were instructed to call the office or come in for Follow Up with any questions, concerns, or worsening problems. he will start strict mammalian free diet for 6 mts. Essential hypertension 48555802 I10 11/07/24: stable.09/15- deteriorat ed, continue Lisinopril 40mg daily, counseled increase Carvedilol to 6.25mg BID. He has stopped the Amlodipine d/t chest discomfort and it improved. [id number] Jacqui [place] DO [facility] ([facility]) [address] [place] [phone] 5 12/06/2024 17:23:42 12/08/2024 13:59:21 Myocardial infarction 43252421 I21.9 recurrent, s/p multiple cardiac stents. last two stents placed on right side on 04/20/[address] [facility] by Dr. Beaulieu continue asa, plavix, statin, bp control with amlodipine , lisinopril . coreg. Allergy to tzikzgivb-xgyrw-3,3 galactose 510569022 Z91.018 [id number] much improved with eliminatio n diet. continue for at least 6 mts. .cx on alternativ e treatments . Essential hypertension 37533063 I10 12/06/24: stable. continue lisinopril , carvedilol , amlodipine .11/07/24: stable.09/15- deteriorat ed, continue Lisinopril 40mg daily, counseled increase Carvedilol to 6.25mg BID. He has stopped the Amlodipine d/t chest discomfort and it improved. Erosive esophagitis 4071 9004 K22.10 12/06/24: no improvemen t in mod/severe daily symptoms. will start voquenza. cointinue dietary changes. considerEG D if no improvemen t in 1 mt. Pt's symptoms continue to worsen despite dietary changes, avoiding NSAID's, and elevating HOB. He has failed Famotidine , Nexium, Omeprazole in the past.I counseled patient on diet and weight management , limit NSAIDS and alcohol. Continue Pantoprazo le BID, start Sucralfate , consider Voquenzna. Counseled don't take meds on empty stomach. Health Concerns Section Related Observation LastModified by Organization Detai ls LastModified Time None Recorded Concern Status LastModified by Organization Details LastModified Time None Recorded Advance Directives Directive None Recorded Payers Insurance Date Sequence Insurance Name Policy Number Policy Gilbert Covered Member ID Gilbert Member ID Guarantor Name 12/03/2024 1 FOR[facility]LY [facility] - [facility] [id number] Panfilo Ervin [id number] Panfilo Ervin Notes Date Note Type Note Provider Name and Address Organization Details Recorded Time 07/27/2024 text/html Abdominal PainRe ported by PatientAbdominal PainFor severity, patient reportsworsebut reportsmoderate. For location, patient reportsruq,luq,epigast deepak, andperiumbilical.ROS as noted in the HPI Patient c/o abdominal pain for the past few weeks. He states that the pain is down his throat, into his chest and stomach. Around his umbilicus is tender to the touch. He states that it feels like something gets caught in his esophagus. Hx of GERD. Currently taking pantoprazole for esophagitis. States that he has been eating chili, hot sauce and other tomato based products over the last few days. PATTY HAYES, MELANIE [address] [place], [address], [facility] 07/28/2024 15:32:34 08/02/2024 text/html ROS as noted in the HPI Pt presents for ER f/u from visit on 07/27/24. He was admitted at [facility] 07/11- for CP.Hospital dc summary:Hospital CoursePatient was admitted for hypertensive urgency requiring nitroglycerin drip and was also having chest pain. He was seen by cardiology and underwent stress testing. Stress test does not show evidence of ischemia. Patient's blood pressure medications were adjusted and he was discharged home in stable condition. Cardiology evaluated patient during hospital stay. Patient chest pain-free at time of discharge. Is to follow-up with cardiology as an outpatient. Last had cardiac stenting in Apr 2024. Following this he was seen in [place] here 07/27/24, prescribed Famotidine, CP continued and worsened so he went to ER. He told them he knew it wasn't his heart, was given Famotidine. He continues to feel a burning/ stabbing/ pressure in the epigastric region, feels like he has a lump in his throat. Pain 8/10, mostly bothering him in the evenings.He often feels like food gets stuck. He has noticed his voice is hoarse all through the day now, for the past 2 days, usually only hoarse in the evenings. No med changes other than Amlodipine changed from 10mg daily to 5mg BID.He doesn't feel like his meds make him sick when he takes them. No tobacco chewing or smoking.He hasn't been consuming alcohol the last few weeks, thinking it was contributing to his discomfort.Not taking any Ibuprofen or NSAID's.He has been avoiding spicy and acidic foods.He has elevated his HOB. Having discomfort in BLE, cramping, especially at night. He was previously taking Magnesium, then had lab done and was told it was almost too high so he stopped it. He also has constipation and unable to have BM without takinglaxativesER informed him to have his CR rechecked d/t being increased there Jacqui [place] DO [address] [place] [address], [phone], [facility], Jin 08/22/2024 08:09:43 10/13/2024 text/html ROS as noted in the HPI Pt presents for stomach pain he reports that his stomach pain has been ongoing and he has been seen several times and not getting any better. He is unable to eat and has extreme fatigue. He is having pain in middle of chestHe was in so much pain day night that he almost went to the ER. He also is having reflux sx more often at night. HIs pain is mostly RUQ and epigastric pain. Per Dr. Beaulieu he was told that his problem is not his heart, possible his liver He is having alternating diarrhea and constipation since Jun this year He is taking the amlodipine bid now d/t recent elevated bp with his pain increased He also has swelling to the right side of his neck He seen cardiology for bruises and had an U/S done. He was informed to f/u with PCP, he read the report and has not been discussed per cardiology or anyone yet He also is still having the leg cramps intermittent during the day and night He also c/o multiple joint pain after he started bruising He is needing his compliance for cpap turned Garry has been using the cpap every night for at least6 hours. He is waking feeling rested and good energy. He has missed approximately 6 nights and this is typically when he is not home and does not have his machine Jacqui Crook DO [address] [place] [address], [phone], [facility] 10/17/2024 16:07:39 11/07/2024 text/html ROS as noted in the HPI Pt present to f/u on CT and alpha gal He had CT done on 10/28/24 Alpha gal panel done on 10/13/24He has changed his diet and cut out beef and pork and trying to avoid dairy He still has bruising to his right arm and left veloz, but does not recall falling.no bloody stool or dark tarry stool. no nose bleeds. Jacqui Crook DO [address] [place] [address], [phone], [facility] 11/14/2024 23:19:14 12/06/2024 text/html ROS as noted in the HPI Pt presents for recheck, 1 month He reports that he has changed his diet and feels this has helped overall with the alpha gal.He does c/o that this has not helped with his reflux and still has sore irritated throat and esophagus He still c/o bruising Jacqui Crook, DO [address] [place] [address], [phone], [facility] 12/06/2024 18:38:12
--- OUTSIDE RECORDS SUMMARY | 2025-04-09 16:11 | XMS_ITS | Clinical Summary ---
Author Organization [facility] Address [address] [place] [address] Care Team Providers Care Cooper Helper Name Role Phone Unavailable Primary Care Provider Unavailabl e Allergies No known active allergies Medications No known medications Active Problems Problem Noted Date Diagnosed Date Obesity (BMI 35.0-39.9 without comorbidity) 06/19 Thyroid mass 07/11/2020 Essential hypertension 07/11/2020 Immunizations Immunization Administration Dates Next Due (TDVAX)(7 YRS UP) TETANUS AN D DIPHTHERIA TOXOIDS, ADSORBED (2 LF OF TETANUS TOXOID AND 2 LF OF DIPHTHERIA TOXOID), 0.5ML (PF), IM 06/13/1996 Family History Medical History Relation Name Comments Unknown Father Heart Disease Mother Relation Name Status Comments Father Other Mother Alive Social History Tobacco Use Types Packs/Day Years Used Date Smoking Tobacco: Every Day Cigarettes Tobacco Cessation:Ready to Q uit: Yes; Counseling Given: Yes Alcohol Use Standard Drinks/Week Comments Yes 0 (1 standard drink = 0.6 oz pur e alcohol) Sex and Gender Information Value Date Recorded Sex Assigned at Not on file 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 Gender Identity Not on file Sexual Orientation Not on file Last Filed Vital Signs Vital Sign Reading Time Taken Comments Blood Pressure 146/86 07/11/2020 3:28 PM MIXING MACHINE TENDER [employer]ET Pulse 86 07/11/2020 3:21 PM MIXING MACHINE TENDER [employer]ET Temperature 36.9 C (98.5 F) 06/21/2020 4:35 PM MIXING MACHINE TENDER [employer] G[employer]ET Respiratory Rate 20 06/21/2020 6:15 PM MIXING MACHINE TENDER [employer]ORK GASKET Oxygen Saturation 96% 07/11/2020 3:21 PM MIXING MACHINE TENDER [employer] GASKET Inhaled Oxygen Concentration - - Weight 136.4 kg (300 lb 12.8 oz) 07/11/2020 3:21 PM MIXING MACHINE TENDER [employer] G[employer]ET Height 188 cm (6' 2 ) 07/11/2020 3:21 PM MIXING MACHINE TENDER [employer]ET Body Mass Index 38.62 07/11/2020 3:21 PM MIXING MACHINE TENDER [employer]ET Plan of Treatment Health Maintenance Due Date Last Done Comments DTAP/TDAP/TD VACCINES (2 - Tdap) 06/14/1996 06/13/18 97 HEPATITIS B VACCINES (1 of 3 - 19+ 3-dose series) 03/19 HPV VACCINES (1 - 3-dose SCDM series) 2008 INFLUENZA VACCINE (#1) 2024 Insurance [facility]
--- OUTSIDE RECORDS SUMMARY | 2025-04-09 16:11 | XMS_ITS | Clinical Summary ---
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 Role Phone Unavailable Primary Care Provider Unavailabl e Allergies Active Allergy Reactions Criticality Noted Date Comments Oxycodone-Acetaminophe n Other/Unknown (See Comments) 04/09/2021 Inability to sleep Ticagrelor Shortness Of Breath High 07/30/2021 Medications amLODIPine (NORVASC) 10 MG tablet Take 1 tablet (10 mg) by mouth daily Active atorvaSTATin (LIPITOR) 20 MG tablet Take 2 tablets (40 mg) by mouth at bedtime Active carvedilol (COREG) 3.125 MG tablet Take 2 tablets (6.25 mg) by mouth 2 times daily Active lisinopril (ZESTRIL) 40 MG tablet Take 1 tablet every day by oral route for 90 days. 06/01/2023 Active nitroGLYCERIN (NITROSTAT) 0.[address] 1 tablet (0.4 mg) under the tongue every 5 minutes as needed for Chest pain Do not exceed a total of 3 doses in 15 minutes. Active clopidogrel (PLAVIX) 75 MG tablet Take 1 tablet (75 mg) by mouth daily Active aspirin 81 MG chewable tablet Take 1 tablet (81 mg) by mouth daily Active esomeprazole (NEXIUM) 20 MG capsule Take 1 capsule (20 mg) by mouth 2 times daily Active aspirin EC (HALFPRIN) 81 MG tablet Take 1 tablet (81 mg) by mouth daily Active isosorbide mononitrate (IMDUR) 30 MG CR tablet Take 1 tablet (30 mg) by mouth daily 02/08/2024 Active Encounters Date Type Department Care Team Description 03/30/2025 7:10 AM YOUTH MINISTER Office Visit [facility] [address] [address] Wellness examination (Primary Dx) 03/27/2025 1:00 PM YOUTH MINISTER Telemedicine [facility] [address] [address] Laura Rosado NP Insect bite of scalp, initial encounter (Primary Dx); Enlarged lymph node in neck; Elevated blood pressure reading in office with diagnosis of hypertension from Last 3 Months Social History Tobacco Use Types Packs/Day Years Used Date Smoking Tobacco: Former Cigarettes Smokeless Tobacco: Never Tobacco Cessation:Counseling Given: Not Answered Sex and Gender Information Value Date Recorded Sex Assigned at Not on file Legal Sex Male 11:37 AM YOUTH MINISTER Gender Identity Not on file Sexual Orientation Not on file Last Filed Vital Signs Vital Sign Reading Time Taken Comments Blood Pressure 148/86 03/30/2025 7:47 AM YOUTH MINISTER Pulse 76 03/27/2025 1:05 PM YOUTH MINISTER Temperature 37.2 C (98.9 F) 03/27/2025 1:05 PM YOUTH MINISTER Respiratory Rate 20 03/27/2025 1:05 PM YOUTH MINISTER Oxygen Saturation 98% 03/27/2025 1:05 PM YOUTH MINISTER Inhaled Oxygen Concentration - - Weight 136.1 kg (300 lb) 03/30/2025 7:47 AM YOUTH MINISTER Height 185.4 cm (6' 1 ) 03/30/2025 7:47 AM YOUTH MINISTER Body Mass Index 39.58 03/30/2025 7:47 AM YOUTH MINISTER Plan of Treatment Health Maintenance Due Date Last Done Comments HIV Screening 1980 Hepatitis C Screening ages 1 8 to 79 once 1981 MMR VACCINES (1 of 1 - Standard series) 1982 YEARLY WELLNESS EXAM 1984 DEPRESSION SCREENING 1993 Varicella Vaccine (1 of 2 - 13+ 2-dose series) 1994 HPV VACCINES (1 - Male 3-dos e series) 1996 BMI Above/Below Normal Parameters 1999 HEPATITIS B VACCINES (1 of 3 - 19+ 3-dose series) 2000 ADULT TETANUS 05/03/2023 05/03/2013, 06/13/1996 Influenza Vaccine 12/16/2024 COVID-19 Immunization () 01/16/2025 LIPID TESTING 03/31/2026 03/31/2025 Zoster Vaccine (Recombinant Vaccine) (1 of 2) 2031 HEPATITIS A VACCINES Aged Out No long er eligible based on patient's age to complete this topic HIB VACCINES Aged Out No longer eligi ble based on patient's age to complete this topic IPV VACCINES Aged Out No longer eligi ble based on patient's age to complete this topic MENINGOCOCCAL VACCINE Aged Out No janie shelbi eligible based on patient's age to complete this topic Meningococcal B Vaccine Aged Out No l onger eligible based on patient's age to complete this topic Pneumococcal Vaccine: Peds t o 50 & At-Risk Patients Aged Out No longer eligible based on patient's age to complete this topic ROTAVIRUS VACCINES Aged Out No longer eligible based on patient's age to complete this topic Procedures Procedure Name Priority Date/Time Associated Diagnosis Comments LIPID PROFILE Routine 03/31/2025 11:37 AM YOUTH MINISTER Wellness examination HEMOGLOBIN A1C Routine 03/31/2025 11:37 AM YOUTH MINISTER Wellness examination URIC ACID Routine 03/31/2025 11:37 AM YOUTH MINISTER Wellness examination COMPREHENSIVE METABOLIC PANEL Routine 03/31/2025 11:37 AM YOUTH MINISTER Wellness examination from Last 3 Months Results * URIC ACID (03/31/2025 11:37 AM YOUTH MINISTER) Blood Isela Dsouza CLIMBING GUIDE CHEMISTRY ORDERABLES Final Result Performing Organization Address [facility]/ZIP Co de Phone Number [facility] [address] [place] [address] * HEMOGLOBIN A1C (03/31/2025 11:37 AM YOUTH MINISTER) Blood Isela Dsouza CLIMBING GUIDE CHEMISTRY ORDERABLES Final Result Performing Organization Address [facility]/ZIP Co de Phone Number [facility] [address] [place] [address] * LIPID PROFILE (03/31/2025 11:37 AM YOUTH MINISTER) Blood Isela Dsouza NP CHEMISTRY ORDERABLES Final Result Performing Organization Address City/[facility]/ZIP Co de Phone Number [facility] [address] [phone] * COMPREHENSIVE METABOLIC PANEL (03/31/2025 11:37 AM YOUTH MINISTER) Blood Isela Dsouza NP CHEMISTRY ORDERABLES Final Result Performing Organization Address [facility] Co de Phone Number [facility] [address] [phone] from Last 3 Months Insurance [employer]
--- NOTE | 2025-04-09 16:12 | ECG_ITS ---
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 Measurements Intervals Stewart Rate: 80 P: 48 [place]: 141 QRS: 42 QRSD: 105 T: 35 QT: 355 QTc: 410 Interpretive Statements SINUS RHYTHM POSSIBLE LEFT ATRIAL ENLARGEMENT [-0.1mV P-WAVE IN V1/V2] POSSIBLE ANTERIOR MYOCARDIAL INFARCTION , OF INDETERMINATE AGE [30 ms Q WAVE IN V3/V4, OR R < 0.2 mV IN V4] INTERPRETATION BASED ON A DEFAULT AGE OF 40 YEARS Compared to ECG 07/11/2024 15:08:26 No significant changes Electronically Signed On 04-09-2025 17:13:56 TUFTER HAND by Chance Velasquez M.D. [email or web address]
--- NOTE | 2025-04-09 16:17 | XRR_ITS ---
PROCEDURE INFORMATION: Exam: XR Chest Exam date and time: 04/09/2025 4:34 PM Age: 45 years old Clinical indication: Pain; Other: Epigastric; Prior surgery; Surgery date: 6+ months; Surgery type: Cardiac stent x 4; Additional info: Epigastric pain TECHNIQUE: Imaging protocol: Radiologic exam of the chest. Views: 1 view. COMPARISON: CR XR chest 1V portable [id number] 07/11/2024 10:44 AM FINDINGS: Lungs: Unremarkable. No consolidation. Pleural spaces: Unremarkable. No pleural effusion. No pneumothorax. Heart/Mediastinum: Cardiac silhouette is prominent. Coronary stent. Bones/joints: Unremarkable. XR/XR chest 1V portable [id number] IMPRESSION: No acute findings.
--- NOTE | 2025-04-09 16:25 | ED_ITS ---
HPI - Abdominal Pain 2 General: Chief Complaint: Abdominal Pain Stated Complaint: RT side abd pain / chest pain Source: patient and family Mode of arrival: ambulatory Limitations: no limitations History of Present Illness: Patient is a 45-year-old male presents to ED today with a complaint of intermittent right upper quadrant abdominal pain over the past several months. Patient feels like he wakes up feeling pretty good but states he will later developed pain throughout the day. Patient does not feel like pain is associated with eating. He was recently diagnosed with alpha gal so has been on a good diet recently. He does have a chronic history of acid reflux and takes pantoprazole for this. There has been discussion of possibly obtaining an EGD regarding this if symptoms do not improve. He has had ultrasound imaging as well as a CT scan several months ago due to symptoms but these were unremarkable. Patient states the pain does make him feel nauseous and sometimes will make him feel fatigued. He has noticed alternating diarrhea/constipation stools. MD elicited complaint: abdominal pain Pertinent past history: other (cardiac issues) Onset (ago): month(s) Pain Consistency: intermittent Location: RUQ Severity: moderate Radiation: none Migration to: no migration Exacerbating factors: nothing Relieving factors: nothing Associated Symptoms: Reports constipation, diarrhea and nausea; Denies chills, GI cramping, dysuria, fever(s), hematochezia, hematuria, hematemesis, melena, syncope and vomiting Related Data Home Medications ?Medication ?Instructions ?Recorded ?Confirmed lisinopril 40 mg tablet 40 mg PO DAILY 12/15/2312/16 atorvastatin 40 mg tablet 40 mg PO DAILY 03/22/2412/16 vonoprazan 10 mg tablet 10 mg PO DAILY 12/30/2412/16 Previous Rx's ?Medication ?Instructions ?Recorded aspirin 81 mg tablet,delayed 81 mg PO DAILY #90 tabs 1 07/04/20 release nitroglycerin 0.4 mg sublingual 0.4 mg sublingual Q5M PRN chest 08/02/24 tablet pain #25 tabs amlodipine 5 mg tablet 5 mg PO DAILY #60 tabs 09/27 carvedilol 6.25 mg tablet See Rx Instructions .Route 0 11/18/24 .COMPLEX #60 tabs clopidogrel 75 mg tablet See Rx Instructions .Route 0 9/16/25 .COMPLEX #90 tabs Allergies Allergy/AdvReac Type Severity Reaction Status Date / Time ticagrelor (From Brilinta) Allergy Intermediate ALGY-Difficulty Verified 04/09/25 16:20 Breathing Alpha-Gal Allergy Unknown Unknown Verified 04/09/25 16:20 (Ouqenafxs-Emhes-9,3-Gala Review of Systems 2 Const: Denies: fever(s), chills, body aches, fatigue or malaise Card: Denies: chest pain, lightheadedness, syncope, pre-syncope, dyspnea on exertion or orthopnea Resp: Denies: dyspnea GI: Reports: abdominal pain, nausea, diarrhea and constipation; Denies: vomiting, hematemesis, GI cramping, hematochezia or melena : Denies: flank pain, dysuria or hematuria Musc: Denies: neck pain, back pain, extremity pain, extremity swelling, joint pain, joint swelling or joint redness Skin/Breast: Denies: rash Neuro: Denies: headache(s), numbness in extremities, weakness in extremities or sensory changes PFSH ED 2 PFSH: Medical History History of cardiovascular stress test 03/09 showed evidence of prior NH in distribution of LAD Congenital single kidney History of echocardiogram 02/2023, EF 50-55%; 11/2023 EF 64%, mild hypokinesis of basal inferolateral segment CAD (coronary artery disease) Hyperlipidemia LDL goal <70 Atherosclerosis of coronary artery Hypertension goal BP (blood pressure) < 140/80 STEMI (ST elevation myocardial infarction) (04/2021) Surgical History History of cardiac catheterization 04/2021 PCI with mid LAD stent, 11/2023 PCI with LAD stent and RCA balloon angioplasty Presence of stent in LAD coronary artery Family History Other CAD (coronary artery disease) Social History Smoking and tobacco/nicotine status: former use of tobacco/nicotine Quit status (tobacco/nicotine): has quit using Former quit date comment: Quit smoking November 2023, previously smoked cigarettes every day Alcohol intake: never Caregiver/support person: Yes Lives independently: Yes Housing: House Current occupational status: employed Physical Exam 2 Const: COMMON NORMALS: no acute distress, patient oriented x3, no limitations, alert and well nourished GENERAL APPEARANCE: cooperative NUTRITIONAL APPEARANCE: obese (BMI 38.7) ORIENTATION/CONSCIOUSNESS: Yes awake, Yes oriented to person, Yes oriented to place and Yes oriented to time HENMT: COMMON NORMALS: normocephalic and atraumatic HEAD & SCALP: n ormocephalic and atraumatic Eye: COMMON NORMALS: no scleral icterus Neck/C-Spine: COMMON NORMALS: full ROM, no lymphadenopathy, supple and no meningeal signs Chest: COMMONS NORMALS: normal inspection of the chest Resp: COMMON NORMALS: normal respiratory effort and clear to auscultation bilaterally AUSCULTATION: clear to auscultation bilaterally Cardio: COMMON NORMALS: regular rate and regular rhythm RATE: regular rate RHYTHM: regular rhythm GI: COMMON NORMALS: Normal to inspection, nondistended, normoactive bowel sounds present, Soft to palpation and no masses INSPECTION: Yes normal to inspection AUSCULTATION: Yes normoactive bowel sounds PALPATION: Yes Soft to palpation, Yes Tenderness to palpation present (GI) (tender throughout upper abdomen; RUQ), No Guarding due to palpation present (GI) and No Rigid due to palpation : COMMON NORMALS: Yes no CVA tenderness BLADDER/KIDNEY EXAM: Yes no CVA tenderness Back/Pelvis: COMMON NORMALS: no CVA tenderness and thoracic and lumbar spine normal to inspection Extremity: COMMON NORMALS: normal to inspection, no clubbing, cyanosis or edema, no calf tenderness and no pedal edema GENERAL: Yes normal exam except as noted Neuro: BOB COMA SCALE: document GCS findings Bob coma scale eye opening: Spontaneous Bob coma scale verbal response: Orientated Bob coma scale motor response: Obey commands [place] coma scale total score: 15 COMMON NORMALS: patient oriented x3, moves all extremities, no sensory deficits noted and gait normal SENSORIUM/ORIENTATION: Yes alert, Yes oriented to person, Yes oriented to place and Yes oriented to time MENINGEAL SIGNS: Yes no meningeal signs Skin: COMMON NORMALS: no rashes or lesions noted GENERAL SKIN EXAM: no rashes or lesions noted Course 2 Vital Signs: Vital signs: Vital Signs Temperature 98.2 F 04/09/25 16:07 Pulse Rate 74 04/09/25 16:07 Blood Pressure 142/87 04/09/25 16:07 Pulse Oximetry 98 04/09/25 16:07 Oxygen Delivery Me thod Room Air 04/09/25 16:07 MDM - Abdominal Pain Medical Decision Making Patient is a nice 45-year-old male with a complaint of intermittent right upper quadrant pain over the past several months. Patient clinically appears in no acute distress. Vital signs are stable. He has had outpatient ultrasound and CT imaging of his abdomen several months ago that were unremarkable. He does have a chronic history of acid reflux and takes pantoprazole. Blood work today showing a normal white count. He has normal LFTs including T. bili and lipase. Did not elect to repeat CT imaging today. US gallbladder was obtained and spoke to US Pabol following this. She felt like gallbladder was contracted secondary to him eating recently. She did not see any evidence of acute cholecystitis. No obvious CBD dilatation. At this point I think it is reasonable to have him follow-up with general surgery for further evaluation which could include HIDA scan. They can also evaluate him further regarding his chronic acid reflux. Did discuss that symptoms could be secondary to this/gastritis among others. I feel he is stable for discharge from the emergency department today. Returning precautions discussed. Differential Diagnosis Likely abdominal pain Medical Records I reviewed the patient's medical records. Lab Data I reviewed the patient's lab results. 04/09/25 16:45 04/09/25 16:45 Labs/Radiology: Radiology Impressions Chest X-Ray 04/09/25 16:17 IMPRESSION: No acute findings. Gallbladder Ultrasound 04/09/25 16:44 IMPRESSION: Borderline biliary dilatation. Gallbladder is contracted with sludge. Hepatic steatosis. Laboratory Results WBC 10.10 10^3/uL (3.29-11.43) 04/09/25 16:45 RBC 5.40 10^6/uL (3.85-5.65) 04/09/25 16:45 Hgb 16.80 g/dL (11.27-16.99) 04/09/25 16:45 Hct 47.2 % (37-53) 04/09/25 16:45 MCV 87.4 fl (82-101) 04/09/25 16:45 MCH 31.1 pg (27-33) 04/09/25 16:45 MCHC 35.6 g/dL (30-55) 04/09/25 16:45 RDW 12.7 % (12.1-15.1) 04/09/25 16:45 Plt Count 224 10^3/cmm (157-399) 04/09/25 16:45 MPV 10.1 fL (7.4-10.4) 04/09/25 16:45 Neut % (Auto) 71.6 % 04/09/25 16:45 Lymph % (Auto) 19.8 % 04/09/25 16:45 [place] % (Auto) 5.0 % 04/09/25 16:45 Eos % (Auto) 2.1 % 04/09/25 16:45 Baso % (Auto) 0.8 % 04/09/25 16:45 Neut # (Auto) 7.24 10^3/uL (1.8-7.7) 04/09/25 16:45 Lymph # (Auto) 2.0 10^3/uL (0.8-4.8) 04/09/25 16:45 [place] # (Auto) 0.5 10^3/uL (0.2-0.9) 04/09/25 16:45 Eos # (Auto) 0.2 10^3/uL (0.0-0.8) 04/09/25 16:45 Baso # (Auto) 0.1 10^3/uL (0.0-0.1) 04/09/25 16:45 Nucleated RBC % (auto) 0 % 04/09/25 16:45 Nucleated RBCs # 0.0 /100WBC 04/09/25 16:45 Sodium 139 mmol/L (136-145) 04/09/25 16:45 Potassium 4.1 mmol/L (3.5-5.1) 04/09/25 16:45 Chloride 104 mmol/L (98-107) 04/09/25 16:45 Carbon Dioxide 21 mmol/L (22-29) L 04/09/25 16:45 Anion Gap 18.1 (5-19) 04/09/25 16:45 BUN 13 mg/dL (6-20) 04/09/25 16:45 Creatinine 1.0 mg/dL (0.7-1.2) 04/09/25 16:45 GFR Calculation 81.2 mL/min (90-130) L 04/09/25 16:45 Glucose 149 mg/dL (65-115) H 04/09/25 16:45 Calculated Osmolality 291 mOsm/kg (285-295) 04/09/25 16:45 Calcium 9.3 mg/dL (8.5-10.5) 04/09/25 16:45 Total Bilirubin 0.6 mg/dL (0.15-1.2) 04/09/25 16:45 AST 19 U/L (0-40) 04/09/25 16:45 ALT 22 U/L (0-41) 04/09/25 16:45 Alkaline Phosphatase 54 U/L (40-130) 04/09/25 16:45 Troponin T Baseline 9 ng/L (0-15) 04/09/25 16:45 Total Protein 7.4 g/dL (6.6-8.7) 04/09/25 16:45 Albumin 4.6 g/dL (3.5-5.2) 04/09/25 16:45 Globulin 2.8 g/dL (1.3-4.6) 04/09/25 16:45 Lipase 54 U/L (13-60) 04/09/25 16:45 Urine Color Yellow (Yellow) 04/09/25 16:45 Urine Appearance Clear (CLEAR) 04/09/25 16:45 Urine pH 5.5 (5-7) 04/09/25 16:45 Ur Specific Onset 1.007 (1.005-1.030) 04/09/25 16:45 Urine Protein Negative (Negative) 04/09/25 16:45 Urine Glucose (UA) Negative (Normal) 04/09/25 16:45 Urine Ketones Negative (Negative) 04/09/25 16:45 Urine Blood Negative (Negative) 04/09/25 16:45 Urine Nitrate Negative (Negative) 04/09/25 16:45 Urine Bilirubin Negative (Negative) 04/09/25 16:45 Urine Urobilinogen 0.2 mg/dL (Negative) 04/09/25 16:45 Ur Leukocyte Esterase Negative (Negative) 04/09/25 16:45 Urine RBC 0-2 /hpf (0-2) 04/09/25 16:45 Urine WBC 0-5 /hpf (0-5) 04/09/25 16:45 Ur Squamous Epith Cells 0-5 /hpf (0-5) 04/09/25 16:45 Amorphous Sediment Not Reportable 04/09/25 16:45 Urine Bacteria None seen /hpf (NONE) 04/09/25 16:45 Hyaline Casts 0.40 /lpf 04/09/25 16:45 XR interpretation done by ED provider, pending radiology final review (spoke to [facility]) Discharge Plan Discharge Patient Disposition: Home Clinical Impression: Intermittent right upper quadrant abdominal pain Condition: Stable Prescriptions: No Action atorvastatin 40 mg tablet 40 mg PO DAILY Dose Instruction: TAKE ONE HALF (1/2) TABLET BY MOUTH AT BEDTIME amlodipine 5 mg tablet 5 mg PO DAILY Qty: 60 0RF vonoprazan 10 mg tablet 10 mg PO DAILY nitroglycerin 0.4 mg tablet, sublingual 0.4 mg sublingual Q5M PRN (Reason: chest pain) Qty: 25 0RF carvedilol 6.25 mg tablet See Rx Instructions .ROUTE .COMPLEX Qty: 60 5RF Dose Instruction: TAKE ONE TABLET BY MOUTH TWICE DAILY FOR 30 DAYS; MUST ADMINISTER WITH A MEAL/FOOD Rx Instructions: TAKE ONE TABLET BY MOUTH TWICE DAILY FOR 30 DAYS; MUST ADMINISTER WITH A MEAL/FOOD clopidogrel 75 mg tablet See Rx Instructions .ROUTE .COMPLEX Qty: 90 3RF Dose Instruction: TAKE ONE TABLET BY MOUTH DAILY Rx Instructions: TAKE ONE TABLET BY MOUTH DAILY aspirin 81 mg Tablet,Delayed Release (Dr/Ec) 81 mg PO DAILY Qty: 90 3RF lisinopril 40 mg Tablet 40 mg PO DAILY Discharge Orders: Discharge ED (Routine); Ordered 04/09/25 Ordered By: Blanquita Flannery Referrals: Mitch Reynolds DO [Primary Care Provider, Family Practice] Patient Instructions: Abdominal Pain (ED), Patient Portal & Blossom Instructions Activity Restrictions/Additional Instructions: As we discussed, I think it is reasonable to have you follow-up with general surgery for further evaluation of your abdominal pain. This could include further evaluation into your chronic acid reflux/GERD including EGD. They may also evaluate gallbladder further including HIDA scan. You may also continue to follow-up with primary care as needed. You may return to the emergency department at anytime for any further concerns you may have. I hope you begin to feel better soon. Print Language: Estonian Coding Level of Care Code ED Assembler Billiard Table for Rex Marcos
--- NOTE | 2025-04-09 16:44 | USR_ITS ---
PROCEDURE INFORMATION: Exam: US Abdomen, Limited; Right Upper Quadrant Exam date and time: 04/09/2025 5:45 PM Age: 45 years old Clinical indication: Abdominal pain; Epigastric; Additional info: Ruq pain TECHNIQUE: Imaging protocol: Real time ultrasound of the abdomen with image documentation. Limited exam focused on the right upper quadrant. COMPARISON: US abdomen complete* [id number] 10/06/2024 9:58 AM FINDINGS: Liver: Hyperechoic liver. Liver measures 19.1 cm. Gallbladder: Somewhat contracted gallbladder with sludge. No cholelithiasis. Biliary ducts: CBD measures 6 mm, borderline dilated. Pancreas: Visualized pancreas is unremarkable. Right kidney: Right kidney measures 12.8 cm. No mass. No hydronephrosis. US/US gall bladder [id number] IMPRESSION: Borderline biliary dilatation. Gallbladder is contracted with sludge. Hepatic steatosis.
[2025-04-09 16:59] LABS: Hematocrit 47.2 % (37-53); Hemoglobin 16.80 g/dL (11.27-16.99); Mean Corpuscular HGB Conc 35.6 g/dL (30-55); Mean Corpuscular Hemoglobin 31.1 pg (27-33); Mean Corpuscular Volume 87.4 fl (82-101); Nucleated Red Blood Cells % 0 %; Platelet Count 224 10^3/cmm (157-399); Red Blood Count 5.40 10^6/uL (3.85-5.65); White Blood Count 10.10 10^3/uL (3.29-11.43)
[2025-04-09 17:04] LABS: Glucose Urine UA Negative (Normal); Nitrate Urine Negative (Negative); Specific Gravity, Urine 1.007 (1.005-1.030)
[2025-04-09 17:09] LABS: Add Urine Microscopic? YES
[2025-04-09 17:18] LABS: Alanine Aminotransferase 22 U/L (0-41); Albumin Level 4.6 g/dL (3.5-5.2); Alkaline Phosphatase 54 U/L (40-130); Aspartate Amino Transferase 19 U/L (0-40); Blood Urea Nitrogen 13 mg/dL (6-20); Calcium 9.3 mg/dL (8.5-10.5); Carbon Dioxide 21 mmol/L (22-29); Chloride 104 mmol/L (98-107); Globulin 2.8 g/dL (1.3-4.6); Glucose 149 mg/dL (65-115); Lipase 54 U/L (13-60); Osmolality Calculated 291 mOsm/kg (285-295); Sodium 139 mmol/L (136-145); Total Protein 7.4 g/dL (6.6-8.7)
[2025-04-09 17:19] LABS: Troponin(5th) Baseline 9 ng/L (0-15)
[2025-04-09 17:21] LABS: Anion Gap 18.1 (5-19); Potassium 4.1 mmol/L (3.5-5.1)
[2025-04-09 18:42] VITALS: BP 139/81; PULSE 84; O2SAT 94
--- NOTE | 2025-04-10 09:34 | DCPLANNER ---
messaged gen surg for er f/u
== END 2025-04-09 18:44 | disposition home or self-care (01) ==
PROVIDERS: Emergency Provider Physician Assistant; PCP Electrodiagnostic Medicine
DX: R10.11 Right upper quadrant pain (principal); K76.0 Fatty (change of) liver, not elsewhere classified; K82.0 Obstruction of gallbladder; I25.10 Atherosclerotic heart disease of native coronary artery without angina pectoris; I10 Essential (primary) hypertension; E78.5 Hyperlipidemia, unspecified; I25.2 Old myocardial infarction
CPT/HCPCS: 36415; 71045; 76705; 80053; 81001; 83690; 84484; 85025; 93005; 99285

== ENCOUNTER 2025-05-08 08:34 | Outpatient (CLI) | payer OTHER, SELFPAY ==
--- NOTE | 2025-05-08 08:45 | MR_ITS ---
WS: [id number] MRI/MRCP OF THE ABDOMEN WITHOUT GADOLINIUM ENHANCEMENT TECHNIQUE: Coronal T2 Fase BH, Axial T2 Fase BH, Axial T2 FS BH, Zxial 3D Martino BH, Axial DWI BH, 2D MRCP Radial BH, 3D MRCP (Resp), and Axial 3D Dyn BH Post sequences. CLINICAL INFORMATION: rule out common bile duct stone COMPARISON: Ultrasound 04/09/2025 FINDINGS: No intrahepatic biliary ductal dilatation. Normal common bile duct. No evidence of choledocholithiasis. Normal pancreatic duct. Absent LEFT kidney. Hepatomegaly. Fatty liver. Gallbladder is contracted. Normal portal vein and splenic vein. Normal pancreas. Tiny esophageal hiatal hernia. Adrenal glands are normal. Normal caliber upper abdominal aorta. Celiac and SMA are patent. Small RIGHT renal cyst. MR/MR MRCP [id number] Impression: No evidence of choledocholithiasis.
--- NOTE | 2025-05-08 10:00 | NM_ITS ---
WS: [id number] NUCLEAR MEDICINE HIDA SCAN WITH GALLBLADDER EJECTION FRACTION HISTORY: rule out choledocholithiasis COMPARISON: 11/29/2014, gallbladder ultrasound 04/09/2025 TECHNIQUE: The patient was intravenously injected with 8.3 mCi of TC99m Mebrofenin. Immediate imaging over the right upper quadrant was followed by 5 minute image and additional images for a total of 60 minutes. Normal uptake of radiotracer throughout the liver. Activity identified in the gallbladder at 20 minutes and only minimally distended at 60 minutes. Activity in the proximal small bowel was seen by 30 minutes. Adequate washout of the radiotracer from the liver by 60 minutes. The patient then drank 8 ounces of Ensure Plus. Ejection fraction at 60 minutes was 20%. Normal GB ejection fraction is 35-75%. Post fatty meal symptoms: None. NM/NM hepatobiliary w phar* [id number] IMPRESSION: 1. No common bile duct obstruction. 2. Abnormal gallbladder ejection fraction and poorly distended gallbladder. Ga llbladder dysfunction suspected. This may be chronic cholecystitis. 3. There is a slightly more retained radiotracer within the liver at 60 minute s and normally seen. Consider mild hepatocyte dysfunction as a possible etiolog y.
== END 2025-05-08 08:35 | disposition home or self-care (01) ==
LOC: RAD 08:36
PROVIDERS: PCP Electrodiagnostic Medicine; Visit Provider Student in an Organized Health Care Education/Training Program
DX: K80.50 Calculus of bile duct without cholangitis or cholecystitis without obstruction (principal); K82.8 Other specified diseases of gallbladder
CPT/HCPCS: 74181; 78227; A9537

== ENCOUNTER 2025-05-09 06:32 | Day surgery (SDC) | payer OTHER, SELFPAY ==
[2025-05-09 06:56] VITALS: BP 177/112; PULSE 72; RESP 16; TEMP 36.4; O2SAT 96; BMI 38.9
--- NOTE | 2025-05-09 07:16 | ANES.PREANE2 ---
Pre-Anesthetic Assessment Height/Weight: Height 1.85 m Weight 133.81 kg Temp Pulse Resp BP Pulse Ox O2 Del Method 97.6 F 72 16 177/112 96 Room Air 05/09/25 06:56 05/09/25 06:56 05/09/25 06:56 05/09/25 06:56 05/09/25 06:56 05/09/25 06:56 Preop Diagnosis: gerd Operation Date: 05/09/25 08:00 Proposed Procedures p EGD EGD with Biopsy [id number] R12(Not Applicable) - Maninder Rodriguez MD Familial anesthetic complications: none Was Beta Yusra taken within 24 hours: N/A Was Clonidine taken within 24 hours: N/A Last intake: Intake Last Liquid Date 05/08/25 Last Liquid Time 23:30 Last Solid Date 05/08/25 Last Solid Time 19:00 Social No tobacco social alcohol Exam alert, oriented x 3, clear to auscultation bilaterally and regular rate & rhythm diminshed Airway Submandibular: Other (TMD<3) Cervical ROM: within normal limits Mallampati: Class II Dentition: chipped Comments: Comments: full zarate History/ROS No significant history except as noted Pulmonary Sleep Apnea CV/HEM Coronary Artery Disease, Hypertension and Myocardial Infarction 4 stents, last placed 04/2024 born with only 1 kidney Hepatic None reported GI Gastroesophageal Reflux Disease Metabolic Morbid Obesity [facility] [place] None reported Anesthetic Plan ASA status: 3 Anesthesia: Anesthesia Evaluation and MAC Risk of > 500 ml blood loss (7ml/kg in children): No Medications/Allergies Home Medications ?Medication ?Instructions ?Recorded ?Confirmed ?Last Taken ?Type aspirin 81 mg tablet,delayed 81 mg PO DAILY #90 tabs 05/03/21 05/03/25 05/04/25 Rx release lisinopril 40 mg tablet 40 mg PO DAILY 12/15/23 05/03/25 05/03/25 History atorvastatin 40 mg tablet 40 mg PO DAILY 03/22/24 05/03/25 05/03/25 History nitroglycerin 0.4 mg sublingual 0.4 mg sublingual Q5M PRN chest 08/02/24 05/03/25 Unknown Rx tablet pain #25 tabs amlodipine 5 mg tablet 5 mg PO DAILY #60 tabs 09/27/24 05/03/25 05/03/25 Rx vonoprazan 10 mg tablet 10 mg PO DAILY 12/30/24 05/03/25 05/03/25 History clopidogrel 75 mg tablet See Rx Instructions .Route 01/31/25 05/03/25 05/04/25 Rx .COMPLEX #90 tabs sucralfate 100 mg/mL oral 10 ml PO Q6H 30 days #1,200 mL 04/14/25 05/03/25 05/03/25 Rx suspension carvedilol 6.25 mg tablet 6.25 mg PO BID 05/03/25 05/03/25 05/03/25 History Allergies Allergy/AdvReac Type Severity Reaction Status Date / Time ticagrelor (From Brilinta) Allergy Intermediate ALGY-Difficulty Verified 05/03/25 08:21 Breathing Alpha-Gal Allergy Unknown Unknown Verified 05/03/25 08:21 (Iseoqfadm-Xxqnp-9,3-Gala Current Medications Generic Name Dose Route Start Last Admin Trade Name Freq PRN Reason Stop Dose Admin Sodium Chloride 1,000 mls @ 15 mls/hr 05/09/25 06:39 05/09/25 07:05 Sodium Chloride 0.9% IV 05/10/25 06:38 15 mls/hr .Q24H PRN Administration COLONOSCOPY FLUIDS PFSH Anesthesia Medical History (Updated 04/17/25 @ 00:00 by JANE Porter) History of cardiovascular stress test 03/09 showed 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 Congenital single kidney History of echocardiogram 02/2023, EF 50-55%; 11/2023 EF 64%, mild hypokinesis of basal inferolateral segment CAD (coronary artery disease) Hyperlipidemia LDL goal <70 Atherosclerosis of coronary artery Hypertension goal BP (blood pressure) < 140/80 STEMI (ST elevation myocardial infarction) (04/2021) Surgical History History of cardiac catheterization 04/2021 PCI with mid LAD stent, 11/2023 PCI with LAD stent and RCA balloon angioplasty Presence of stent in LAD coronary artery Family History Other CAD (coronary artery disease) Social History Smoking and tobacco/nicotine status: former use of tobacco/nicotine Quit status (tobacco/nicotine): has quit using Former quit date comment: Quit smoking November 2023, previously smoked cigarettes every day Alcohol intake: never Caregiver/support person: Yes Lives independently: Yes Housing: House Current occupational status: employed Data Anesthesia Cardiac Studies: Echocardiogram 07/11/24 Echocardiogram Limited Views 12/10/23 Sestamibi Stress Test (Cardiology) 07/13/24 Holter Monitor 12/28/23
--- NOTE | 2025-05-09 07:39 | W.PM.OPSUD ---
Surgery/Procedure H&P Update DATE OF PROCEDURE: May 09, 2025 DATE H&P PERFORMED: 04/14/25 H&P UPDATE INFORMATION: I have reviewed H&P completed within last 30 days, I have examined patient prior to procedure, No changes to prior documentation and Risks and benefits of the procedure reviewed PREOP DIAGNOSIS: gerd PLANNED PROCEDURE: Operation Date: 05/09/25 08:00 Proposed Procedures p EGD EGD with Biopsy [id number] R12(Not Applicable) - Maninder Rodriguez MD
[2025-05-09 07:53] VITALS: BP 161/94; PULSE 76; RESP 16; TEMP 36.3; O2SAT 94
[2025-05-09 08:03] VITALS: BP 138/92; PULSE 71; RESP 16; O2SAT 94
--- NOTE | 2025-05-09 08:23 | ANE.PACU2 ---
Inpatient post-anesthesia follow up: Airway intact: Yes Vital signs: Temperature 97.4 F Pulse Rate 71 Respiratory Rate 16 Blood Pressure 138/92 Pulse Oximetry 94 Oxygen Delivery Me thod Room Air Oxygen Flow Rate Fraction of Inspir ed Oxygen Hydration adequate: Yes Nausea and vomiting: No Pain level: 1 Mental status: Baseline
== END 2025-05-09 08:23 | disposition home or self-care (01) ==
PROVIDERS: PCP Electrodiagnostic Medicine; Visit Provider Student in an Organized Health Care Education/Training Program
PROC: 0DJ08ZZ Inspection of Upper Intestinal Tract, Via Natural or Artificial Opening Endoscopic (ICD-10-PCS; principal; 2025-05-09 08:00)
DX: R12 Heartburn (principal); K21.9 Gastro-esophageal reflux disease without esophagitis; K29.70 Gastritis, unspecified, without bleeding; I25.10 Atherosclerotic heart disease of native coronary artery without angina pectoris; Z95.5 Presence of coronary angioplasty implant and graft; I10 Essential (primary) hypertension; I25.2 Old myocardial infarction; E66.01 Morbid (severe) obesity due to excess calories; Z68.38 Body mass index [BMI] 38.0-38.9, adult; Z79.82 Long term (current) use of aspirin; Z79.02 Long term (current) use of antithrombotics/antiplatelets; Z91.014 Allergy to mammalian meats; Z87.891 Personal history of nicotine dependence; Q60.0 Renal agenesis, unilateral
CPT/HCPCS: 43239; 88305; J3490; J7030; J9999